=== PATIENT | female | born 1995 | race Caucasian/White ===

== ENCOUNTER → 2025-01-13 | Outpatient (CLI) | payer OTHER, SELFPAY ==
[2025-01-16 19:08] LABS: Chlamydia By Nucleic Acid AMP Negative (Negative); Gonococcus By Nucleic Acid AMP Negative (Negative)
== END | disposition home or self-care (01) ==
LOC: LABSPEC 15:41
PROVIDERS: PCP Family Medicine; Referring Provider Advanced Practice Midwife; Visit Provider Advanced Practice Midwife
DX: Z34.00 Encounter for supervision of normal first pregnancy, unspecified trimester (principal)
CPT/HCPCS: 87086; 87491; 87591

== ENCOUNTER → 2025-02-02 | Outpatient (CLI) | payer OTHER, SELFPAY ==
[2025-02-02 12:18] LABS: Absolute Lymphocyte Count 1.51 X10^3/uL (0.83-4.51); Absolute Neutrophil Count 4.3 X10^3/uL (2.0-7.7); Basophil# 0.02 X10^3/uL; Basophil% 0.3 % (0-1); Eosinophils% 4.6 % (0-5); Hematocrit 35.3 % (37-47); Hemoglobin 12.1 g/dL (12.0-15.0); Lymphocyte # 1.51 X10^3/ul (0.83-4.51); Lymphocyte % 23.1 % (19-41); Mean Corp Hgb Conc 34.3 g/dL (32-36); Mean Corpuscular Hgb 30.3 pg (27.0-32.0); Mean Corpuscular Volume 88.5 fL (81-99); Mean Platelet Vol. 11.1 fl (6.2-12.0); Monocyte% 6.1 % (0-10); NRBC Flagged by Analyzer 0 % (0-5); Neutrophil # 4.28 X10^3/uL (2.7-7.7); Neutrophil % 65.6 % (47-70); Platelet Count 242 K/mm3 (150-450); RBC Distribution Width CV 12.4 % (11.6-14.6); RBC Distribution Width SD 39.9 fl (35.1-43.9); Red Blood Count 3.99 M/mm3 (4.2-5.4); White Blood Count 6.5 K/mm3 (4.4-11.0)
[2025-02-02 13:26] LABS: HIV Nonreactive (Nonreactive); Hepatitis B Surface Antigen Nonreactive (Nonreactive); Hepatitis C Antibody Nonreactive (Nonreactive); Rubella IgG REAC (Nonreactive); Syphilis Antibodies Nonreactive (Nonreactive)
== END | disposition home or self-care (01) ==
LOC: BWCLAB 09:38
PROVIDERS: PCP Family Medicine; Referring Provider Advanced Practice Midwife; Visit Provider Advanced Practice Midwife
DX: Z34.00 Encounter for supervision of normal first pregnancy, unspecified trimester (principal)
CPT/HCPCS: 36415; 85025; 86703; 86762; 86780; 86803; 86850; 86900; 86901; 87340

== ENCOUNTER → 2025-02-17 | Outpatient (CLI) | payer OTHER, SELFPAY | END | disposition home or self-care (01) | LOC: BWCLAB 10:08 | PROVIDERS: PCP Family Medicine; Referring Provider Advanced Practice Midwife; Visit Provider Advanced Practice Midwife | DX: Z34.01 Encounter for supervision of normal first pregnancy, first trimester (principal) | CPT/HCPCS: 36415 ==

== ENCOUNTER → 2025-06-05 | Outpatient (CLI) | payer OTHER, SELFPAY ==
[2025-06-05 17:08] LABS: Hematocrit 34.5 % (37-47); Hemoglobin 11.7 g/dL (12.0-15.0); Immature Granulocytes Count 0.040 X10^3/uL (0.0-0.0); Mean Corp Hgb Conc 33.9 g/dL (32-36); Mean Corpuscular Volume 89.8 fL (81-99); Mean Platelet Vol. 11.3 fl (6.2-12.0); NRBC Flagged by Analyzer 0 % (0-5); Platelet Count 238 K/mm3 (150-450); RBC Distribution Width CV 13.0 % (11.6-14.6); RBC Distribution Width SD 42.2 fl (35.1-43.9); Red Blood Count 3.84 M/mm3 (4.2-5.4); White Blood Count 9.4 K/mm3 (4.4-11.0)
[2025-06-05 18:05] LABS: Glucose Challenge Gest 1H 50g 142 mg/dL (70-140); HIV Nonreactive (Nonreactive); Syphilis Antibodies Nonreactive (Nonreactive)
== END | disposition home or self-care (01) ==
PROVIDERS: PCP Family Medicine; Visit Provider Nurse Practitioner Women's Health
DX: O26.892 Other specified pregnancy related conditions, second trimester (principal); Z67.91 Unspecified blood type, Rh negative; Z3A.00 Weeks of gestation of pregnancy not specified
CPT/HCPCS: 36415; 82950; 85025; 86703; 86780; 86850; 86900; 86901

== ENCOUNTER → 2025-06-15 | Outpatient (CLI) | payer OTHER, SELFPAY ==
--- OUTSIDE RECORDS SUMMARY | 2025-06-15 06:59 | XMS RPT_ITS | CCD ---
Author Organization [facility] Care Team Providers Care Classroom Technology Coach Name Role Phone Laura Nina MD Primary Care Provider LAURA NINA Primary Care Unavailable CAROL SHELBY Attending Unavailable LAURA NINA Primary Care Unavailable Amrit ROTHMAN, Dr. Laura Michel Primary Care Provider Dr. Laura Nina MD Referring Provider Monika Cui CNM Attending Provider Monika Cui CNM Referring Provider Dr. Tanisha Pena MD Attending Provider [phone] JOSE ALBERTO PRADO Attending Unavailable TANISHA PENA Referring UnavailLAURA Mosquera Primary Care Unavailable Dr. Joie Bonner DO Attending Provider Flores REHMAN-Jasmine Renee Attending Provider Dr. Laura Nina MD Primary Care Provider Dr. Laura Nina MD Referring Provider Monika Cui CNM Attending Provider Monika Cui CNM Referring Provider [phone] Monika Cui Attending Unavailable Laura Nina Primary Care Unavailable NinaLaura Referring Unavailable NinaLaura Primary Care Unavailable Tanisha Pena Attending Unavailable Laura Nina Referring Unavailable Laura Nina Primary Care Unavailable Joie Bonner Attending Unavailabl e NinaLaura Referring Unavailable Nina, Laura Marilu Primary Care Unavailable Flores SHERIFF DEPUTYJasmine Attending Unavailable Laura Nina Referring Unavailable NinaLaura Primary Care Unavailable Monika Cui Referring Unavailable Monika Cui Attending Unavailable Care Physician, No Primary Primary Care Unava ilable Flores SHERIFF DEPUTY, Jasmine Attending Unavailable Bath SHERIFF DEPUTY, Jasmine Referring Unavailable Flores SHERIFF DEPUTYJasmine Attending Unavailable Laura Nina Primary Care Unavailable Monika Cui Referring Unavailable Laura Nina Primary Care Unavailable Monika Cui Attending Unavailable Monika Cui Referring Unavailable Laura Nina Primary Care Unavailable Monika Cui Attending Unavailable Laura Nina K Primary Care Unavailable Flores REHMAN, Jasmine Attending Unavailable Laura Nina K Referring Unavailable Monika Cui Attending Unavailable Laura Nina Referring Unavailable NinaLaura K Primary Care Unavailable Allergies Allergy Classification Reported Allergen(s) Allergy Type Date of Onset Reaction(s) Facility Pollen (1 source) Grass pollen Substance Allergy 8 Intolerance [facility] Work Phone: Thiopental (1 source) Thiopental Drug Allergy 3 Other: See Comments [facility] (12 sources) Grass pollen; Translations: [GRASS POLLEN] Drug Intolerance 8 Intolerance [facility] Work Phone: Comment on above: Reaction Itchy eye, sneezing, itchy throat, slight facial swelling (11 sources) Thiopental; Translations: [THIOPENTAL] Drug Allergy 3 Other: See Comments [facility] Comment on above: Reaction Itchy eye, sneezing, itchy throat, slight facial swelling (6 sources) tea tree Allergy to substance 5 Swelling [facility] (1 source) Thiopental Drug Allergy 5 [facility] Repository (1 source) tea tree Drug allergy (disorder) 5 [facility] Repository Medications Current Medications Medication Drug Class(es) Dates Sig (Normalized) Sig (Original) amoxicillin 875 mg / clavulanate 125 mg oral tablet (2 sources) Penicillin-class Antibacterial Start: 05-20-2024 End: 05-30-2024 take 1 tablet by mouth twice daily amoxicillin-clavula sylvia potassium (AUGMENTIN) 875-125 mg per tablet Indications: Dog bite, initial encounter Take 1 tablet by mouth two times a day for 10 days. 20 tablet 0 05/20/2024 05/30/2024 Active Ethinyl Estradiol / norgestimate (6 sources) Progestin, Estrogen Start: 07-18-2022 End: 05-30-2024 take 1 tablet by mouth once daily norgestimate 0.25 mg-ethinyl estradiol 35 mcg (SPRINTEC) 0.25-35 mg-mcg per tablet Indications: Surveillance for control, oral contraceptives Take 1 tablet by mouth once daily. 84 tablet 4 07/18/2022 05/30/2024 Discontinued (Other) Start: 07-18-2022 take 1 tablet by howard th once daily norgestimate 0.25 mg-ethinyl estradiol 35 mcg (SPRINTEC) 0.25-35 mg-mcg per tablet Indications: Surveillance for control, oral contraceptives Take 1 tablet by mouth once daily. 84 tablet 4 07/18/2022 Active Start: 07-09-2021 End: 07-18-2022 take 1 tablet by mouth once daily norgestimate 0.25 mg-ethinyl estradiol 35 mcg (SPRINTEC) 0.25-35 mg-mcg per tablet Indications: Surveillance for control, oral contraceptives Take 1 tablet by mouth once daily. 3 Package 4 07/09/2021 07/18/2022 Discontinued Comment on above: Take 1 tablet by howard th once daily. fluconazole 150 mg oral tablet (4 sources) Azole Antifungal Start: 07-21-20 End: 05-30-20 fluconazole (DIFLUCAN) 150 mg tablet Take 1 tablet today, then a 2nd tablet in 72 hours, and 3rd tablet in another 72 hours. 3 tablet 0 07/21/2022 05/30/2024 Discontinued (Other) Comment on above: Take 1 tablet today, then a 2nd tablet in 72 hours, and 3rd tablet in another 72 hours. fluticasone propionate 0.05 mg/actuat metered dose nasal spray (5 sources) Corticosteroid Start: 04-09-20 take 1 spray(s) nasal route twice daily fluticasone (FLONASE) 50 mcg/actuation nasal spray Use 1 [place] in each nostril two times a day. 0 04/09/2022 Active Comment on above: Use 1 [place] in each nostril twice daily. metroNIDAZOLE 500 mg oral tablet (1 source) Nitroimidazole Antimicrobial Start: 07-21-20 End: 07-28-20 take 1 tablet by mouth twice daily metroNIDAZOLE (FLAGYL) 500 mg tablet Take 1 tablet by mouth twice daily for 7 days. 14 tablet 0 07/21/2022 07/28/2022 Active Comment on above: Take 1 tablet by howard twice daily for 7 days. Multivit 57-Kbpf-Gcmczx 1-Dha (Pnv-Dha) 27 mg iron-1 mg -300 mg capsule (6 sources) Start: 01-03-20 Multivit 69-Oyoa-Jmiuty 1-Dha (Pnv-Dha) 27 mg iron-1 mg -300 mg capsule Active NMA PO January 03, 2025 1:00am Multivitamin capsule (5 sources) take 1 capsule by mouth once daily Multivitamin capsule Take 1 capsule by mouth once daily. 0 Active Comment on above: [facility] Completed/Discontinued Medications Medication Drug Class(es) Dates Sig (Normalized) Sig (Original) cefprozil 500 mg oral tablet (6 sources) Cephalosporin Antibacterial Start: 01-16-2014 End: 01-03-2025 take 1 tablet by mouth every twelve hours Cefprozil 500 MG tablet Discontinued 500 mg PO Q12H January 16, 2014 1:00am January 03, 2025 9:27am Norgestrel-Ethiny l Estradiol 1 EACH tablet (6 sources) Start: 01-16-2014 End: 01-03-2025 Norgestrel-Ethinyl Estradiol 1 EACH tablet Discontinued 1 NMA PO DAILY January 16, 2014 1:00am January 03, 2025 9:26am Problems Active Problems Problem Classification Problem Date Documented Date Episodic/Chronic Cancer of cervix (5 sources) Atypical squamous cells of undetermined significance on cervical Papanicolaou smear; Translations: [Atypical squamous cells of undetermined significance on cytologic smear of cervix (ASC-US)] Onset: 07-31-2022 Episodic Contraceptive and procreative management (1 source) Oral contraception; Translations: [Encounter for surveillance of contraceptive pills] Episodic E Codes: Natural/environment (1 source) Dog bite - wound; Translations: [Bitten by dog, initial encounter] 05-20-2024 Episodic Other complications of (20 sources) RhD negative; Translations: [Other specified related conditions, unspecified trimester] 02-02-2025 Episodic Comment on above: 28 week rhogam 28 week rhogam. Fetu s is RhD negative per NIPT. Fetus is RhD negativ e per NIPT. Other complications of (1 source) Other specified related conditions, second trimester; Translations: [Other specified related conditions, second trimester] Onset: 06-08-2025 Episodic Other female genital disorders (1 source) Vaginal discharge; Translations: [Other specified noninflammatory disorders of vagina] Episodic Other injuries and conditions due to external causes (1 source) Puncture wound - injury; Translations: [Other injury of unspecified body region, initial encounter] 05-20-2024 Episodic Other and delivery including normal (20 sources) Normal ; Translations: [Encounter for supervision of normal first , unspecified trimester] Onset: 02-17-2025 02-02-2025 Episodic Comment on above: PRR, , ALFREDITO , Shar discussed NIPT & Car rier testing -undecided NIPT low risk. Anato my nl. PRR, , ALFREDITO boy, Shar Other screening for suspected conditions (not mental disorders or infectious disease) (3 sources) Patient encounter status; Translations: [Encounter for screening for malignant neoplasm of cervix] Onset: 06-06-2025 Episodic Residual codes; unclassified (1 source) Unspecified blood type, Rh negative; Translations: [Unspecified blood type, Rh negative] Onset: 06-05-2025 Episodic Residual codes; unclassified (1 source) 29 weeks gestation of ; Translations: [29 weeks gestation of ] Onset: 06-05-2025 Episodic Residual codes; unclassified (1 source) 25 weeks gestation of ; Translations: [25 weeks gestation of ] Onset: 05-10-2025 Episodic Past or Other Problems Problem Classification Problem Date Documented Da te Episodic/Chronic Other complications of (1 source) Other specified related conditions, unspecified trimester; Translations: [Other specified related conditions, unspecified trimester] Onset: 02-17-2025 Episodic Residual codes; unclassified (1 source) 13 weeks gestation of ; Translations: [13 weeks gestation of ] Onset: 02-17-2025 Episodic Residual codes; unclassified (1 source) Less than 8 weeks gestation of ; Translations: [Less than 8 weeks gestation of ] Onset: 01-13-2025 Episodic Results Test Name Value Interpretation Reference Range Facility Absolute lymphocyte countOrd ered By: Jasmine Tanner on 06-05-2025 Lymphocytes Auto (Unsp spec) [#/Vol] 1.51 10*3/uL 0.83-4.51 [facility] Absolute neutrophil countOrd ered By: Jasmine Tanner on 06-05-2025 Neutrophils (Bld) [#/Vol] 7.4 10*3/uL 2.0-7.7 [facility] Automated lymphocyte count a s percentage of total leukocytesOrdered By: Jasmine Tanner on 06-05-2025 Lymphocytes/100 WBC Auto (Unsp spec) 16.1 % Low 19-41 [facility] Basophil percentageOrdered B y: Jasmine Tanner on 06-05-2025 Basophils/100 WBC (Bld) 0.4 % 0-1 [facility] CBC W/Diff, Automatedon Absolute Lymph 1.51 X10 3/uL Normal 0.83-4.51 [facility] Comment on above: Performed By: #### L 501.0250, L509.8002, BTS, L100.0100, L3890.6006 ####[facility] [address] [place], [address] Absolute Neut 7.4 X10 3/uL Normal 2.0-7.7 [facility] Comment on above: Performed By: #### L 501.0250, L509.8002, BTS, L100.0100, L3890.6006 ####[facility] [address] [place], [address] Basophils/100 WBC (Bld) 0.4 % Normal 0-1 [facility] Comment on above: Performed By: #### L 501.0250, L509.8002, BTS, L100.0100, L3890.6006 ####[facility] [address] [place], [address] Eosinophils/100 WBC (Bld) 0.3 % Normal 0-5 [facility] Comment on above: Performed By: #### L 501.0250, L509.8002, BTS, L100.0100, L3890.6006 ####[facility] [address] [place], [address] Erythrocyte distribution width (RBC) [Ratio] 13.0 % Normal 11.6-14.6 [facility] Comment on above: Performed By: #### L 501.0250, L509.8002, BTS, L100.0100, L3890.6006 ####[facility] [address] [place], [address] Hematocrit (Bld) [Volume fraction] 34.5 % Low 37-47 [facility] Comment on above: Performed By: #### L 501.0250, L509.8002, BTS, L100.0100, L3890.6006 ####[facility] [address] [place], [address] Hemoglobin (Bld) [Mass/Vol] 11.7 g/dL Low 12.0-15.0 [facility] Comment on above: Performed By: #### L 501.0250, L509.8002, BTS, L100.0100, L3890.6006 ####[facility] [address] [place], [address] IG% 0.400 Normal 0.0-0.9 [facility] Comment on above: Result Comment: IG% - Immature Granulocytes (promyelocytes, myelocytes and metamyelocytes) > 1% indicates that a LEFT SHIFT is Present. Performed By: #### L 501.0250, L509.8002, BTS, L100.0100, L3890.6006 ####[facility] [address] [place], [address] Lymphocytes/100 WBC (Bld) 16.1 % Low 19-41 [facility] Comment on above: Performed By: #### L 501.0250, L509.8002, BTS, L100.0100, L3890.6006 ####[facility] [address] [place], [address] MCH (RBC) [Entitic mass] 30.5 pg Normal 27.0-32.0 [facility] Comment on above: Performed By: #### L 501.0250, L509.8002, BTS, L100.0100, L3890.6006 ####[facility] [address] [place], [address] MCHC (RBC) [Mass/Vol] 33.9 g/dL Normal 32-36 [facility] Comment on above: Performed By: #### L 501.0250, L509.8002, BTS, L100.0100, L3890.6006 ####[facility] [address] [place], [address] MCV (RBC) [Entitic vol] 89.8 fL Normal 81-99 [facility] Comment on above: Performed By: #### L 501.0250, L509.8002, BTS, L100.0100, L3890.6006 ####[facility] [address] [place], [address] Monocytes/100 WBC (Bld) 4.1 % Normal 0-10 [facility] Comment on above: Performed By: #### L 501.0250, L509.8002, BTS, L100.0100, L3890.6006 ####[facility] [address] [place], [address] Neutrophils/100 WBC (Bld) 78.7 % High 47-70 [facility] Comment on above: Performed By: #### L 501.0250, L509.8002, BTS, L100.0100, L3890.6006 ####[facility] [address] [place], [address] Nucleated RBC (Bld) [#/Vol] 0 10*3/uL Normal 0-5 [facility] Comment on above: Performed By: #### L 501.0250, L509.8002, BTS, L100.0100, L3890.6006 ####[facility] [address] [place], [address] Platelet mean volume (Bld) [Entitic vol] 11.3 fL Normal 6.2-12.0 [facility] Comment on above: Performed By: #### L 501.0250, L509.8002, BTS, L100.0100, L3890.6006 ####[facility] [address] [place], [address] Platelets (Bld) [#/Vol] 238 10*3/uL Normal 150-450 [facility] Comment on above: Performed By: #### L 501.0250, L509.8002, BTS, L100.0100, L3890.6006 ####[facility] [address] [place], [address] RBC (Bld) [#/Vol] 3.84 10*6/uL Low 4.2-5.4 [facility] Comment on above: Performed By: #### L 501.0250, L509.8002, BTS, L100.0100, L3890.6006 ####[facility] [address] [place], [address] RDW SD 42.2 fl Normal 35.1-43.9 [facility] Comment on above: Performed By: #### L 501.0250, L509.8002, BTS, L100.0100, L3890.6006 ####[facility] [address] [place], [address] WBC (Bld) [#/Vol] 9.4 10*3/uL Normal 4.4-11.0 [facility] Comment on above: Performed By: #### L 501.0250, L509.8002, BTS, L100.0100, L3890.6006 ####[facility] [address] [place], [place], [id number] Eosinophil percentageOrdered By: Jasmine Tanner on 06-05-2025 Eosinophils/100 WBC (Bld) 0.3 % 0-5 [facility] Erythrocyte distribution wid th ratioOrdered By: Jasmine Tanner on 06-05-2025 Erythrocyte distribution width (RBC) [Ratio] 13.0 % 11.6-14.6 [facility] Erythrocyte distribution wid th standard deviationOrdered By: [facility] on 06-05-2025 Erythrocyte distribution width (RBC) [Ratio] 42.2 fl 35.1-43.9 [facility] Glucose Challenge Gest 1H 50 terell 06-05-2025 GLU GEST 50g 1H 142 mg/dL High 70-140 [facility] Comment on above: Performed By: #### L 501.0250, L509.8002, BTS, L100.0100, L3890.6006 ####[facility] [address] [place], [place], [id number] Glucose measurement at 2 mckenzie rs post-dose gestational glucose tolerance testOrdered By: Jasmine Tanner on 06-05-2025 Glucose [Mass/Vol] 142 mg/dL High 70-140 [facility] HIVon 06-05-2025 HIV Non-Reactive Normal Nonreactive [facility] Comment on above: Result Comment: Non- Reactive Reactive Repeatedly reactive samples must be confirmed according to CDC recommended confirmatory algorithms. The subresults for either HIVAG or AHIV can be used as an aid in the selection of the confirmation algorithm for reactive samples. Send out specimens with Reactive results to [facility] for confirmation. Order the HIV antibody detection and differentiation: lc#[id number] Performed By: #### L 501.0250, L509.8002, BTS, L100.0100, L3890.6006 ####[facility] [address] [place], [place], [id number] Hematocrit Auto (Bld) [Volum e fraction]Ordered By: Jasmine Tanner on 06-05-2025 Hematocrit (Bld) [Volume fraction] 34.5 % Low 37-47 [facility] Hemoglobin measurementOrdere d By: Jasmine Tanner on 06-05-2025 Hemoglobin (Bld) [Mass/Vol] 11.7 g/dL Low 12.0-15.0 [facility] Immature granulocytes/100 WB C Auto (Bld)Ordered By: Jasmine Tanner on 06-05-2025 Immature granulocytes/100 WBC (Bld) 0.400 % 0.0-0.9 [facility] Comment on above: IG% - Immature Granu locytes (promyelocytes, myelocytes and metamyelocytes) > 1% indicates that a LEFT SHIFT is Present. MCV (mean corpuscular volume ) determinationOrdered By: Jasmine Tanner on 06-05-2025 MCV (RBC) [Entitic vol] 89.8 fL 81-99 [facility] Mean corpuscular hemoglobin (MCH) determinationOrdered By: Jasmine Tanner on 06-05-2025 MCH (RBC) [Entitic mass] 30.5 pg 27.0-32.0 [facility] Mean corpuscular hemoglobin concentration (MCHC) determinationOrdered By: Jasmine Tanner on 06-05-2025 MCHC (RBC) [Mass/Vol] 33.9 g/dL 32-36 [facility] Mean platelet volume determi nationOrdered By: Jasmine Tanner on 06-05-2025 Platelet mean volume (Bld) [Entitic vol] 11.3 fL 6.2-12.0 [facility] Monocyte percentageOrdered B y: Jasmine Tanner on 06-05-2025 Monocytes/100 WBC (Bld) 4.1 % 0-10 [facility] Neutrophil percentageOrdered By: Jasmine Tanner on 06-05-2025 Neutrophils/100 WBC (Bld) 78.7 % High 47-70 [facility] No Panel InformationOrdered By: Jasmine Tanner on 06-05-2025 HIV (1&2) Antibody Non-Reactive Nonreactive [facility] Comment on above: Non-ReactiveReactive Repeatedly reactive samples must be confirmed according to CDC recommended confirmatory algorithms. The subresults for either HIVAG or AHIV can be used as an aid in the selection of the confirmation algorithm for reactive samples.Send out specimens with Reactive results to [facility] for confirmation.Order the HIV antibody detection and differentiation: #[id number] Nucleated red blood cell per centageOrdered By: Jasmine Tanner on 06-05-2025 Nucleated RBC/100 WBC (Bld) [Ratio] 0 % 0-5 [facility] Appraisal Coordinator Office Visit Reporton 06-05-2025 Appraisal Coordinator Office Visit Report [facility] [address], [address] [place] [address] OFFICE VISIT Date of Service: 06/05/25 MR#: [id number] Acct: [id number] Name: WENDIE VELEZ Rep #: [id number] : 1995 Provider: FELICE Calero ams Age/Sex: 29/F [place] [facility] [place]: Signed Intake Vital Signs 04/11/25 10:10 05/10/25 11:31 06/05/25 14:21 Height 5 ft 7 in 5 ft 7 in 5 ft 7 in Weight: 202 lb 4 oz BMI 31.6 BP 117/79 Intake Visit Reasons: 28wk ob/glucose Chief Complaint: 28wk OB 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: No Is patient in pain?: No Allergies grass pollen Allergy (Intermediate, Verified 06/05/25 14:21) Swelling tea tree Allergy (Intermediate, Verified 06/05/25 14:21) Swelling thiopental (From thiopental sodium) Adverse Reaction (Severe, Verified 06/05/25 14:21) Other Medications ???Medication ???Instructions ???Recorded ???Confirmed ???Type multivitamin no.47-iron fum 27 cap PO 01/03/25 06/05/25 History mg-folate no.1 1 mg-dha 300 mg capsule (PNV-DHA) Last Menstrual Period: 11/19/24 : No Have you fallen in the past year?: No PFSH PFSH Medical History History of HPV infection Hx of abnormal cervical Pap smear Surgical History History of colposcopy H/O sinus surgery [place] teeth extracted History of tonsillectomy Family History Grandfather Cancer, Onset Age: 85 Maternal- lymphoma Grandmother Alzheimer's dementia, Onset Age: 80 Maternal Grandfather Cancer, Onset Age: 80 Paternal- skin cancer Aunt Diabetes Paternal -Type 1 Breast cancer, Onset Age: 48 Paternal- Triple negative- Not genetic Mother Family history of miscarriage 1 early miscarriage and one @ 16wk- unknown reasons Social History adopted: No household members: spouse housing: house current occupational status: employed 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/hazards: No pets and animals: Yes (Cats outside- Avoiding litterbox) pets and animals: cat(s), dog(s) and horse(s) history of recent travel: Yes ([place] in November) out of state: Yes out of country: No sexually active: Yes Smoking Status: Never smoker alcohol intake: current alcohol intake frequency: holidays/special occasions only details: Not while substance use type: does not use well-balanced diet: daily or most days caffeine: No eating out: 1-3 times/week during the past year weight has: remained stable what type of physical activity do you participate in: other details: Horse back riding 1 hour daily frequency: daily duration: 45-60 minutes/day rajat/worship: Moravian seatbelt use: always do you feel safe at home: Yes additional social history: -[place]- [employer]es by [employer] History 1 Elective abortions Hx Para 0 Spontaneous abortions Hx # Term Pregnancies Ectopic pregnancies Hx # Pregnancies Multiple births # of living children HPI 28wk ob/glucose Details: WENDIE VELEZ is a 29 year old who presents for routine OB visit. OB Visit ALFREDITO Calculator Estimated Delivery Date Method Current WG Current Estimate 08/20/25 Ultrasound #1 29w 1d Other Estimates 08/26/25 LMP (Certain) 28w 2d Expected Delivery Route/Plan Labor Preferences- CB/BF classes: scheduled labor support person: Shar labor intervention preferences: [] pain management options preferred: limited but open to epidural cut cord/dad catch: yes : yes PP control planned: discussed discussed possible routes of delivery and associated risks: [] special requests: [] Specific Issue/Plans Covid status: [] Flu vaccine: [] Tdap vaccine: [] Rhogam: RH neg for mom and baby, NA LARC form signed: yes Problem list reviewed and updated with the most current plan of care details and appropriate orders placed. Relevant counseling for the gestational age provided. Continue routine care and follow up unless otherwise noted in visit notes/problem list details Initial Weight: 192 lb Date -???-???-???-???-?? ?-???-???-???-???-? ??-???-???- EGA Weight BP Urine Prot -???-???-???-???-?? ?-???-???-???-???-? ??-???-???- Glucose FHR FuHt Pres Dilation -???-???-???-???-?? ?-???-???-???-???-? ??-???-???- Effaced St Visit Note 01/13/25 -???-???-???-???-?? ?-???-???-???-???-? ??-???-???- 8w 5d 192 lb 8 oz (+8 oz) 120/77 -???-???-???-???-?? ?-???-???-???-???-? ??-???-???- 171 -???-???-???-???-?? ?-???-???-???-???-? ??-???-???- KW- CRL not cons with dates. ALFREDITO changed. NIPT done KW- CRL not cons with da (more content not included)... Normal [facility] Platelet countOrdered By: Carlos Alberto Tanner on 06-05-2025 Platelets (Bld) [#/Vol] 238 10*3/uL 150-450 [facility] RBC Auto (Bld) [#/Vol]Ordere d By: Jasmine Tanner on 06-05-2025 RBC (Bld) [#/Vol] 3.84 10*6/uL Low 4.2-5.4 [facility] Syphilis Antibodieson 2024 Syphilis Abs Non-Reactive Normal Nonreactive [facility] Comment on above: Performed By: #### L 501.0250, L509.8002, BTS, L100.0100, L3890.6006 ####[facility] [address] [place], [address] Type AND Screenon 06-05-2025 Ab SCREEN GEL Negative Normal [facility] Comment on above: Order Comment: PN Performed By: #### L 501.0250, L509.8002, BTS, L100.0100, L3890.6006 ####[facility] [address] [place], [address] White blood cell (WBC) count Ordered By: Jasmine Tanner on 06-05-2025 WBC (Bld) [#/Vol] 9.4 10*3/uL 4.4-11.0 [facility] - Chemistry and C hemistry - challengeOrdered By: Jasmine Tanner on 05-10-2025 Glucose Ql (U) Negative [facility] Laboratory - UrinalysisOrder ed By: Jasmine Tanner on 05-10-2025 Protein Ql (U) Negative [facility] Appraisal Coordinator Office Visit Reporton 05-10-2025 Appraisal Coordinator Office Visit Report [facility], [address] [place] [address] OFFICE VISIT Date of Service: 05/10/25 MR#: [id number] Acct: [id number] Name: WENDIE VELEZ Rep #: [id number] 2 : 1995 Provider: URSULA carroll Age/Sex: 29/F [place] [facility] [place]: Signed Intake Vital Signs 04/11/25 10:10 06/11/25 11:31 Height 5 ft 7 in 5 ft 7 in Weight: 199 lb 2 oz BMI 31.1 BP 116/68 Intake Visit Reasons: 24 WK OB Chief Complaint: 24 Week OB 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: No Is patient in pain?: No Allergies grass pollen Allergy (Intermediate, Verified 05/10/25 11:32) Swelling tea tree Allergy (Intermediate, Verified 05/10/25 11:32) Swelling thiopental (From thiopental sodium) Adverse Reaction (Severe, Verified 05/10/25 11:32) Other Medications ???Medication ???Instructions ???Recorded ???Confirmed ???Type multivitamin no.47-iron fum 27 cap PO 01/03/25 05/10/25 History mg-folate no.1 1 mg-dha 300 mg capsule (PNV-DHA) Last Menstrual Period: 11/19/24 Zika: Zika virus screening: Negative : Yes PFSH PFSH Medical History History of HPV infection Hx of abnormal cervical Pap smear Surgical History History of colposcopy H/O sinus surgery [place] teeth extracted History of tonsillectomy Family History Grandfather Cancer, Onset Age: 85 Maternal- lymphoma Grandmother Alzheimer's dementia, Onset Age: 80 Maternal Grandfather Cancer, Onset Age: 80 Paternal- skin cancer Aunt Diabetes Paternal -Type 1 Breast cancer, Onset Age: 48 Paternal- Triple negative- Not genetic Mother Family history of miscarriage 1 early miscarriage and one @ 16wk- unknown reasons Social History adopted: No household members: spouse housing: house current occupational status: employed 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/hazards: No pets and animals: Yes (Cats outside- Avoiding litterbox) pets and animals: cat(s), dog(s) and horse(s) history of recent travel: Yes ([place] in November) out of state: Yes out of country: No sexually active: Yes Smoking Status: Never smoker alcohol intake: current alcohol intake frequency: holidays/special occasions only details: Not while substance use type: does not use well-balanced diet: daily or most days caffeine: No eating out: 1-3 times/week during the past year weight has: remained stable what type of physical activity do you participate in: other details: Horse back riding 1 hour daily frequency: daily duration: 45-60 minutes/day rajat/worship: Moravian seatbelt use: always do you feel safe at home: Yes additional social history: -[place] by [employer] History 1 Elective abortions Hx Para 0 Spontaneous abortions Hx # Term Pregnancies Ectopic pregnancies Hx # Pregnancies Multiple births # of living children HPI 24 WK OB Details: WENDIE VELEZ is a 29 year old who presents for routine OB visit. OB Visit ALFREDITO Calculator Estimated Delivery Date Method Current WG Current Estimate 08/20/25 Ultrasound #1 25w 3d Other Estimates 08/26/25 LMP (Certain) 24w 4d Expected Delivery Route/Plan Labor Preferences- CB/BF classes: scheduled labor support person: Shar labor intervention preferences: [] pain management options preferred: limited but open to epidural cut cord/dad catch: yes : yes PP control planned: discussed discussed possible routes of delivery and associated risks: [] special requests: [] Specific Issue/Plans Covid status: [] Flu vaccine: [] Tdap vaccine: [] Rhogam: RH neg for mom and baby, NA LARC form signed: yes Problem list reviewed and updated with the most current plan of care details and appropriate orders placed. Relevant counseling for the gestational age provided. Continue routine care and follow up unless otherwise noted in visit notes/problem list details Initial Weight: 192 lb Date -???-???-???-???-?? ?-???-???-???-???-? ??-???-???- EGA Weight BP Urine Prot -???-???-???-???-?? ?-???-???-???-???-? ??-???-???- Glucose FHR FuHt Pres Dilation -???-???-???-???-?? ?-???-???-???-???-? ??-???-???- Effaced St Visit Note 01/13/25 -???-???-???-???-?? ?-???-???-???-???-? ??-???-???- 8w 5d 192 lb 8 oz (+8 oz) 120/77 -???-???-???-???-?? ?-???-???-???-???-? ??-???-???- 171 -???-???-???-???-?? ?-???-???-???-???-? ??-???-???- KW- CRL not cons with dates. ALFREDITO changed. NIPT done KW- CRL not cons with dates. ALFREDITO c (more content not included)... Normal [facility] Laboratory - Chemistry and C hemistry - challengeOrdered By: Jasmine Tanner on 04-11-2025 Glucose Ql (U) Negative [facility] Laboratory - UrinalysisOrder ed By: Jasmine Tanner on 04-11-2025 Protein Ql (U) Negative [facility] Appraisal Coordinator Office Visit Reporton 04-11-2025 Appraisal Coordinator Office Visit Report [facility] [address], [address] [place] [address] OFFICE VISIT Date of Service: 04/11/25 MR#: [id number] Acct: [id number] Name: WENDIE VELEZ Rep #: [id number] 9 : 1995 Provider: URSULA Mosquera ingyusuf Age/Sex: 29/F [place] [facility] [place]: Signed Intake Vital Signs 02/17/25 09:31 03/16/25 09:45 04/11/25 10:10 Height 5 ft 7 in 5 ft 7 in 5 ft 7 in Weight: 197 lb BMI 30.8 BP 118/78 Intake Visit Reasons: 20wk ob Chief Complaint: 20 Week OB 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: No Is patient in pain?: No Allergies grass pollen Allergy (Intermediate, Verified 04/11/25 10:17) Swelling tea tree Allergy (Intermediate, Verified 04/11/25 10:17) Swelling thiopental (From thiopental sodium) Adverse Reaction (Severe, Verified 04/11/25 10:17) Other Medications ???Medication ???Instructions ???Recorded ???Confirmed ???Type multivitamin no.47-iron fum 27 cap PO 01/03/25 04/11/25 History mg-folate no.1 1 mg-dha 300 mg capsule (PNV-DHA) Last Menstrual Period: 11/19/24 Zika: Zika virus screening: Negative : No PFSH PFSH Medical History History of HPV infection Hx of abnormal cervical Pap smear Surgical History History of colposcopy H/O sinus surgery [place] teeth extracted History of tonsillectomy Family History Grandfather Cancer, Onset Age: 85 Maternal- lymphoma Grandmother Alzheimer's dementia, Onset Age: 80 Maternal Grandfather Cancer, Onset Age: 80 Paternal- skin cancer Aunt Diabetes Paternal -Type 1 Breast cancer, Onset Age: 48 Paternal- Triple negative- Not genetic Mother Family history of miscarriage 1 early miscarriage and one @ 16wk- unknown reasons Social History adopted: No household members: spouse housing: house current occupational status: employed 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/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: No pets and animals: Yes (Cats outside- Avoiding litterbox) pets and animals: cat(s), dog(s) and horse(s) history of recent travel: Yes ([place] in November) out of state: Yes out of country: No sexually active: Yes Smoking Status: Never smoker alcohol intake: current alcohol intake frequency: holidays/special occasions only details: Not while substance use type: does not use well-balanced diet: daily or most days caffeine: No eating out: 1-3 times/week during the past year weight has: remained stable what type of physical activity do you participate in: other details: Horse back riding 1 hour daily frequency: daily duration: 45-60 minutes/day rajat/worship: Moravian seatbelt use: always do you feel safe at home: Yes additional social history: -[place]- [place]es by [employer] History 1 Elective abortions Hx Para 0 Spontaneous abortions Hx # Term Pregnancies Ectopic pregnancies Hx # Pregnancies Multiple births # of living children HPI 20wk ob Details: WENDIE VELEZ is a 29 year old who presents for routine OB visit. OB Visit ALFREDITO Calculator Estimated Delivery Date Method Current WG Current Estimate 08/20/25 Ultrasound #1 21w 2d Other Estimates 08/26/25 LMP (Certain) 20w 3d Expected Delivery Route/Plan Labor Preferences- CB/BF classes: [] labor support person: [] labor intervention preferences: [] pain management options preferred: [] cut cord/dad catch: [] : [] PP control planned: [] discussed possible routes of delivery and associated risks: [] special requests: [] Specific Issue/Plans Covid status: [] Flu vaccine: [] Tdap vaccine: [] Rhogam: [] LARC form signed: [] Problem list reviewed and updated with the most current plan of care details and appropriate orders placed. Relevant counseling for the gestational age provided. Continue routine care and follow up unless otherwise noted in visit notes/problem list details Initial Weight: 192 lb Date -???-???-???-???-?? ?-???-???-???-???-? ??-???-???- EGA Weight BP Urine Prot -???-???-???-???-?? ?-???-???-???-???-? ??-???-???- Glucose FHR FuHt Pres Dilation -???-???-???-???-?? ?-???-???-???-???-? ??-???-???- Effaced St Visit Note 01/13/25 -???-???-???-???-?? ?-???-???-???-???-? ??-???-???- 8w 5d 192 lb 8 oz (+8 oz) 120/77 -???-???-???-???-?? ?-???-???-???-???-? ??-???-???- 171 -???-???-???-???-?? ?-???-???-???-???-? ??-???-???- KW- CRL not cons with dates. ALFREDITO changed. NIPT done KW- CRL not cons with dates. ALFREDITO c hanged. NIPT ordered. 02/17/25 -???-???-???-? (more content not included)... Normal [facility] Appraisal Coordinator Office Visit Reporton 03-16-2025 Appraisal Coordinator Office Visit Report [facility] [address], [address] [place] [address] OFFICE VISIT Date of Service: 03/16/25 MR#: [id number] Acct: [id number] Name: WENDIE VELEZ Rep #: [id number] 3 : 1995 Provider: Dr. Joie Saldaña DO Age/Sex: 29/F [place] [facility] [place] Status: Signed Intake Vital Signs 02/17/25 09:31 03/16/25 09:45 Height 5 ft 7 in 5 ft 7 in Weight: 191 lb 6 oz 195 lb 8 oz BMI 29.9 30.6 BP 109/76 115/71 Intake Visit Reasons: 16wk ob Chief Complaint: 16 Week OB 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: No Is patient in pain?: No Allergies grass pollen Allergy (Intermediate, Verified 03/16/25 09:45) Swelling tea tree Allergy (Intermediate, Verified 03/16/25 09:45) Swelling thiopental (From thiopental sodium) Adverse Reaction (Severe, Verified 03/16/25 09:45) Other Medications ???Medication ???Instructions ???Recorded ???Confirmed ???Type multivitamin no.47-iron fum 27 cap PO 01/03/25 03/16/25 History mg-folate no.1 1 mg-dha 300 mg capsule (PNV-DHA) Last Menstrual Period: 11/19/24 Zika: Zika virus screening: Negative : No PFSH PFSH Medical History History of HPV infection Hx of abnormal cervical Pap smear Surgical History History of colposcopy H/O sinus surgery [place] teeth extracted History of tonsillectomy Family History Grandfather Cancer, Onset Age: 85 Maternal- lymphoma Grandmother Alzheimer's dementia, Onset Age: 80 Maternal Grandfather Cancer, Onset Age: 80 Paternal- skin cancer Aunt Diabetes Paternal -Type 1 Breast cancer, Onset Age: 48 Paternal- Triple negative- Not genetic Mother Family history of miscarriage 1 early miscarriage and one @ 16wk- unknown reasons Social History adopted: No household members: spouse housing: house current occupational status: employed 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/hazards: No pets and animals: Yes (Cats outside- Avoiding litterbox) pets and animals: cat(s), dog(s) and horse(s) history of recent travel: Yes ([place] in November) out of state: Yes out of country: No sexually active: Yes Smoking Status: Never smoker alcohol intake: current alcohol intake frequency: holidays/special occasions only details: Not while substance use type: does not use well-balanced diet: daily or most days caffeine: No eating out: 1-3 times/week during the past year weight has: remained stable what type of physical activity do you participate in: other details: Horse back riding 1 hour daily frequency: daily duration: 45-60 minutes/day rajat/worship: Moravian seatbelt use: always do you feel safe at home: Yes additional social history: -[place]- Goes by [employer] History 1 Elective abortions Hx Para 0 Spontaneous abortions Hx # Term Pregnancies Ectopic pregnancies Hx # Pregnancies Multiple births # of living children HPI 16wk ob Details: WENDIE VELEZ is a 29 year old who presents for routine OB visit. OB Visit ALFREDITO Calculator Estimated Delivery Date Method Current WG Current Estimate 08/20/25 Ultrasound #1 17w 4d Other Estimates 08/26/25 LMP (Certain) 16w 5d Expected Delivery Route/Plan Labor Preferences- CB/BF classes: [] labor support person: [] labor intervention preferences: [] pain management options preferred: [] cut cord/dad catch: [] : [] PP control planned: [] discussed possible routes of delivery and associated risks: [] special requests: [] Specific Issue/Plans Covid status: [] Flu vaccine: [] Tdap vaccine: [] Rhogam: [] LARC form signed: [] Problem list reviewed and updated with the most current plan of care details and appropriate orders placed. Relevant counseling for the gestational age provided. Continue routine care and follow up unless otherwise noted in visit notes/problem list details Initial Weight: 192 lb Date -???-???-???-???-?? ?-???-???-???-???-? ??-???-???- EGA Weight BP Urine Prot -???-???-???-???-?? ?-???-???-???-???-? ??-???-???- Glucose FHR FuHt Pres Dilation -???-???-???-???-?? ?-???-???-???-???-? ??-???-???- Effaced St Visit Note 01/13/25 -???-???-???-???-?? ?-???-???-???-???-? ??-???-???- 8w 5d 192 lb 8 oz (+8 oz) 120/77 -???-???-???-???-?? ?-???-???-???-???-? ??-???-???- 171 -???-???-???-???-?? ?-???-???-???-???-? ??-???-???- KW- CRL not cons with dates. ALFREDITO changed. NIPT done KW- CRL not cons with dates. ALFREDITO c hanged. NIPT ordered. 02/17/25 -?? (more content not included)... Normal [facility] Laboratory - Chemistry and C hemistry - challengeOrdered By: Tanisha Pena on 02-17-2025 Glucose Ql (U) Negative [facility] Laboratory - UrinalysisOrder ed By: Tanisha Pena on 02-17-2025 Protein Ql (U) Negative [facility] Miscellaneous procedureOrder ed By: Monika Cui on 02-17-2025 Miscellaneous Test Comment SEE SCANNED REPORT [facility] NATERAon 02-17-2025 NATURA SEE SCANNED REPORT Normal [facility] Comment on above: Performed By: #### L 900.0098 ####[facility] [address] [place], [address] Appraisal Coordinator Office Visit Reporton 02-17-2025 Appraisal Coordinator Office Visit Report [facility] [address], [address] [place] [address] OFFICE VISIT Date of Service: 02/17/25 MR#: [id number] Acct: [id number] Name: WENIDE VELEZ Rep #: [id number] 2 : 1995 Provider: Dr. Tanisha coyle MD Age/Sex: 29/F [place] [facility] [place]: Signed Intake Vital Signs 12/20/24 16:13 01/13/25 12:59 02/17/25 09:31 Height 5 ft 7 in 5 ft 7 in 5 ft 7 in Weight: 192 lb 8 oz 191 lb 6 oz BMI 30.1 29.9 BP 120/77 109/76 Intake Visit Reasons: 12wk OB 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: No Is patient in pain?: No Feel stressed/tense/nerv ous/anxious/difficu lty sleeping: not at all Allergies grass pollen Allergy (Intermediate, Verified 02/17/25 09:34) Swelling tea tree Allergy (Intermediate, Verified 02/17/25 09:34) Swelling thiopental (From thiopental sodium) Adverse Reaction (Severe, Verified 02/17/25 09:34) Other Medications ???Medication ???Instructions ???Recorded ???Confirmed ???Type multivitamin no.47-iron fum 27 cap PO 01/03/25 02/17/25 History mg-folate no.1 1 mg-dha 300 mg capsule (PNV-DHA) Last Menstrual Period: 11/19/24 Zika: Zika virus screening: Negative : No PFSH PFSH Medical History History of HPV infection Hx of abnormal cervical Pap smear Surgical History History of colposcopy H/O sinus surgery [place] teeth extracted History of tonsillectomy Family History Grandfather Cancer, Onset Age: 85 Maternal- lymphoma Grandmother Alzheimer's dementia, Onset Age: 80 Maternal Grandfather Cancer, Onset Age: 80 Paternal- skin cancer Aunt Diabetes Paternal -Type 1 Breast cancer, Onset Age: 48 Paternal- Triple negative- Not genetic Mother Family history of miscarriage 1 early miscarriage and one @ 16wk- unknown reasons Social History adopted: No household members: spouse housing: house current occupational status: employed 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/hazards: No pets and animals: Yes (Cats outside- Avoiding litterbox) pets and animals: cat(s), dog(s) and horse(s) history of recent travel: Yes ([place] in November) out of state: Yes out of country: No sexually active: Yes Smoking Status: Never smoker alcohol intake: current alcohol intake frequency: holidays/special occasions only details: Not while substance use type: does not use well-balanced diet: daily or most days caffeine: No eating out: 1-3 times/week during the past year weight has: remained stable what type of physical activity do you participate in: other details: Horse back riding 1 hour daily frequency: daily duration: 45-60 minutes/day rajta/worship: Moravian seatbelt use: always do you feel safe at home: Yes additional social history: -[place]- Goes by [employer] History 1 Elective abortions Hx Para 0 Spontaneous abortions Hx # Term Pregnancies Ectopic pregnancies Hx # Pregnancies Multiple births # of living children HPI 12wk OB Details: WENDIE VELEZ is a 29 year old who presents for routine OB visit. OB Visit ALFREDITO Calculator Estimated Delivery Date Method Current WG Current Estimate 08/20/25 Ultrasound #1 13w 5d Other Estimates 08/26/25 LMP (Certain) 12w 6d Expected Delivery Route/Plan Labor Preferences- CB/BF classes: [] labor support person: [] labor intervention preferences: [] pain management options preferred: [] cut cord/dad catch: [] : [] PP control planned: [] discussed possible routes of delivery and associated risks: [] special requests: [] Specific Issue/Plans Covid status: [] Flu vaccine: [] Tdap vaccine: [] Rhogam: [] LARC form signed: [] Problem list reviewed and updated with the most current plan of care details and appropriate orders placed. Relevant counseling for the gestational age provided. Continue routine care and follow up unless otherwise noted in visit notes/problem list details Initial Weight: 192 lb Date -???-???-???-???-?? ?-???-???-???-???-? ??-???-???- EGA Weight BP Urine Prot -???-???-???-???-?? ?-???-???-???-???-? ??-???-???- Glucose FHR FuHt Pres Dilation -???-???-???-???-?? ?-???-???-???-???-? ??-???-???- Effaced St Visit Note 01/13/25 -???-???-???-???-?? ?-???-???-???-???-? ??-???-???- 8w 5d 192 lb 8 oz (+8 oz) 120/77 -???-???-???-???-?? ?-???-???-???-???-? ??-???-???- 171 -???-???-???-???-?? ?-???-???-???-???-? ??-???-???- KW- CRL not cons with dates. ALFREDITO changed. NIPT done KW- CRL not cons with da (more content not included)... Normal [facility] Absolute lymphocyte countOrd ered By: Monika See on 02-02-2025 Lymphocytes Auto (Unsp spec) [#/Vol] 1.51 10*3/uL 0.83-4.51 [facility] Absolute neutrophil countOrd ered By: Monika Cui on 02-02-2025 Neutrophils (Bld) [#/Vol] 4.3 10*3/uL 2.0-7.7 [facility] Automated lymphocyte count a s percentage of total leukocytesOrdered By: Monika Cui on 02-02-2025 Lymphocytes/100 WBC Auto (Unsp spec) 23.1 % 19-41 [facility] Basophil percentageOrdered B y: Monika Cui on 02-02-2025 Basophils/100 WBC (Bld) 0.3 % 0-1 [facility] CBC W/Diff, Automatedon 03-0 Absolute Lymph 1.51 X10 3/uL Normal 0.83-4.51 [facility] Comment on above: Performed By: #### L 509.8002, BTS, L100.0100, L3890.6102, L509.4006, L3890.6301, L3890.6006 #### [facility] [place], [address] Absolute Neut 4.3 X10 3/uL Normal 2.0-7.7 [facility] Comment on above: Performed By: #### L 509.8002, BTS, L100.0100, L3890.6102, L509.4006, L3890.6301, L3890.6006 #### [facility] [address] [place], [address] Basophils/100 WBC (Bld) 0.3 % Normal 0-1 [facility] Comment on above: Performed By: #### L 509.8002, BTS, L100.0100, L3890.6102, L509.4006, L3890.6301, L3890.6006 #### [facility] [address] [place], [address] Eosinophils/100 WBC (Bld) 4.6 % Normal 0-5 [facility] Comment on above: Performed By: #### L 509.8002, BTS, L100.0100, L3890.6102, L509.4006, L3890.6301, L3890.6006 #### [facility] [address] [place], [address] Erythrocyte distribution width (RBC) [Ratio] 12.4 % Normal 11.6-14.6 [facility] Comment on above: Performed By: #### L 509.8002, BTS, L100.0100, L3890.6102, L509.4006, L3890.6301, L3890.6006 #### [facility] [address] [place], [address] Hematocrit (Bld) [Volume fraction] 35.3 % Low 37-47 [facility] Comment on above: Performed By: #### L 509.8002, BTS, L100.0100, L3890.6102, L509.4006, L3890.6301, L3890.6006 #### [facility] [address] [place], [address] Hemoglobin (Bld) [Mass/Vol] 12.1 g/dL Normal 12.0-15.0 [facility] Comment on above: Performed By: #### L 509.8002, BTS, L100.0100, L3890.6102, L509.4006, L3890.6301, L3890.6006 #### [facility] [address] [place], [address] IG% 0.300 Normal 0.0-0.9 [facility] Comment on above: Result Comment: IG% - Immature Granulocytes (promyelocytes, myelocytes and metamyelocytes) > 1% indicates that a LEFT SHIFT is Present. Performed By: #### L 509.8002, BTS, L100.0100, L3890.6102, L509.4006, L3890.6301, L3890.6006 #### [facility] [address] [place], [address] Lymphocytes/100 WBC (Bld) 23.1 % Normal 19-41 [facility] Comment on above: Performed By: #### L 509.8002, BTS, L100.0100, L3890.6102, L509.4006, L3890.6301, L3890.6006 #### [facility] [address] [place], [address] MCH (RBC) [Entitic mass] 30.3 pg Normal 27.0-32.0 [facility] Comment on above: Performed By: #### L 509.8002, BTS, L100.0100, L3890.6102, L509.4006, L3890.6301, L3890.6006 #### [facility] [address] [place], [address] MCHC (RBC) [Mass/Vol] 34.3 g/dL Normal 32-36 [facility] Comment on above: Performed By: #### L 509.8002, BTS, L100.0100, L3890.6102, L509.4006, L3890.6301, L3890.6006 #### [facility] [address] [place], [address] MCV (RBC) [Entitic vol] 88.5 fL Normal 81-99 [facility] Comment on above: Performed By: #### L 509.8002, BTS, L100.0100, L3890.6102, L509.4006, L3890.6301, L3890.6006 #### [facility] [address] [place], [address] Monocytes/100 WBC (Bld) 6.1 % Normal 0-10 [facility] Comment on above: Performed By: #### L 509.8002, BTS, L100.0100, L3890.6102, L509.4006, L3890.6301, L3890.6006 #### [facility] Laboratory [address] [facility] [place], [address] Neutrophils/100 WBC (Bld) 65.6 % Normal 47-70 [facility] Comment on above: Performed By: #### L 509.8002, BTS, L100.0100, L3890.6102, L509.4006, L3890.6301, L3890.6006 #### [facility] Laboratory [address] [place], [address] Nucleated RBC (Bld) [#/Vol] 0 10*3/uL Normal 0-5 [facility] Comment on above: Performed By: #### L 509.8002, BTS, L100.0100, L3890.6102, L509.4006, L3890.6301, L3890.6006 #### [facility] [address] [facility] [place], [address] Platelet mean volume (Bld) [Entitic vol] 11.1 fL Normal 6.2-12.0 [facility] Comment on above: Performed By: #### L 509.8002, BTS, L100.0100, L3890.6102, L509.4006, L3890.6301, L3890.6006 #### [facility] [address] [place], [address] Platelets (Bld) [#/Vol] 242 10*3/uL Normal 150-450 [facility] Comment on above: Performed By: #### L 509.8002, BTS, L100.0100, L3890.6102, L509.4006, L3890.6301, L3890.6006 #### [facility] [address] [place], [address] RBC (Bld) [#/Vol] 3.99 10*6/uL Low 4.2-5.4 [facility] Comment on above: Performed By: #### L 509.8002, BTS, L100.0100, L3890.6102, L509.4006, L3890.6301, L3890.6006 #### [facility] [address] [place], [address] RDW SD 39.9 fl Normal 35.1-43.9 [facility] Comment on above: Performed By: #### L 509.8002, BTS, L100.0100, L3890.6102, L509.4006, L3890.6301, L3890.6006 #### [facility] [address] [place], [address] WBC (Bld) [#/Vol] 6.5 10*3/uL Normal 4.4-11.0 [facility] Comment on above: Performed By: #### L 509.8002, BTS, L100.0100, L3890.6102, L509.4006, L3890.6301, L3890.6006 #### [facility] [address] [place], [address] Eosinophil percentageOrdered By: Monika Cui on 02-02-2025 Eosinophils/100 WBC (Bld) 4.6 % 0-5 [facility] Erythrocyte distribution wid th ratioOrdered By: Monika Cui on 02-02-2025 Erythrocyte distribution width (RBC) [Ratio] 12.4 % 11.6-14.6 [facility] Erythrocyte distribution wid th standard deviationOrdered By: Monika Cui on 02-02-2025 Erythrocyte distribution width (RBC) [Entitic vol] 39.9 fL 35.1-43.9 [facility] Erythrocyte distribution width (RBC) [Ratio] 39.9 fl 35.1-43.9 [facility] HBV surface Ag Ql (S)Ordered By: Monika Cui on 02-02-2025 Hepatitis B Surface Antigen Non-Reactive Nonreactive [facility] Comment on above: Reactive: Presumptiv e evidence of HBV. Repeatedly reactive samples must be confirmed using a neutralization test ([employer]eloWe[employer] HBsAg Confirmatory Test)Non-Reactive: HBsAg not detected; does not exclude the possibility of exposure to HBV Hematocrit Auto (Bld) [Volum e fraction]Ordered By: Monika Cui on 02-02-2025 Hematocrit (Bld) [Volume fraction] 35.3 % Low 37-47 [facility] Hemoglobin measurementOrdere d By: Monika Cui on 02-02-2025 Hemoglobin (Bld) [Mass/Vol] 12.1 g/dL 12.0-15.0 [facility] Hepatitis C antibodyOrdered By: Monika Cui on 02-02-2025 Hepatitis C Antibody Non-Reactive Nonreactive [facility] Comment on above: Reactive: Presumptiv e evidence of antibodies to HCV. Follow CDC recommendations for supplemental testing.Non-Reactive: Antibodies to HCV were not detected; does not exclude the possibility of exposure to HCVReactive Results are presumptive evidence of antibodies to HCV. Follow CDC recommendations for supplemental testing.Order confirmation testing: HCV Quant by PCR testing - HCVPCR #[id number] Non Reactive: < 0.8 Equivocal: >/= 0.8 to < 1.0 Reactive: >/= 1.0The CDC requires that a reactive/equivocal HCV antibody result be sent out for confirmation. HCV Quant by PCR testing. Immature granulocytes/100 WB C Auto (Bld)Ordered By: Monika Cui on 02-02-2025 Immature granulocytes/100 WBC (Bld) 0.300 % 0.0-0.9 [facility] Comment on above: IG% - Immature Granu locytes (promyelocytes, myelocytes and metamyelocytes) > 1% indicates that a LEFT SHIFT is Present. L3890.6006on 02-02-2025 HIV Non-Reactive Normal Nonreactive [facility] Comment on above: Result Comment: Non- Reactive Reactive Repeatedly reactive samples must be confirmed according to CDC recommended confirmatory algorithms. The subresults for either HIVAG or AHIV can be used as an aid in the selection of the confirmation algorithm for reactive samples. Send out specimens with Reactive results to [facility] for confirmation. Order the HIV antibody detection and differentiation: lc#[id number] Performed By: #### L 509.8002, BTS, L100.0100, L3890.6102, L509.4006, L3890.6301, L3890.6006 #### [facility] [address] [place], [place], [id number] L3890.6102on 02-02-2025 HEP B Surf Ag Non-Reactive Normal Nonreactive [facility] Comment on above: Result Comment: Reac tive: Presumptive evidence of HBV. Repeatedly reactive samples must be confirmed using a neutralization test (Ele[employer]ys HBsAg Confirmatory Test) Non-Reactive: HBsAg not detected; does not exclude the possibility of exposure to HBV Performed By: #### L 509.8002, BTS, L100.0100, L3890.6102, L509.4006, L3890.6301, L3890.6006 ####[facility] [address] [facility] [place], [place], [address] L3890.6301on 02-02-2025 Hepatitis C Ab Non-Reactive Normal Nonreactive [facility] Comment on above: Result Comment: Reac tive: Presumptive evidence of antibodies to HCV. Follow CDC recommendations for supplemental testing. Non-Reactive: Antibodies to HCV were not detected; does not exclude the possibility of exposure to HCV Reactive Results are presumptive evidence of antibodies to HCV. Follow CDC recommendations for supplemental testing. Order confirmation testing: HCV Quant by PCR testing - HCVPCR lc#[id number] Non Reactive: < 0.8 Equivocal: >/= 0.8 to < 1.0 Reactive: >/= 1.0 The [facility] requires that a reactive/equivocal HCV antibody result be sent out for confirmation. HCV Quant by PCR testing. Performed By: #### L 509.8002, BTS, L100.0100, L3890.6102, L509.4006, L3890.6301, L3890.6006 ####[facility] [address] [facility] [place], [address] L509.4006on 02-02-2025 Rubella IgG REAC Normal Nonreactive [facility] Comment on above: Result Comment: Anti body Result: Interpretation Non-Reactive: Non-Immune Reactive: Immune The following results were obtained with the Elecsys Rubella IgG assay. Results from assays of other manufacturers cannot be used interchangeably. Performed By: #### L 509.8002, BTS, L100.0100, L3890.6102, L509.4006, L3890.6301, L3890.6006 #### [facility] [address] [place], [address] L509.8002on 02-02-2025 Syphilis Abs Non-Reactive Normal Nonreactive [facility] Comment on above: Performed By: #### L 509.8002, BTS, L100.0100, L3890.6102, L509.4006, L3890.6301, L3890.6006 #### [facility] [address] [place], [address] Laboratory - Microbiology an d Antimicrobial susceptibilityOrdered By: Monika Cui on 02-02-2025 HBV surface Ag Ql (S) Non-Reactive Nonreactive [facility] Comment on above: Reactive: Presumptiv e evidence of HBV. Repeatedly reactive samples must be confirmed using a neutralization test (Elecsys HBsAg Confirmatory Test)Non-Reactive: HBsAg not detected; does not exclude the possibility of exposure to HBV Lymphocytes Auto (Unsp spec) [#/Vol]Ordered By: Monika Cui on 02-02-2025 Lymphocytes (Bld) [#/Vol] 1.51 10*3/uL 0.83-4.5 1 [facility] Lymphocytes/100 WBC Auto (Un sp spec)Ordered By: Monika Cui on 02-02-2025 Lymphocytes/100 WBC (Bld) 23.1 % 19-41 [facility] MCV (mean corpuscular volume ) determinationOrdered By: Monika Cui on 02-02-2025 MCV (RBC) [Entitic vol] 88.5 fL 81-99 [facility] Mean corpuscular hemoglobin (MCH) determinationOrdered By: Monika Cui on 02-02-2025 MCH (RBC) [Entitic mass] 30.3 pg 27.0-32.0 [facility] Mean corpuscular hemoglobin concentration (MCHC) determinationOrdered By: Monika Cui on 02-02-2025 MCHC (RBC) [Mass/Vol] 34.3 g/dL 32-36 [facility] Mean platelet volume determi nationOrdered By: Monika Cui on 02-02-2025 Platelet mean volume (Bld) [Entitic vol] 11.1 fL 6.2-12.0 [facility] Monocyte percentageOrdered B y: Monika Cui on 02-02-2025 Monocytes/100 WBC (Bld) 6.1 % 0-10 [facility] Neutrophil percentageOrdered By: Monika Cui on 02-02-2025 Neutrophils/100 WBC (Bld) 65.6 % 47-70 [facility] No Panel InformationOrdered By: Monika Cui on 02-02-2025 HIV (1&2) Antibody Non-Reactive Nonreactive [facility] Comment on above: Non-ReactiveReactive Repeatedly reactive samples must be confirmed according to CDC recommended confirmatory algorithms. The subresults for either HIVAG or AHIV can be used as an aid in the selection of the confirmation algorithm for reactive samples.Send out specimens with Reactive results to [facility] for confirmation.Order the HIV antibody detection and differentiation: #[id number] Nucleated red blood cell per centageOrdered By: Monika Cui on 02-02-2025 Nucleated RBC/100 WBC (Bld) [Ratio] 0 % 0-5 [facility] Platelet countOrdered By: Panchito Cui on 02-02-2025 Platelets (Bld) [#/Vol] 242 10*3/uL 150-450 [facility] RBC Auto (Bld) [#/Vol]Ordere d By: Monika Cui on 02-02-2025 RBC (Bld) [#/Vol] 3.99 10*6/uL Low 4.2-5.4 [facility] Rubella immune status determ ination by IgG antibody assayOrdered By: Monika Cui on 02-02-2025 Rubella IgG Antibody REAC Nonreactive [facility] Comment on above: Antibody Result: Int erpretationNon-Reactive: Non-ImmuneReactive: ImmuneThe following results were obtained with the Elecsys Rubella IgG assay. Results from assays of other manufacturers cannot be used interchangeably. T. pallidum abOrdered By: Panchito Cui on 02-02-2025 Syphilis Total Antibody Non-Reactive Nonreactiv e [facility] Type AND Screenon 02-02-2025 Ab SCREEN GEL Negative Normal [facility] Comment on above: Order Comment: PN Performed By: #### L 509.8002, BTS, L100.0100, L3890.6102, L509.4006, L3890.6301, L3890.6006 #### [facility] Laboratory [address] [place], [place], [address] White blood cell (WBC) count Ordered By: Monika Cui on 02-02-2025 WBC (Bld) [#/Vol] 6.5 10*3/uL 4.4-11.0 [facility] Chlamydia/GC ZORAIDA aptimaon CHLAMY,NUC ACID Negative Normal Negative [facility] Comment on above: Performed By: #### M 100.2200, L7000.1800 #### [facility] [address] [place], [place], [address] GC BY NUC ACID Negative Normal Negative [facility] Comment on above: Result Comment: Perf ormed at: =G - [facility] [address] [id number] [employer]: Gissel Hardin MD, Phone: [phone] Performed By: #### M 100.2200, L7000.1800 #### [facility] [address] [place], [place], [address] Urine Cultureon 01-14-2025 URC Culture exhibits no growth. Normal [facility] Comment on above: Performed By: #### M 100.2200, L7000.1800 #### [facility] [address] [place], [place], [address] C. trachomatis rRNA ZORAIDA+prob e Ql (Unsp spec)Ordered By: Monika Cui on 01-13-2025 Chlamydia DNA (ZORAIDA) Negative Negative [facility] Chlamydia trachomatis rRNA d etection by probe and target amplification methodOrdered By: Monika Cui on 01-13-2025 C. trachomatis rRNA ZORAIDA+probe Ql (Unsp spec) Negative Negative [facility] Neisseria gonorrhoeae nuclei c acid detection by amplified probe techniqueOrdered By: Monika Cui on 01-13-2025 N. gonorrhoeae DNA ZORAIDA+probe Ql (Unsp spec) Negative Negative [facility] Comment on above: Performed at: [address] [id number] Director: Gissel Hardin MD, Phone: [phone] Appraisal Coordinator Office Visit Reporton 01-13-2025 Appraisal Coordinator Office Visit Report [facility] [address], [address] [place] [address] OFFICE VISIT Date of Service: 01/13/25 MR#: [id number] Acct: [id number] Name: WENDIE VELEZ Rep #: [id number] : 1995 Provider: FELICE Calero [facility] Age/Sex: 29/F [place] [facility] [place] Status: Signed Intake Vital Signs 01/16/14 08:29 12/20/24 16:13 01/13/25 12:59 Height 5 ft 7 in 5 ft 7 in 5 ft 7 in Weight: 192 lb 8 oz BMI 30.1 BP 120/77 Intake Visit Reasons: NOB LMP 11/19 Chief Complaint: New OB Is patient in pain?: No Allergies grass pollen Allergy (Intermediate, Verified 01/13/25 13:03) Swelling tea tree Allergy (Intermediate, Verified 01/13/25 13:03) Swelling thiopental (From thiopental sodium) Adverse Reaction (Severe, Verified 01/13/25 13:03) Other Medications ???Medication ???Instructions ???Recorded ???Confirmed ???Type multivitamin no.47-iron fum 27 cap PO 01/03/25 01/13/25 History mg-folate no.1 1 mg-dha 300 mg capsule (PNV-DHA) Last Menstrual Period: 11/19/24 : Yes PFSH PFSH Medical History History of HPV infection Hx of abnormal cervical Pap smear Surgical History History of colposcopy H/O sinus surgery [place] teeth extracted History of tonsillectomy Family History Grandfather Cancer, Onset Age: 85 Maternal- lymphoma Grandmother Alzheimer's dementia, Onset Age: 80 Maternal Grandfather Cancer, Onset Age: 80 Paternal- skin cancer Aunt Diabetes Paternal -Type 1 Breast cancer, Onset Age: 48 Paternal- Triple negative- Not genetic Mother Family history of miscarriage 1 early miscarriage and one @ 16wk- unknown reasons Social History adopted: No household members: spouse housing: house service: No current occupational status: employed 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/hazards: No pets and animals: Yes (Cats outside- Avoiding litterbox) pets and animals: cat(s), dog(s) and horse(s) history of recent travel: Yes ([place] in November) out of state: Yes out of country: No sexually active: Yes Smoking Status: Never smoker alcohol intake: current alcohol intake frequency: holidays/special occasions only details: Not while substance use type: does not use well-balanced diet: daily or most days caffeine: No eating out: 1-3 times/week during the past year weight has: remained stable what type of physical activity do you participate in: other details: Horse back riding 1 hour daily frequency: daily duration: 45-60 minutes/day rajat/worship: Moravian seatbelt use: always do you feel safe at home: Yes additional social history: -[place]- [employer]es by [employer] History 1 Elective abortions Hx Para 0 Spontaneous abortions Hx # Term Pregnancies Ectopic pregnancies Hx # Pregnancies Multiple births # of living children HPI NOB LMP 11/19 Details: WENDIE VELEZ is a 29 year old who presents for New OB visit. OB Visit ALFREDITO Calculator Estimated Delivery Date Method Current WG Current Estimate 08/20/25 Ultrasound #1 8w 5d Other Estimates 08/26/25 LMP (Certain) 7w 6d Comments: HIV: Urine Culture: Sequential Screen: NIPT Screen: Estimated Due Date: 08/26/25 Expected Delivery Route/Plan Labor Preferences- CB/BF classes: [] labor support person: [] labor intervention preferences: [] pain management options preferred: [] cut cord/dad catch: [] : [] PP control planned: [] discussed possible routes of delivery and associated risks: [] special requests: [] Specific Issue/Plans Covid status: [] Flu vaccine: [] Tdap vaccine: [] Rhogam: [] LARC form signed: [] Problem list reviewed and updated with the most current plan of care details and appropriate orders placed. Relevant counseling for the gestational age provided. Continue routine care and follow up unless otherwise noted in visit notes/problem list details Initial Weight: 192 lb Date -???-???-???-???-?? ?-???-???-???-???-? ??-???-???- EGA Weight BP Urine Prot -???-???-???-???-?? ?-???-???-???-???-? ??-???-???- Glucose FHR FuHt Pres Dilation -???-???-???-???-?? ?-???-???-???-???-? ??-???-???- Effaced St Visit Note 01/13/25 -???-???-???-???-?? ?-???-???-???-???-? ??-???-???- 8w 5d 192 lb 8 oz (+8 oz) 120/77 -???-???-???-???-?? ?-???-???-???-???-? ??-???-???- 171 -???-???-???-???-?? ?-???-???-???-???-? ??-???-???- KW- CRL not cons with dates. ALFREDITO changed. NIPT done KW- CRL not (more content not included)... Normal [facility] Urine cultureOrdered By: Heriberto Cui on 01-13-2025 Bacteria identified Cx Nom (U) Culture exhibits no growth. [facility] CNOVon 05-30-2024 CNOV Office Visit (OBGYWM) ---- WENDIE VELEZ ([id number]) 1995 F Date Time Provider Department 05/30/24 7:30 AM CAROL SHELBY During your visit today, we recorded the following information about you: Weight Height Last Period 79.4 kg 1.683 m 05/17/24 Carol Shelby, SLUDGE FILTRATION ATTENDANT.UNDERGROUND PRODUCTION FOREPERSON 05/30/2024 8:25 AM Signed Wendie is a 28 year old who presents for an annual gynecologic exam without complaints. Menses: cycles every 28-30 days and 5 days of flow. Contraception:none, not preventing but not trying yet HPV vaccine: Yes Last Pap: 06/2022 ASCUS HPV positive [place] 08/13/2022 benign History of abnormal pap: Yes 2017 abnormal -ASC-H, HPV: HRHPV positive Last mammogram: never Sexually active: Yes History of STDS: HPV Time with current partner: 4 year Patient concerns for STD exposure: No. 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 Pap smear (cervix) PAST SURGICAL HISTORY Procedure Laterality Date PAST SURGICAL HISTORY OF 04/11/2016 extraction of wisdom teeth SINUS SURGERY PROC UNLISTED 10/30/2013 TONSILLECTOMY PRIMARY/SECONDARY VAGINOSCOPY 2021 benign FAMILY HISTORY Problem Relation Age of Onset No Known Problems Mother No Known Problems Father No Known Problems Sister No Known Problems Sister No Known Problems Sister No Known Problems Brother Alzheimer's Disease Maternal Grandmother other (Cancer-Leukema) Maternal Grandfather unknown Prostate Cancer Paternal Grandfather other (Cancer-Basal Cell, CVA) Paternal Grandfather skin other (bone cancer) Paternal Grandfather other (Breast Cancer-53 at dx, BRCA negative) Paternal Aunt rediagnosed in 06/2017 Diabetes Paternal Aunt SOCIAL HISTORY Social History Tobacco Use Smoking status: Never Smokeless tobacco: Never Vaping Use Vaping Use: Never used Substance Use Topics Alcohol use: Yes Comment: Rarely Drug use: No REVIEW OF SYSTEMS Abdomen: No abdominal pain, nausea, vomiting, diarrhea, or constipation. No bloating, early satiety, indigestion, or increased flatulence. Bladder: No dysuria, gross hematuria, urinary frequency, urinary urgency, or incontinence. Breast: No breast lumps, nipple d/c, overlying skin changes, redness or skin retraction. Allergies and current medication updated:Yes EXAM: Ht 5' 6.25 (1.68m) Wt 175 lb (79.4kg) LMP 05/17/2024 BMI 28.02 kg/(m2). GENERAL: pleasant, female in no apparent distress HEENT: Normocephalic, atraumatic, mucus membranes moist, and no lesions NECK: Supple, full range of motion, no adenopathy, and thyroid normal DERMATOLOGY: Normal, without lesions, non-icteric, and non-hirsute BREAST: soft, non-tender, symmetric, no dominant mass, normal nipple-areolar complex, no lymphadenopathy, and no nipple discharge CHEST: Normal inspiratory effort ABDOMEN: soft, non-tender, and no masses PELVIC: external genitalia normal, normal Bartholin's glands, urethra, Purdin's glands, no vulvar lesions, no cervical lesions, good vaginal support, physiologic discharge present, normal appearing perineal body and perianal region BIMANUAL: uterus normal size, shape and consistency, no adnexal masses, and non-tender RECTOVAGINAL: deferred. NEURO: alert and oriented x3,exam grossly non-focal EXTREMITIES: normal ASSESSMENT/PLAN: 1) Health maintenance: Pap done with reflex HPV. Nutrition, exercise and routine health maintenance exams reviewed. HPV vaccine: completed series 2) Contraception: none. Preconception: vitamin with folic acid 0.4 - 1 mg daily. Eat a healthy, balanced diet with daily exercise. Avoid pollutants and exposure to chemicals. Period tracker to predict time of ovulation. If you have PCOS, ovulation trackers are not accurate. Sexual intercourse every other day around ovulation but at least once a week. Healthy sperm can live for one week. Avoid water-based lubricants. You can use Pre-Seed, which is not toxic to sperm. 3) STD screening: Declined STD check. 4) Follow up one year or sooner as needed Carol Shelby APRN.Carol Torres APRN.MARS 05/30/2024 8:08 AM Addendum Preconception: vitamin with folic acid 0.4 - 1 mg daily. Eat a healthy, balanced diet with daily exercise. Avoid pollutants and exposure to chemicals. Period tracker to predict time of ovulation. Sexual intercourse every other day a (more content not included)... Normal [facility] PAP TESTon 05-30-2024 ADEQUACY Satisfactory for interpretation. Normal [facility] Comment on above: Order Comment: Speci men Type: FLUID SPECIMEN Ordering Facility: [facility] Address: [address] [place] [address] Performed By: #### L [id number] #### [facility] CLIA [id number] [address] [place] [address] [place] [address] [place] CASE REPORT Normal [facility] Comment on above: Order Comment: Speci men Type: FLUID SPECIMEN Ordering Facility: [facility] Address: [address] [place] [address] Result Comment: Gyne cologic Cytology Report Case: [id number] Authorizing Provider: Carol Shelby APRN.UNDERGROUND PRODUCTION FOREPERSON Collected: 05/30/2024 08:38 AM Ordering Location: OB/Gynecology Received: 05/30/2024 12:16 PM First Screen: Marlene Calderon, CT, ASCP Rescreen: Yessi Vilchis, CT, ASCP Specimen: Pap Test, ThinPrep, Cervix Performed By: #### L [id number] #### [facility] CLIA [id number] [address] [place] [address] [place] CLINICAL HISTORY, CYTOLOGY, MATERNITY FLOOR SUPERVISOR Routine Exam Normal [facility] Comment on above: Order Comment: Speci men Type: FLUID SPECIMEN Ordering Facility: [facility] Address: [address] [place] [address] Result Comment: Prev ious ASCUS Positive HPV Performed By: #### L [id number] #### [facility] CLIA [id number] [address] [place] [address] [place] FINAL PERFORMING LAB Normal [facility] Comment on above: Order Comment: Speci men Type: FLUID SPECIMEN Ordering Facility: [facility] Address: [address] [place] [address] Result Comment: Tech nical component, school custodian screening performed at [facility], [address] [place] [address] CLIA# [id number] Diagnostic interpretation performed at [facility], [address] [place], [place] [id number] CLIA# [id number] Agency Owner: Serge Martins M.D. Performed By: #### L [id number] #### [facility] CLIA [id number] [address] [place] [address] [place] [place] HPV REFLEX HPV if Atypical [facility] Comment on above: Order Comment: Speci men Type: FLUID SPECIMEN Ordering Facility: [facility] Address: [address] [place] [address] Performed By: #### L [id number] #### [facility] CLIA [id number] [address] [place] [address] [place] INTERPRETATION, CYTOLOGY, MATERNITY FLOOR SUPERVISOR [facility] Comment on above: Order Comment: Speci men Type: FLUID SPECIMEN Ordering Facility: [facility] Address: [address] [place] [address] Result Comment: Nega tive for intraepithelial lesion or malignancy. Performed By: #### L [id number] #### [facility] CLIA [id number] [address] [place] [address] [place] LMP 05/17/2024 Normal [facility] Comment on above: Order Comment: Speci men Type: FLUID SPECIMEN Ordering Facility: [facility] Address: [address] [place] [address] Performed By: #### L [id number] #### [facility] CLIA [id number] [address] [place] [address] [place] PAP DISCLAIMER COMMENT The Pap Smear is a screening test for cervical cancer. False negative results occur with all screening tests, emphasizing the need for rescreening at recommended intervals, and clinical correlation. [facility] Comment on above: Order Comment: Speci men Type: FLUID SPECIMEN Ordering Facility: [facility] Address: [address] [place] [address] Performed By: #### L [id number] #### [facility] CLIA [id number] [address] [place] [address] [place] PAP SPEECH LANGUAGE PATHOLOGIST ASSISTANT COMMENT This specimen has been analyzed by the ThinPrep Imaging System, an automated imaging and review system, which assists the laboratory in evaluating cells on ThinPrep Pap tests. Following automated imaging, selected thompson from every slide are reviewed by a school custodian. [facility] Comment on above: Order Comment: Speci men Type: FLUID SPECIMEN Ordering Facility: [facility] Address: [address] [place] [address] Performed By: #### L [id number] #### [facility] CLIA [id number] [address] [place] [address] [id number] OF [facility] CNOVon 05-20-2024 CNOV Office Visit (UCWSTR) ---- WENDIE VELEZ ([id number]) 1995 F Date Time Provider Department 05/20/24 10:00 AM JAMES DILL [facility] During your visit today, we recorded the following information about you: Temperature Pulse Respiration Blood pressure 97.6 degrees 70/minute 21/minute 110/80 Weight 80 kg James Dill APRN.UNDERGROUND PRODUCTION FOREPERSON 05/20/2024 10:49 AM Signed Subjective Patient came in with complaints of dog bite of right hand. Patient says it was her own dog and she was trying to break them up from fighting. Patient has a bite between pinky and ring finger and between the ring finger and middle finger. Patient denies any numbness tingling or loss of pain. Patient says dogs are up-to-date on shots. The history is provided by the patient. No rack carrier was used. Animal Bite Review of Systems Constitutional: Negative. Skin: Negative. Objective Physical Exam Constitutional: Appearance: Normal appearance. Pulmonary: Effort: Pulmonary effort is normal. Musculoskeletal: Hands: Comments: Patient has 2 puncture wounds in the area marked above. The pinky 1 is slightly more deep than the other 1. Patient does not want a suture at this time. Neurological: Mental Status: She is alert. PAST MEDICAL HISTORY Diagnosis Date Abnormal glandular Papanicolaou smear of cervix 06/2017 Abn. Pap smear (cervix) PAST SURGICAL HISTORY Procedure Laterality Date PAST SURGICAL HISTORY OF 04/11/16 extraction of wisdom teeth SINUS SURGERY PROC UNLISTED 10/2013 TONSILLECTOMY PRIMARY/SECONDARY ALLERGIES Sodium Pentothal [Thiopental] and Grass Pollen MEDICATIONS amoxicillin-clavula sylvia potassium (AUGMENTIN) 875-125 mg per tablet Take 1 tablet by mouth two times a day for 10 days. fluconazole (DIFLUCAN) 150 mg tablet Take 1 tablet today, then a 2nd tablet in 72 hours, and 3rd tablet in another 72 hours. (Patient not taking: Reported on 05/20/2024) fluticasone (FLONASE) 50 mcg/actuation nasal spray Use 1 [place] in each nostril twice daily. (Patient not taking: Reported on 05/20/2024) norgestimate 0.25 mg-ethinyl estradiol 35 mcg (SPRINTEC) 0.25-35 mg-mcg per tablet Take 1 tablet by mouth once daily. (Patient not taking: Reported on 05/20/2024) Multivitamin capsule Take 1 capsule by mouth once daily. (Patient not taking: Reported on 05/20/2024) FAMILY HISTORY Problem Relation Age of Onset No Known Problems Mother No Known Problems Father No Known Problems Sister No Known Problems Sister No Known Problems Sister No Known Problems Brother Alzheimer's Disease Maternal Grandmother other (Cancer-Leukema) Maternal Grandfather unknown Prostate Cancer Paternal Grandfather other (Cancer-Basal Cell, CVA) Paternal Grandfather skin other (bone cancer) Paternal Grandfather other (Breast Cancer-53 at dx, BRCA negative) Paternal Aunt rediagnosed in 06/2017 Diabetes Paternal Aunt Social History Tobacco Use Smoking status: Never Smokeless tobacco: Never Vaping Use Vaping Use: Never used Substance Use Topics Alcohol use: Yes Comment: Rarely Drug use: No ASSESSMENT/PLAN: 1. Dog bite, initial encounter - ICD9: 879.8, E906.0, ICD10: W54.0XXA (primary diagnosis) - AMOXICILLIN 875 MG-POTASSIUM CLAVULANATE 125 MG TABLET - TDAP VACCINE, AGE 7+ YR (ADACEL, BOOSTRIX) 2. Puncture wound - ICD9: 879.8, ICD10: T14.8XXA Patient was educated about proper use of medication and supportive therapies. Patient will soak several times a day in warm Epsom salt soaks to keep it from getting infected. Patient was placed on preventative antibiotics for dog bite. Patient was updated with tetanus. Patient was educated about red flag symptoms and will monitor for signs of worsening and follow-up with primary care if anything changes. Patient was okay with this care plan. James Dill APRN.UNDERGROUND PRODUCTION FOREPERSON Allergies As of Date: 05/20/2024 Noted Allergy Reaction SODIUM PENTOTHAL (THIOPENTAL) 01/19/2013 14 - Other: See Comments Comments: seizure GRASS POLLEN 07/22/2018 5 - Intolerance Comments: Sneezing, Eyes itching, ect... Date Reviewed: 05/20/2024 Reviewed by: Sarah Sanchez MA - Fully Assessed Reason for Visit: Animal Bite [16245] Cmt: Dog bite on right hand this morning Primary Visit Diagnosis:Dog bite, initial encounter [W54.0XXA] Other Visit Diagnosis:Puncture wound [T14.8XXA] Order(s):amoxicilli n-clavulanate potassium (AUGMENTIN) 875-125 mg per tabletTake 1 tablet by mouth two times a day for 10 days.Disp: 20 tabletRfl: 0 TDAP VACCINE, AGE 7+ YR (ADACEL, BOOSTRIX) [[id number]] Order #: [id number] Prescriptions as of 05/20/2024 - amoxicillin-clavula sylvia potassium (AUGMENTIN) 875-125 mg per tablet Take 1 tablet by mouth two times a day for 10 days. - fluconazole (DIFLUCAN) 150 mg tablet Take 1 tablet today, then a 2nd tablet in 72 hours, and 3rd tablet in another 72 hours. - fl (more content not included)... [facility] SURGICAL PATHOLOGYon Case Report Surgical Pathology Report Case: [id number] Authorizing Provider: Hannah Benz MD Collected: 08/13/2022 02:25 PM Ordering Location: OB/Gynecology Received: 08/13/2022 04:15 PM Pathologist: Asher Cardenas MD Specimens: A) - CERVIX BIOPSY, 1 o'clock B) - CERVIX BIOPSY, 3 o'clock C) - ENDOCERVIX CURETTINGS, ECC [facility] Clinical History ASCUS; positive high risk HPV [facility] FINAL DIAGNOSIS A. Cervix, 1:00, biopsy: - Benign transformation zone tissue. B. Cervix, 3:00, biopsy: - Benign transformation zone tissue and squamous epithelium. C. Endocervix, curettage: - Benign endocervical tissue. MJM 08/14/2022 [facility] Gross Description A. CERVIX BIOPSY Received in formalin is one segment of santacruz tissue measuring 0.4 x 0.2 x 0.2 cm. Totally submitted in one cassette. B. CERVIX BIOPSY Received in formalin are two segments of santacruz tissue aggregating to 0.5 x 0.2 x 0.2 cm. Totally submitted in one cassette. C. ENDOCERVIX CURETTINGS Received in formalin is a single segment of santacruz tissue measuring 0.1 x <0.1 x <0.1 cm. Totally submitted in one cassette. Gross examination performed at [facility], [address] [place] [address] [facility] 08/13/2022 11:49 PM [facility] Performing Lab Diagnostic interpretation performed at [facility], [address] [place] [address] CLIA# [id number] Agency Owner: Asher Cardenas M.D. [facility] HCG QUAL UR B/Oon 08-13-2022 status Negative neg - pos [facility] Quality Check Yes [facility] Vital Signs Date Time Vital Sign Value Performing Clinician Facility 06-05-2025 14:21-0400 Body height 170.[address] Laura Nina MD Work Phone: [facility] 06-05-2025 14:21-0400 Body mass index (BMI) [Ratio] 31.6 kg/m2 Dr. Laura Nina MD Work Phone: [facility] 06-05-2025 14:21-0400 Body weight 91.[address] Laura Nina MD Work Phone: [facility] 06-05-2025 14:21-0400 Diastolic blood pressure 79 mm[Hg] Dr. Laura Nina MD Work Phone: [facility] 06-05-2025 14:21-0400 Systolic blood pressure 117 mm[Hg] Dr. Laura Nina MD Work Phone: [facility] 05-10-2025 11:31-0400 Body height 170.[address] Laura Nina MD Work Phone: 9(809)653-939228 [place] [address] 05-10-2025 11:31-0400 Body mass index (BMI) [Ratio] 31.1 kg/m2 Dr. Laura Nina MD Work Phone: 1(952)029-961228 [place] [address] 05-10-2025 11:31-0400 Body weight 90.[address] Laura Nina MD Work Phone: 1(315)048-014228 [place] [address] 05-10-2025 11:31-0400 Diastolic blood pressure 68 mm[Hg] Dr. Laura Nina MD Work Phone: 0(389)866-743128 [place] [address] 05-10-2025 11:31-0400 Systolic blood pressure 116 mm[Hg] Dr. Laura Nina MD Work Phone: 6(466)466-877428 [place] [address] 04-11-2025 10:10-0400 Body height 170.[address] Laura Nina MD Work Phone: 5(778)402-244928 [place] [address] 04-11-2025 10:10-0400 Body mass index (BMI) [Ratio] 30.8 kg/m2 Dr. Laura Nina MD Work Phone: 9(329)622-450828 [place] [address] 04-11-2025 10:10-0400 Body weight 89.[address] Laura Nina MD Work Phone: 2(139)920-258328 [place] [address] 04-11-2025 10:10-0400 Diastolic blood pressure 78 mm[Hg] Dr. Laura Nina MD Work Phone: 6(602)822-168828 [place] [address] 04-11-2025 10:10-0400 Systolic blood pressure 118 mm[Hg] Dr. Laura Nina MD Work Phone: 3(548)694-666028 [place] [address] 03-16-2025 09:45-0400 Body mass index (BMI) [Ratio] 30.6 kg/m2 Dr. Laura Nina MD Work Phone: 3(454)678-247528 [place] [address] 03-16-2025 09:45-0400 Body weight 88.[address] Laura Nina MD Work Phone: 6(156)326-065928 [place] [address] 03-16-2025 09:45-0400 Diastolic blood pressure 71 mm[Hg] Dr. Laura Nina MD Work Phone: 9(545)249-828928 [place] [address] 03-16-2025 09:45-0400 Systolic blood pressure 115 mm[Hg] Dr. Laura Nina MD Work Phone: 6(291)644-662728 [place] [address] 02-17-2025 09:31-0400 Body height 170.[address] Laura Nina MD Work Phone: 5(799)762-100228 [place] [address] 02-17-2025 09:31-0400 Body mass index (BMI) [Ratio] 29.9 kg/m2 Dr. Laura Nina MD Work Phone: 3(486)477-761828 [place] [address] 02-17-2025 09:31-0400 Body weight 86.[address] Laura Nina MD Work Phone: 4(622)372-501028 [place] [address] 02-17-2025 09:31-0400 Diastolic blood pressure 76 mm[Hg] Dr. Laura Nina MD Work Phone: 7(551)422-697428 [place] [address] 02-17-2025 09:31-0400 Systolic blood pressure 109 mm[Hg] Dr. Laura Nina MD Work Phone: 3(876)725-781828 [place] [address] 01-13-2025 12:59-0500 Body height 170.[address] Laura Nina MD Work Phone: 4(878)742-176728 [place] [address] 01-13-2025 12:59-0500 Body mass index (BMI) [Ratio] 30.1 kg/m2 Dr. Laura Nina MD Work Phone: 3(740)045-557928 [place] [address] 01-13-2025 12:59-0500 Body weight 87.[address] Laura Nina MD Work Phone: 7(287)374-551628 [place] [address] 01-13-2025 12:59-0500 Diastolic blood pressure 77 mm[Hg] Dr. Laura Nina MD Work Phone: 8(424)868-037728 [place] [address] 01-13-2025 12:59-0500 Systolic blood pressure 120 mm[Hg] Dr. Laura Nina MD Work Phone: 7(876)905-968328 [place] [address] 05-30-2024 07:55-0400 Body height 168.3 cm Carol Shelby APRN.CNP Work Phone: [facility] 05-30-2024 07:55-0400 Body mass index (BMI) [Ratio] 28.03 kg/m2 Carol Shelby APRN.CNP Work Phone: [facility] 05-30-2024 07:55-0400 Body weight 79.38 kg Carol Jansensusannah RAMIREZ.UNDERGROUND PRODUCTION FOREPERSON Work Phone: [facility] 05-20-2024 10:04-0400 Body mass index (BMI) [Ratio] 28.34 kg/m2 James Dill APRN.UNDERGROUND PRODUCTION FOREPERSON Work Phone: [facility] 05-20-2024 10:04-0400 Body temperature 97.59 [degF] James Dill APRN.UNDERGROUND PRODUCTION FOREPERSON Work Phone: [facility] 05-20-2024 10:04-0400 Body weight 80 kg James Dill APRN.UNDERGROUND PRODUCTION FOREPERSON Work Phone: [facility] 05-20-2024 10:04-0400 Diastolic blood pressure 80 mm[Hg] James Dill APRN.UNDERGROUND PRODUCTION FOREPERSON Work Phone: [facility] 05-20-2024 10:04-0400 Heart rate 70 /min James Dill APRN.UNDERGROUND PRODUCTION FOREPERSON Work Phone: [facility] 05-20-2024 10:04-0400 Respiratory rate 21 /min James Dill APRN.UNDERGROUND PRODUCTION FOREPERSON Work Phone: [facility] 05-20-2024 10:04-0400 SaO2% (BldA) [Mass fraction] 99 % James Dill APRN.UNDERGROUND PRODUCTION FOREPERSON Work Phone: [facility] 05-20-2024 10:04-0400 Systolic blood pressure 110 mm[Hg] James Dill APRN.UNDERGROUND PRODUCTION FOREPERSON Work Phone: [facility] 08-13-2022 13:45-0400 Body weight 75.66 kg Hannah Benz MD Work Phone: [facility] 08-13-2022 13:45-0400 Diastolic blood pressure 70 mm[Hg] Hannah Benz MD Work Phone: [facility] 08-13-2022 13:45-0400 Systolic blood pressure 110 mm[Hg] Hannah Benz MD Work Phone: [facility] 07-18-2022 08:00-0400 Body height 168 cm Carol Shelby APRN.UNDERGROUND PRODUCTION FOREPERSON Work Phone: [facility] 07-18-2022 08:00-0400 Body weight 74.84 kg Carol Jansensusannah RAMIREZ.UNDERGROUND PRODUCTION FOREPERSON Work Phone: [facility] 07-18-2022 08:00-0400 Diastolic blood pressure 70 mm[Hg] Carol Shelby SLUDGE FILTRATION ATTENDANT.UNDERGROUND PRODUCTION FOREPERSON Work Phone: [facility] 07-18-2022 08:00-0400 Systolic blood pressure 100 mm[Hg] Carol Shelby APRN.UNDERGROUND PRODUCTION FOREPERSON Work Phone: [facility] Encounters Encounter Date Encounter Type Care Provider Facility Start: 06-15-2025 ambulatory No Primary Car e Physician Facility:[facility] Start: 06-05-2025 End: 06-05-2025 Patient encounter procedure Monika Cui CNM -[facility] Work Phone: Start: 06-05-2025 End: 06-05-[address] Laura Nina MD Work Phone: -[facility] Start: 06-05-2025 End: 06-05-2025 ambulatory Jasmine Tanner SHERIFF DEPUTY Facility:[facility] Start: 05-10-2025 End: 05-10-2025 Patient encounter procedure Jasmine Tanner SHERIFF DEPUTY-C -[facility] Work Phone: Start: 05-10-2025 End: 05-10-[address] Laura Nina MD Work Phone: [facility] Work Phone: Start: 04-11-2025 End: 04-11-2025 Patient encounter procedure Jasmine Tanner SHERIFF DEPUTY-C -[facility] Work Phone: Start: 04-11-2025 End: 04-11-[address] Laura Nina MD Work Phone: [facility] Work Phone: Start: 03-28-2025 End: 03-28-2025 ambulatory JOSE ALBERTO Rachel PRADO [facility] Start: 03-16-2025 End: 03-16-[address] Joie Bonner DO -[facility] Work Phone: Start: 03-16-2025 End: 03-16-2025 ambulatory Laura Nina Facility:[facility] Start: 02-17-2025 End: 02-17-[address] Tanisha Pena MD -[facility] Work Phone: Start: 02-17-2025 End: 02-17-[address] Laura Nnia MD Work Phone: [facility] Work Phone: Start: 02-17-2025 End: 02-17-2025 ambulatory Laura Nina Facility:[facility] Start: 02-02-2025 End: 02-02-[address] Laura Nina MD Work Phone: [facility] Work Phone: Start: 02-02-2025 End: 02-02-2025 Patient encounter procedure Monika Cui CNM -Lab, [facility] Start: 02-02-2025 End: 02-02-2025 ambulatory Monika Cui Facility:[facility] Start: 01-13-2025 End: 01-13-2025 Patient encounter procedure Monika Cui CNM -Laboratory, [facility] Work Phone: Start: 01-13-2025 End: 01-13-2025 ambulatory Monika Cui Facility:[facility] Start: 01-13-2025 End: 01-13-2025 Patient encounter procedure Monika Cui CNM -[facility] Work Phone: Start: 01-13-2025 End: 01-13-2025 ambulatory Monika Cui Facility:[facility] Start: 05-30-2024 End: 05-30-2024 ambulatory LAURA NINA Facility:[facility] Start: 05-30-2024 End: 05-30-2024 Patient encounter procedure Carol Shelby APRN.UNDERGROUND PRODUCTION FOREPERSON Work Phone: OB/Gynecology Comment on above: Encounter for gyneco logical examination (general) (routine) without abnormal findings (Primary Dx); Papanicolaou smear of cervix with atypical squamous cells of undetermined significance (ASC-US); Screening for cervical cancer Start: 05-30-2024 End: 05-30-2024 Patient encounter status Carol Shelby APRN.UNDERGROUND PRODUCTION FOREPERSON Work Phone: [facility] Start: 05-20-2024 End: 05-20-2024 ambulatory LAURA Michel ROSCOE Facility:[facility] Start: 05-20-2024 End: 05-20-2024 Patient encounter procedure James Dill APRN.UNDERGROUND PRODUCTION FOREPERSON Work Phone: [facility] Comment on above: Dog bite, initial en counter (Primary Dx); Puncture wound Start: 08-13-2022 End: 08-13-2022 Patient encounter procedure Hannah Benz MD Work Phone: OB/Gynecology Comment on above: ASCUS with positive high risk HPV cervical (Primary Dx) Start: 07-21-2022 Telephone encounter Roxana rivera APRN.UNDERGROUND PRODUCTION FOREPERSON Work Phone: OB/Gynecology Comment on above: Results Start: 07-18-2022 End: 07-18-2022 Patient encounter procedure Carol Shelby APRN.UNDERGROUND PRODUCTION FOREPERSON Work Phone: OB/Gynecology Comment on above: Encounter for gyneco logical examination with abnormal finding (Primary Dx); Vaginal discharge; Surveillance for control, oral contraceptives; Encounter for Papanicolaou smear for cervical cancer screening Start: 07-18-2022 End: 07-18-2022 Patient encounter status Carol Shelby APRN.UNDERGROUND PRODUCTION FOREPERSON Work Phone: OB/Gynecology Procedures Date Procedure Procedure Detail Performing Clinician Start: 06-05-2025 Serologic test for syphilis Dr. Laura Nina MD Work Phone: Start: 02-17-[address] Laura corona MD Work Phone: Start: 02-02-2025 Hepatitis C antibody measurement Dr. Laura Nina MD Work Phone: Comment on above: Reactive: Presumptiv e evidence of antibodies to HCV. Follow CDC recommendations for supplemental testing.Non-Reactive: Antibodies to HCV were not detected; does not exclude the possibility of exposure to HCVReactive Results are presumptive evidence of antibodies to HCV. Follow CDC recommendations for supplemental testing.Order confirmation testing: HCV Quant by PCR testing - HCVPCR #[id number] Non Reactive: < 0.8 Equivocal: >/= 0.8 to < 1.0 Reactive: >/= 1.0The CDC requires that a reactive/equivocal HCV antibody result be sent out for confirmation. HCV Quant by PCR testing. Start: 02-02-[address] Laura Nina MD Work Phone: Comment on above: Antibody Result: Int erpretationNon-Reactive: Non- ImmuneReactive: ImmuneThe following results were obtained with the [employer] Rubella IgG assay. Results from assays of other manufacturers cannot be used interchangeably. Start: 02-02-2025 Serologic test for syphilis Dr. Laura Nina MD Work Phone: Start: 01-13-[address] Laura Nina MD Work Phone: Start: 08-13-2022 Urine test visual color cmprsn meths Hannah Benz MD Work Phone: Start: 08-13-2022 SURGICAL PATHOLOGY Hannah Benz MD Work Phone: Plan of Treatment Date Care Activity Detail Author Start: 05-20-2034 Urine microalbumin profile DTaP,Tdap,Td Vaccine (8 - Td or Tdap) [facility] Start: 07-18-2025 PAP TESTING PAP TESTING [facility] Start: 06-05-2025 CBC W Auto Different ial panel - Blood [facility] Start: 06-05-2025 Measurement of gluco se 2 hours after glucose challenge for glucose tolerance test [facility] Start: 06-05-2025 Serologic test for syphilis [facility] Start: 06-05-2025 [facility] Start: 05-31-2025 End: 05-31-2025 Patient encounter procedure 05/31/2025 1:00 PM EDT Office Visit OB/Gynecology [address] [place] [address] Carol Shelby, SLUDGE FILTRATION ATTENDANT.UNDERGROUND PRODUCTION FOREPERSON [address] [place] [address] Annual OB/Gynecology Comment on above: Annual Start: 07-31-2024 Influenza vaccination C [facility] Start: 05-30-2024 End: 05-30-2024 Patient encounter procedure 05/30/2024 7:30 AM EDT Office Visit OB/Gynecology [address] [place] [address] Carol Shelby APRN.UNDERGROUND PRODUCTION FOREPERSON [address] [place] [address] Annual Exam / discuss starting to try to conceive OB/Gynecology Comment on above: Annual Exam / discus s starting to try to conceive Start: 11-30-2023 Behavioral Health Screening Behavioral Health Screening [facility] Start: 07-31-2023 Covid-19 Vaccine () Covid-19 Vaccine () [facility] Start: 07-31-2023 Covid-19 Vaccine ( season) Covid-19 Vaccine ( season) [facility] Start: 07-18-2023 Screening for malign ant neoplasm of cervix Cervical Cancer Screening [facility] Start: 08-19-2022 PAP TESTING PAP TESTING [facility] Start: 07-31-2022 Influenza vaccination INFLUENZA (#1) [facility] Start: 09-04-2021 COVID-19 VACCINE (3 - Booster for Moderna series) COVID-19 VACCINE (3 - Booster for Moderna series) [facility] Start: 2014 Urine microalbumin profile DTAP,TDAP,TD (1 - Tdap) [facility] Start: 2013 HEPATITIS C SCREENING HEPATITIS C [facility] Start: 2013 Hepatitis C screening Hepatitis C [facility] Start: 2013 HIV SCREENING HIV SCREENING [facility] Start: 2013 HIV screening HIV Screening [facility] Start: 02-16-2013 HEPATITIS B (2 of 3 - 3-dose series) HEPATITIS B (2 of 3 - 3-dose series) [facility] Start: 2009 PEDS TO ADULT TRANSI TION ANNUAL ASSESSMENT PEDS TO ADULT TRANSITION ANNUAL ASSESSMENT [facility] Start: 2007 Adult depression screening assessment DEPRESSION SCREENING [facility] Start: 2007 PEDS TO ADULT TRANSI TION INITIAL DISCUSSION PEDS TO ADULT TRANSITION INITIAL DISCUSSION [facility] BACTERIAL VAGINOSIS AMPLIFICATION BACTERIAL VAGINOSIS AMPLIFICATION Lab Routine Vaginal discharge 07/18/2022 8:44 AM EDT [facility] Work Phone: GONZALEZ / TRICHOMONA S AMPLIFICATION GONZALEZ / TRICHOMONAS AMPLIFICATION Lab Routine Vaginal discharge 07/18/2022 8:44 AM EDT [facility] Work Phone: CBC W Auto Different ial panel - Blood [facility] COLPOSCOPY COLPOSCOPY Proce dures Routine ASCUS with positive high risk HPV cervical Ordered: 08/13/2022 [facility] Work Phone: Comment on above: Ordered: 08/13/2022 Erythrocyte mean corpuscular volume determination [facility] Hematocrit [Volume Fraction] of Blood [facility] Hemoglobin [Mass/vol ume] in Blood [facility] Leukocytes [#/volume ] in Blood [facility] Mean corpuscular hemoglobin concentration determination [facility] Mean corpuscular hemoglobin determination [facility] Measurement of gluco se 2 hours after glucose challenge for glucose tolerance test [facility] Neutrophil count [facility] Neutrophil percent differential count [facility] PAP FLUID CERVICAL SCREENING PAP FLUID CERVICAL SCREENING Lab Routine Encounter for gynecological examination with abnormal finding Encounter for Papanicolaou smear for cervical cancer screening 07/18/2022 8:44 AM EDT [facility] Work Phone: PAP TEST PAP TEST Lab Rou javy Encounter for gynecological examination (general) (routine) without abnormal findings Screening for cervical cancer Papanicolaou smear of cervix with atypical squamous cells of undetermined significance (ASC-US) 05/30/2024 8:38 AM EDT [facility] Work Phone: Platelets [#/volume] in Blood [facility] Red blood cell count [facility] Red cell distributio n width determination [facility]ologic [facility] for [facility] Immunizations Immunization Date Immunization Notes Care Provider Fa pradeep 05-20-2024 tetanus toxoid, redu yimi diphtheria toxoid, and acellular pertussis vaccine, adsorbed James Dill APRN.UNDERGROUND PRODUCTION FOREPERSON Work Phone: [facility] 01-19-2013 hepatitis B vaccine, unspecified formulation Carol Shelbysusannah RAMIREZ.UNDERGROUND PRODUCTION FOREPERSON Work Phone: [facility] Payers Date Payer Category Payer Unknown [id number] 2024 Self-pay 2021 Unknown LILLIAN BIANCHI PPO [id number] 2021-Present [phone] [facility] [id number] [place] [address] PPO [id number] 2021 Unknown [id number] 2013 Unknown [id number] 1995 Unknown [id number] Unknown [id number] Unknown [id number] Unknown [id number] Unknown [id number] Unknown [id number] Unknown [id number] Unknown [id number] Unknown [id number] Unknown [id number] Unknown [id number] Unknown [id number] Social History Date Type Detail Facility Start: 08-13-2022 End: 01-03-2025 Tobacco smoking status NHIS Never smoked tobacco [facility] Work Phone: Start: 07-18-2022 End: 05-30-2024 Alcohol intake Current drinker of alcohol (finding) [facility] Start: 07-22-2018 History SDOH Alcohol Comment Rarely [facility] Start: 07-05-2020 History SDOH Social Connections Phone 5 [facility] Start: 07-05-2020 History SDOH Social Connections Get Together 2 [facility] Start: 07-05-2020 History SDOH Social Connections Orthodox 3 [facility] Start: 07-05-2020 History SDOH Social Connections Membership 1 [facility] Start: 07-05-2020 History SDOH Social Connections Living 7 [facility] Start: 07-05-2020 History SDOH Physical Activity DPW 6 [facility] Start: 07-05-2020 History SDOH Physical Activity MPS 15 [facility] Start: 07-05-2020 Education 17 [facility] Start: 1995 Sex Assigned At Female [facility] Start: 06-29-2022 End: 07-09-2022 Exposure to SARS-CoV-2 (event) Not sure [facility] Start: 08-13-2022 Tobacco use and exposure Smokeless tobacco non-user [facility] Start: 07-05-2020 End: 05-30-2024 History of Social function [facility] Start: 07-05-2020 End: 05-30-2024 Social connection and isolation panel [facility] Do you belong to any clubs or organizations such as faith groups, unions, fraternal or athletic groups, or school groups? Yes [facility] Are you now , , , , never or living with a partner? Never [facility] How hard is it for y ou to pay for the very basics like food, housing, medical care, and heating Not hard at all [facility] Do you feel stress - tense, restless, nervous, or anxious, or unable to sleep at night because your mind is troubled all the time - these days [OSQ] Only a little [facility] (I/We) worried wheth er (my/our) food would run out before (I/we) got money to buy more. Never true [facility] Start: 07-08-2021 Gender identity Identifies as female gender (finding) [facility] Start: 07-08-2021 Sexual orientation Heterosexual (finding) [facility] Start: 02-15-2025 End: 02-23-2025 Sex Female (finding) [facility] Clinical Notes 07-18-2022 to 06-05-2025 Note Date & Type Note Facility 06-05-2025 Progress note [facility] 06-05-2025 Progress note Note Date/Time June 05, 2025 3:04pm [facility] [address], [address] [place] [address] OFFICE VISIT Date of Service: 06/05/25 MR#: [id number] Acct: [id number] Name: WENDIE VELEZ Rep #: [id number] : 1995 Provider: FELICE Cui Age/Sex: 29/F [place] [facility] [place]: Signed Intake Vital Signs 04/11/25 10:10 05/10/25 11:31 06/05/25 14:21 Height 5 ft 7 in 5 ft 7 in 5 ft 7 in Weight: 202 lb 4 oz BMI 31.6 BP 117/79 Intake Visit Reasons: 28wk ob/glucose Chief Complaint: 28wk OB 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: No Is patient in pain?: No Allergies grass pollen Allergy (Intermediate, Verified 06/05/25 14:21) Swelling tea tree Allergy (Intermediate, Verified 06/05/25 14:21) Swelling thiopental (From thiopental sodium) Adverse Reaction (Severe, Verified 06/05/25 14:21) Other Medications ?Medication ?Instructions ?Recorded ?Confirmed ?Type multivitamin no.47-iron fum 27 cap PO 01/03/25 5 History mg-folate no.1 1 mg-dha 300 mg capsule (PNV-DHA) Last Menstrual Period: 11/19/24 : No Have you fallen in the past year?: No PFSH PFSH Medical History History of HPV infection Hx of abnormal cervical Pap smear Surgical History History of colposcopy H/O sinus surgery [place] teeth extracted History of tonsillectomy Family History Grandfather Cancer, Onset Age: 85 Maternal- lymphoma Grandmother Alzheimer's dementia, Onset Age: 80 Maternal Grandfather Cancer, Onset Age: 80 Paternal- skin cancer Aunt Diabetes Paternal -Type 1 Breast cancer, Onset Age: 48 Paternal- Triple negative- Not genetic Mother Family history of miscarriage 1 early miscarriage and one @ 16wk- unknown reasons Social History adopted: No household members: spouse housing: house current occupational status: employed 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/hazards: No pets and animals: Yes (Cats outside- Avoiding litterbox) pets and animals: cat(s), dog(s) and horse(s) history of recent travel: Yes ([place] in November) out of state: Yes out of country:No sexually active: Yes Smoking Status: Never smoker alcohol intake: current alcohol intake frequency: holidays/special occasions only details: Not while substance use type: does not use well-balanced diet: daily or most days caffeine: No eating out: 1-3 times/week during the past year weight has: remained stable what type of physical activity do you participate in: other details: Horse backriding 1 hour daily frequency: daily duration: 45-60 minutes/day rajat/worship: Moravian seatbelt use: always do you feel safe at home: Yes additional social history: [place]- Goes by [employer] History 1 Elective abortions Hx Para 0 Spontaneous abortions Hx # Term Pregnancies Ectopic pregnancies Hx # Pregnancies Multiple births # of living children HPI 28wk ob/glucose Details: WENDIE VELEZ is a 29 year old who presents for routine OB visit. OB Visit ALFREDITO Calculator Estimated Delivery Date Method Current WG Current Estimate 08/20/25 Ultrasound #1 29w 1d Other Estimates 08/26/25 LMP (Certain) 28w 2d Expected Delivery Route/Plan Labor Preferences- CB/BF classes: scheduled labor support person: Shar labor intervention preferences: [] pain management options preferred: limited but open to epidural cut cord/dad catch: yes : yes PP control planned: discussed discussed possible routes of delivery and associated risks: [] special requests: [] Specific Issue/Plans Covid status: [] Flu vaccine: [] Tdap vaccine: [] Rhogam: RH neg for mom and baby, NA LARC form signed: yes Problem list reviewed and updated with the most current plan of care details and appropriate orders placed. Relevant counseling for the gestational age provided. Continue routine care and follow up unless otherwise noted in visit notes/problem list details Initial Weight: 192 lb Date -?-?-?-?-?-?-?-?-?-?-?-?- EGA Weight BP Urine Prot -?-?-?-?-?-?-?-?-?-?-?-?- Glucose FHR FuHt Pres Dilation -?-?-?-?-?-?-?-?-?-?-?-?- Effaced St Visit Note 01/13/25 -?-?-?-?-?-?-?-?-?-?-?-?- 8w 5d 192 lb 8 oz (+8 oz) 120/77 -?-?-?-?-?-?-?-?-?-?-?-?- 171 -?-?-?-?-?-?-?-?-?-?-?-?- KW- CRL not cons with dates. ALFREDITO changed. NIPT done KW- CRL not cons with dates. ALFREDITO changed. NIPT ordered. 02/17/25 -?-?-?-?-?-?-?-?-?-?-?-?- 13w 5d 191 lb 6 oz (-10 oz) 109/76 Negative -?-?-?-?-?-?-?-?-?-?-?-?- Negative 140 -?-?-?-?-?-?-?-?-?-?-?-?- SM- no vb crampi ng 03/16/25 -?-?-?-?-?-?-?-?-?-?-?-?- 17w 4d 195 lb 8 oz (+3 lb 8 oz) 115/71 -?-?-?-?-?-?-?-?-?-?-?-?- 145 -?-?-?-?-?-?-?-?-?-?-?-?- JV- no lof, vagi nal bleeding, or cramping reported. asking ely for baby's blood type. her is willing to do an RH test at next visit if needed 04/11/25 -?-?--?-?-?-?-?-?-?-?-?-?- 21w 2d 197 lb (+5 lb) 118/78 Negative -?-?-?-?-?-?-?-?-?-?-?-?- Negative 151 -?-?-?-?-?-?-?-?-?-?-?-?- MH-No VB. Stan bess. Denies concerns 05/10/25 -?-?-?-?-?-?-?-?-?-?-?-?- 25w 3d 199 lb 2 oz (+7 lb 2 oz) 116/68 Negative -?-?-?-?-?-?-?-?-?-?-?-?- Negative 141 25 -?-?-?-?-?-?-?-?-?-?-?-?- MH-No VB. Jorge hardy Denies concerns. [facility] 06/05/25 -?-?-?-?-?-?-?-?-?-?-?-?- 29w 1d 202 lb 4 oz (+10 lb 4 oz) 117/79 Negative -?-?-?-?-?-?-?-?-?-?-?-?- Negative 135 28 -?-?-?-?-?-?-?-?-?-?-?-?- KW- no vb/lof/ct [place]. jorge beck. glucose today. tdap today. ACOG First Trimester First Trimester: Desire for , Alcohol, Tobacco Cessation, Illicit/Recreational Drug/Substance Use, Intimate Partner Violence, Barriers to care, Anticipated Course of Care, Use of Any medications, Sexual activity, Exercise, Dental Care, Sauna/Hot tub use, Seat Belt use, Childbirth classes/Hospital facilities, Travel, Indications for Ultrasound and Screening for Aneuploidy; Discussed Unstable Housing, Discussed Communication Barriers, Discussed Environmental/Work Hazards, Discussed Toxoplasmosis Precations and Discussed Second Trimester Second Trimester: Signs and Symptoms of Labor, Selecting a care provider, Reproductive Life Planning & Contreception, Care Planning, Depression/Anxiety and Intimate Partner Violence; Discussed Tobacco Cessation Third Trimester Third Trimester: Pain Management Plans, Labor support person(s), Immediate Larc, Circumcision preference, Signs and Symptoms of Preeclampsia, Infant Feeding No , Education and Family Medical Leave or Disability Forms Results POC Urinalysis 2 Dip (Clinic) Office Urine Glucose Negative Last Edit by Clarissa Crawley on 06/05/25 14:37 Office Urine Protein Negative Last Edit by Clarissa Crawley on 06/05/25 14:37 Coding Level of Care Code OB Routine Diagnoses Rh negative status during in second trimester O26.892; Z67.91 Trimester: second trimester Encounter for supervision of normal first in second trimester Z34.02 Trimester: second trimester 29 weeks gestation of Z3A.29 Weeks of gestation: 29 weeks Assessment and Plan Assessment and Plan (1) Rh negative status during : Status: Acute Qualifiers: Trimester: second trimester Qualified Code(s): O26.892 - Other specified related conditions, second trimester; Z67.91 - Unspecified blood type, Rh negative Comment: Fetus is RhD negative per NIPT. (2) Supervision of normal first : Status: Acute Qualifiers: Trimester: second trimester Qualified Code(s): Z34.02 - Encounter for supervision of normal first , second trimester Comment: PRR, , ALFREDITO 08/20/25 boy, Shar (3) : Status: Acute Qualifiers: Weeks of gestation: 29 weeks Qualified Code(s): Z3A.29 - 29 weeks gestation of Comment: NIPT low risk. Anatomy nl. Orders: Orders POC Urinalysis 2 Dip (Clinic) Today Clinical Quality Measures Falls Risk Screening/Assistive Devices Have you fallen in the past year?: No 06/05/25 1504 <Electronically signed by Monika goldberg CNM> Date _ Monika Cui CNM Cosigner Signature: Date (if applicable) CC: ~ [facility] Work Phone: 1(426) 729-256306-11-2025 Progress [facility] [address], [address] [place] [id number] OFFICE VISIT Date of Service: 05/10/25 MR#: [id number] Acct: [id number] Name: WENDIE VELEZ Rep #: [id number] : 1995 Provider: URSULA Tanner Age/Sex: 29/F [place] [facility] [place] Status: Signed Intake Vital Signs 04/11/25 10:10 05/10/25 11:31 Height 5 ft 7 in 5 ft 7 in Weight: 199 lb 2 oz BMI 31.1 BP 116/68 Intake Visit Reasons: 24 WK OB Chief Complaint: 24 Week OB 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: No Is patient in pain?: No Allergies grass pollen Allergy (Intermediate, Verified 05/10/25 11:32) Swelling tea tree Allergy (Intermediate, Verified 05/10/25 11:32) Swelling thiopental (From thiopental sodium) Adverse Reaction (Severe, Verified 05/10/25 11:32) Other Medications ?Medication ?Instructions ?Recorded ?Confirmed ?Type multivitamin no.47-iron fum 27 cap PO 01/03/25 5 History mg-folate no.1 1 mg-dha 300 mg capsule (PNV-DHA) Last Menstrual Period: 11/19/24 Zika: Zika virus screening: Negative : Yes PFSH PFSH Medical History History of HPV infection Hx of abnormal cervical Pap smear Surgical History History of colposcopy H/O sinus surgery [place] teeth extracted History of tonsillectomy Family History Grandfather Cancer, Onset Age: 85 Maternal- lymphoma Grandmother Alzheimer's dementia, Onset Age: 80 Maternal Grandfather Cancer, Onset Age: 80 Paternal- skin cancer Aunt Diabetes Paternal -Type 1 Breast cancer, Onset Age: 48 Paternal- Triple negative- Not genetic Mother Family history of miscarriage 1 early miscarriage and one @ 16wk- unknown reasons Social History adopted: No household members: spouse housing: house current occupational status: employed 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/hazards: No pets and animals: Yes (Cats outside- Avoiding litterbox) pets and animals: cat(s), dog(s) and horse(s) history of recent travel: Yes ([place] in November) out of state: Yes out of country:No sexually active: Yes Smoking Status: Never smoker alcohol intake: current alcohol intake frequency: holidays/special occasions only details: Not while substance use type: does not use well-balanced diet: daily or most days caffeine: No eating out: 1-3 times/week during the past year weight has: remained stable what type of physical activity do you participate in: other details: Horse backriding 1 hour daily frequency: daily duration: 45-60 minutes/day rajat/worship: Moravian seatbelt use: always do you feel safe at home: Yes additional social history: -[place]- Goes by [employer] History 1 Elective abortions Hx Para 0 Spontaneous abortions Hx # Term Pregnancies Ectopic pregnancies Hx # Pregnancies Multiple births # of living children HPI 24 WK OB Details: WENDIE VELEZ is a 29 year old who presents for routine OB visit. OB Visit ALFREDITO Calculator Estimated Delivery Date Method Current WG Current Estimate 08/20/25 Ultrasound #1 25w 3d Other Estimates 08/26/25 LMP (Certain) 24w 4d Expected Delivery Route/Plan Labor Preferences- CB/BF classes: scheduled labor support person: Shar labor intervention preferences: [] pain management options preferred: limited but open to epidural cut cord/dad catch: yes : yes PP control planned: discussed discussed possible routes of delivery and associated risks: [] special requests: [] Specific Issue/Plans Covid status: [] Flu vaccine: [] Tdap vaccine: [] Rhogam: RH neg for mom and baby, NA LARC form signed: yes Problem list reviewed and updated with the most current plan of care details and appropriate ordersplaced. Relevant counseling for the gestational age provided. Continue routine care and follow up unless otherwise noted in visit notes/problem list details Initial Weight: 192 lb Date -?-?-?-?-?-?-?-?-?-?-?-?- EGA Weight BP Urine Prot -?-?-?-?-?-?-?-?-?-?-?-?- Glucose FHR FuHt Pres Dilation -?-?-?-?-?-?-?-?-?-?-?-?- Effaced St Visit Note 01/13/25 -?-?-?-?-?-?-?-?-?-?-?-?- 8w 5d 192 lb 8 oz (+8 oz) 120/77 -?-?-?-?-?-?-?-?-?-?-?-?- 171 -?-?-?-?-?-?-?-?-?-?-?-?- KW- CRL not cons with dates. ALFREDITO changed. NIPT done KW- CRL not cons with dates. ALFREDITO changed. NIPT ordered. 02/17/25 -?-?-?-?-?-?-?-?-?-?-?-?- 13w 5d 191 lb 6 oz (-10 oz) 109/76 Negative -?-?-?-?-?-?-?-?-?-?-?-?- Negative 140 -?-?-?-?-?-?-?-?-?-?-?-?- SM- no vb crampi ng 03/16/25 -?-?-?-?-?-?-?-?-?-?-?-?- 17w 4d 195 lb 8 oz (+3 lb 8 oz) 115/71 -?-?-?-?-?-?-?-?-?-?-?-?- 145 -?-?-?-?-?-?-?-?-?-?-?-?- JV- no lof, vagi nal bleeding, or cramping reported. asking ely for baby's blood type. her is willing to do an RH test at next visit if needed 04/11/25 -?-?-?-?-?-?-?-?-?-?-?-?- 21w 2d 197 lb (+5 lb) 118/78 Negative -?-?-?-?-?-?-?-?-?-?-?-?- Negative 151 -?-?-?-?-?-?-?-?-?-?-?-?- MH-No VB. Stan bess. Denies concerns 05/10/25 -?-?-?-?-?-?-?-?-?-?-?-?- 25w 3d 199 lb 2 oz (+7 lb 2 oz) 116/68 Negative -?-?-?-?-?-?-?-?-?-?-?-?- Negative 141 25 -?-?-?-?-?-?-?-?-?-?-?-?- MH-No VB. Jorge hardy Denies concerns. Larc ACOG First Trimester First Trimester: Desire for , Alcohol, Tobacco Cessation, Illicit/Recreational Drug/Substance Use, Intimate Partner Violence, Barriers to care, Anticipated Course of Care, Use of Any medications, Sexual activity, Exercise, Dental Care, Sauna/Hot tub use, Seat Belt use, Childbirth c lasses/Hospital facilities, , Travel, Indications for Ultrasound and Screening for Aneuploidy; Discussed Unstable Housing, Discussed Communication Barriers, Discussed Environmental/Work Hazards and Discussed Toxoplasmosis Precations Second Trimester Second Trimester: Signs and Symptoms of Labor, Selecting a care provider, Reproductive Life Planning & Contreception, Care Planning, Depression/Anxiety and Intimate Partner Violence; Discussed Tobacco Cessation Third Trimester Third Trimester: Pain Management Plans, Labor support person(s), Immediate Larc, Circumcision preference Yes Yes, Signs and Symptoms of Preeclampsia, Feeding Yes , [place] Education and Family Medical Leave or Disability Forms ROS Const Reports system reviewed and no additional complaints, except as documented GI Denies abdominal pain, Denies nausea and Denies vomiting Exam Const General: cooperative Nutritional Appearance: well nourished GI Palpation: soft, nontender and other (gravid) Results POC Urinalysis 2 Dip (Clinic) Office Urine Glucose Negative Last Edit by Keri Nina on 05/10/25 11 :34 Office Urine Protein Negative Last Edit by Keri Nina on 05/10/25 11 :34 Coding Level of Care Code OB Routine Diagnoses Encounter for supervision of normal first in second trimester Z34.02 Trimester: second trimester 25 weeks gestation of Z3A.25 Weeks of gestation: 25 weeks Rh negative status during in second trimester O26.892; Z67.91 Trimester: second trimester Assessment and Plan Assessment and Plan (1) Supervision of normal first : Status: Acute Qualifiers: Trimester: second trimester Qualified Code(s): Z34.02 - Encounter for supervision of normal first , second trimester Comment: PRR, , ALFREDITO 08/20/25 boy, Shar (2) : Status: Acute Qualifiers: Weeks of gestation: 25 weeks Qualified Code(s): Z3A.25 - 25 weeks gestation of Comment: NIPT low risk. Anatomy nl. (3) Rh negative status during : Status: Acute Qualifiers: Trimester: second trimester Qualified Code(s): O26.892 - Other specified related conditions, second trimester; Z67. - Unspecified blood type, Rh negative Comment: Fetus is RhD negative per NIPT. Orders: Orders POC Urinalysis 2 Dip (Clinic) Today CBC W/Diff, Automated Today O26.892 - Other specified related conditions, second trimester, Z67.91 - Unspecified blood type, Rh negative Glucose Challenge Gest 1H 50g Today O26.892 - Other specified related conditions, second trimester, Z13.1 - Encounter for screening for diabetes mellitus, Z67. - Unspecified blood type, Rh negative Type & Screen Today O26.892 - Other specified related conditions, second trimester, Z67.91 - Unspecified blood type, Rh negative HIV Today O26.892 - Other specified related conditions, second trimester, Z67. - Unspecified blood type, Rh negative Syphilis Antibodies Today O26.892 - Other specified related conditions, second trimester,Z67.91 - Unspecified blood type, Rh negative Plan problem list reviewed and updated for most current plan of care and appropriate orders placed. Relevant counseling for the gestational age appropriate provided and ACOG education checklist updated. Continue routine care and follow up. 05/10/25 1154 s SHERIFF DEPUTY SHERIFF DEPUTY-C> Date _ Jasmine Bath SHERIFF DEPUTY SHERIFF DEPUTY-C Cosigner Signature: Date (if applicable) CC: ~ [facility]03-21-2025 Evaluation note* Diagnosis Onset Date Resolution Status Admit Date acute February 17 9:17am Rh negative status during acute February 17, 2025 9:17am Supervision of normal first acute February 17, 2025 9:17am acute March 16 9:35am Rh negative status during acute March 16, 2025 9:35am Supervision of normal first acute March 16, 2025 9:35am acute April 11, 2025 10:07am Rh negative status during acute April 11, 2025 1 0:07am Supervision of normal first acute April 11, 2025 1 0:07am acute May 10 11:28am Rh negative status during acute May 10, 2025 11:28am Supervision of normal first acute May 10, 2025 11:28am acute June 05, 2025 2:11pm Rh negative status during acute June 05, 2025 2 :11pm Supervision of normal first acute June 05, 2025 2 :11pm [facility] Work Phone: 1(791) 339-832402-14-2025 Evaluation note* Diagnosis Onset Date Resolution Status Admit Date acute January 13, 2025 12:54pm Supervision of normal first acute January 13, 2 025 12:54pm [facility] Work Phone: 1(959) 891-909402-14-2025 Evaluation note* Diagnosis Onset Date Resolution Status Admit Date acute January 13, 2025 12:54pm Supervision of normal first acute January 13, 025 12:54pm acute February 17 9:17am Rh negative status during acute February 17, 2025 9:17am Supervision of normal first acute February 17, 2025 9:17am [facility] Work Phone: 1(382) 807-128802-14-2025 Evaluation note* Diagnosis Onset Date Resolution Status Admit Date acute January 13, 2025 12:54pm Supervision of normal first acute January 13, 2 025 12:54pm acute February 17 9:17am Rh negative status during acute February 17, 2025 9:17am Supervision of normal first acute February 17, 2025 9:17am acute March 16 9:35am Rh negative status during acute March 16, 2025 9:35am Supervision of normal first acute March 16, 2025 9:35am acute April 11, 2025 10:07am Rh negative status during acute April 11, 2025 1 0:07am Supervision of normal first acute April 11, 2025 1 0:07am [facility] Work Phone: 1(124) 839-730102-14-2025 Evaluation note* Diagnosis Onset Date Resolution Status Admit Date acute January 13, 2025 12:54pm Supervision of normal first acute January 13, 025 12:54pm acute February 17 9:17am Rh negative status during acute February 17, 2025 9:17am Supervision of normal first acute February 17, 2025 9:17am acute March 16 9:35am Rh negative status during acute March 16, 2025 9:35am Supervision of normal first acute March 16, 2025 9:35am acute April 11, 2025 10:07am Rh negative status during acute April 11, 2025 1 0:07am Supervision of normal first acute April 11, 2025 1 0:07am acute May 10 11:28am Rh negative status during acute May 10, 2025 11:28am Supervision of normal first acute May 10, 2025 11:28am [facility] Work Phone: [phone]) 620-823307-01-2024 Instructions* Patient Instructions* Carol Shelby APRN.CNP - 05/30/2024 8:07 AM EDT Preconception: vitamin with folic acid 0.4 - 1 mg daily. Eat a healthy, balanced diet with daily exercise. Avoid pollutants and exposure to chemicals. Period tracker to predict time of ovulation. Sexual intercourse every other day around ovulation but at least once a week. Healthy sperm can live for one week. Avoid water-based lubricants. You can use Pre-Seed, which is not toxic to sperm. [facility]24 NoteHNO ID: [id number] Author: CAROL SHELBY APRN.MARS Service: ? Author Type: Nurse Practitioner Type: Progress Notes Filed: 05/30/2024 08:25 Note Text: Wendie is a 28 year old who presents for an annual gynecologic exam without complaints. Menses: cycles every 28-30 days and 5 days of flow. Contraception:none, not preventing but not trying yet HPV vaccine: Yes Last Pap: 06/2022 ASCUS HPV positive [place] 08/13/2022 benign History of abnormal pap: Yes 2017 abnormal -ASC-H, HPV: HRHPV positive Last mammogram: never Sexually active: Yes History of STDS: HPV Time with current partner: 4 year Patient concerns for STD exposure: No. 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 Pap smear (cervix) PAST SURGICAL HISTORY Procedure Laterality Date PAST SURGICAL HISTORY OF 04/11/2016 extraction of wisdom teeth SINUS SURGERY PROC UNLISTED 10/30/2013 TONSILLECTOMY PRIMARY/SECONDARY VAGINOSCOPY 2021 benign FAMILY HISTORY Problem Relation Age of Onset No Known Problems Mother No Known Problems Father No Known Problems Sister No Known Problems Sister No Known Problems Sister No Known Problems Brother Alzheimer's Disease Maternal Grandmother other (Cancer-Leukema) Maternal Grandfather unknown Prostate Cancer Paternal Grandfather other (Cancer-Basal Cell, CVA) Paternal Grandfather skin other (bone cancer) Paternal Grandfather other (Breast Cancer-53 at dx, BRCA negative) Paternal Aunt rediagnosed in 06/2017 Diabetes Paternal Aunt SOCIAL HISTORY Social History Tobacco Use Smoking status: Never Smokeless tobacco: Never Vaping Use Vaping Use: Never used Substance Use Topics Alcohol use: Yes Comment: Rarely Drug use: No REVIEW OF SYSTEMS Abdomen: No abdominal pain, nausea, vomiting, diarrhea, or constipation. No bloating, early satiety, indigestion, or increased flatulence. Bladder: No dysuria, gross hematuria, urinary frequency, urinary urgency, or incontinence. Breast: No breast lumps, nipple d/c, overlying skin changes, redness or skin retraction. Allergies and current medication updated:Yes EXAM: Ht 5' 6.25 (1.68m) Wt 175 lb (79.4kg) LMP 05/17/2024 BMI 28.02 kg/(m2). GENERAL: pleasant, female in no apparent distress HEENT: Normocephalic, atraumatic, mucus membranes moist, and no lesions NECK: Supple, full range of motion, no adenopathy, and thyroid normal DERMATOLOGY: Normal, without lesions, non-icteric, and non-hirsute BREAST: soft, non-tender, symmetric, no dominant mass, normal nipple-areolar complex, no lymphadenopathy, and no nipple discharge CHEST: Normal inspiratory effort ABDOMEN: soft, non-tender, and no masses PELVIC: external genitalia normal, normal Bartholin's glands, urethra, Purdin's glands, no vulvar lesions, no cervical lesions, good vaginal support, physiologic discharge present, normal appearing perineal body and perianal region BIMANUAL: uterus normal size, shape and consistency, no adnexal masses, and non-tender RECTOVAGINAL: deferred. NEURO: alert and oriented x3,exam grossly non-focal EXTREMITIES: normal ASSESSMENT/PLAN: 1) Health maintenance: Pap done with reflex HPV. Nutrition, exercise and routine health maintenance exams reviewed. HPV vaccine: completed series 2) Contraception: none. Preconception: vitamin with folic acid 0.4 - 1 mg daily. Eat a healthy, balanced diet with daily exercise. Avoid pollutants and exposure to chemicals. Period tracker to predict time of ovulation. If you have PCOS, ovulation trackers are not accurate. Sexual intercourse every other day around ovulation but at least once a week. Healthy sperm can live for one week. Avoid water-based lubricants. You can use Pre-Seed, which is not toxic to sperm. 3) STD screening: Declined STD check. 4) Follow up one year or sooner as needed Carol Shelby APRN.[facility]07-01-2024 History of Present illness Narrative* Carol Shelby APRN.[facility] - 05/30/2024 7:54 AM EDT Wendie is a 28 year old who presents for an annual gynecologic exam without complaints. Menses: cycles every 28-30 days and 5 days of flow. Contraception:none, not preventing but not trying yet HPV vaccine: Yes Last Pap: 06/2022 ASCUS HPV positive [place] 08/13/2022 benign History of abnormal pap: Yes 2016 abnormal -ASC-H, HPV: HRHPV positive Last mammogram: never Sexually active: Yes History of STDS: HPV Time with current partner: 4 year Patient concerns for STD exposure: No. 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 Pap smear (cervix) PAST SURGICAL HISTORY Procedure Laterality Date PAST SURGICAL HISTORY OF 04/11/2016 extraction of wisdom teeth SINUS SURGERY PROC UNLISTED 10/30/2013 TONSILLECTOMY PRIMARY/SECONDARY <AGE 12 VAGINOSCOPY 2021 benign FAMILY HISTORY Problem Relation Age of Onset No Known Problems Mother No Known Problems Father No Known Problems Sister No Known Problems Sister No Known Problems Sister No Known Problems Brother Alzheimer's Disease Maternal Grandmother other (Cancer-Leukema) Maternal Grandfather unknown Prostate Cancer Paternal Grandfather other (Cancer-Basal Cell, CVA) Paternal Grandfather skin other (bone cancer) Paternal Grandfather other (Breast Cancer-53 at dx, BRCA negative) Paternal Aunt rediagnosed in 06/2017 Diabetes Paternal Aunt SOCIAL HISTORY Social History Tobacco Use Smoking status: Never Smokeless tobacco: Never Vaping Use Vaping Use: Never used Substance Use Topics Alcohol use: Yes Comment: Rarely Drug use: No REVIEW OF SYSTEMS Abdomen: No abdominal pain, nausea, vomiting, diarrhea, or constipation. No bloating, early satiety, indigestion, or increased flatulence. Bladder: No dysuria, gross hematuria, urinary frequency, urinary urgency, or incontinence. Breast: No breast lumps, nipple d/c, overlying skin changes, redness or skin retraction. Allergies and current medication updated:Yes EXAM: Ht 5' 6.25 (1.68m) Wt 175 lb (79.4kg) LMP 05/17/2024 BMI 28.02 kg/(m^2). GENERAL: pleasant, female in no apparent distress HEENT: Normocephalic, atraumatic, mucus membranes moist, and no lesions NECK: Supple, full range of motion, no adenopathy, and thyroid normal DERMATOLOGY: Normal, without lesions, non-icteric, and non-hirsute BREAST: soft, non-tender, symmetric, no dominant mass, normal nipple-areolar complex, no lymphadenopathy, and no nipple discharge CHEST: Normal inspiratory effort ABDOMEN: soft, non-tender, and no masses PELVIC: external genitalia normal, normal Bartholin's glands, urethra, Purdin's glands, no vulvar lesions, no cervical lesions, good vaginal support, physiologic discharge present, normal appearing perineal body and perianal region BIMANUAL: uterus normal size, shape and consistency, no adnexal masses, and non-tender RECTOVAGINAL: deferred. NEURO: alert and oriented x3,exam grossly non-focal EXTREMITIES: normal ASSESSMENT/PLAN: 1) Health maintenance: Pap done with reflex HPV. Nutrition, exercise and routine health maintenance exams reviewed. HPV vaccine: completed series 2) Contraception: none. Preconception: vitamin with folic acid 0.4 - 1 mg daily. Eat a healthy, balanced diet with daily exercise. Avoid pollutants and exposure to chemicals. Period tracker to predict time of ovulation. If you have PCOS, ovulation trackers are not accurate. Sexual intercourse every other day around ovulation but at least once a week. Healthy sperm can live for one week. Avoid water-based lubricants. You can use Pre-Seed, which is not toxic to sperm. 3) STD screening: Declined STD check. 4) Follow up one year or sooner as needed Carol Shelby APRN.UNDERGROUND PRODUCTION FOREPERSON documented in this encounterB[facility]06-21-[facility]24 NoteHNO ID: [id number] Author: JAMES DILL APRN.UNDERGROUND PRODUCTION FOREPERSON Service: ? Author Type: Nurse Practitioner Type: Progress Notes Filed: 05/20/2024 10:49 Note Text: Subjective Patient came in with complaints of dog bite of right hand. Patient says it was her own dog and she was trying to break them up from fighting. Patient has a bite between pinky and ring finger and between the ring finger and middle finger. Patient denies any numbness tingling or loss of pain. Patient says dogs are up-to-date on shots. The history is provided by the patient. No rack carrier was used. Animal Bite Review of Systems Constitutional: Negative. Skin: Negative. Objective Physical Exam Constitutional: Appearance: Normal appearance. Pulmonary: Effort: Pulmonary effort is normal. Musculoskeletal: Hands: Comments: Patient has 2 puncture wounds in the area marked above. The pinky 1 is slightly more deep than the other 1. Patient does not want a suture at this time. Neurological: Mental Status: She is alert. PAST MEDICAL HISTORY Diagnosis Date Abnormal glandular Papanicolaou smear of cervix 06/2017 Abn. Pap smear (cervix) PAST SURGICAL HISTORY Procedure Laterality Date PAST SURGICAL HISTORY OF 04/11/16 extraction of wisdom teeth SINUS SURGERY PROC UNLISTED 10/2013 TONSILLECTOMY PRIMARY/SECONDARY ALLERGIES Sodium Pentothal [Thiopental] and Grass Pollen MEDICATIONS amoxicillin-clavulanate potassium (AUGMENTIN) 875-125 mg per tablet Take 1 tablet by mouth two times a day for 10 days. fluconazole (DIFLUCAN) 150 mg tablet Take 1 tablet today, then a 2nd tablet in 72 hours, and 3rd tablet in another 72 hours. (Patient not taking: Reported on 05/20/2024) fluticasone (FLONASE) 50 mcg/actuation nasal spray Use 1 [place] in each nostril twice daily. (Patient not taking: Reported on 05/20/2024) norgestimate 0.25 mg-ethinyl estradiol 35 mcg (SPRINTEC) 0.25-35 mg-mcg per tablet Take 1 tablet by mouth once daily. (Patient not taking: Reported on 05/20/2024) Multivitamin capsule Take 1 capsule by mouth once daily. (Patient not taking: Reported on 05/20/2024) FAMILY HISTORY Problem Relation Age of Onset No Known Problems Mother No Known Problems Father No Known Problems Sister No Known Problems Sister No Known Problems Sister No Known Problems Brother Alzheimer's Disease Maternal Grandmother other (Cancer-Leukema) Maternal Grandfather unknown Prostate Cancer Paternal Grandfather other (Cancer-Basal Cell, CVA) Paternal Grandfather skin other (bone cancer) Paternal Grandfather other (Breast Cancer-53 at dx, BRCA negative) Paternal Aunt rediagnosed in 06/2017 Diabetes Paternal Aunt Social History Tobacco Use Smoking status: Never Smokeless tobacco: Never Vaping Use Vaping Use: Never used Substance Use Topics Alcohol use: Yes Comment: Rarely Drug use: No ASSESSMENT/PLAN: 1. Dog bite, initial encounter - ICD9: 879.8, E906.0, ICD10: W54.0XXA (primary diagnosis) - AMOXICILLIN 875 MG-POTASSIUM CLAVULANATE 125 MG TABLET - TDAP VACCINE, AGE 7+ YR (ADACEL, BOOSTRIX) 2. Puncture wound - ICD9: 879.8, ICD10: T14.8XXA Patient was educated about proper use of medication and supportive therapies. Patient will soak several times a day in warm Epsom salt soaks to keep it from getting infected. Patient was placed on preventative antibiotics for dog bite. Patient was updated with tetanus. Patient was educated about red flag symptoms and will monitor for signs of worsening and follow-up with primary care if anything changes. Patient was okay with this care plan. James Karl, SLUDGE FILTRATION ATTENDANT.[facility]06-21-2024 History of Present illness Narrative* James Dill APRN.[facility] - 05/20/2024 10:08 AM EDT Images from the original note were not included. Subjective Patient came in with complaints of dog bite of right hand. Patient says it was her own dog and she was trying to break them up from fighting. Patient has a bite between pinky and ring finger and between the ring finger and middle finger. Patient denies any numbness tingling or loss of pain. Patientsays dogs are up-to-date on shots. The history is provided by the patient. No rack carrier was used. Animal Bite Review of Systems Constitutional: Negative. Skin: Negative. Objective Physical Exam Constitutional: Appearance: Normal appearance. Pulmonary: Effort: Pulmonary effort is normal. Musculoskeletal: Hands: Comments: Patient has 2 puncture wounds in the area marked above. The pinky 1 is slightly more deepthan the other 1. Patient does not want a suture at this time. Neurological: Mental Status: She is alert. PAST MEDICAL HISTORY Diagnosis Date Abnormal glandular Papanicolaou smear of cervix 06/2017 Abn. Pap smear (cervix) PAST SURGICAL HISTORY Procedure Laterality Date PAST SURGICAL HISTORY OF 04/11/16 extraction of wisdom teeth SINUS SURGERY PROC UNLISTED 10/2013 TONSILLECTOMY PRIMARY/SECONDARY <AGE 12 ALLERGIES Sodium Pentothal [Thiopental] and Grass Pollen MEDICATIONS amoxicillin-clavulanate potassium (AUGMENTIN) 875-125 mg per tablet Take 1 tablet by mouth two times a day for 10 days. fluconazole (DIFLUCAN) 150 mg tablet Take 1 tablet today, then a 2nd tablet in 72 hours, and 3rd tablet in another 72 hours. (Patient not taking: Reported on 05/20/2024) fluticasone (FLONASE) 50 mcg/actuation nasal spray Use 1 [place] in each nostril twice daily. (Patient not taking: Reported on 05/20/2024) norgestimate 0.25 mg-ethinyl estradiol 35 mcg (SPRINTEC) 0.25-35 mg-mcg per tablet Take 1 tablet bymouth once daily. (Patient not taking: Reported on 05/20/2024) Multivitamin capsule Take 1 capsule by mouth once daily. (Patient not taking: Reported on 05/20/2024) FAMILY HISTORY Problem Relation Age of Onset No Known Problems Mother No Known Problems Father No Known Problems Sister No Known Problems Sister No Known Problems Sister No Known Problems Brother Alzheimer's Disease Maternal Grandmother other (Cancer-Leukema) Maternal Grandfather unknown Prostate Cancer Paternal Grandfather other (Cancer-Basal Cell, CVA) Paternal Grandfather skin other (bone cancer) Paternal Grandfather other (Breast Cancer-53 at dx, BRCA negative) Paternal Aunt rediagnosed in 06/2017 Diabetes Paternal Aunt Social History Tobacco Use Smoking status: Never Smokeless tobacco: Never Vaping Use Vaping Use: Never used Substance Use Topics Alcohol use: Yes Comment: Rarely Drug use: No ASSESSMENT/PLAN: 1. Dog bite, initial encounter - ICD9: 879.8, E906.0, ICD10: W54.0XXA (primary diagnosis) - AMOXICILLIN 875 MG-POTASSIUM CLAVULANATE 125 MG TABLET - TDAP VACCINE, AGE 7+ YR (ADACEL, BOOSTRIX) 2. Puncture wound - ICD9: 879.8, ICD10: T14.8XXA Patient was educated about proper use of medication and supportive therapies. Patient will soak several times a day in warm Epsom salt soaks to keep it from getting infected. Patient was placed on preventative antibiotics for dog bite. Patient was updated with tetanus. Patient was educated about red flag symptoms and will monitor for signs of worsening and follow-up with primary care if anything changes. Patient was okay with this care plan. James Dill APRN.MARS documented in this encounterB[facility]09-14-2022 History of Present illness Narrative* Hannah Benz MD - 08/13/2022 1:36 PM EDT Wendie is a 26 year old Female who presents today for a colposcopy. The patient's last pap smear was ASCUS with positive HPV from June 2022. Patient has a history of abnormal pap: Yes. The patient has had prior treatment: none. test: negative UNIVERSAL PROTOCOL / SAFETY CHECKLIST Procedure to be Performed: Colposcopy Sign In: A Moment of CARE was completed. Personnel directly involved with the procedure wore the appropriate PPE (Personal Protective Equipment). Patient/Surrogate Stated/Verified: PATIENT VERIFIED(optional for EMERGENT procedures): Patient name, Date of , Relevant allergies, and The intended procedure Time Out Communication: Intended patient and procedure match the source documents. Consent documented and matches the intended procedure. Sign Out: SIGN OUT (optional for EMERGENT procedures): All specimen containers correctly labeled. All instruments, equipment, possible retained foreign bodies accounted for. Post-procedure follow-up management communicated and Plan of Care Visit completed when applicable. PROCEDURE: EXTERNAL GENITALIA: Normal in appearance without lesions VAGINA: Normal in appearance without lesions CERVIX: Speculum placed in vagina and excellent visualization of cervix achieved. Cervix swabbed x 3 with 3% acetic acid solution. Cervix grossly normal. Squamocolumnar junction visualized. acetowhite changes noted 1 and 3. BIOPSY: Done at 1:00 and 3:00 ECC: done HEMOSTASIS: Obtained with pressure Procedure Summary: Patient tolerated procedure well and colposcopy was adequate. ASSESSMENT: HPV effect PLAN: Specimens labeled and sent to Pathology. Will notify patient of results in 1-2 weeks. Post-procedure instructions reviewed and written material given to the patient. Hannah Benz DO documented in this encounterBelle[facility] Hospital08-22-2022 Miscellaneous Notes* Telephone Encounter - Sarah Duran RN - 07/21/2022 9:44 AM EDT Patient notified. Sarah Duran RN The following approved medication requests have been transmitted electronically. Requested Prescriptions Signed Prescriptions Disp Refills metroNIDAZOLE (FLAGYL) 500 mg tablet 14 tablet 0 Sig: Take 1 tablet by mouth twice daily for 7 days. Authorizing Provider: ROXANA WARD fluconazole (DIFLUCAN) 150 mg tablet 3 tablet 0 Sig: Take 1 tablet today, then a 2nd tablet in 72 hours, and 3rd tablet in another 72 hours. Authorizing Provider: ROXANA WARD Pharmacy Information [place] [address] * Telephone Encounter - Roxana Ward APRN.CNP - 07/21/2022 8:40 AM EDT BV positive. To treat with Flagyl 500mg PO BID for 7 days. 1) No alcohol during treatment and for 24 hours after last dose. 2) No intercourse during treatment. 3) Probiotic by mouth once daily for 30 days or as needed. + Yeast, Diflucan sent. Roxana Ward APRN.CNP documented in this encounterBellevue Hospital08-19-2022 Instructions* Patient Instructions* Carol Shelby APRN.CNP - 07/18/2022 8:20 AM EDT vitamin with 0.4 folic acid - start a couple of months before attempting . Monistat 7 or generic - a applicator full at bedtime every night for 7 nights. Minimizing irritation of the vulva (area around the vagina) Wear white cotton underwear. Avoid synthetic fabrics and tight clothing. Sleep wearing shorts or pajama bottoms without underwear. Shower as soon as possible after exercise. Avoid clothing detergents and soaps with perfumes or dyes. Use warm (not hot) water to wash the vulva and if you use soap use a product designed for sensitive skin (like Dove or Cetaphil). Do not douche or use creams/powders in the vulvar area unless instructed by your physician. If you must douche, use only plain warm water. Make sure the vulva is dry before dressing by patting dry with a towel. Avoid vigorous rubbing withthe towel. You may want to use the blow dryer (on the cool setting only!) on the vulva. The most important way to let your body heal is by avoiding scratching. Many patients find it difficult to avoid scratching at night when they are most aware of the itchiness. You can try taking Benadryl just before bedtime. Some women find it helpful to wear cotton gloves to bed to avoid scratching at night. 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 Bought a house - considering future Menses: cycles every 28 days and 5 days of flow. Contraception: oral contraceptives HPV vaccine: Yes Last Pap: 2018 normal, HPV negative History of abnormal pap: Yes 2016 abnormal -ASC-H, HPV: HRHPV positive Last mammogram: never Sexually active: Yes History of STDS: HPV Time with current partner: 3 year Patient concerns for STD exposure: No. Pain with intercourse: No Postcoital bleeding: No Documentation from previous visit of 07/09/2021was copied and pasted, documentation has been reviewed and edited as necessary for today's visit. OB History T0 L0 SAB0 IAB0 Ectopic0 Multiple0 Live Births0 Learning And Development Intern History LMP: 06/12/2021 (Exact Date), Having periods Age at Menarche: Age at First : Age at Menopause: Learning And Development Intern History Comments: Sexual Activity: Yes; Male Contraception: Condom, Pill PAST MEDICAL HISTORY Diagnosis Date Abnormal glandular Papanicolaou smear of cervix 06/2017 Abn. Pap smear (cervix) PAST SURGICAL HISTORY Procedure Laterality Date PAST SURGICAL HISTORY OF 04/11/16 extraction of wisdom teeth REMOVAL OF TONSILS,<12 Y/O SINUS SURGERY PROC UNLISTED 10/2013 FAMILY HISTORY Problem Relation Age of Onset No Known Problems Mother No Known Problems Father No Known Problems Sister No Known Problems Sister No Known Problems Sister No Known Problems Brother Alzheimer's Disease Maternal Grandmother other (Cancer-Leukema) Maternal Grandfather unknown Prostate Cancer Paternal Grandfather other (Cancer-Basal Cell, CVA) Paternal Grandfather skin other (bone cancer) Paternal Grandfather other (Breast Cancer-53 at dx, BRCA negative) Paternal Aunt rediagnosed in 06/2017 Diabetes Paternal Aunt SOCIAL HISTORY Social History Tobacco Use Smoking status: Never Smokeless tobacco: Never Vaping Use Vaping Use: Never used Substance Use Topics Alcohol use: Yes Comment: Rarely Drug use: No REVIEW OF SYSTEMS Abdomen: No abdominal pain, nausea, vomiting, diarrhea, or constipation. No bloating, early satiety, indigestion, or increased flatulence. Bladder: No dysuria, gross hematuria, urinary frequency, urinary urgency, or incontinence. Breast: No breast lumps, nipple d/c, overlying skin changes, redness or skin retraction. Allergies and current medication updated:Yes EXAM: BP 100/70 Ht 5' 6.142 (1.68m) Wt 165 lb (74.8kg) LMP 07/09/2022 BMI 26.52 kg/(m^2). GENERAL: pleasant, female in no apparent distress HEENT: Normocephalic, atraumatic, mucus membranes moist, and no lesions NECK: Supple, full range of motion, no adenopathy, and thyroid normal DERMATOLOGY: Normal, without lesions, non-icteric, and non-hirsute BREAST: soft, non-tender, symmetric, no dominant mass, normal nipple-areolar complex, no lymphadenopathy, and no nipple discharge CHEST: Normal inspiratory effort ABDOMEN: soft, non-tender, and no masses PELVIC: external genitalia normal, normal Bartholin's glands, urethra, Purdin's glands, no vulvar lesions, no cervical lesions, good vaginal support, normal appearing perineal body and perianal region, abnormal discharge thick white adherent BIMANUAL: uterus normal size, shape and consistency, no adnexal masses, and non-tender RECTOVAGINAL: deferred. NEURO: alert and oriented x3,exam grossly non-focal EXTREMITIES: normal ASSESSMENT/PLAN: 1) Health maintenance: Pap done with reflex HPV. Nutrition, exercise and routine health maintenance exams reviewed. HPV vaccine: completed series 2. Vaginal discharge - ICD9: 623.5, ICD10: N89.8 - suspect yeast - GONZALEZ / TRICHOMONAS AMPLIFICATION - BACTERIAL VAGINOSIS AMPLIFICATION - Monistat 7 or generic - a applicator full at bedtime every night for 7 nights. 3) Contraception: combined hormonal contraceptives. Contraceptive options reviewed and information provided. PNVFA start 2 months prior to stopping OCP. 4) STD screening: Declined STD check. 5) Follow up one year or sooner as needed Carol Shelby APRN.MARS [facility]* Diagnosis Encounter for gynecological examination with abnormal finding- Primary Routine gynecological examination Vaginal discharge Leukorrhea, not specified as infective Surveillance for control, oral contraceptives Surveillance of previously prescribed contraceptive pill Encounter for Papanicolaou smear for cervical cancer screening [facility]* Diagnosis ASCUS with positive high risk HPV cervical- Primary Cervical high risk human papillomavirus (HPV) DNA test positive [facility] Dog bite, initial encounter- Primary Puncture wound Open wound(s) (multiple) of unspecified site(s), without mention of complication [facility] Diagnosis Encounter for gynecological examination (general) (routine) without abnormal findings- Primary Papanicolaou smear of cervix with atypical squamous cells of undetermined significance (ASC-US) Screening for cervical cancer Screening for malignant neoplasm of the cervix documented in this encounter [facility] Author Jasmine Tanner [facility] Note Date/Time May 10, 2025 11:5 4am [facility] [address], [address] [place] [address] OFFICE VISIT Date of Service: 05/10/25 MR#: [id number] Acct: [id number] Name: WENDIE VELEZ Rep #: [id number] : 1995 Provider: URSULA Tanner Age/Sex: 29/F [place] [facility] [place]: Signed Intake Vital Signs 04/11/25 10:10 05/10/25 11:31 Height 5 ft 7 in 5 ft 7 in Weight: 199 lb 2 oz BMI 31.1 BP 116/68 Intake Visit Reasons: 24 WK OB Chief Complaint: 24 Week OB 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: No Is patient in pain?: No Allergies grass pollen Allergy (Intermediate, Verified 05/10/25 11:32) Swelling tea tree Allergy (Intermediate, Verified 05/10/25 11:32) Swelling thiopental (From thiopental sodium) Adverse Reaction (Severe, Verified 05/10/25 11:32) Other Medications ?Medication ?Instructions ?Recorded ?Confirmed ?Type multivitamin no.47-iron fum 27 cap PO 01/03/25 5 History mg-folate no.1 1 mg-dha 300 mg capsule (PNV-DHA) Last Menstrual Period: 11/19/24 Zika: Zika virus screening: Negative : Yes PFSH PFSH Medical History History of HPV infection Hx of abnormal cervical Pap smear Surgical History History of colposcopy H/O sinus surgery [place] teeth extracted History of tonsillectomy Family History Grandfather Cancer, Onset Age: 85 Maternal- lymphoma Grandmother Alzheimer's dementia, Onset Age: 80 Maternal Grandfather Cancer, Onset Age: 80 Paternal- skin cancer Aunt Diabetes Paternal -Type 1 Breast cancer, Onset Age: 48 Paternal- Triple negative- Not genetic Mother Family history of miscarriage 1 early miscarriage and one @ 16wk- unknown reasons Social History adopted: No household members: spouse housing: house current occupational status: employed 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/hazards: No pets and animals: Yes (Cats outside- Avoiding litterbox) pets and animals: cat(s), dog(s) and horse(s) history of recent travel: Yes ([place] in November) out of state: Yes out of country:No sexually active: Yes Smoking Status: Never smoker alcohol intake: current alcohol intake frequency: holidays/special occasions only details: Not while substance use type: does not use well-balanced diet: daily or most days caffeine: No eating out: 1-3 times/week during the past year weight has: remained stable what type of physical activity do you participate in: other details: Horse backriding 1 hour daily frequency: daily duration: 45-60 minutes/day rajat/worship: Moravian seatbelt use: always do you feel safe at home: Yes additional social history: -[place]- Goes by [employer] sloan History 1 Elective abortions Hx Para 0 Spontaneous abortions Hx # Term Pregnancies Ectopic pregnancies Hx # Pregnancies Multiple births # of living children HPI 24 WK OB Details: WENDIE VELEZ is a 29 year old who presents for routine OB visit. OB Visit ALFREDITO Calculator Estimated Delivery Date Method Current WG Current Estimate 08/20/25 Ultrasound #1 25w 3d Other Estimates 08/26/25 LMP (Certain) 24w 4d Expected Delivery Route/Plan Labor Preferences- CB/BF classes: scheduled labor support person: Shar labor intervention preferences: [] pain management options preferred: limited but open to epidural cut cord/dad catch: yes : yes PP control planned: discussed discussed possible routes of delivery and associated risks: [] special requests: [] Specific Issue/Plans Covid status: [] Flu vaccine: [] Tdap vaccine: [] Rhogam: RH neg for mom and baby, NA LARC form signed: yes Problem list reviewed and updated with the most current plan of care details and appropriate orders placed. Relevant counseling for the gestational age provided. Continue routine care and follow up unless otherwise noted in visit notes/problem list details Initial Weight: 192 lb Date -?-?-?-?-?-?-?-?-?-?-?-?- EGA Weight BP Urine Prot -?-?-?-?-?-?-?-?-?-?-?-?- Glucose FHR FuHt Pres Dilation -?-?-?-?-?-?-?-?-?-?-?-?- Effaced St Visit Note 01/13/25 -?-?-?-?-?-?-?-?-?-?-?-?- 8w 5d 192 lb 8 oz (+8 oz) 120/77 -?-?-?-?-?-?-?-?-?-?-?-?- 171 -?-?-?-?-?-?-?-?-?-?-?-?- KW- CRL not cons with dates. ALFREDITO changed. NIPT done KW- CRL not cons with dates. ALFREDITO changed. NIPT ordered. 02/17/25 -?-?-?-?-?-?-?-?-?-?-?-?- 13w 5d 191 lb 6 oz (-10 oz) 109/76 Negative -?-?-?-?-?-?-?-?-?-?-?-?- Negative 140 -?-?-?-?-?-?-?-?-?-?-?-?- SM- no vb crampi ng 03/16/25 -?-?-?-?-?-?-?-?-?-?-?-?- 17w 4d 195 lb 8 oz (+3 lb 8 oz) 115/71 -?-?-?-?-?-?-?-?-?-?-?-?- 145 -?-?-?-?-?-?-?-?-?-?-?-?- JV- no lof, vagi nal bleeding, or cramping reported. asking ely for baby's blood type. her is willing to do an RH test at next visit if needed 04/11/25 -?-?-?-?-?-?-?-?-?-?-?-?- 21w 2d 197 lb (+5 lb) 118/78 Negative -?-?-?-?-?-?-?-?-?-?-?-?- Negative 151 -?-?-?-?-?-?-?-?-?-?-?-?- MH-No VB. Stan bess. Denies concerns 05/10/25 -?-?-?-?-?-?-?-?-?-?-?-?- 25w 3d 199 lb 2 oz (+7 lb 2 oz) 116/68 Negative -?-?-?-?-?-?-?-?-?-?-?-?- Negative 141 25 -?-?-?-?-?-?-?-?-?-?-?-?- MH-No VB. Jorge hardy Denies concerns. Lar ACOG First Trimester First Trimester: Desire for , Alcohol, Tobacco Cessation, Illicit/Recreational Drug/Substance Use, Intimate Partner Violence, Barriers to care, Anticipated Course of Care, Use of Any medications, Sexual activity, Exercise, Dental Care, Sauna/Hot tub use, Seat Belt use, Childbirth classes/Hospital facilities, , Travel, Indications for Ultrasound and Screening for Aneuploidy; Discussed Unstable Housing, Discussed Communication Barriers, Discussed Environmental/Work Hazards and Discussed Toxoplasmosis Precations Second Trimester Second Trimester: Signs and Symptoms of Labor, Selecting a care provider, Reproductive Life Planning & Contreception, Care Planning, Depression/Anxiety and Intimate Partner Violence; Discussed Tobacco Cessation Third Trimester Third Trimester: Pain Management Plans, Labor support person(s), Immediate Larc, Circumcision preference Yes Yes, Signs and Symptoms of Preeclampsia, Feeding Yes , Education and Family Medical Leave or Disability Forms ROS Const Reports system reviewed and no additional complaints, except as documented GI Denies abdominal pain, Denies nausea and Denies vomiting Exam Const General: cooperative Nutritional Appearance: well nourished GI Palpation: soft, nontender and other (gravid) Results POC Urinalysis 2 Dip (Clinic) Office Urine Glucose Negative Last Edit by Keri Nina on 05/10/25 11 :34 Office Urine Protein Negative Last Edit by Keri Nina on 05/10/25 11 :34 Coding Level of Care Code OB Routine Diagnoses Encounter for supervision of normal first in second trimester Z34.02 Trimester: second trimester 25 weeks gestation of Z3A.25 Weeks of gestation: 25 weeks Rh negative status during in second trimester O26.892; Z67. Trimester: second trimester Assessment and Plan Assessment and Plan (1) Supervision of normal first : Status: Acute Qualifiers: Trimester: second trimester Qualified Code(s): Z34.02 - Encounter for supervision of normal first , second trimester Comment: PRR, , ALFREDITO 08/20/25 boy, Shar (2) : Status: Acute Qualifiers: Weeks of gestation: 25 weeks Qualified Code(s): Z3A.25 - 25 weeks gestation of Comment: NIPT low risk. Anatomy nl. (3) Rh negative status during : Status: Acute Qualifiers: Trimester: second trimester Qualified Code(s): O26.892 - Other specified related conditions, second trimester; Z. - Unspecified blood type, Rh negative Comment: Fetus is RhD negative per NIPT. Orders: Orders POC Urinalysis 2 Dip (Clinic) Today CBC W/Diff, Automated Today O26.892 - Other specified related conditions, second trimester, Z67.91 - Unspecified blood type, Rh negative Glucose Challenge Gest 1H 50g Today O26.892 - Other specified related conditions, second trimester, Z13.1 - Encounter for screening for diabetes mellitus, Z - Unspecified blood type, Rh negative Type & Screen Today O26.892 - Other specified related conditions, second trimester, Z67.91 - Unspecified blood type, Rh negative HIV Today O26.892 - Other specified related conditions, second trimester, Z67.91 - Unspecified blood type, Rh negative Syphilis Antibodies Today O26.892 - Other specified related conditions, second trimester, Z67.91 - Unspecified blood type, Rh negative Plan problem list reviewed and updated for most current plan of care and appropriate orders placed. Relevant counseling for the gestational age appropriate provided and ACOG education checklist updated. Continue routine care and follow up. 05/10/25 1154 <Electronically signed by Jasmine goldberg NP SHERIFF DEPUTY-C> Date _ Jasmine Tanner NP SHERIFF DEPUTY-C Cosigner Signature: Date (if applicable) CC: ~ [place] [facility] Work Phone: Reason for referral (narrative)* Outpatient Procedure (Routine) - Pending Review Specialty Diagnoses / Procedures Referred By Castro ramirez Referred To Contact [facility] Diagnoses ASCUS with positive high risk HPV cervical Procedures COLPOSCOPY COLPOSCOPY CERVIX BX CERVIX & ENDOCRV CURRETAGE Hannah Benz MD [address] [place] [address] [facility] [address] [place] [address] Referral ID Status Reason Start Date Expiration Date Visits Requested Visits Authorized [id number] Pending Review Auto-Generat ed Referral 08/13/2022 08/13/2023 1 1 [facility]ative[facility]No reason for referral information availableWTuscarawas Hospital Work Phone: Summary Purpose Family History No Family History Records Found Relationship Condition Age at Onset Recorded Date/T kandi grandfather Malignant neoplasm 85 grandmother Alzheimer's dementia 80 grandfather Malignant neoplasm 80 aunt Diabetes mellitus Unknown Malignant neoplasm of breast 48 mother Family history of miscarriage Unknown Advance Directives No Advanced Directives Records Found Advance Directive Response Recorded Date/ Time Advance Directives No December 20, 2024 5:13pm Chief Complaint and Reason for Visit Chief Complaint Admit Date NOB LMP 11/19January 13, 2025 12:54pm Reason for Visit Admit Date January 13, 2025 12:54pm Supervision of normal first [facility] 2024 12:54pm Chief Complaint Admit Date NOB LMP 11/19January 13, 2025 12:54pm 12wk OB February 17, 2025 9:1 7am Reason for Visit Admit Date January 13, 2025 12:54pm Supervision of normal first Fe [facility] 2024 12:54pm February 17, 2025 9:1 7am Rh negative status during [facility] 2024 9:17am Supervision of normal first [facility] 2024 9:17am Chief Complaint Admit Date NOB LMP 11/19January 13, 2025 12:54pm 12wk OB February 17, 2025 9:1 7am 16wk ob March 16, 2025 9:3 5am 20wk ob April 11, 2025 10:07 am Reason for Visit Admit Date January 13, 2025 12:54pm Supervision of normal first Fe [facility] 2024 12:54pm February 17, 2025 9:1 7am Rh negative status during [facility] 2024 9:17am Supervision of normal first [facility] 2024 9:17am March 16, 2025 9:3 5am Rh negative status during [facility] 2024 9:35am Supervision of normal first Ap ril 2024 9:35am April 11, 2025 10:07 am Rh negative status during April 11, 2025 10:07am Supervision of normal first Ma y 2024 10:07am Chief Complaint Admit Date NOB LMP 11/19January 13, 2025 12:54pm 12wk OB February 17, 2025 9:1 7am 16wk ob March 16, 2025 9:3 5am 20wk ob April 11, 2025 10:07 am 24 WK OB May 10, 2025 11:2 8am Reason for Visit Admit Date January 13, 2025 12:54pm Supervision of normal first Fe jose 2024 12:54pm February 17, 2025 9:1 7am Rh negative status during [place] 2024 9:17am Supervision of normal first [facility] 2024 9:17am March 16, 2025 9:3 5am Rh negative status during [facility] 2024 9:35am Supervision of normal first Ap ril 2024 9:35am April 11, 2025 10:07 am Rh negative status during April 11, 2025 10:07am Supervision of normal first Ma y 2024 10:07am May 10, 2025 11:2 8am Rh negative status during May 10, 2025 11:28am Supervision of normal first Ju ne 2024 11:28am Chief Complaint Admit Date 12wk OB February 17, 2025 9:1 7am 16wk ob March 16, 2025 9:3 5am 20wk ob April 11, 2025 10:07 am 24 WK OB May 10, 2025 11:2 8am 28wk ob/glucose June 05, 2025 2:11p m Reason for Visit Admit Date February 17, 2025 9:1 7am Rh negative status during [place] 2024 9:17am Supervision of normal first [facility] 2024 9:17am March 16, 2025 9:3 5am Rh negative status during [facility] 2024 9:35am Supervision of normal first Ap ril 2024 9:35am April 11, 2025 10:07 am Rh negative status during April 11, 2025 10:07am Supervision of normal first Ma y 2024 10:07am May 10, 2025 11:2 8am Rh negative status during May 10, 2025 11:28am Supervision of normal first Ju ne 2024 11:28am June 05, 2025 2:11p m Rh negative status during June 05, 2025 2:11pm Supervision of normal first Ju 2024 2:11pm Additional Source Comments Source Comments (unrecognize d section and content) In the event this informatio n is protected by the Federal Confidentiality of Alcohol and Drug Abuse Patient Records regulations: The Federal rules restrict any use of the information to criminally investigate or prosecute any alcohol or drug abuse patient.[facility] the event this information is protected by the Federal Confidentiality of Alcohol and Drug Abuse Patient Records regulations: The Federal rules restrict any use of the information to criminally investigate or prosecute any alcohol or drug abuse patient.[facility] HospitalIn the event this information is protected by the Federal Confidentiality of Alcohol and Drug Abuse Patient Records regulations: The Federal rules restrict any use of the information to criminally investigate or prosecute any alcohol or drug abuse patient.[facility] HospitalIn the event this information is protected by the Federal Confidentiality of Alcohol and Drug Abuse Patient Records regulations: The Federal rules restrict any use of the information to criminally investigate or prosecute any alcohol or drug abuse patient.[facility] HospitalIn the event this information is protected by the Federal Confidentiality of Alcohol and Drug Abuse Patient Records regulations: The Federal rules restrict any use of the information to criminally investigate or prosecute any alcohol or drug abuse patient.[facility] Care Teams (unrecognized sec tion and content) Classroom Technology Coach Relationship Specialty Start Date End Date Laura Nina MD PCP - General Family Practice 12/28/12 Classroom Technology Coach Relationship Specialty Start Date End Date Laura Nina MD PCP - General Family Practice 12/28/12 Classroom Technology Coach Relationship Specialty Start Date End Date Laura Nina MD PCP - General Family Practice 12/28/12 Classroom Technology Coach Relationship Specialty Start Date End Date Laura Nina MD PCP - General Family Medicine 12/28/12 Classroom Technology Coach Relationship Specialty Start Date End Date Laura Nina MD PCP - General Family Medicine 12/28/12 Team Status: Active Member Role Status Dates Dr. Laura Nina MD Family Provider Active Dr. Laura Nina MD Primary Care Provider Active Team Status: Inactive Member Role Status Dates Dr. Laura Nina MD Primary Care Provider Active Start: January 13, 2025 End: January 13, 2025 Dr. Laura Nina MD Referring Provider Active Start: January 13, 2025 End: January 13, 2025 Monika Cui CNM Attending Provider Active S tart: January 13, 2025 End: January 13, 2025 Team Status: Inactive Member Role Status Dates Dr. Laura Nina MD Primary Care Provider Active Start: January 13, 2025 End: January 13, 2025 Monika Cui CNM Attending Provider Active S tart: January 13, 2025 End: January 13, 2025 Monika Cui CNM Referring Provider Active S tart: January 13, 2025 End: January 13, 2025 Team Status: Inactive Member Role Status Dates Dr. Laura Nina MD Primary Care Provider Active Start: February 02, 2025 End: February 02, 2025 Monika Cui CNM Attending Provider Active S tart: February 02, 2025 End: February 02, 2025 Monika Cui CNM Referring Provider Active S tart: February 02, 2025 End: February 02, 2025 Team Status: Inactive Member Role Status Dates Dr. Laura Nina MD Primary Care Provider Active Start: February 17, 2025 End: February 17, 2025 Dr. Laura Nina MD Referring Provider Active Start: February 17, 2025 End: February 17, 2025 Dr. Tanisha Pena MD Attending Provider Active Start: February 17, 2025 End: February 17, 2025 Team Status: Inactive Member Role Status Dates Dr. Laura Nina MD Primary Care Provider Active Start: February 17, 2025 End: February 17, 2025 Monika Cui CNM Attending Provider Active S tart: February 17, 2025 End: February 17, 2025 Monika Cui CNM Referring Provider Active S tart: February 17, 2025 End: February 17, 2025 Team Status: Inactive Member Role Status Dates Dr. Laura Nina MD Primary Care Provider Active Start: March 16, 2025 End: March 16, 2025 Dr. Laura Nina MD Referring Provider Active Start: March 16, 2025 End: March 16, 2025 Dr. Joie Bonner DO Attending Provider Activ e Start: March 16, 2025 End: March 16, 2025 Team Status: Inactive Member Role Status Dates Dr. Laura Nina MD Primary Care Provider Active Start: April 11, 2025 End: April 11, 2025 Dr. Laura Nina MD Referring Provider Active Start: April 11, 2025 End: April 11, 2025 Jasmine Tanner SHERIFF DEPUTY, SHERIFF DEPUTY-C Attending Provider Active Start: April 11, 2025 End: April 11, 2025 Team Status: Inactive Member Role Status Dates Dr. Laura Nina MD Primary Care Provider Active Start: May 10, 2025 End: May 10, 2025 Dr. Laura Nina MD Referring Provider Active Start: May 10, 2025 End: May 10, 2025 Jasmine Tanner SHERIFF DEPUTY, SHERIFF DEPUTY-C Attending Provider Active Start: May 10, 2025 End: May 10, 2025 Team Status: Active Member Role/Relationship Status Dates Dr. Laura Nina MD Family Provider Active Dr. Laura Nina MD Primary Care Provider Active Team Status: Inactive Member Role/Relationship Status Dates Dr. Laura Nina MD Primary Care Provider Active Start: February 17, 2025 End: February 17, 2025 Dr. Laura Nina MD Referring Provider Active Start: February 17, 2025 End: February 17, 2025 Dr. Tanisha Pena MD Attending Provider Active Start: February 17, 2025 End: February 17, 2025 Team Status: Inactive Member Role/Relationship Status Dates Dr. Laura Nina MD Primary Care Provider Active Start: February 17, 2025 End: February 17, 2025 Monika Cui CNM Attending Provider Active S tart: February 17, 2025 End: February 17, 2025 Monika Cui CNM Referring Provider Active S tart: February 17, 2025 End: February 17, 2025 Team Status: Inactive Member Role/Relationship Status Dates Dr. Laura Nina MD Primary Care Provider Active Start: March 16, 2025 End: March 16, 2025 Dr. Laura Nina MD Referring Provider Active Start: March 16, 2025 End: March 16, 2025 Dr. Joie Bonner DO Attending Provider Activ e Start: March 16, 2025 End: March 16, 2025 Team Status: Inactive Member Role/Relationship Status Dates Dr. Laura Nina MD Primary Care Provider Active Start: April 11, 2025 End: April 11, 2025 Dr. Laura Nina MD Referring Provider Active Start: April 11, 2025 End: April 11, 2025 Jasmine Tanner SHERIFF DEPUTY, SHERIFF DEPUTY-C Attending Provider Active Start: April 11, 2025 End: April 11, 2025 Team Status: Inactive Member Role/Relationship Status Dates Dr. Laura Nina MD Primary Care Provider Active Start: May 10, 2025 End: May 10, 2025 Dr. Laura Nina MD Referring Provider Active Start: May 10, 2025 End: May 10, 2025 Jasmine Tanner NP, SHERIFF DEPUTY-C Attending Provider Active Start: May 10, 2025 End: May 10, 2025 Team Status: Inactive Member Role/Relationship Status Dates Dr. Laura Nina MD Primary Care Provider Active Start: June 05, 2025 End: June 05, 2025 Dr. Laura Nina MD Referring Provider Active Start: June 05, 2025 End: June 05, 2025 Monika Cui CNM Attending Provider Active S tart: June 05, 2025 End: June 05, 2025 Team Status: Active Member Role/Relationship Status Dates Dr. Laura Nina MD Primary Care Provider Active Start: June 05, 2025 Jasmine Tanner NP, SHERIFF DEPUTY-C Attending Provider Active Start: June 05, 2025 Team Status: Active Member Role/Relationship Status Dates No Primary Care Physician Primary Care Provider Active Team Status: Inactive Member Role/Relationship Status Dates Dr. Laura Nina MD Primary Care Provider Active Start: June 05, 2025 End: June 05, 2025 Jasmine Tanner SHERIFF DEPUTY, SHERIFF DEPUTY-C Attending Provider Active Start: June 05, 2025 End: June 05, 2025 Reason for Visit (unrecogniz ed section and content) Reason Comments Results Reason Comments Colposcopy Specialty Diagnoses / Procedures Referred By Contmarianela t Referred To Contact [facility] Diagnoses ASCUS with positive high risk HPV cervical Procedures COLPOSCOPY COLPOSCOPY CERVIX BX CERVIX & ENDOCRV CURRETAGE Carol Shelby, SLUDGE FILTRATION ATTENDANT.UNDERGROUND PRODUCTION FOREPERSON [address] [place] [address] [facility] [address] [place] [id number] Referral ID Status Reason Start Date Expiration Date V isits Requested Visits Authorized [id number] Closed Auto-Generate d Referral 07/31/2022 07/31/2023 1 1 Reason Comments Animal Bite Dog bite on right che nd this morning Reason Comments Yearly Exam INFORMATION SOURCE (unrecogn ized section and content) DATE CREATED AUTHOR 06/17/2024 [facility] DATE CREATED AUTHOR AUTHOR'S ORGANIZ ATION 03/29/2025 [facility] DATE CREATED AUTHOR AUTHOR'S ORGANIZ ATION 06/09/2025 [facility] Goals (unrecognized section and content) Goals may be documented in a n alternate sectionGoals may be documented in an alternate sectionGoals may be documented in an alternate sectionGoals may be documented in an alternate sectionGoals may be documented in an alternate sectionGoals may be documented in an alternate section FOR RECORDS PERTAINING TO PATIENTS WHO ARE OR HAVE BEEN ENROLLED IN A CHEMICAL DEPENDENCY/SUBSTANCEABUSE PROGRAM, SOME INFORMATION MAY BE OMITTED. This clinical summary was aggregated from multiple sources. Caution should be exercised in using it in the provision of clinical care. This summary normalizes information from multiple sources, and as a consequence, information in this document may materially change the coding, format and clinical context of patient data. In addition, data may be omitted in some cases. CLINICAL DECISIONS SHOULD BE BASED ON THE PRIMARY CLINICAL RECORDS. [employer] provides no warranty or guarantee of the accuracy or completeness of information in this document.
[2025-06-15 07:13] LABS: Glucose GTT-Gestation. Fasting 90 mg/dL (<105)
[2025-06-15 09:46] LABS: Glucose GTT-Gestational 1 Hr 111 mg/dL (<190)
[2025-06-15 10:11] LABS: Glucose GTT-Gestational 2 Hr 107 mg/dL (<165)
[2025-06-15 11:49] LABS: Glucose GTT-Gestational 3 Hr 100 L (<145)
== END | disposition home or self-care (01) ==
LOC: LAB 06:38
PROVIDERS: Referring Provider Nurse Practitioner Women's Health; Visit Provider Nurse Practitioner Women's Health
DX: Z13.1 Encounter for screening for diabetes mellitus (principal)
CPT/HCPCS: 36415; 82951; 82952

== ENCOUNTER → 2025-07-25 | Outpatient (CLI) | payer OTHER, SELFPAY | END | disposition home or self-care (01) | LOC: LABSPEC 16:35 | PROVIDERS: Visit Provider Nurse Practitioner Women's Health | DX: Z34.02 Encounter for supervision of normal first pregnancy, second trimester (principal) | CPT/HCPCS: 87081 ==

== ENCOUNTER 2025-08-24 19:19 | Inpatient (IN) | payer OTHER, SELFPAY ==
[2025-08-24 19:18] VITALS: BMI 33.3
--- OUTSIDE RECORDS SUMMARY | 2025-08-24 19:21 | XMS RPT_ITS | CCD ---
Author Organization [facility] Care Team Providers Care Guide Alpine Name Role Phone Laura Marcus MD Primary Care Provider LAURA MARCUS Primary Care Unavailable CAROL SHELBY Attending Unavailable LAURA MARCUS Primary Care Unavailable Dr. Laura Marcus MD Primary Care Provider Dr. Laura Marcus MD Referring Provider Monika Cui CNM Attending Provider Monika Cui CNM Referring Provider Dr. Tanisha Pena MD Attending Provider JOSE ALBERTO PRADO Attending Unavailable TANISHA PENA Referring Unavailabl e LAURA MARCUS Primary Care Unavailable Dr. Joie Bonner DO Attending Provider Jasmine Garcia Attending Provider Dr. Laura Marcus MD Primary Care Provider Dr. Laura Marcus MD Referring Provider Monika Cui CNM Attending Provider Monika Cui CNM Referring Provider Dr. Laura Marcus MD Primary Care Provider Dr. Laura Marcus MD Referring Provider Monika Cui CNM Attending Provider Jasmine Garcia Referring Provider Care Physician, No Primary Primary Care Provider Unavailable Dr. Laura Marcus MD Primary Care Provider Dr. Laura Marcus MD Referring Provider Dr. Joie Bonner DO Attending Provider Dr. Tanisha Pena MD Attending Provider 1( [phone] Care Physician, No Primary Referring Provider Un available Amrit ROTHMAN, Dr. Laura Michel Primary Care Provider Dr. Laura Marcus MD Referring Provider Flores DATA CONVERSION DEVELOPER-CJasmine Attending Provider Flores DATA CONVERSION DEVELOPER, Jasmine Attending Unavailable Care Physician, No Primary Primary Care Unava ilable Care Physician, No Primary Referring Unava ilable Care Physician, No Primary Primary Care Unava ilable Marcus, Laura K Referring Unavailable Monika Cui Attending Unavailable Marcus, Laura K Primary Care Unavailable Monika Cui Attending Unavailable Marcus, Laura K Referring Unavailable Marcus, Laura K Primary Care Unavailable Flores DATA CONVERSION DEVELOPER, Jasmine Attending Unavailable Marcus, Laura K Referring Unavailable Care Physician, No Primary Primary Care Unava ilable Marcus, Laura K Referring Unavailable Tanisha Pena Attending Unavailable Marcus, Laura K Primary Care Unavailable Tanisha Pena Attending Unavailable Marcus, Laura K Referring Unavailable VandJoie Perez Attending Unavailabl e Marcus, Laura K Primary Care Unavailable Marcus, Laura K Referring Unavailable Care Physician, No Primary Referring Unava ilable Care Physician, No Primary Primary Care Unava ilable Monika Cui Attending Unavailable Flores DATA CONVERSION DEVELOPER, Jasmine Attending Unavailable Care Physician, No Primary Primary Care Unava ilable Marcus, Laura K Referring Unavailable Marcus, Laura K Primary Care Unavailable Flores DATA CONVERSION DEVELOPERJasmine Attending Unavailable Joie Bonner Attending Unavailabl e Care Physician, No Primary Referring Unava ilable Care Physician, No Primary Primary Care Unava ilable Marcus, Laura K Referring Unavailable Marcus, Laura K Primary Care Unavailable Monika Cui Attending Unavailable Marcus, Laura K Primary Care Unavailable Monika Cui Referring Unavailable Monika Cui Attending Unavailable Marcus, Laura K Primary Care Unavailable Monika Cui Attending Unavailable See Monika Referring Unavailable Marcus, Laura K Primary Care Unavailable [place] DATA CONVERSION DEVELOPER, Jasmine Attending Unavailable Flores DATA CONVERSION DEVELOPER, Jasmine Attending Unavailable Care Physician, No Primary Primary Care Unava ilable Flores DATA CONVERSION DEVELOPERJasmine Referring Unavailable Marcus, Laura K Primary Care Unavailable Monika Cui Referring Unavailable Monika Cui Attending Unavailable Marcus, Laura K Referring Unavailable Care Physician, No Primary Primary Care Unava ilable Monika Cui Attending Unavailable Joie Bonner Attending Unavailabl e Care Physician, No Primary Primary Care Laura Lyons Referring Unavailable Care Physician, No Primary Primary Care Laura Lyons Referring Unavailable Tanisha Pena Attending Unavailable Allergies Allergy Classification Reported Allergen(s) Allergy Type Date of Onset Reaction(s) Facility Pollen (1 source) Grass pollen Substance Allergy 8 Intolerance [facility] Work Phone: Thiopental (1 source) Thiopental Drug Allergy 3 Other: See Comments [facility] (20 sources) Grass pollen; Translations: [GRASS POLLEN] Drug Intolerance 8 Intolerance [facility] Work Phone: Comment on above: Reaction Itchy eye, sneezing, itchy throat, slight facial swelling (19 sources) Thiopental; Translations: [THIOPENTAL] Drug Allergy 3 Other: See Comments [facility] Comment on above: Reaction Itchy eye, sneezing, itchy throat, slight facial swelling (14 sources) tea tree Allergy to substance 5 Swelling [facility] (1 source) Thiopental Drug Allergy 5 [facility] (1 source) tea tree Drug allergy (disorder) 5 [facility] Medications Current Medications Medication Drug Class(es) [...] (FLONASE) 50 mcg/actuation nasal spray Use 1 Recluse in each nostril two times a day. 0 04/09/2022 Active Comment on above: Use 1 Recluse in each nostril twice daily. metroNIDAZOLE 500 mg oral tablet (1 source) Nitroimidazole Antimicrobial Start: 07-21-20 End: 07-28-20 take 1 tablet by mouth twice daily metroNIDAZOLE (FLAGYL) 500 mg tablet Take 1 tablet by mouth twice daily for 7 days. 14 tablet 0 07/21/2022 07/28/2022 Active Comment on above: Take 1 tablet by howard th twice daily for 7 days. Multivit 22-Kdzs-Snajiq 1-Dha (Pnv-Dha) 27 mg iron-1 mg -300 mg capsule (14 sources) Start: 02-04-20 25 Multivit 19-Lvre-Djrkfc 1-Dha (Pnv-Dha) 27 mg iron-1 mg -300 mg capsule Active NMA PO January 03, 2025 1:00am Multivitamin capsule (5 sources) take 1 capsule by mouth once daily Multivitamin capsule Take 1 capsule by mouth once daily. 0 Active Comment on above: Take 1 capsule by mo uth once daily. Completed/Discontinued Medications Medication Drug Class(es) Dates Sig (Normalized) Sig (Original) cefprozil 500 mg oral tablet (14 sources) Cephalosporin Antibacterial Start: 01-16-2014 End: 01-03-2025 take 1 tablet by mouth every twelve hours Cefprozil 500 MG tablet Discontinued 500 mg PO Q12H January 16, 2014 1:00am January 03, 2025 9:27am Norgestrel-Ethiny l Estradiol 1 EACH tablet (14 sources) Start: 01-16-2014 End: 01-03-2025 Norgestrel-Ethinyl Estradiol [...] [Bitten by dog, initial encounter] 05-20-2024 Episodic Immunizations and screening for infectious disease (1 source) Encounter for immunization; Translations: [Encounter for immunization] Onset: 06-19-2025 Episodic Other complications of (20 sources) RhD negative; Translations: [Other specified related conditions, unspecified trimester] 02-02-2025 Episodic Comment on above: 28 week rhogam 28 week rhogam. Fetu s is RhD negative per NIPT. Fetus is RhD negativ e per NIPT. Other complications of (1 source) Other specified related conditions, second trimester; Translations: [Other specified related conditions, second trimester] Onset: 08-18-2025 Episodic Other female genital disorders (1 source) [...] my nl. PRR, , ALFREDITO boy, Shar Neg GBS. NIPT low ri sk. Anatomy nl. Other screening for suspected conditions (not mental disorders or infectious disease) (3 sources) Patient encounter status; Translations: [Encounter for screening for malignant neoplasm of cervix] Onset: 06-21-2025 Episodic Residual codes; unclassified (1 source) Unspecified blood type, Rh negative; Translations: [Unspecified blood type, Rh negative] Onset: 08-18-2025 Episodic Residual codes; unclassified (1 source) 39 weeks gestation of ; Translations: [39 weeks gestation of ] Onset: 08-18-2025 Episodic Residual codes; unclassified (1 source) 38 weeks gestation of ; Translations: [38 weeks gestation of ] Onset: 08-11-2025 Episodic Residual codes; unclassified (1 source) 37 weeks gestation of ; Translations: [37 weeks gestation of ] Onset: 08-03-2025 Episodic Residual codes; unclassified (1 source) 35 weeks gestation of ; Translations: [35 weeks gestation of ] Onset: 07-20-2025 Episodic Residual codes; unclassified (1 source) 31 weeks gestation of ; Translations: [31 weeks gestation of ] Onset: 06-19-2025 Episodic Residual codes; unclassified (1 source) 29 weeks gestation of ; Translations: [29 weeks gestation of ] Onset: 06-05-2025 Episodic Past or Other Problems Problem Classification Problem Date Documented Da te Episodic/Chronic Other complications of (1 source) Other specified related conditions, unspecified trimester; Translations: [Other specified related conditions, unspecified trimester] Onset: 02-17-2025 Episodic Residual codes; unclassified (1 source) 25 weeks gestation of ; Translations: [25 weeks gestation of ] Onset: 05-10-2025 Episodic Residual codes; unclassified (1 source) 13 weeks gestation of ; Translations: [13 weeks gestation of ] Onset: 02-17-2025 Episodic Residual codes; unclassified (1 source) Less than 8 weeks gestation of ; Translations: [Less than 8 weeks gestation of ] Onset: 01-13-2025 Episodic Results Test Name Value Interpretation Reference Range Facility Cremator Office Visit Reporton 08-18-2025 Cremator Office Visit Report [facility]'s [address], [address] [place] [address] OFFICE VISIT Date of Service: 08/18/25 MR#: [id number] Acct: [id number] Name: WENDIE VELEZ Rep #: [id number] 9 : 1995 Provider: FELICE Calero ams Age/Sex: 29/F Location: [facility] Status: Signed Intake Vital Signs 07/20/25 14:04 08/11/25 11:01 08/18/25 13:35 08/18/25 13:35 Height 5 ft 7 in 5 ft 7 in 5 ft 7 in 5 ft 7 in Weight: 209 lb 9 oz BMI 32.8 BP 127/86 H Intake Visit Reasons: 39wk5d ob Wind Up Operator Required: No Is patient in pain?: No Allergies grass pollen Allergy (Intermediate, Verified 08/18/25 13:34) Swelling tea tree Allergy (Intermediate, Verified 08/18/25 13:34) Swelling thiopental (From thiopental sodium) Adverse Reaction (Severe, Verified 08/18/25 13:34) Other Medications ???Medication ???Instructions ???Recorded ???Confirmed ???Type multivitamin no.47-iron fum 27 cap PO 01/03/25 08/18/25 History mg-folate no.1 1 mg-dha 300 mg capsule (PNV-DHA) Last Menstrual Period: 11/19/24 Zika: Zika virus screening: Negative : No Have you fallen in the past year?: No PFSH PFSH Medical History History of HPV infection Hx of abnormal cervical Pap smear Surgical History History of colposcopy H/O sinus surgery Bennett teeth extracted History of tonsillectomy Family History [...] current occupational status: employed 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 OB Visit ALFREDITO Calculator Estimated Delivery Date Method Current WG Current Estimate 08/20/25 Ultrasound #1 39w 5d Other Estimates 08/26/25 LMP (Certain) 38w 6d Expected Delivery Route/Plan Labor Preferences- CB/BF classes: scheduled labor support person: Shar labor intervention preferences: [] pain management options preferred: limited but open to epidural cut cord/dad catch: yes : yes PP control planned: discussed discussed possible routes of delivery and associated risks: [] special requests: [] Specific Issue/Plans Covid status: [] Flu vaccine: [] Tdap vaccine: given Rhogam: RH neg for mom and baby, NA LARC form signed: yes movement and labor precautions reviewed. Problem list reviewed and updated with the [...] 120/77 -???-???-???-???-?? ?-???-???-???-???-? ??-???-???- 171 -???-???-???-???-?? ?-???-???-???-???-? ??- (more content not included)... [facility] Cremator Office Visit Reporton 08-11-2025 Cremator Office Visit Report [facility]'s [address], [address] [place] [address] OFFICE VISIT Date of Service: 08/11/25 MR#: [id number] Acct: [id number] Name: WENDIE VELEZ Rep #: [id number] 8 : 1995 Provider: Dr. Tanisha coyle MD Age/Sex: 29/F Location: [facility] Status: Signed Intake Vital Signs 06/05/25 14:21 08/03/25 15:03 08/11/25 10:59 08/11/25 11:01 Height 5 ft 7 in 5 ft 7 in 5 ft 7 in 5 ft 7 in Weight: 207 lb BMI 32.4 BP 127/83 H Intake Visit Reasons: 38wk5d ob Wind Up Operator Required: No Is patient in pain?: No Allergies grass pollen Allergy (Intermediate, Verified 08/11/25 10:59) Swelling tea tree Allergy (Intermediate, Verified 08/11/25 10:59) Swelling thiopental (From thiopental sodium) Adverse Reaction (Severe, Verified 08/11/25 10:59) Other Medications ???Medication ???Instructions ???Recorded ???Confirmed ???Type multivitamin no.47-iron fum 27 cap PO 01/03/25 08/11/25 History mg-folate no.1 1 mg-dha 300 mg capsule (PNV-DHA) Last Menstrual Period: 11/19/24 Zika: Zika virus screening: Negative : No PFSH PFSH Medical History History of HPV infection Hx of abnormal cervical Pap smear Surgical History History of colposcopy H/O sinus surgery Bennett teeth extracted History of tonsillectomy Family History [...] current occupational status: employed 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 OB Visit ALFREDITO Calculator Estimated Delivery Date Method Current WG Current Estimate 08/20/25 Ultrasound #1 38w 5d Other Estimates 08/26/25 LMP (Certain) 37w 6d Expected Delivery Route/Plan Labor Preferences- CB/BF classes: scheduled labor support person: Shar labor intervention preferences: [] pain management options preferred: limited but open to epidural cut cord/dad catch: yes : yes PP control planned: discussed discussed possible routes of delivery and associated risks: [] special requests: [] Specific Issue/Plans Covid status: [] Flu vaccine: [] Tdap vaccine: given Rhogam: RH neg for mom and baby, NA LARC form signed: yes movement and labor precautions reviewed. Problem list reviewed and updated with the [...] ??-???-???- 171 -???-???-???-???-?? ?-???-???-???-???-? ??-???-???- KW- CRL no (more content not included)... Normal [facility] - Chemistry and C hemistry - challengeOrdered By: Monika Cui on 08-03-2025 Glucose Ql (U) Negative [facility] - UrinalysisOrder ed By: Monika Cui on 08-03-2025 Protein Ql (U) Negative [facility] Cremator Office Visit Reporton 08-03-2025 Cremator Office Visit Report [facility]'s [address], [address] [place] [address] OFFICE VISIT Date of Service: 08/03/25 MR#: [id number] Acct: [id number] Name: WENDIE VELEZ Rep #: [id number] 3 : 1995 Provider: FELICE Calero ams Age/Sex: 29/F Location: [facility] Status: Signed Intake Vital Signs 06/05/25 14:21 07/25/25 13:35 08/03/25 15:03 Height 5 ft 7 in 5 ft 7 in 5 ft 7 in Weight: 206 lb 9 oz BMI 32.3 BP 137/84 H Intake Visit Reasons: 37wk4d ob Chief Complaint: 37wk OB Wind Up Operator Required: No Is patient in pain?: No Allergies grass pollen Allergy (Intermediate, Verified 08/03/25 15:02) Swelling tea tree Allergy (Intermediate, Verified 08/03/25 15:02) Swelling thiopental (From thiopental sodium) Adverse Reaction (Severe, Verified 08/03/25 15:02) Other Medications ???Medication ???Instructions ???Recorded ???Confirmed ???Type multivitamin no.47-iron fum 27 cap PO 01/03/25 08/03/25 History mg-folate no.1 1 mg-dha 300 mg capsule (PNV-DHA) Last Menstrual Period: 11/19/24 : No PFSH PFSH Medical History History of HPV infection Hx of abnormal cervical Pap smear Surgical History History of colposcopy H/O sinus surgery Bennett teeth extracted History of tonsillectomy Family History [...] current occupational status: employed 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 OB Visit ALFREDITO Calculator Estimated Delivery Date Method Current WG Current Estimate 08/20/25 Ultrasound #1 37w 4d Other Estimates 08/26/25 LMP (Certain) 36w 5d Expected Delivery Route/Plan Labor Preferences- CB/BF [...] and baby, NA LARC form signed: yes movement and labor precautions reviewed. Problem list reviewed and updated with the [...] NIPT done KW- CRL not cons with juan ramon (more content not included)... Normal [facility] Rule out Beta Strep (Grp. B) on 07-27-2025 ANGIE Group B Beta Streptococcus is not isolated. Normal [facility] Comment on above: Performed By: #### M [id number] ####[facility] [id number] [place], [address] Laboratory - Chemistry and C hemistry - challengeOrdered By: Jasmine Tanner on 07-25-2025 Glucose Ql (U) Negative [facility] - UrinalysisOrder ed By: Jasmine Tanner on 07-25-2025 Protein Ql (U) Negative [facility] Cremator Office Visit Reporton 07-25-2025 Cremator Office Visit Report [facility], [address] [place] [address] OFFICE VISIT Date of Service: 07/25/25 MR#: [id number] Acct: [id number] Name: WENDIE VELEZ Rep #: [id number] 0 : 1995 Provider: URSULA carroll Age/Sex: 29/F Location: [facility] Status: Signed Intake Vital Signs 07/20/25 14:04 07/25/25 13:35 Height 5 ft 7 in 5 ft 7 in Weight: 206 lb 2 oz BMI 32.3 BP 120/82 H Intake Visit Reasons: 36wk2d ob Chief Complaint: 36 Week OB Wind Up Operator Required: No Is patient in pain?: No Allergies grass pollen Allergy (Intermediate, Verified 07/25/25 13:37) Swelling tea tree Allergy (Intermediate, Verified 07/25/25 13:37) Swelling thiopental (From thiopental sodium) Adverse Reaction (Severe, Verified 07/25/25 13:37) Other Medications ???Medication ???Instructions ???Recorded ???Confirmed ???Type multivitamin no.47-iron fum 27 cap PO 01/03/25 07/25/25 History mg-folate no.1 1 mg-dha 300 mg capsule (PNV-DHA) Last Menstrual Period: 11/19/24 Zika: Zika virus screening: Negative : No PFSH PFSH Medical History History of HPV infection Hx of abnormal cervical Pap smear Surgical History History of colposcopy H/O sinus surgery Bennett teeth extracted History of tonsillectomy Family History [...] current occupational status: employed 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 OB Visit ALFREDITO Calculator Estimated Delivery Date Method Current WG Current Estimate 08/20/25 Ultrasound #1 36w 2d Other Estimates 08/26/25 LMP (Certain) 35w 3d Expected Delivery Route/Plan Labor Preferences- CB/BF [...] and baby, NA LARC form signed: yes movement and labor precautions reviewed. Problem list reviewed and updated with the [...] KW- CRL not cons with dates. ALFREDITO change (more content not included)... Normal [facility] Screening beta-hemolytic Str eptococcus cultureOrdered By: Jasmine Tanner on 07-25-2025 Beta-hemolytic Streptococcus culture Group B Beta Streptococcus is not isolated. [facility] Cremator Office Visit Reporton 07-20-2025 Cremator Office Visit Report [facility][1]'s [address], [address] [place] [address] OFFICE VISIT Date of Service: 07/20/25 MR#: [id number] Acct: [id number] Name: WENDIE VELEZ Rep #: [id number] 5 : 1995 Provider: Dr. Tanisha coyle MD Age/Sex: 29/F Location: [facility] Status: Signed Intake Vital Signs 06/05/25 14:21 07/04/25 14:51 07/20/25 14:04 Height 5 ft 7 in 5 ft 7 in 5 ft 7 in Weight: 208 lb 4 oz BMI 32.5 BP 126/80 H Intake Visit Reasons: 34wk ob Wind Up Operator Required: No Is patient in pain?: No Allergies grass pollen Allergy (Intermediate, Verified 07/20/25 14:05) Swelling tea tree Allergy (Intermediate, Verified 07/20/25 14:05) Swelling thiopental (From thiopental sodium) Adverse Reaction (Severe, Verified 07/20/25 14:05) Other Medications ???Medication ???Instructions ???Recorded ???Confirmed ???Type multivitamin no.47-iron fum 27 cap PO 01/03/25 07/20/25 History mg-folate no.1 1 mg-dha 300 mg capsule (PNV-DHA) Last Menstrual Period: 11/19/24 Zika: Zika virus screening: Negative : No PFSH PFSH Medical History History of HPV infection Hx of abnormal cervical Pap smear Surgical History History of colposcopy H/O sinus surgery Bennett teeth extracted History of tonsillectomy Family History [...] current occupational status: employed 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 OB Visit ALFREDITO Calculator Estimated Delivery Date Method Current WG Current Estimate 08/20/25 Ultrasound #1 35w 4d Other Estimates 08/26/25 LMP (Certain) 34w 5d Expected Delivery Route/Plan Labor Preferences- CB/BF [...] and baby, NA LARC form signed: yes movement and labor precautions reviewed. Problem list reviewed and updated with the [...] cons with dates. ALFREDITO changed. NIPT done (more content not included)... Normal [facility] - Chemistry and C hemistry - challengeOrdered By: Joie Crawford on 07-04-2025 Glucose Ql (U) Negative [facility] - UrinalysisOrder ed By: Joie Crawford on 07-04-2025 Protein Ql (U) Negative [facility] Cremator Office Visit Reporton 07-04-2025 Cremator Office Visit Report [facility]'s [address], [address] [place] [address] OFFICE VISIT Date of Service: 07/04/25 MR#: [id number] Acct: [id number] Name: WENDIE VELEZ Rep #: [id number] 6 : 1995 Provider: Dr. Joie Saldaña, Age/Sex: 29/F Location: [facility] Status: Signed Intake Vital Signs 06/05/25 14:21 06/19/25 08:49 07/04/25 14:51 Height 5 ft 7 in 5 ft 7 in 5 ft 7 in Weight: 205 lb 4 oz BMI 32.1 BP 121/76 H Intake Visit Reasons: 32wk ob Wind Up Operator Required: No Is patient in pain?: No Allergies grass pollen Allergy (Intermediate, Verified 07/04/25 14:52) Swelling tea tree Allergy (Intermediate, Verified 07/04/25 14:52) Swelling thiopental (From thiopental sodium) Adverse Reaction (Severe, Verified 07/04/25 14:52) Other Medications ???Medication ???Instructions ???Recorded ???Confirmed ???Type multivitamin no.47-iron fum 27 cap PO 01/03/25 07/04/25 History mg-folate no.1 1 mg-dha 300 mg capsule (PNV-DHA) Last Menstrual Period: 11/19/24 Zika: Zika virus screening: Negative : No PFSH PFSH Medical History History of HPV infection Hx of abnormal cervical Pap smear Surgical History History of colposcopy H/O sinus surgery Bennett teeth extracted History of tonsillectomy Family History [...] 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 OB Visit ALFREDITO Calculator Estimated Delivery Date Method Current WG Current Estimate 08/20/25 Ultrasound #1 33w 2d Other Estimates 08/26/25 LMP (Certain) 32w 3d Expected Delivery Route/Plan Labor Preferences- CB/BF [...] not cons with dates. ALFREDITO c hanged. (more content not included)... Normal [facility] - Chemistry and C hemistry - challengeOrdered By: Monika Cui on 06-19-2025 Glucose Ql (U) Negative [facility] - UrinalysisOrder ed By: Monika Cui on 06-19-2025 Protein Ql (U) Negative [facility] Cremator Office Visit Reporton 06-19-2025 Cremator Office Visit Report [facility] [address], [address] [place] [address] OFFICE VISIT Date of Service: 06/19/25 MR#: [id number] Acct: [id number] Name: WENDIE VELEZ Rep #: [id number] : 1995 Provider: FELICE Calero ams Age/Sex: 29/F Location: [facility] Status: Signed Intake Vital Signs 04/11/25 10:10 06/05/25 14:21 06/19/25 08:49 Height 5 ft 7 in 5 ft 7 in 5 ft 7 in Weight: 202 lb 6 oz BMI 31.6 BP 117/76 Intake Visit Reasons: 30 WK OB Chief Complaint: 30wk OB Wind Up Operator Required: No Is patient in pain?: No Allergies grass pollen Allergy (Intermediate, Verified 06/19/25 08:50) Swelling tea tree Allergy (Intermediate, Verified 06/19/25 08:50) Swelling thiopental (From thiopental sodium) Adverse Reaction (Severe, Verified 06/19/25 08:50) Other Medications ???Medication ???Instructions ???Recorded ???Confirmed ???Type multivitamin no.47-iron fum 27 cap PO 01/03/25 06/19/25 History mg-folate no.1 1 mg-dha 300 mg capsule (PNV-DHA) Last Menstrual Period: 11/19/24 : No PFSH PFSH Medical History History of HPV infection Hx of abnormal cervical Pap smear Surgical History History of colposcopy H/O sinus surgery Bennett teeth extracted History of tonsillectomy Family History [...] current occupational status: employed 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 OB Visit ALFREDITO Calculator Estimated Delivery Date Method Current WG Current Estimate 08/20/25 Ultrasound #1 31w 1d Other Estimates 08/26/25 LMP (Certain) 30w 2d Expected Delivery Route/Plan Labor Preferences- CB/BF [...] dates. ALFREDITO c hanged. NIPT ordered. 02/17/25 -??? (more content not included)... Normal [facility] Gestational GTT 3HR 100gon 0 06-15-2025 GEST GTT 100gm Normal [facility] Comment on above: Order Comment: Y Result Comment: FAST ING 90 Col: 06/15/25 0642 GLUCOSE TOLERANCE TEST FOR Reference Interval GESTATIONAL DIABETES Fasting <105 mg/dL 1 hour <190 mg/dl 2 hour <165 mg/dl 3 hour <145 mg/dl 1 HR GLU 111 Col: 06/15/25 0820 2 HR GLU 107 Col: 06/15/25 0923 3 HR GLU 100 Col: 06/15/25 1020 Performed By: #### L 500.4710 ####[facility] [address] [place], [address] Quantitative serum or plasma 3 hour gestational glucose tolerance panelOrdered By: Jasmine Tanner on 06-15-2025 Glucose tolerance 3 hours gestational panel See comment [facility] Comment on above: FASTING 90 Col: 05/30 06/23 0642GLUCOSE TOLERANCE TEST FOR Reference Interval GESTATIONAL DIABETES Fasting <105 mg/dL 1 hour <190 mg/dl 2 hour <165 mg/dl 3 hour <145 mg/dl 1 HR GLU 111 Col: 06/15/25 0820 2 HR GLU 107 Col: 06/15/25 0923 3 HR GLU 100 Col: 06/15/25 1020 Absolute lymphocyte countOrd ered By: Jasmine Tanner on 06-05-2025 Lymphocytes Auto (Unsp spec) [#/Vol] 1.51 10*3/uL 0.83-4.51 [facility] Absolute neutrophil countOrd ered By: Jasmine Tanner on 06-05-2025 Neutrophils (Bld) [#/Vol] 7.4 10*3/uL 2.0-7.7 [facility] Automated lymphocyte count a s percentage of total leukocytesOrdered By: Jasmine Tanner on 06-05-2025 Lymphocytes/100 WBC Auto (Unsp spec) 16.1 % Low 19-41 [facility] Basophil percentageOrdered B y: Jasmine Tanner on 06-05-2025 Basophils/100 WBC (Bld) 0.4 % 0-1 [facility] CBC W/Diff, Automatedon Absolute Lymph 1.51 X10 3/uL Normal 0.83-4.51 [facility] Comment on above: Performed By: #### L 501.0250, L509.8002, BTS, L100.0100, L3890.6006 ####[facility] [address] [place], [address] Absolute Neut 7.4 X10 3/uL Normal 2.0-7.7 [facility] Comment on above: Performed By: #### L 501.0250, L509.8002, BTS, L100.0100, L3890.6006 ####[facility] [address] [place], [address] Basophils/100 WBC (Bld) 0.4 % Normal 0-1 [facility] Comment on above: Performed By: #### L 501.0250, L509.8002, BTS, L100.0100, L3890.6006 ####[facility] [address] [place], [address] Eosinophils/100 WBC (Bld) 0.3 % Normal 0-5 [facility] Comment on above: Performed By: #### L 501.0250, L509.8002, BTS, L100.0100, L3890.6006 ####[facility] [address] [place], [address] Erythrocyte distribution width (RBC) [Ratio] 13.0 % Normal 11.6-14.6 [facility] Comment on above: Performed By: #### L 501.0250, L509.8002, BTS, L100.0100, L3890.6006 ####[facility] [address] [place], [address] Hematocrit (Bld) [Volume fraction] 34.5 % Low 37-47 [facility] Comment on above: Performed By: #### L 501.0250, L509.8002, BTS, L100.0100, L3890.6006 ####[facility] [address] [place], [address] Hemoglobin (Bld) [Mass/Vol] 11.7 g/dL Low 12.0-15.0 [facility] Comment on above: Performed By: #### L 501.0250, L509.8002, BTS, L100.0100, L3890.6006 ####[facility] [address] [place], [address] IG% 0.400 Normal 0.0-0.9 [facility] Comment on above: Result Comment: IG% - Immature Granulocytes (promyelocytes, myelocytes and metamyelocytes) > 1% indicates that a LEFT SHIFT is Present. Performed By: #### L 501.0250, L509.8002, BTS, L100.0100, L3890.6006 ####[facility] [address] [place], [address] Lymphocytes/100 WBC (Bld) 16.1 % Low 19-41 [facility] Comment on above: Performed By: #### L 501.0250, L509.8002, BTS, L100.0100, L3890.6006 ####[facility] [address] [place], [address] MCH (RBC) [Entitic mass] 30.5 pg Normal 27.0-32.0 [facility] Comment on above: Performed By: #### L 501.0250, L509.8002, BTS, L100.0100, L3890.6006 ####[facility] [address] [place], [address] MCHC (RBC) [Mass/Vol] 33.9 g/dL Normal 32-36 [facility] Comment on above: Performed By: #### L 501.0250, L509.8002, BTS, L100.0100, L3890.6006 ####[facility] [address] [place], [address] MCV (RBC) [Entitic vol] 89.8 fL Normal 81-99 [facility] Comment on above: Performed By: #### L 501.0250, L509.8002, BTS, L100.0100, L3890.6006 ####[facility] [address] [place], [address] Monocytes/100 WBC (Bld) 4.1 % Normal 0-10 [facility] Comment on above: Performed By: #### L 501.0250, L509.8002, BTS, L100.0100, L3890.6006 ####[facility] [address] [place], [address] Neutrophils/100 WBC (Bld) 78.7 % High 47-70 [facility] Comment on above: Performed By: #### L 501.0250, L509.8002, BTS, L100.0100, L3890.6006 ####[facility] [address] [place], [address] Nucleated RBC (Bld) [#/Vol] 0 10*3/uL Normal 0-5 [facility] Comment on above: Performed By: #### L 501.0250, L509.8002, BTS, L100.0100, L3890.6006 ####[facility] [address] [place], [address] Platelet mean volume (Bld) [Entitic vol] 11.3 fL Normal 6.2-12.0 [facility] Comment on above: Performed By: #### L 501.0250, L509.8002, BTS, L100.0100, L3890.6006 ####[facility] [address] [place], [address] Platelets (Bld) [#/Vol] 238 10*3/uL Normal 150-450 [facility] Comment on above: Performed By: #### L 501.0250, L509.8002, BTS, L100.0100, L3890.6006 ####[facility] [address] [place], [address] RBC (Bld) [#/Vol] 3.84 10*6/uL Low 4.2-5.4 [facility] Comment on above: Performed By: #### L 501.0250, L509.8002, BTS, L100.0100, L3890.6006 ####[facility] [address] [place], [address] RDW SD 42.2 fl Normal 35.1-43.9 [facility] Comment on above: Performed By: #### L 501.0250, L509.8002, BTS, L100.0100, L3890.6006 ####[facility] [address] [place], [address] WBC (Bld) [#/Vol] 9.4 10*3/uL Normal 4.4-11.0 [facility] Comment on above: Performed By: #### L 501.0250, L509.8002, BTS, L100.0100, L3890.6006 ####[facility] [address] [place], [address] Eosinophil percentageOrdered By: Jasmine Tanner on 06-05-2025 Eosinophils/100 WBC (Bld) 0.3 % 0-5 [facility] Erythrocyte distribution wid th ratioOrdered By: Jasmine Tanner on 06-05-2025 Erythrocyte distribution width (RBC) [Ratio] 13.0 % 11.6-14.6 [facility] Erythrocyte distribution wid th standard deviationOrdered By: Jasmine [place] on 06-05-2025 Erythrocyte distribution width (RBC) [Ratio] 42.2 fl 35.1-43.9 [facility] Glucose Challenge Gest 1H 50 terell 06-05-2025 GLU GEST 50g 1H 142 mg/dL High 70-140 [facility] Comment on above: Performed By: #### L 501.0250, L509.8002, BTS, L100.0100, L3890.6006 ####[facility] [address] [place], [place], [id number] Glucose measurement at 2 mckenzie rs post-dose gestational glucose tolerance testOrdered By: Jasmine Tanner on 06-05-2025 Glucose [Mass/Vol] 142 mg/dL High 70-140 [facility] HIVon 06-05-2025 HIV Non-Reactive Normal Nonreactive [facility] Comment on above: Result Comment: Non- Reactive Reactive Repeatedly reactive samples must be confirmed according to CDC recommended confirmatory algorithms. The subresults for either HIVAG or AHIV can be used as an aid in the selection of the confirmation algorithm for reactive samples. Send out specimens with Reactive results to [facility] for confirmation. Order the HIV antibody detection and differentiation: #[id number] Performed By: #### L 501.0250, L509.8002, BTS, L100.0100, L3890.6006 ####[facility] [address] [place], [place], [id number] Hematocrit Auto (Bld) [Volum e fraction]Ordered By: Jasmine Tanner on 06-05-2025 Hematocrit (Bld) [Volume fraction] 34.5 % Low 37-47 [facility] Hemoglobin measurementOrdere d By: Jasmine Tanner on 06-05-2025 Hemoglobin (Bld) [Mass/Vol] 11.7 g/dL Low 12.0-15.0 [facility] Immature granulocytes/100 WB C Auto (Bld)Ordered By: Jasmine Tanner on 06-05-2025 Immature granulocytes/100 WBC (Bld) 0.400 % 0.0-0.9 [facility] Comment on above: IG% - Immature Granu locytes (promyelocytes, myelocytes and metamyelocytes) > 1% indicates that a LEFT SHIFT is Present. Laboratory - Chemistry and C hemistry - challengeOrdered By: Monika Cui on 06-05-2025 Glucose Ql (U) Negative [facility] - UrinalysisOrder ed By: Monika Cui on 06-05-2025 Protein Ql (U) Negative [facility] MCV (mean corpuscular volume ) determinationOrdered By: Jasmine Tanner on 06-05-2025 MCV (RBC) [Entitic vol] 89.8 fL 81-99 [facility] Mean corpuscular hemoglobin (MCH) determinationOrdered By: Jasmine Tanner on 06-05-2025 MCH (RBC) [Entitic mass] 30.5 pg 27.0-32.0 [facility] Mean corpuscular hemoglobin concentration (MCHC) determinationOrdered By: Jasmine Tanner on 06-05-2025 MCHC (RBC) [Mass/Vol] 33.9 g/dL 32-36 [facility] Mean platelet volume determi nationOrdered By: Jasmine Tanner on 06-05-2025 Platelet mean volume (Bld) [Entitic vol] 11.3 fL 6.2-12.0 [facility] Monocyte percentageOrdered B y: Jasmine Tanner on 06-05-2025 Monocytes/100 WBC (Bld) 4.1 % 0-10 [facility] Neutrophil percentageOrdered By: Jasmine Tanner on 06-05-2025 Neutrophils/100 WBC (Bld) 78.7 % High 47-70 [facility] No Panel InformationOrdered By: Jasmine Tanner on 06-05-2025 HIV (1&2) Antibody Non-Reactive Nonreactive [facility] Comment on above: Non-ReactiveReactive Repeatedly reactive samples must be confirmed according to CDC recommended confirmatory algorithms. The subresults for either HIVAG or AHIV can be used as an aid in the selection of the confirmation algorithm for reactive samples.Send out specimens with Reactive results to [facility] for confirmation.Order the HIV antibody detection and differentiation: #[id number] Nucleated red blood cell per centageOrdered By: Jasmine Tanner on 06-05-2025 Nucleated RBC/100 WBC (Bld) [Ratio] 0 % 0-5 [facility] Cremator Office Visit Reporton 06-05-2025 Cremator Office Visit Report [facility]'s [address], [address] [place] [address] OFFICE VISIT Date of Service: 06/05/25 MR#: [id number] Acct: [id number] Name: WENDIE VELEZ Rep #: [id number] : 1995 Provider: FELICE Calero ams Age/Sex: 29/F Location: [facility] Status: Signed Intake Vital Signs 04/11/25 10:10 05/10/25 11:31 06/05/25 14:21 Height 5 ft 7 in 5 ft 7 in 5 ft 7 in Weight: 202 lb 4 oz BMI 31.6 BP 117/79 Intake Visit Reasons: 28wk ob/glucose Chief Complaint: 28wk OB Wind Up Operator Required: No Is patient in pain?: No [...] History History of colposcopy H/O sinus surgery Bennett teeth extracted History of tonsillectomy Family History [...] current occupational status: employed 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 Normal [facility] Platelet countOrdered By: Carlos Alberto Tanner on 06-05-2025 Platelets (Bld) [#/Vol] 238 10*3/uL 150-450 [facility] RBC Auto (Bld) [#/Vol]Ordere d By: Jasmine Tanner on 06-05-2025 RBC (Bld) [#/Vol] 3.84 10*6/uL Low 4.2-5.4 [facility] Syphilis Antibodieson 2024 Syphilis Abs Non-Reactive Normal Nonreactive [facility] Comment on above: Performed By: #### L 501.0250, L509.8002, BTS, L100.0100, L3890.6006 ####[facility] [address] [place], [address] Type AND Screenon 06-05-2025 Ab SCREEN GEL Negative Normal [facility] Comment on above: Order Comment: PN Performed By: #### L 501.0250, L509.8002, BTS, L100.0100, L3890.6006 ####[facility] [address] [place], [address] White blood cell (WBC) count Ordered By: Jasmine Tanner on 06-05-2025 WBC (Bld) [#/Vol] 9.4 10*3/uL 4.4-11.0 [facility] - Chemistry and C hemistry - challengeOrdered By: Jasmine Tanner on 05-10-2025 Glucose Ql (U) Negative [facility] - UrinalysisOrder ed By: Jasmine Tanner on 05-10-2025 Protein Ql (U) Negative [facility] Cremator Office Visit Reporton 05-10-2025 Cremator Office Visit Report [facility][1[facility]s [address], [address] [place] [address] OFFICE VISIT Date of Service: 05/10/25 MR#: [id number] Acct: [id number] Name: WENDIE VELEZ Rep #: [id number] : 1995 Provider: URSULA carroll Age/Sex: 29/F Location[facility] Status: Signed Intake Vital Signs 04/11/25 10:10 05/10/25 11:31 Height 5 ft 7 in 5 ft 7 in Weight: 199 lb 2 oz BMI 31.1 BP 116/68 Intake Visit Reasons: 24 WK OB Chief Complaint: 24 Week OB Wind Up Operator Required: No Is patient in pain?: No [...] History History of colposcopy H/O sinus surgery Bennett teeth extracted History of tonsillectomy Family History [...] current occupational status: employed 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 Normal [facility] - Chemistry and C hemistry - challengeOrdered By: Jasmine Tanner on 04-11-2025 Glucose Ql (U) Negative [facility] - UrinalysisOrder ed By: Jasmine Tanner on 04-11-2025 Protein Ql (U) Negative [facility] Cremator Office Visit Reporton 04-11-2025 Cremator Office Visit Report [facility]'s [address], [address] [place] [address] OFFICE VISIT Date of Service: 04/11/25 MR#: [id number] Acct: [id number] Name: WENDIE VELEZ Rep #: [id number] : 1995 Provider: URSULA carroll Age/Sex: 29/F Location: [facility] Status: Signed Intake Vital Signs 02/17/25 09:31 03/16/25 09:45 04/11/25 10:10 Height 5 ft 7 in 5 ft 7 in 5 ft 7 in Weight: 197 lb BMI 30.8 BP 118/78 Intake Visit Reasons: 20wk ob Chief Complaint: 20 Week OB Wind Up Operator Required: No Is patient in pain?: No [...] History History of colposcopy H/O sinus surgery Bennett teeth extracted History of tonsillectomy Family History [...] current occupational status: employed 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 (more content not included)... Normal [facility] Cremator Office Visit Reporton 03-16-2025 Cremator Office Visit Report [facility]'s [address], [address] [place] [address] OFFICE VISIT Date of Service: 03/16/25 MR#: [id number] Acct: [id number] Name: WENDIE VELEZ Rep #: [id number] : 1995 Provider: Dr. 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 (more content not included)... Normal [facility] - Chemistry and C hemistry - challengeOrdered By: Tanisha Pena on 02-17-2025 Glucose Ql (U) Negative [facility] - UrinalysisOrder ed By: Tanisha Pena on 02-17-2025 Protein Ql (U) Negative [facility] Miscellaneous procedureOrder ed By: Monika Cui on 02-17-2025 Miscellaneous Test Comment SEE SCANNED REPORT [facility] NATERAon 02-17-2025 NATURA SEE SCANNED REPORT Normal [facility] Comment on above: Performed By: #### L 900.0098 ####[facility] [address] [place], [address] Cremator Office Visit Reporton 02-17-2025 Cremator Office Visit Report [facility] [address], [address] [place] [address] OFFICE VISIT Date of Service: 02/17/25 MR#: [id number] Acct: [id number] Name: WENDIE VELEZ Rep #: [id number] : 1995 Provider: Dr. 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 Normal [facility] Absolute lymphocyte countOrd ered By: Monika Cui on 02-02-2025 Lymphocytes Auto (Unsp spec) [#/Vol] 1.51 10*3/uL 0.83-4.51 [facility] Absolute neutrophil countOrd ered By: Monika Cui on 02-02-2025 Neutrophils (Bld) [#/Vol] 4.3 10*3/uL 2.0-7.7 [facility] Automated lymphocyte count a s percentage of total leukocytesOrdered By: Monika Cui on 02-02-2025 Lymphocytes/100 WBC Auto (Unsp spec) 23.1 % 19-41 [facility] Basophil percentageOrdered B y: Monika Cui on 02-02-2025 Basophils/100 WBC (Bld) 0.3 % 0-1 [facility] CBC W/Diff, Automatedon 03-0 Absolute Lymph 1.51 X10 3/uL Normal 0.83-4.51 [facility] Comment on above: Performed By: #### L 509.8002, BTS, L100.0100, L3890.6102, L509.4006, L3890.6301, L3890.6006 #### [facility] [address] [place], [place], [id number] Absolute Neut 4.3 X10 3/uL Normal 2.0-7.7 [facility] Comment on above: Performed By: #### L 509.8002, BTS, L100.0100, L3890.6102, L509.4006, L3890.6301, L3890.6006 #### [facility] [address] [place], [address] Basophils/100 WBC (Bld) 0.3 % Normal 0-1 [facility] Comment on above: Performed By: #### L 509.8002, BTS, L100.0100, L3890.6102, L509.4006, L3890.6301, L3890.6006 #### [facility] [address] [place], [address] Eosinophils/100 WBC (Bld) 4.6 % Normal 0-5 [facility] Comment on above: Performed By: #### L 509.8002, BTS, L100.0100, L3890.6102, L509.4006, L3890.6301, L3890.6006 #### [facility] [address] [place], [address] Erythrocyte distribution width (RBC) [Ratio] 12.4 % Normal 11.6-14.6 [facility] Comment on above: Performed By: #### L 509.8002, BTS, L100.0100, L3890.6102, L509.4006, L3890.6301, L3890.6006 #### [facility] [address] [place], [address] Hematocrit (Bld) [Volume fraction] 35.3 % Low 37-47 [facility] Comment on above: Performed By: #### L 509.8002, BTS, L100.0100, L3890.6102, L509.4006, L3890.6301, L3890.6006 #### [facility] [address] [place], [address] Hemoglobin (Bld) [Mass/Vol] 12.1 g/dL Normal 12.0-15.0 [facility] Comment on above: Performed By: #### L 509.8002, BTS, L100.0100, L3890.6102, L509.4006, L3890.6301, L3890.6006 #### [facility] [address] [place], [address] IG% 0.300 Normal 0.0-0.9 [facility] Comment on above: Result Comment: IG% - Immature Granulocytes (promyelocytes, myelocytes and metamyelocytes) > 1% indicates that a LEFT SHIFT is Present. Performed By: #### L 509.8002, BTS, L100.0100, L3890.6102, L509.4006, L3890.6301, L3890.6006 #### [facility] [address] [place], [address] Lymphocytes/100 WBC (Bld) 23.1 % Normal 19-41 [facility] Comment on above: Performed By: #### L 509.8002, BTS, L100.0100, L3890.6102, L509.4006, L3890.6301, L3890.6006 #### [facility] [address] [place], [place], [address] MCH (RBC) [Entitic mass] 30.3 pg Normal 27.0-32.0 [facility] Comment on above: Performed By: #### L 509.8002, BTS, L100.0100, L3890.6102, L509.4006, L3890.6301, L3890.6006 #### [facility] [address] [place], [address] MCHC (RBC) [Mass/Vol] 34.3 g/dL Normal 32-36 [facility] Comment on above: Performed By: #### L 509.8002, BTS, L100.0100, L3890.6102, L509.4006, L3890.6301, L3890.6006 #### [facility] [address] [place], [address] MCV (RBC) [Entitic vol] 88.5 fL Normal 81-99 [facility] Comment on above: Performed By: #### L 509.8002, BTS, L100.0100, L3890.6102, L509.4006, L3890.6301, L3890.6006 #### [facility] [address] [place], [address] Monocytes/100 WBC (Bld) 6.1 % Normal 0-10 [facility] Comment on above: Performed By: #### L 509.8002, BTS, L100.0100, L3890.6102, L509.4006, L3890.6301, L3890.6006 #### [facility] [address] [place], [address] Neutrophils/100 WBC (Bld) 65.6 % Normal 47-70 [facility] Comment on above: Performed By: #### L 509.8002, BTS, L100.0100, L3890.6102, L509.4006, L3890.6301, L3890.6006 #### [facility] [address] [place], [address] Nucleated RBC (Bld) [#/Vol] 0 10*3/uL Normal 0-5 [facility] Comment on above: Performed By: #### L 509.8002, BTS, L100.0100, L3890.6102, L509.4006, L3890.6301, L3890.6006 #### [facility] [address] [place], [address] Platelet mean volume (Bld) [Entitic vol] 11.1 fL Normal 6.2-12.0 [facility] Comment on above: Performed By: #### L 509.8002, BTS, L100.0100, L3890.6102, L509.4006, L3890.6301, L3890.6006 #### [facility] [address] [place], [address] Platelets (Bld) [#/Vol] 242 10*3/uL Normal 150-450 [facility] Comment on above: Performed By: #### L 509.8002, BTS, L100.0100, L3890.6102, L509.4006, L3890.6301, L3890.6006 #### [facility] [address] [place], [address] RBC (Bld) [#/Vol] 3.99 10*6/uL Low 4.2-5.4 [facility] Comment on above: Performed By: #### L 509.8002, BTS, L100.0100, L3890.6102, L509.4006, L3890.6301, L3890.6006 #### [facility] [address] [place], [address] RDW SD 39.9 fl Normal 35.1-43.9 [facility] Comment on above: Performed By: #### L 509.8002, BTS, L100.0100, L3890.6102, L509.4006, L3890.6301, L3890.6006 #### [facility] [address] [place], [address] WBC (Bld) [#/Vol] 6.5 10*3/uL Normal 4.4-11.0 [facility] Comment on above: Performed By: #### L 509.8002, BTS, L100.0100, L3890.6102, L509.4006, L3890.6301, L3890.6006 #### [facility] [address] [place], [address] Eosinophil percentageOrdered By: Monika Cui on 02-02-2025 Eosinophils/100 WBC (Bld) 4.6 % 0-5 [facility] Erythrocyte distribution wid th ratioOrdered By: Monika Cui on 02-02-2025 Erythrocyte distribution width (RBC) [Ratio] 12.4 % 11.6-14.6 [facility] Erythrocyte distribution wid th standard deviationOrdered By: Monika Cui on 02-02-2025 Erythrocyte distribution width (RBC) [Entitic vol] 39.9 fL 35.1-43.9 [facility] Erythrocyte distribution width (RBC) [Ratio] 39.9 fl 35.1-43.9 [facility] HBV surface Ag Ql (S)Ordered By: Monika Cui on 02-02-2025 Hepatitis B Surface Antigen Non-Reactive Nonreactive [facility] Comment on above: Reactive: Presumptiv e evidence of HBV. Repeatedly reactive samples must be confirmed using a neutralization test ([employer] HBsAg Confirmatory Test)Non-Reactive: HBsAg not detected; does not exclude the possibility of exposure to HBV Hematocrit Auto (Bld) [Volum e fraction]Ordered By: Monika Cui on 02-02-2025 Hematocrit (Bld) [Volume fraction] 35.3 % Low 37-47 [facility] Hemoglobin measurementOrdere d By: Monika Cui on 02-02-2025 Hemoglobin (Bld) [Mass/Vol] 12.1 g/dL 12.0-15.0 [facility] Hepatitis C antibodyOrdered By: Monika Cui on 02-02-2025 Hepatitis C Antibody Non-Reactive Nonreactive [facility] Comment on above: Reactive: Presumptiv e evidence of antibodies to HCV. Follow CDC recommendations for supplemental testing.Non-Reactive: Antibodies to HCV were not detected; does not exclude the possibility of exposure to HCVReactive Results are presumptive evidence of antibodies to HCV. Follow CDC recommendations for supplemental testing.Order confirmation testing: HCV Quant by PCR testing - HCVPCR #[id number] Non Reactive: < 0.8 Equivocal: >/= 0.8 to < 1.0 Reactive: >/= 1.0The CDC requires that a reactive/equivocal HCV antibody result be sent out for confirmation. HCV Quant by PCR testing. Immature granulocytes/100 WB C Auto (Bld)Ordered By: Monika Cui on 02-02-2025 Immature granulocytes/100 WBC (Bld) 0.300 % 0.0-0.9 [facility] Comment on above: IG% - Immature Granu locytes (promyelocytes, myelocytes and metamyelocytes) > 1% indicates that a LEFT SHIFT is Present. L3890.6006on 02-02-2025 HIV Non-Reactive Normal Nonreactive [facility] Comment on above: Result Comment: Non- Reactive Reactive Repeatedly reactive samples must be confirmed according to CDC recommended confirmatory algorithms. The subresults for either HIVAG or AHIV can be used as an aid in the selection of the confirmation algorithm for reactive samples. Send out specimens with Reactive results to [facility] for confirmation. Order the HIV antibody detection and differentiation: lc#[id number] Performed By: #### L 509.8002, BTS, L100.0100, L3890.6102, L509.4006, L3890.6301, L3890.6006 ####[facility] [address] [facility] [address] [place], [place], [id number] L3890.6102on 02-02-2025 HEP B Surf Ag Non-Reactive Normal Nonreactive [facility] Comment on above: Result Comment: Reac tive: Presumptive evidence of HBV. Repeatedly reactive samples must be confirmed using a neutralization test ([employer] HBsAg Confirmatory Test) Non-Reactive: HBsAg not detected; does not exclude the possibility of exposure to HBV Performed By: #### L 509.8002, BTS, L100.0100, L3890.6102, L509.4006, L3890.6301, L3890.6006 ####[facility] [address] [facility] [address] [place], [place], [id number] L3890.6301on 02-02-2025 Hepatitis C Ab Non-Reactive Normal Nonreactive [facility] Comment on above: Result Comment: Reac tive: Presumptive evidence of antibodies to HCV. Follow CDC recommendations for supplemental testing. Non-Reactive: Antibodies to HCV were not detected; does not exclude the possibility of exposure to HCV Reactive Results are presumptive evidence of antibodies to HCV. Follow CDC recommendations for supplemental testing. Order confirmation testing: HCV Quant by PCR testing - HCVPCR #[id number] Non Reactive: < 0.8 Equivocal: >/= 0.8 to < 1.0 Reactive: >/= 1.0 The CDC requires that a reactive/equivocal HCV antibody result be sent out for confirmation. HCV Quant by PCR testing. Performed By: #### L 509.8002, BTS, L100.0100, L3890.6102, L509.4006, L3890.6301, L3890.6006 ####[facility] [address] [place], [address] L509.4006on 02-02-2025 Rubella IgG REAC Normal Nonreactive [facility] Comment on above: Result Comment: Anti body Result: Interpretation Non-Reactive: Non-Immune Reactive: Immune The following results were obtained with the [employer]ys Rubella IgG assay. Results from assays of other manufacturers cannot be used interchangeably. Performed By: #### L 509.8002, BTS, L100.0100, L3890.6102, L509.4006, L3890.6301, L3890.6006 ####[facility] [address] [place], [place], [id number] L509.8002on 02-02-2025 Syphilis Abs Non-Reactive Normal Nonreactive [facility] Comment on above: Performed By: #### L 509.8002, BTS, L100.0100, L3890.6102, L509.4006, L3890.6301, L3890.6006 ####[facility] [address] [facility] [address] [place], [place], [id number] Laboratory - Microbiology an d Antimicrobial susceptibilityOrdered By: Monika Cui on 02-02-2025 HBV surface Ag Ql (S) Non-Reactive Nonreactive [facility] Comment on above: Reactive: Presumptiv e evidence of HBV. Repeatedly reactive samples must be confirmed using a neutralization test ([employer] HBsAg Confirmatory Test)Non-Reactive: HBsAg not detected; does not exclude the possibility of exposure to HBV Lymphocytes Auto (Unsp spec) [#/Vol]Ordered By: Monika Cui on 02-02-2025 Lymphocytes (Bld) [#/Vol] 1.51 10*3/uL 0.83-4.5 1 [facility] Lymphocytes/100 WBC Auto (Un sp spec)Ordered By: Monika Cui on 02-02-2025 Lymphocytes/100 WBC (Bld) 23.1 % 19-41 [facility] MCV (mean corpuscular volume ) determinationOrdered By: Monika Cui on 02-02-2025 MCV (RBC) [Entitic vol] 88.5 fL 81-99 [facility] Mean corpuscular hemoglobin (MCH) determinationOrdered By: Monika Cui on 02-02-2025 MCH (RBC) [Entitic mass] 30.3 pg 27.0-32.0 [facility] Mean corpuscular hemoglobin concentration (MCHC) determinationOrdered By: Monika Cui on 02-02-2025 MCHC (RBC) [Mass/Vol] 34.3 g/dL 32-36 [facility] Mean platelet volume determi nationOrdered By: Monika Cui on 02-02-2025 Platelet mean volume (Bld) [Entitic vol] 11.1 fL 6.2-12.0 [facility] Monocyte percentageOrdered B y: Monika Cui on 02-02-2025 Monocytes/100 WBC (Bld) 6.1 % 0-10 [facility] Neutrophil percentageOrdered By: Monika Cui on 02-02-2025 Neutrophils/100 WBC (Bld) 65.6 % 47-70 [facility] No Panel InformationOrdered By: Monika Cui on 02-02-2025 HIV (1&2) Antibody Non-Reactive Nonreactive [facility] Comment on above: Non-ReactiveReactive Repeatedly reactive samples must be confirmed according to CDC recommended confirmatory algorithms. The subresults for either HIVAG or AHIV can be used as an aid in the selection of the confirmation algorithm for reactive samples.Send out specimens with Reactive results to [facility] for confirmation.Order the HIV antibody detection and differentiation: #[id number] Nucleated red blood cell per centageOrdered By: Monika Cui on 02-02-2025 Nucleated RBC/100 WBC (Bld) [Ratio] 0 % 0-5 [facility] Platelet countOrdered By: Panchito Cui on 02-02-2025 Platelets (Bld) [#/Vol] 242 10*3/uL 150-450 [facility] RBC Auto (Bld) [#/Vol]Ordere d By: Monika Cui on 02-02-2025 RBC (Bld) [#/Vol] 3.99 10*6/uL Low 4.2-5.4 [facility] Rubella immune status determ ination by IgG antibody assayOrdered By: Monika Cui on 02-02-2025 Rubella IgG Antibody REAC Nonreactive [facility] Comment on above: Antibody Result: Int erpretationNon-Reactive: Non-ImmuneReactive: ImmuneThe following results were obtained with the [employer]ys Rubella IgG assay. Results from assays of other manufacturers cannot be used interchangeably. T. pallidum abOrdered By: Panchito Cui on 02-02-2025 Syphilis Total Antibody Non-Reactive Nonreactiv e [facility] Type AND Screenon 02-02-2025 Ab SCREEN GEL Negative Normal [facility] Comment on above: Order Comment: PN Performed By: #### L 509.8002, BTS, L100.0100, L3890.6102, L509.4006, L3890.6301, L3890.6006 ####[facility] [address] [place], [address] White blood cell (WBC) count Ordered By: Monika Cui on 02-02-2025 WBC (Bld) [#/Vol] 6.5 10*3/uL 4.4-11.0 [facility] Chlamydia/GC ZORAIDA aptimaon CHLAMY,NUC ACID Negative Normal Negative [facility] Comment on above: Performed By: #### M 100.2200, L7000.1800 #### [facility] [address] [place] [place], [address] GC BY NUC ACID Negative Normal Negative [facility] Comment on above: Result Comment: Perf ormed at: =G - [facility] [address] [place] [id number] Speech Therapist Early Intervention: Gissel Hardin MD, Phone: [phone] Performed By: #### M 100.2200, L7000.1800 #### [facility] [address] [place], [address] Urine Cultureon 01-14-2025 URC Culture exhibits no growth. Normal [facility] Comment on above: Performed By: #### M 100.2200, L7000.1800 #### [facility] [address] [place], [address] C. trachomatis rRNA ZORAIDA+prob e Ql (Unsp spec)Ordered By: Monika Cui on 01-13-2025 Chlamydia DNA (ZORAIDA) Negative Negative [facility] Chlamydia trachomatis rRNA d etection by probe and target amplification methodOrdered By: Monika Cui on 01-13-2025 C. trachomatis rRNA ZORAIDA+probe Ql (Unsp spec) Negative Negative [facility] Neisseria gonorrhoeae nuclei c acid detection by amplified probe techniqueOrdered By: Monika Cui on 01-13-2025 N. gonorrhoeae DNA ZORAIDA+probe Ql (Unsp spec) Negative Negative [facility] Comment on above: Performed at: =[address] [id number] Director: Gissel Hardin MD, Phone: [phone] Cremator Office Visit Reporton 01-13-2025 Cremator Office Visit Report [facility] [address], [address] [place] [address] OFFICE VISIT Date of Service: 01/13/25 MR#: [id number] Acct: [id number] Name: WENDIE VELEZ Rep #: [id number] 5 : 1995 Provider: FELICE Calero ams Age/Sex: 29/F Location: [facility] Status: Signed Intake Vital Signs 01/16/14 08:29 [...] History History of colposcopy H/O sinus surgery Bennett teeth extracted History of tonsillectomy Family History [...] current occupational status: employed 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 Normal [facility] Urine cultureOrdered By: Heriberto Cui on 01-13-2025 Bacteria identified Cx Nom (U) Culture exhibits no growth. [facility] CNOVon 05-30-2024 CNOV Office Visit (OBGYWM) ---- JOSEWENDIE Corcoran ([id number]) 1995 F Date Time Provider Department 05/30/24 7:30 AM CAROL SHELBY During your visit today, we recorded the following information about you: Weight Height Last Period 79.4 kg 1.683 m 05/17/24 Carol Shelby APRN.HEEL TRIMMER 05/30/2024 8:25 AM Signed Wendie is a 28 year old who presents for an annual gynecologic exam without complaints. Menses: cycles every 28-30 days and 5 days of flow. Contraception:none, not preventing but not trying yet HPV vaccine: Yes Last Pap: 06/2022 ASCUS HPV positive [place] 08/13/2022 benign History of abnormal pap: Yes [...] L0 SAB0 IAB0 Ectopic0 Multiple0 Live Births0 Body Joiner History LMP: 05/17/2024, Having periods Age at Menarche: Age at First : Age at Menopause: Body Joiner History Comments: Sexual Activity: Yes; Male Contraception: [...] and current medication updated:Yes EXAM: Ht 5' 6.25" (1.68m) Wt 175 lb (79.4kg) LMP 05/17/2024 [...] external genitalia normal, normal Bartholin's glands, urethra, [place] Pena's glands, no vulvar lesions, no cervical lesions, [...] day a (more content not included)... Normal [facility] PAP TESTon 05-30-2024 ADEQUACY Satisfactory for interpretation. Normal [facility] Comment on above: Order Comment: Speci men Type: FLUID SPECIMEN Ordering Facility: [facility] Address: [address] [place] [address] Performed By: #### L [id number] #### [facility] CLIA [id number] [address] [place] [address] [place] [address] [place] CASE REPORT Normal [facility] Comment on above: Order Comment: Speci men Type: FLUID SPECIMEN Ordering Facility: [facility] Address: [address] [place] [address] Result Comment: Gyne cologic Cytology Report Case: [id number] Authorizing Provider: Carol Shelby APRN.HEEL TRIMMER Collected: 05/30/2024 08:38 AM Ordering Location: OB/Gynecology Received: 05/30/2024 12:16 PM First Screen: Marlene Calderon, CT, ASCP Rescreen: Yessi Vilchis, CT, ASCP Specimen: Pap Test, ThinPrep, Cervix Performed By: #### L [id number] #### [facility] CLIA [id number] [address] [place] [address] [place] CLINICAL HISTORY, CYTOLOGY, MOLD REPAIRER Routine Exam Normal [facility] Comment on above: Order Comment: Speci men Type: FLUID SPECIMEN Ordering Facility: [facility] Address: [address] [place] [address] Result Comment: Prev ious ASCUS Positive HPV Performed By: #### L [id number] #### [facility] CLIA [id number] [address] [place] [address] [place] FINAL PERFORMING LAB Normal [facility] Comment on above: Order Comment: Speci men Type: FLUID SPECIMEN Ordering Facility: [facility] Address: [address] [place] [address] Result Comment: Tech nical component, pro shop attendant screening performed at [facility], [address] [place] [address] CLIA# [id number] Diagnostic interpretation performed at [facility], [address] [place] [address] CLIA# [id number] Tail Dogger: Serge Martins M.D. Performed By: #### L [id number] #### [facility] CLIA [id number] [address] [place] [address] [place] HPV REFLEX HPV if Atypical Normal [facility] Comment on above: Order Comment: Speci men Type: FLUID SPECIMEN Ordering Facility: [facility] Address: [address] [place] [address] Performed By: #### L [id number] #### [facility] CLIA [id number] [address] [place] [address] [place] INTERPRETATION, CYTOLOGY, MOLD REPAIRER Normal [facility] Comment on above: Order Comment: Speci men Type: FLUID SPECIMEN Ordering Facility: [facility] Address: [address] [place] [address] Result Comment: Nega tive for intraepithelial lesion or malignancy. Performed By: #### L [id number] #### [facility] CLIA [id number] [address] [place] [address] [place] LMP 05/17/2024 Normal [facility] Comment on above: Order Comment: Speci men Type: FLUID SPECIMEN Ordering Facility: [facility] Address: [address] [place] [address] Performed By: #### L [id number] #### [facility] CLIA [id number] [address] [place] [address] [place] PAP DISCLAIMER COMMENT The Pap Smear is a screening test for cervical cancer. False negative results occur with all screening tests, emphasizing the need for rescreening at recommended intervals, and clinical correlation. Normal [facility] Comment on above: Order Comment: Speci men Type: FLUID SPECIMEN Ordering Facility: [facility] Address: [address] [place] [address] Performed By: #### L [id number] #### [facility] CLIA [id number] [address] [place] [address] [place] PAP CT SCAN TECHNICIAN COMMENT This specimen has been analyzed by the ThinPrep Imaging System, an automated imaging and review system, which assists the laboratory in evaluating cells on ThinPrep Pap tests. Following automated imaging, selected thompson from every slide are reviewed by a pro shop attendant. Normal [facility] Comment on above: Order Comment: Speci men Type: FLUID SPECIMEN Ordering Facility: [facility] Address: [address] [place] [address] Performed By: #### L [id number] #### [facility] ALBERTO [id number] [address] [place] [address] [place] CNOVon 05-20-2024 CNOV Office Visit (UCWSTR) ---- WENDIE VELEZ ([id number]) 1995 F Date Time Provider Department 05/20/24 10:00 AM JAMES DILL [facility] During your visit today, we recorded the following information about you: Temperature Pulse Respiration Blood pressure 97.6 degrees 70/minute 21/minute 110/80 Weight 80 kg James Dill APRN.HEEL TRIMMER 05/20/2024 10:49 AM Signed Subjective Patient came [...] history is provided by the patient. No english as a second language instructor was used. Animal Bite Review of Systems [...] (FLONASE) 50 mcg/actuation nasal spray Use 1 Recluse in each nostril twice daily. (Patient not [...] okay with this care plan. James Dill APRN.HEEL TRIMMER Allergies As of Date: 05/20/2024 Noted Allergy Reaction SODIUM PENTOTHAL (THIOPENTAL) 01/19/2013 14 - Other: See Comments Comments: seizure GRASS POLLEN 07/22/2018 5 - Intolerance Comments: Sneezing, Eyes itching, ect... Date Reviewed: 05/20/2024 Reviewed by: Sarah Sanchez MA - Fully Assessed Reason for Visit: Animal Bite [56059] Cmt: Dog bite on right hand this morning Primary Visit Diagnosis:Dog bite, initial encounter [W54.0XXA] Other Visit Diagnosis:Puncture wound [T14.8XXA] Order(s):amoxicilli n-clavulanate potassium (AUGMENTIN) 875-125 mg per tabletTake 1 tablet by mouth two times a day for 10 days.Disp: 20 tabletRfl: 0 TDAP VACCINE, AGE 7+ YR (ADACEL, BOOSTRIX) [[id number]] Order #: [id number] Prescriptions as of 05/20/2024 - amoxicillin-clavula sylvia potassium (AUGMENTIN) 875-125 mg per tablet Take 1 tablet by mouth two times a day for 10 days. - fluconazole (DIFLUCAN) 150 mg tablet Take 1 tablet today, then a 2nd tablet in 72 hours, and 3rd tablet in another 72 hours. - fl (more content not included)... Normal [facility] SURGICAL PATHOLOGYon Case Report Surgical Pathology Report Case: [id number] Authorizing Provider: Hannah Benz MD Collected: 08/13/2022 02:25 PM Ordering Location: OB/Gynecology Received: 08/13/2022 04:15 PM Pathologist: Asher Cardenas MD Specimens: A) - CERVIX BIOPSY, 1 o'clock B) - CERVIX BIOPSY, 3 o'clock C) - ENDOCERVIX CURETTINGS, ECC [facility] Clinical History ASCUS; positive high risk HPV [facility] FINAL DIAGNOSIS A. Cervix, 1:00, biopsy: - Benign transformation zone tissue. B. Cervix, 3:00, biopsy: - Benign transformation zone tissue and squamous epithelium. C. Endocervix, curettage: - Benign endocervical tissue. MJM 08/14/2022 [facility] Gross Description A. CERVIX BIOPSY Received in [...] in one cassette. Gross examination performed at [facility], [address] [place] [address] [facility] 08/13/2022 11:49 PM [facility] Performing Lab Diagnostic interpretation performed at [facility], [address] [id number] CLIA# [id number] Tail Dogger: Asher Cardenas M.D. [facility] HCG QUAL UR B/Oon 08-13-2022 status Negative neg - [facility] Quality Check Yes [facility] Vital Signs Date Time Vital Sign Value Performing Clinician Facility 08-11-2025 11:01-0400 Body height 170.[address] Laura Marcus MD Work Phone: [facility] 08-11-2025 10:59-0400 Body mass index (BMI) [Ratio] 32.4 kg/m2 Dr. Laura Marcus MD Work Phone: [facility] 08-11-2025 10:59-0400 Body weight 93.[address] Laura Marcus MD Work Phone: [facility] 08-11-2025 10:59-0400 Diastolic blood pressure 83 mm[Hg] Dr. Laura Marcus MD Work Phone: [facility] 08-11-2025 10:59-0400 Systolic blood pressure 127 mm[Hg] Dr. Laura Marcus MD Work Phone: [facility] 08-03-2025 15:03-0400 Body height 170.[address] Laura Marcus MD Work Phone: [facility] 08-03-2025 15:03-0400 Body mass index (BMI) [Ratio] 32.3 kg/m2 Dr. Laura Marcus MD Work Phone: [phone] [place] [address] 08-03-2025 15:03-0400 Body weight 93.[address] Laura Marcus MD Work Phone: [phone] [place] [address] 08-03-2025 15:03-0400 Diastolic blood pressure 84 mm[Hg] Dr. Laura Marcus MD Work Phone: [phone] [place] [address] 08-03-2025 15:03-0400 Systolic blood pressure 137 mm[Hg] Dr. Laura Marcus MD Work Phone: [phone] [place] [address] 07-25-2025 13:35-0400 Body height 170.[address] Laura Marcus MD Work Phone: 1(922)298-321164 [place] [address] 07-25-2025 13:35-0400 Body mass index (BMI) [Ratio] 32.3 kg/m2 Dr. Laura Marcus MD Work Phone: 6(924)578-804164 [place] [address] 07-25-2025 13:35-0400 Body weight 93.[address] Laura Marcus MD Work Phone: 9(164)333-052964 [place] [address] 07-25-2025 13:35-0400 Diastolic blood pressure 82 mm[Hg] Dr. Laura Marcus MD Work Phone: 1(168)651-125564 [place] [address] 07-25-2025 13:35-0400 Systolic blood pressure 120 mm[Hg] Dr. Laura Marcus MD Work Phone: 8(802)516-778064 [place] [address] 07-20-2025 14:04-0400 Body height 170.[address] Laura Marcus MD Work Phone: 8(993)768-419164 [place] [address] 07-20-2025 14:04-0400 Body mass index (BMI) [Ratio] 32.5 kg/m2 Dr. Laura Marcus MD Work Phone: 4(666)297-617064 [place] [address] 07-20-2025 14:04-0400 Body weight 94.[address] Laura Marcus MD Work Phone: 4(311)504-410464 [place] [address] 07-20-2025 14:04-0400 Diastolic blood pressure 80 mm[Hg] Dr. Laura Marcus MD Work Phone: 8(042)601-617364 [place] [address] 07-20-2025 14:04-0400 Systolic blood pressure 126 mm[Hg] Dr. Laura Marcus MD Work Phone: 3(342)854-030464 [place] [address] 07-04-2025 14:51-0400 Body height 170.[address] Laura Marcus MD Work Phone: 5(075)226-437164 [place] [address] 07-04-2025 14:51-0400 Body mass index (BMI) [Ratio] 32.1 kg/m2 Dr. Laura Marcus MD Work Phone: 8(990)894-145364 [place] [address] 07-04-2025 14:51-0400 Body weight 93.[address] Laura Marcus MD Work Phone: 0(597)600-004864 [place] [address] 07-04-2025 14:51-0400 Diastolic blood pressure 76 mm[Hg] Dr. Laura Marcus MD Work Phone: 2(223)581-550264 [place] [address] 07-04-2025 14:51-0400 Systolic blood pressure 121 mm[Hg] Dr. Laura Marcus MD Work Phone: 8(496)938-144064 [place] [address] 06-19-2025 08:49-0400 Body height 170.[address] Laura Marcus MD Work Phone: 3(436)222-659264 [place] [address] 06-19-2025 08:49-0400 Body mass index (BMI) [Ratio] 31.6 kg/m2 Dr. Laura Marcus MD Work Phone: 0(448)330-475164 [place] [address] 06-19-2025 08:49-0400 Body weight 91.[address] Laura Marcus MD Work Phone: 6(999)558-629664 [place] [address] 06-19-2025 08:49-0400 Diastolic blood pressure 76 mm[Hg] Dr. Laura Marcus MD Work Phone: 3(296)886-257764 [place] [address] 06-19-2025 08:49-0400 Systolic blood pressure 117 mm[Hg] Dr. Laura Marcus MD Work Phone: 6(457)171-859064 [place] [address] 06-05-2025 14:21-0400 Body height 170.[address] Laura Marcus MD Work Phone: 1(917)072-042564 [place] [address] 06-05-2025 14:21-0400 Body mass index (BMI) [Ratio] 31.6 kg/m2 Dr. Laura Marcus MD Work Phone: 8(267)164-341564 [place] [address] 06-05-2025 14:21-0400 Body weight 91.[address] Laura Marcus MD Work Phone: 9(055)799-779364 [place] [address] 06-05-2025 14:21-0400 Diastolic blood pressure 79 mm[Hg] Dr. Laura Marcus MD Work Phone: 0(384)846-258664 [place] [address] 06-05-2025 14:21-0400 Systolic blood pressure 117 mm[Hg] Dr. Laura Marcus MD Work Phone: 3(596)391-238064 [place] [address] 05-10-2025 11:31-0400 Body height 170.[address] Laura Marcus MD Work Phone: 4(054)403-106164 [place] [address] 05-10-2025 11:31-0400 Body mass index (BMI) [Ratio] 31.1 kg/m2 Dr. Laura Marcus MD Work Phone: 0(062)215-500264 [place] [address] 05-10-2025 11:31-0400 Body weight 90.[address] Laura Marcus MD Work Phone: 4(229)872-596564 [place] [address] 05-10-2025 11:31-0400 Diastolic blood pressure 68 mm[Hg] Dr. Laura Marcus MD Work Phone: 5(648)645-923064 [place] [address] 05-10-2025 11:31-0400 Systolic blood pressure 116 mm[Hg] Dr. Laura Marcus MD Work Phone: 6(005)181-466864 [place] [address] 04-11-2025 10:10-0400 Body height 170.[address] Laura Marcus MD Work Phone: 1(493)300-847264 [place] [address] 04-11-2025 10:10-0400 Body mass index (BMI) [Ratio] 30.8 kg/m2 Dr. Laura Marcus MD Work Phone: 9(863)723-868164 [place] [address] 04-11-2025 10:10-0400 Body weight 89.[address] Laura Marcus MD Work Phone: 4(680)359-616964 [place] [address] 04-11-2025 10:10-0400 Diastolic blood pressure 78 mm[Hg] Dr. Laura Marcus MD Work Phone: 5(858)610-616464 [place] [address] 04-11-2025 10:10-0400 Systolic blood pressure 118 mm[Hg] Dr. Laura Marcus MD Work Phone: 0(169)504-149864 [place] [address] 03-16-2025 09:45-0400 Body mass index (BMI) [Ratio] 30.6 kg/m2 Dr. Laura Marcus MD Work Phone: 8(151)544-336064 [place] [address] 03-16-2025 09:45-0400 Body weight 88.[address] Laura Marcus MD Work Phone: 0(986)293-261064 [place] [address] 03-16-2025 09:45-0400 Diastolic blood pressure 71 mm[Hg] Dr. Laura Marcus MD Work Phone: 7(577)486-447264 [place] [address] 03-16-2025 09:45-0400 Systolic blood pressure 115 mm[Hg] Dr. Laura Marcus MD Work Phone: 2(417)602-215664 [place] [address] 02-17-2025 09:31-0400 Body height 170.[address] Laura Marcus MD Work Phone: 6(573)747-243164 [place] [address] 02-17-2025 09:31-0400 Body mass index (BMI) [Ratio] 29.9 kg/m2 Dr. Laura Marcus MD Work Phone: 4(030)470-595264 [place] [address] 02-17-2025 09:31-0400 Body weight 86.[address] Laura Marcus MD Work Phone: 2(587)029-448664 [place] [address] 02-17-2025 09:31-0400 Diastolic blood pressure 76 mm[Hg] Dr. Laura Marcus MD Work Phone: 4(661)193-459264 [place] [address] 02-17-2025 09:31-0400 Systolic blood pressure 109 mm[Hg] Dr. Laura Marcus MD Work Phone: 8(375)875-666364 [place] [address] 01-13-2025 12:59-0500 Body height 170.[address] Laura Marcus MD Work Phone: 2(223)848-500764 [place] [address] 01-13-2025 12:59-0500 Body mass index (BMI) [Ratio] 30.1 kg/m2 Dr. Laura Marcus MD Work Phone: 9(485)834-979064 [place] [address] 01-13-2025 12:59-0500 Body weight 87.[address] Laura Marcus MD Work Phone: [facility] 01-13-2025 12:59-0500 Diastolic blood pressure 77 mm[Hg] Dr. Laura Marcus MD Work Phone: [facility] 01-13-2025 12:59-0500 Systolic blood pressure 120 mm[Hg] Dr. Laura Marcus MD Work Phone: [facility] 05-30-2024 07:55-0400 Body height 168.3 cm Carol Shelby APRN.HEEL TRIMMER Work Phone: [facility] 05-30-2024 07:55-0400 Body mass index (BMI) [Ratio] 28.03 kg/m2 Carol Shelby APRN.HEEL TRIMMER Work Phone: [facility] 05-30-2024 07:55-0400 Body weight 79.38 kg Carol Shelby APRN.HEEL TRIMMER Work Phone: [facility] 05-20-2024 10:04-0400 Body mass index (BMI) [Ratio] 28.34 kg/m2 James Dill APRN.HEEL TRIMMER Work Phone: [facility] 05-20-2024 10:04-0400 Body temperature 97.59 [degF] James Dill APRN.HEEL TRIMMER Work Phone: [facility] 05-20-2024 10:04-0400 Body weight 80 kg James Dill APRN.HEEL TRIMMER Work Phone: [facility] 05-20-2024 10:04-0400 Diastolic blood pressure 80 mm[Hg] James Dill APRN.HEEL TRIMMER Work Phone: [facility] 05-20-2024 10:04-0400 Heart rate 70 /min James Dill APRN.HEEL TRIMMER Work Phone: [facility] 05-20-2024 10:04-0400 Respiratory rate 21 /min James Dill APRN.HEEL TRIMMER Work Phone: [facility] 05-20-2024 10:04-0400 SaO2% (BldA) [Mass fraction] 99 % James Dill APRN.HEEL TRIMMER Work Phone: [facility] 05-20-2024 10:04-0400 Systolic blood pressure 110 mm[Hg] James Dill APRN.HEEL TRIMMER Work Phone: [facility] 08-13-2022 13:45-0400 Body weight 75.66 kg Hannah Benz MD Work Phone: [facility] 08-13-2022 13:45-0400 Diastolic blood pressure 70 mm[Hg] Hannah Benz MD Work Phone: [facility] 08-13-2022 13:45-0400 Systolic blood pressure 110 mm[Hg] Hannah Benz MD Work Phone: [facility] 07-18-2022 08:00-0400 Body height 168 cm Carol Shelby APRN.HEEL TRIMMER Work Phone: [facility] 07-18-2022 08:00-0400 Body weight 74.84 kg Carol Shelby APRN.HEEL TRIMMER Work Phone: [facility] 07-18-2022 08:00-0400 Diastolic blood pressure 70 mm[Hg] Carol Shelby APRN.HEEL TRIMMER Work Phone: [facility] 07-18-2022 08:00-0400 Systolic blood pressure 100 mm[Hg] Carol Shelby APRN.HEEL TRIMMER Work Phone: [facility] Encounters Encounter Date Encounter Type Care Provider Facility Start: 08-24-2025 ambulatory Joie Walkerty:[facility] Start: 08-18-2025 End: 08-18-2025 ambulatory No Primary Care Physician Facility:[facility] Start: 08-11-2025 End: 08-11-[address] Tanisha Pena MD -[facility] Work Phone: Start: 08-11-2025 End: 08-11-[address] Laura Marcus MD Work Phone: -[facility] Start: 08-03-2025 End: 08-03-2025 Patient encounter procedure Monika Cui CNM -[facility] Work Phone: Start: 08-03-2025 End: 08-03-[address] Laura Marcus MD Work Phone: -[facility] Start: 07-25-2025 End: 07-25-[address] Laura Marcus MD Work Phone: -Laboratory Specimen Start: 07-25-2025 End: 07-25-2025 Patient encounter procedure Jasmine Tanner DATA CONVERSION DEVELOPER-C -Laboratory Specimen Work Phone: Start: 07-25-2025 End: 07-25-2025 Patient encounter procedure Jasmine Tanner DATA CONVERSION DEVELOPER-C -[facility] Work Phone: Start: 07-25-2025 End: 07-25-[address] Laura Marcus MD Work Phone: [facility] Start: 07-25-2025 End: 07-25-2025 ambulatory Jasmine Tanner DATA CONVERSION DEVELOPER Facility:[facility] Start: 07-20-2025 End: 07-20-[address] Tanisha Pena MD -[facility] Work Phone: Start: 07-20-2025 End: 07-20-[address] Laura Marcus MD Work Phone: [facility] Start: 07-04-2025 End: 07-04-[address] Joie Bonner DO -[facility] Work Phone: Start: 07-04-2025 End: 07-04-[address] Laura Marcus MD Work Phone: -[facility] Start: 06-19-2025 End: 06-19-2025 Patient encounter procedure Monika Cui CNM -[facility] Work Phone: Start: 06-19-2025 End: 06-19-[address] Laura Marcus MD Work Phone: [facility] Start: 06-15-2025 End: 06-15-[address] Laura Marcus MD Work Phone: -Laboratory Start: 06-15-2025 End: 06-15-2025 Patient encounter procedure Jasmine Tanner DATA CONVERSION DEVELOPER-C -Laboratory Work Phone: Start: 06-15-2025 End: 06-15-2025 ambulatory Jasmine Flores DATA CONVERSION DEVELOPER Facility:[facility] Start: 06-05-2025 End: 06-05-2025 Patient encounter procedure Monika Cui CNM -[facility] Work Phone: Start: 06-05-2025 End: 06-05-[address] Laura Marcus MD Work Phone: -[facility] Start: 06-05-2025 End: 06-05-2025 ambulatory Laura Marcus Facility:[facility] Start: 05-10-2025 End: 05-10-2025 Patient encounter procedure Jasmine Ortegas DATA CONVERSION DEVELOPER-C -[facility] Work Phone: Start: 05-10-2025 End: 05-10-[address] Laura Marcus MD Work Phone: [facility] Work Phone: Start: 04-11-2025 End: 04-11-2025 Patient encounter procedure Jasmine [place] DATA CONVERSION DEVELOPER-C -[facility] Work Phone: Start: 04-11-2025 End: 04-11-[address] Laura Marcus MD Work Phone: [facility] Work Phone: Start: 03-28-2025 End: 03-28-2025 ambulatory JOSE ALBERTO Ramos [facility] Start: 03-16-2025 End: 03-16-[address] Joie Bonner DO -[facility] Work Phone: Start: 03-16-2025 End: 03-16-2025 ambulatory Joie Bonner Facility[facility] Start: 02-17-2025 End: 02-17-[address] Tanisha Pena MD -[facility] Work Phone: Start: 02-17-2025 End: 02-17-[address] Laura Marcus MD Work Phone: [facility] Work Phone: Start: 02-17-2025 End: 02-17-2025 ambulatory Laura Michel Marcus Facility:[facility] Start: 02-02-2025 End: 02-02-[address] Laura Marcus MD Work Phone: [facility] Work Phone: Start: 02-02-2025 End: 02-02-2025 Patient encounter procedure Monika Cui CNM -Lab, [facility] Start: 02-02-2025 End: 02-02-2025 ambulatory Laura Marcus Facility:[facility] Start: 01-13-2025 End: 01-13-2025 Patient encounter procedure Monika Cui CNM -Laboratory, Specimen Work Phone: Start: 01-13-2025 End: 01-13-2025 ambulatory Laura Michel [place] Facility[place] Start: 01-13-2025 End: 01-13-2025 Patient encounter procedure Monika Cui CNM -[facility] Work Phone: Start: 01-13-2025 End: 01-13-2025 ambulatory Laura Marcus Facility:[facility] Start: 05-30-2024 End: 05-30-2024 ambulatory LAURA MARCUS Facility:[facility] Start: 05-30-2024 End: 05-30-2024 Patient encounter procedure Carol Shelby APRN.HEEL TRIMMER Work Phone: OB/Gynecology Comment on above: Encounter for gyneco logical examination (general) (routine) without abnormal findings (Primary Dx); Papanicolaou smear of cervix with atypical squamous cells of undetermined significance (ASC-US); Screening for cervical cancer Start: 05-30-2024 End: 05-30-2024 Patient encounter status Carol Shelby APRN.HEEL TRIMMER Work Phone: [facility] Start: 05-20-2024 End: 05-20-2024 ambulatory LAURA Michel [place] Facility:[facility] Start: 05-20-2024 End: 05-20-2024 Patient encounter procedure James Dill APRN.HEEL TRIMMER Work Phone: [facility] Comment on above: Dog bite, initial en counter (Primary Dx); Puncture wound Start: 08-13-2022 End: 08-13-2022 Patient encounter procedure Hannah Benz MD Work Phone: OB/Gynecology Comment on above: ASCUS with positive high risk HPV cervical (Primary Dx) Start: 07-21-2022 Telephone encounter Roxana rivera APRN.HEEL TRIMMER Work Phone: OB/Gynecology Comment on above: Results Start: 07-18-2022 End: 07-18-2022 Patient encounter procedure Carol Shelby APRN.HEEL TRIMMER Work Phone: OB/Gynecology Comment on above: Encounter for gyneco logical examination with abnormal finding (Primary Dx); Vaginal discharge; Surveillance for control, oral contraceptives; Encounter for Papanicolaou smear for cervical cancer screening Start: 07-18-2022 End: 07-18-2022 Patient encounter status Carol Shelby APRN.HEEL TRIMMER Work Phone: OB/Gynecology Procedures Date Procedure Procedure Detail Performing Clinician Start: 07-25-2025 Beta-hemolytic Strep tococcus culture Dr. Laura Marcus MD Work Phone: Start: 06-05-2025 Serologic test for syphilis Dr. Laura Marcus MD Work Phone: Start: 02-17-[address] Laura corona MD Work Phone: Start: 02-02-2025 Hepatitis C antibody measurement Dr. Laura Marcus MD Work Phone: Comment on above: Reactive: Presumptiv e evidence of antibodies to HCV. Follow CDC recommendations for supplemental testing.Non-Reactive: Antibodies to HCV were not detected; does not exclude the possibility of exposure to HCVReactive Results are presumptive evidence of antibodies to HCV. Follow CDC recommendations for supplemental testing.Order confirmation testing: HCV Quant by PCR testing - HCVPCR #[id number] Non Reactive: < 0.8 Equivocal: >/= 0.8 to < 1.0 Reactive: >/= 1.0The CDC requires that a reactive/equivocal HCV antibody result be sent out for confirmation. HCV Quant by PCR testing. Start: 02-02-[address] Laura Marcus MD Work Phone: Comment on above: Antibody Result: Int erpretationNon-Reactive: Non- ImmuneReactive: ImmuneThe following results were obtained with the [employer] Rubella IgG assay. Results from assays of other manufacturers cannot be used interchangeably. Start: 02-02-2025 Serologic test for syphilis Dr. Laura Marcus MD Work Phone: Start: 01-13-[address] Laura Marcus MD Work Phone: Start: 08-13-2022 Urine test visual color cmprsn meths Hannah Benz MD Work Phone: Start: 08-13-2022 SURGICAL PATHOLOGY Hannah Benz MD Work Phone: Plan of Treatment Date Care Activity Detail Author Start: 05-20-2034 Urine microalbumin profile DTaP,Tdap,Td Vaccine (8 - Td or Tdap) [facility] Start: 07-18-2025 PAP TESTING PAP TESTING [facility] Start: 06-05-2025 CBC W Auto Different ial panel - Blood [facility] Start: 06-05-2025 Measurement of gluco se 2 hours after glucose challenge for glucose tolerance test [facility] Start: 06-05-2025 Serologic test for syphilis [facility] Start: 06-05-2025 [facility] Start: 05-31-2025 End: 05-31-2025 Patient encounter procedure 05/31/2025 1:00 PM EDT Office Visit OB/Gynecology [address] [place], [place] [address] Carol Shelby APRN.HEEL TRIMMER [address] [place] [address] Annual OB/Gynecology Comment on above: Annual Start: 07-31-2024 Influenza vaccination [facility] Start: 05-30-2024 End: 05-30-2024 Patient encounter procedure 05/30/2024 7:30 AM EDT Office Visit OB/Gynecology [address] [place] [address] Carol Shelby APRN.HEEL TRIMMER [address] [place] [address] Annual Exam / discuss starting to try to conceive OB/Gynecology Comment on above: Annual Exam / discus s starting to try to conceive Start: 11-30-2023 Behavioral Health Screening Behavioral Health Screening [facility] Start: 07-31-2023 Covid-19 Vaccine () Covid-19 Vaccine () [facility] Start: 07-31-2023 Covid-19 Vaccine () Covid-19 Vaccine () [facility] Start: 07-18-2023 Screening for malign ant neoplasm of cervix Cervical Cancer Screening [facility] Start: 08-19-2022 PAP TESTING PAP TESTING [facility] Start: 07-31-2022 Influenza vaccination INFLUENZA (#1) [facility] Start: 09-04-2021 COVID-19 VACCINE (3 - Booster for Moderna series) COVID-19 VACCINE (3 - Booster for Moderna series) [facility] Start: 2014 Urine microalbumin profile DTAP,TDAP,TD (1 - Tdap) [facility] Start: 2013 HEPATITIS C SCREENING HEPATITIS C [facility] Start: 2013 Hepatitis C screening Hepatitis C [facility] Start: 2013 HIV SCREENING HIV SCREENING [facility] Start: 2013 HIV screening HIV Screening [facility] Start: 02-16-2013 HEPATITIS B (2 of 3 - 3-dose series) HEPATITIS B (2 of 3 - 3-dose series) [facility] Start: 2009 PEDS TO ADULT TRANSI TION ANNUAL ASSESSMENT PEDS TO ADULT TRANSITION ANNUAL ASSESSMENT [facility] Start: 2007 Adult depression screening assessment DEPRESSION SCREENING [facility] Start: 2007 PEDS TO ADULT TRANSI TION INITIAL DISCUSSION PEDS TO ADULT TRANSITION INITIAL DISCUSSION [facility] BACTERIAL VAGINOSIS AMPLIFICATION BACTERIAL VAGINOSIS AMPLIFICATION Lab Routine Vaginal discharge 07/18/2022 8:44 AM EDT [facility] Work Phone: GONZALEZ / TRICHOMONA S AMPLIFICATION GONZALEZ / TRICHOMONAS AMPLIFICATION Lab Routine Vaginal discharge 07/18/2022 8:44 AM EDT [facility] Work Phone: CBC W Auto Different ial panel - Blood [facility] COLPOSCOPY COLPOSCOPY Proce dures Routine ASCUS with positive high risk HPV cervical Ordered: 08/13/2022 [facility] Work Phone: Comment on above: Ordered: 08/13/2022 Erythrocyte mean corpuscular volume determination [facility] Hematocrit [Volume Fraction] of Blood [facility] Hemoglobin [Mass/vol ume] in Blood [facility] Leukocytes [#/volume ] in Blood [facility] Mean corpuscular hemoglobin concentration determination [facility] Mean corpuscular hemoglobin determination [facility] Measurement of gluco se 2 hours after glucose challenge for glucose tolerance test [facility] Neutrophil count [facility] Neutrophil percent differential count [facility] PAP FLUID CERVICAL SCREENING PAP FLUID CERVICAL SCREENING Lab Routine Encounter for gynecological examination with abnormal finding Encounter for Papanicolaou smear for cervical cancer screening 07/18/2022 8:44 AM EDT [facility] Work Phone: PAP TEST [facility] Encounter for gynecological examination (general) (routine) without abnormal findings Screening for cervical cancer Papanicolaou smear of cervix with atypical squamous cells of undetermined significance (ASC-US) 05/30/2024 8:38 AM EDT [facility] Work Phone: Platelets [#/volume] in Blood [facility] Red blood cell count [facility] Red cell distributio n width determination [facility] Serologic test for syphilis [facility] Streptococcus agalac tiae [Presence] in Unspecified specimen by Organism specific culture [facility] Immunizations Immunization Date Immunization Notes Care Provider Alberta fernández 06-19-2025 tetanus toxoid, redu yimi diphtheria toxoid, and acellular pertussis vaccine, adsorbed Dr. Laura Marcus MD Work Phone: [facility] 05-20-2024 tetanus toxoid, redu yimi diphtheria toxoid, and acellular pertussis vaccine, adsorbed James Dill APRN.HEEL TRIMMER Work Phone: [facility] 01-19-2013 hepatitis B vaccine, unspecified formulation Carol Shelby APRN.HEEL TRIMMER Work Phone: [facility] Payers Date Payer Category Payer Unknown [id number] 2024 Self-pay 2021 Unknown [employer] P[employer] [id number] 2021-Present [phone] [address] [place] [address] PPO [id number] 2021 Unknown [id number] 2013 Unknown [id number] 1995 Unknown [id number] Unknown [id number] Unknown [id number] Unknown [id number] Unknown [id number] Unknown [id number] Unknown [id number] .[id number] Unknown [id number] Unknown [id number] 2.16.840.1.640466.3.579.2.462 Unknown [id number] 2.16.840.1.718040.3.579.2.462 Unknown [id number] 2.16.840.1.489597.3.579.2.462 Unknown [id number] 2.16.840.1.766193.3.579.2.462 Unknown [id number] 2.16.840.1.869312.3.579.2.462 Unknown [id number] 2.16.840.1.149590.3.579.2.462 Unknown [id number] 2.16.840.1.799660.3.579.2.462 Unknown [id number] 2.16.840.1.597712.3.579.2.462 Unknown [id number] 2.16.840.1.067166.3.579.2.462 Unknown [id number] 2.16.840.1.633961.3.579.2.462 Unknown [id number] 2.16.840.1.927861.3.579.2.462 Unknown [id number] 2.16.840.1.766175.3.579.2.462 Unknown [id number] Social History Date Type Detail Facility Start: 08-13-2022 End: 01-03-2025 Tobacco smoking status PRIS Never smoked tobacco [facility] Work Phone: Start: 07-18-2022 End: 05-30-2024 Alcohol intake [facility] [facility] Start: 07-22-2018 History SDOH Alcohol Comment Rarely [facility] Start: 07-05-2020 History SDOH Social Connections Phone 5 [facility] Start: 07-05-2020 History SDOH Social Connections Get Together 2 [facility] Start: 07-05-2020 History SDOH Social Connections Religion 3 [facility] Start: 07-05-2020 History SDOH Social Connections Membership 1 [facility] Start: 07-05-2020 History SDOH Social Connections Living 7 [facility] Start: 07-05-2020 History SDOH Physical Activity DPW 6 [facility] Start: 07-05-2020 History SDOH Physical Activity MPS 15 [facility] Start: 07-05-2020 Education 17 [facility] Start: 1995 Sex Assigned At Female [facility] Start: 06-29-2022 End: 07-09-2022 Exposure to SARS-CoV-2 (event) Not sure [facility] Start: 08-13-2022 Tobacco use and exposure Smokeless tobacco non-user [facility] Start: 07-05-2020 End: 05-30-2024 History of Social function [facility] Start: 07-05-2020 End: 05-30-2024 Social connection and isolation panel [facility] Do you belong to any clubs or organizations such as voodoo groups, unions, fraternal or athletic groups, or school groups? Yes [facility] Are you now , , , , never or living with a partner? Never [facility] How hard is it for y ou to pay for the very basics like food, housing, medical care, and heating Not hard at all [facility] Do you feel stress - tense, restless, nervous, or anxious, or unable to sleep at night because your mind is troubled all the time - these days [OSQ] Only a little [facility] (I/We) worried wheth er (my/our) food would run out before (I/we) got money to buy more. Never true [facility] Start: 07-08-2021 Gender identity Identifies as female gender (finding) [facility] Start: 07-08-2021 Sexual orientation Heterosexual (finding) [facility] Start: 02-15-2025 End: 02-23-2025 Sex Female (finding) [facility] Clinical Notes 07-18-2022 to 08-11-2025 Note Date & Type Note Facility 08-11-2025 Progress note [facility] 08-03-2025 Progress note [facility] 08-03-2025 Progress note Note Date/Time August 03, 2025 3:36pm [facility]'s [address], [address] [place] [address] OFFICE VISIT Date of Service: 08/03/25 MR#: [id number] Acct: [id number] Name: WENDIE VELEZ Rep #: [id number] : 1995 Provider: FELICE Cui Age/Sex: 29/F Location: [facility] Status: Signed Intake Vital Signs 06/05/25 14:21 07/25/25 13:35 08/03/25 15:03 Height 5 ft 7 in 5 ft 7 in 5 ft 7 in Weight: 206 lb 9 oz BMI 32.3 BP 137/84 H Intake Visit Reasons: 37wk4d ob Chief Complaint: 37wk OB Wind Up Operator Required: No Is patient in pain?: No Allergies grass pollen Allergy (Intermediate, Verified 08/03/25 15:02) Swelling tea tree Allergy (Intermediate, Verified 08/03/25 15:02) Swelling thiopental (From thiopental sodium) Adverse Reaction (Severe, Verified 08/03/25 15:02) Other Medications ?Medication ?Instructions ?Recorded ?Confirmed ?Type multivitamin no.47-iron fum 27 cap PO 01/03/25 5 History mg-folate no.1 1 mg-dha 300 mg capsule (PNV-DHA) Last Menstrual Period: 11/19/24 : No PFSH PFSH Medical History History of HPV infection Hx of abnormal cervical Pap smear Surgical History History of colposcopy H/O sinus surgery Bennett teeth extracted History of tonsillectomy Family History [...] current occupational status: employed 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 OB Visit ALFREDITO Calculator Estimated Delivery Date Method Current WG Current Estimate 08/20/25 Ultrasound #1 37w 4d Other Estimates 08/26/25 LMP (Certain) 36w 5d Expected Delivery Route/Plan Labor Preferences- CB/BF [...] and baby, NA LARC form signed: yes movement and labor precautions reviewed. Problem list reviewed and updated with the most current plan of care details and appropriate orders placed. Relevant counseling for the gestational age provided. Continue routine care and follow up unless otherwise noted in visit notes/problem list details Initial Weight: 192 lb Date -?-?-?-?-?-?-?-?-?-?-?-?- EGA Weight BP Urine Prot -?-?-?-?-?-?-?-?-?-?-?-?- Glucose FHR FuHt Pres Dilation -?-?-?-?-?-?-?-?-?-?-?-?- Effaced St Visit Note 01/13/25 -?-?-?-?-?-?-?-?-?-?--?-?- 8w 5d 192 lb 8 oz (+8 oz) 120/77 -?-?-?-?-?-?-?-?-?-?-?-?- 171 -?-?-?-?-?-?-?-?-?-?-?-?- KW- CRL not cons with dates. ALFREDITO changed. NIPT done KW- CRL not cons with dates. ALFREDITO changed. NIPT ordered. 02/17/25 -?-?-?-?-?-?-?-?-?-?-?-?- 13w 5d 191 lb 6 oz (-10 oz) 109/76 Negative -?-?-?-?-?-?-?-?-?-?-?-?- Negative 140 -?-?-?-?-?-?-?-?-?-?-?-?- SM- no vb crampi ng 03/16/25 -?-?-?-?-?-?-?-?-?-?-?--?- 17w 4d 195 lb 8 oz (+3 lb 8 oz) 115/71 -?-?-?-?-?-?-?-?-?-?-?-?- 145 -?-?-?-?-?-?-?-?-?-?-?-?- JV- no lof, vagi nal bleeding, or cramping reported. asking eyl for baby's blood type. her is willing to do an RH test at next visit if needed 04/11/25 -?-?-?-?-?-?-?-?-?-?-?-?- 21w 2d 197 lb (+5 lb) 118/78 Negative -?-?-?-?-?-?-?-?-?-?-?-?- Negative 151 -?-?-?-?-?-?-?-?-?-?-?-?- MH-No VB. Stan bess. Denies concerns 05/10/25 -?-?-?-?-?-?-?-?-?-?-?-?- 25w 3d 199 lb 2 oz (+7 lb 2 oz) 116/68 Negative -?-?-?-?-?-?-?-?-?-?-?-?- Negative 141 25 -?-?-?-?-?-?-?-?-?-?-?-?- MH-No VB. Good Patricia segura. Denies concerns. Larc 06/05/25 -?-?-?-?-?-?-?-?-?-?-?-?- 29w 1d 202 lb 4 oz (+10 lb 4 oz) 117/79 Negative -?-?-?-?-?-?-?-?-?-?-?-?- Negative 135 28 -?-?-?-?-?-?-?-?-?-?-?-?- KW- no vb/lof/ct x. good fm. glucose today. tdap today. 06/19/25 -?-?-?-?-?-?-?-?-?-?-?-?- 31w 1d 202 lb 6 oz (+10 lb 6 oz) 117/76 Negative -?-?-?-?-?-?-?-?-?-?-?-?- Negative 135 31 -?-?-?-?-?-?-?-?-?-?-?-?- KW- no vb/lof/ct x. good fm. no concerns. 07/04/25 -?-?-?-?-?-?-?-?-?-?-?-?- 33w 2d 205 lb 4 oz (+13 lb 4 oz) 121/76 Negative -?-?-?-?-?-?-?-?-?-?-?-?- Negative 166 33 -?-?-?-?-?-?-?-?-?-?-?-?- JV- no lof, vagi nal bleeding, or dec fm. no complaints today. 07/20/25 -?-?-?-?-?-?-?-?-?-?-?-?- 35w 4d 208 lb 4 oz (+16 lb 4 oz) 126/80 -?-?-?-?-?-?-?-?-?-?-?-?- 150 35 Cephalic -?-?-?-?-?-?-?-?-?-?-?-?- Sm- no vb lof go od fm n oreuglar ctx 07/25/25 -?-?-?-?-?-?-?-?-?-?-?-?- 36w 2d 206 lb 2 oz (+14 lb 2 oz) 120/82 Negative -?-?-?-?-?-?-?-?-?-?-?-?- Negative 136 36 Cephalic 0 -?-?-?-?-?-?-?-?-?-?-?-?- 50 -2 MH-No vB, LOF or reg CTX. Good Fm. GBS 08/03/25 -?-?-?-?-?-?-?-?-?-?-?-?- 37w 4d 206 lb 9 oz (+14 lb 9 oz) 137/84 Negative -?-?-?-?-?-?-?-?-?-?-?-?- Negative 135 37 Cephalic -?-?-?-?-?-?-?-?-?-?-?-?- KW- no vb/lof/ct x. good fm. no concerns. no che/dizziness/BV ACOG First Trimester First Trimester: Desire for [...] and no additional complaints, except as documented Eyes Reports system reviewed and no additional complaints, except as documented ENT Reports system reviewed and no additional complaints, except as documented Card Reports system reviewed and no additional complaints, except as documented Resp Reports system reviewed and no additional complaints, except as documented GI Reports system reviewed and no additional complaints, except as documented, Denies nausea and Denies vomiting Reports system reviewed and no additional complaints, except as documented Musc Reports system reviewed and no additional complaints, except as documented Skin/Breast Reports system reviewed and no additional complaints, except as documented Neuro Yes system reviewed and no additional complaints, except as documented Psych Reports system reviewed and no additional complaints, except as documented Endo Reports system reviewed and no additional complaints, except as documented Oscar/Lymph Reports system reviewed and no additional complaints, except as documented Aller/Immun Reports system reviewed and no additional complaints, except as documented Exam Const General: cooperative, healthy appearing and no acute distress Orientation: alert, awake and oriented x3 Neck Neck: normal visual inspection and full ROM Resp Effort & Inspection: normal respiratory effort, able to speak in complete sentences and symmetric chest movement GI Inspection: normal to inspection Palpation: soft and other Other: gravid Skin General: no rashes or lesions noted Neuro General: patient alert, patient awake and patient oriented x3 Cognition: normal cognition Speech: speech normal Gait: normal gait Motor: muscle tone normal throughout Extrem General: normal to inspection and full ROM Psych Appearance: grossly normal Mental Status: mental status grossly normal Mood: congruent mood Affect: normal affect Speech and Movement: speech and movement normal Attitude: cooperative Thought Process: normal Thought Content: normal Judgment: judgment good Results POC Urinalysis 2 Dip (Clinic) Office Urine Glucose Negative Last Edit by Clarissa Crawley on 08/03/25 15:08 Office Urine Protein Negative Last Edit by Clarissa Crawley on 08/03/25 15:08 Coding Level of Care Code OB Routine Diagnoses Rh negative status during in second trimester O26.892; Z67.91 Trimester: second trimester Encounter for supervision of normal first in third trimester Z34.03 Trimester: third trimester 37 weeks gestation of Z3A.37 Weeks of gestation: 37 weeks Assessment and Plan Assessment and Plan (1) Rh negative status during : Status: Acute Qualifiers: Trimester: second trimester Qualified Code(s): O26.892 - Other specified related conditions, second trimester; Z67.91 - Unspecified blood type, Rh negative Comment: Fetus is RhD negative per NIPT. (2) Supervision of normal first : Status: Acute Qualifiers: Trimester: third trimester Qualified Code(s): Z34.03 - Encounter for supervision of normal first , third trimester Comment: PRR, , ALFREDITO 08/20/25 boy, Shar (3) : Status: Acute Qualifiers: Weeks of gestation: 37 weeks Qualified Code(s): Z3A.37 - 37 weeks gestation of Comment: Neg GBS. NIPT low risk. Anatomy nl. Orders: Orders POC Urinalysis 2 Dip (Clinic) Today Plan Details Additional Comments: ACOG trimester education reviewed and updated. see problem list details for updated plan management information and see below for orders placed at this visit. GA appropriate handout given. 08/03/25 1532 <Electronically signed by Monika goldberg CNM> Date _ Monika Cui CNM Cosignyolande Signature: Date (if applicable) CC: ~ [facility] Work Phone: 1(404) 325-414508-26-2025 Progress [facility] [address] [place] [address], [address] [place] [id number] OFFICE VISIT Date of Service: 07/25/25 MR#: [id number] Acct: [id number] Name: WENDIE VELEZ Rep #: [id number] : 1995 Provider: URSULA Tanner Age/Sex: 29/F Location: [facility] Status: Signed Intake Vital Signs 07/20/25 14:04 07/25/25 13:35 Height 5 ft 7 in 5 ft 7 in Weight: 206 lb 2 oz BMI 32.3 BP 120/82 H Intake Visit Reasons: 36wk2d ob Chief Complaint: 36 Week OB Wind Up Operator Required: No Is patient in pain?: No Allergies grass pollen Allergy (Intermediate, Verified 07/25/25 13:37) Swelling tea tree Allergy (Intermediate, Verified 07/25/25 13:37) Swelling thiopental (From thiopental sodium) Adverse Reaction (Severe, Verified 07/25/25 13:37) Other Medications ?Medication ?Instructions ?Recorded ?Confirmed ?Type multivitamin no.47-iron fum 27 cap PO 01/03/25 5 History mg-folate no.1 1 mg-dha 300 mg capsule (PNV-DHA) Last Menstrual Period: 11/19/24 Zika: Zika virus screening: Negative : No PFSH PFSH Medical History History of HPV infection Hx of abnormal cervical Pap smear Surgical History History of colposcopy H/O sinus surgery Bennett teeth extracted History of tonsillectomy Family History [...] current occupational status: employed 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 OB Visit ALFREDITO Calculator Estimated Delivery Date Method Current WG Current Estimate 08/20/25 Ultrasound #1 36w 2d Other Estimates 08/26/25 LMP (Certain) 35w 3d Expected Delivery Route/Plan Labor Preferences- CB/BF [...] and baby, NA LARC form signed: yes movement and labor precautions reviewed. Problem list reviewed and updated with the [...] 8 oz (+8 oz) 120/77 -?-?-?-?-?-?-?-?-?-?-?-?- 171 -?-?--?-?-?-?-?-?-?-?-?-?- KW- CRL not cons with dates. ALFREDITO [...] at next visit if needed 04/11/25 -?-?-?-?-?-?-?-?-?-?-?-?- w 2d 197 lb (+5 lb) 118/78 Negative -?-?-?-?-?-?-?-?-?-?-?-?- Negative 151 -?-?-?-?-?--?-?-?-?-?-?-?- MH-No VB. Stan bess. Denies concerns 05/10/25 -?-?-?-?-?-?-?-?-?-?-?-?- 25w 3d 199 lb 2 oz (+7 lb 2 oz) 116/68 Negative -?-?-?-?-?-?-?-?-?-?-?-?- Negative 141 25 -?-?-?-?-?-?-?-?-?-?-?-?- MH-No VB. Jorge hardy Denies concerns. [facility] 06/05/25 -?-?-?-?-?-?-?-?--?-?-?-?- 29w 1d 202 lb 4 oz (+10 lb 4 oz) 117/79 Negative -?-?-?-?-?-?-?-?-?-?-?-?- Negative 135 28 -?-?-?-?-?-?-?-?-?-?-?-?- KW- no vb/lof/ct x. good fm. glucose today. tdap today. 06/19/25 -?-?-?-?-?-?-?-?-?-?-?-?- 31w 1d 202 lb 6 oz (+10 lb 6 oz) 117/76 Negative -?-?-?-?-?-?-?-?-?-?-?-?- Negative 135 31 -?-?-?-?-?-?-?-?-?-?-?-?- KW- no vb/lof/ct x. good fm. no concerns. 07/04/25 -?-?-?-?-?-?--?-?-?-?-?-?- 33w 2d 205 lb 4 oz (+13 lb 4 oz) 121/76 Negative -?-?-?-?-?-?-?-?-?-?-?-?- Negative 166 33 -?-?-?-?-?-?-?-?-?-?-?-?- JV- no lof, vagi nal bleeding, or dec fm. no complaints today. 07/20/25 -?-?-?-?-?-?-?-?-?-?-?-?- 35w 4d 208 lb 4 oz (+16 lb 4 oz) 126/80 -?-?-?-?-?-?-?-?-?-?-?-?- 150 35 Cephalic -?-?-?-?-?-?-?-?-?-?-?-?- Sm- no vb lof go od fm n oreuglar ctx 07/25/25 -?-?-?-?-?-?-?-?-?-?--?-?- 36w 2d 206 lb 2 oz (+14 lb 2 oz) 120/82 Negative -?-?-?-?-?-?-?-?-?-?-?-?- Negative 136 36 Cephalic 0 -?-?-?-?-?-?-?-?--?-?-?-?- 50 -2 MH-No vB, LOF or reg CTX. Good Fm. GBS ACOG First Trimester First Trimester: Desire for , Alcohol, Tobacco Cessation, Illicit/Recreational Drug/Substance Use, Intimate Partner Violence, Barriers to care, Anticipated Course of Care, Use of Any medications, Sexual activity, Exercise, Dental Care, Sauna/Hot tub use, Seat Belt use, Childbirth c [facility]/Hospital facilities, Travel, Indications for Ultrasound and Screening [...] Urine Glucose Negative Last Edit by Keri Marcus on 07/25/25 13 :43 Office Urine Protein Negative Last Edit by Keri Marcus on 07/25/25 13 :43 Coding Level of Care Code OB Routine Diagnoses Encounter for supervision of normal first in third trimester Z34.03 Trimester: third trimester 36 weeks gestation of Z3A.36 Weeks of gestation: 36 weeks Rh negative status during in second trimester O26.892; Z67.91 Trimester: second trimester Assessment and Plan Assessment and Plan (1) Supervision of normal first : Status: Acute Qualifiers: Trimester: third trimester Qualified Code(s): Z34.03 - Encounter for supervision of normal first , third trimester Comment: PRR, , ALFREDITO 08/20/25 boy, Shar (2) : Status: Acute Qualifiers: Weeks of gestation: 36 weeks Qualified Code(s): Z3A.36 - 36 weeks gestation of Comment: NIPT low risk. Anatomy nl. (3) Rh negative status during : Status: Acute Qualifiers: Trimester: second trimester Qualified Code(s): O26.892 - Other specified related conditions, second trimester; Z67.91 - Unspecified blood type, Rh negative Comment: Fetus is RhD negative per NIPT. Orders: Orders POC Urinalysis 2 Dip (Clinic) Today Culture, Group B Streptococcus Today Z34.02 - Encounter for supervision of normal first , second trimester Plan problem list reviewed and updated for most current plan of care and appropriate orders placed. Relevant counseling for the gestational age appropriate provided and ACOG education checklist updated. Continue routine care and follow up. 07/25/25 1352 s DATA CONVERSION DEVELOPER DATA CONVERSION DEVELOPER-C> Date _ Jasmine Tanner DATA CONVERSION DEVELOPER DATA CONVERSION DEVELOPER-C Cosigner Signature: Date (if applicable) CC: ~ [facility]08-21-2025 Progress [facility] [address] [place] [address], [address] [place] [address] OFFICE VISIT Date of Service: 07/20/25 MR#: [id number] Acct: [id number] Name: WENDIE VELEZ Rep #: [id number] : 1995 Provider: Dr. Trey Pena MD Age/Sex: 29/F Location: [facility] Status: Signed Intake Vital Signs 06/05/25 14:21 07/04/25 14:51 07/20/25 14:04 Height 5 ft 7 in 5 ft 7 in 5 ft 7 in Weight: 208 lb 4 oz BMI 32.5 BP 126/80 H Intake Visit Reasons: 34wk ob Wind Up Operator Required: No Is patient in pain?: No Allergies grass pollen Allergy (Intermediate, Verified 07/20/25 14:05) Swelling tea tree Allergy (Intermediate, Verified 07/20/25 14:05) Swelling thiopental (From thiopental sodium) Adverse Reaction (Severe, Verified 07/20/25 14:05) Other Medications ?Medication ?Instructions ?Recorded ?Confirmed ?Type multivitamin no.47-iron fum 27 cap PO 01/03/25 5 History mg-folate no.1 1 mg-dha 300 mg capsule (PNV-DHA) Last Menstrual Period: 11/19/24 Zika: Zika virus screening: Negative : No PFSH PFSH Medical History History of HPV infection Hx of abnormal cervical Pap smear Surgical History History of colposcopy H/O sinus surgery Bennett teeth extracted History of tonsillectomy Family History [...] current occupational status: employed 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 OB Visit ALFREDITO Calculator Estimated Delivery Date Method Current WG Current Estimate 08/20/25 Ultrasound #1 35w 4d Other Estimates 08/26/25 LMP (Certain) 34w 5d Expected Delivery Route/Plan Labor Preferences- CB/BF [...] and baby, NA LARC form signed: yes movement and labor precautions reviewed. Problem list reviewed and updated with the [...] at next visit if needed 04/11/25 -?-?-?-?-?-?-?-?-?-?-?-?- w 2d 197 lb (+5 lb) 118/78 Negative -?-?-?-?-?-?-?-?-?-?-?-?- Negative 151 -?-?-?-?-?-?-?-?-?-?-?-?- MH-No VB. Stan bess. Denies concerns 05/10/25 -?-?-?-?-?-?-?-?-?-?-?-?- 25w 3d 199 lb 2 oz (+7 lb 2 oz) 116/68 Negative -?-?-?-?-?-?-?-?-?-?-?-?- Negative 141 25 -?-?-?-?-?-?-?-?-?-?-?-?- MH-No VB. Good Patricia segura. Denies concerns. Lar 06/05/25 -?-?-?-?-?-?-?-?-?-?-?-?- 29w 1d 202 lb 4 oz (+10 lb 4 oz) 117/79 Negative -?-?-?-?-?-?-?-?-?-?-?-?- Negative 135 28 -?-?-?-?-?-?-?-?-?-?-?-?- KW- no vb/lof/ct x. good fm. glucose today. tdap today. 06/19/25 -?-?-?-?-?-?-?-?-?-?-?-?- 31w 1d 202 lb 6 oz (+10 lb 6 oz) 117/76 Negative -?-?-?-?-?-?-?-?-?-?-?-?- Negative 135 31 -?-?-?-?-?-?-?-?-?-?-?-?- KW- no vb/lof/ct x. good fm. no concerns. 07/04/25 -?-?-?-?-?-?-?-?-?-?-?-?- 33w 2d 205 lb 4 oz (+13 lb 4 oz) 121/76 Negative -?-?-?-?-?-?-?-?-?-?-?-?- Negative 166 33 -?-?-?-?-?-?-?-?-?-?-?-?- JV- no lof, vagi nal bleeding, or dec fm. no complaints today. 07/20/25 -?-?-?-?-?-?-?-?-?-?-?-?- 35w 4d 208 lb 4 oz (+16 lb 4 oz) 126/80 -?-?-?-?-?-?-?-?-?-?-?-?- 150 35 Cephalic -?-?-?-?-?-?-?-?-?-?-?-?- Sm- no vb lof go od fm n oreuglar ctx ACOG First Trimester First Trimester: Desire for , Alcohol, Tobacco Cessation, Illicit/Recreational Drug/Substance Use, Intimate Partner Violence, Barriers to care, Anticipated Course of Care, Use of Any medications, Sexual activity, Exercise, Dental Care, Sauna/Hot tub use, Seat Belt use, Childbirth c lasses/Hospital facilities, Travel, Indications for Ultrasound and Screening [...] Circumcision preference, Signs and Symptoms of Preeclampsia, Feeding No , Education and Family Medical Leave or Disability Forms Coding Level of Care Code OB Routine Diagnoses Rh negative status during in second trimester O26.892; Z67.91 Trimester: second trimester Encounter for supervision of normal first in second trimester Z34.02 Trimester: second trimester 35 weeks gestation of Z3A.35 Weeks of gestation: 35 weeks Assessment and Plan Assessment and Plan [...] : Status: Acute Qualifiers: Weeks of gestation: 35 weeks Qualified Code(s): Z3A.35 - 35 weeks gestation of Comment: NIPT low risk. Anatomy nl. Orders: Orders POC Urinalysis 2 Dip (Clinic) Today 07/20/25 Jonny tobias MD> Date _ Tanisha Pena MD Cosign Signature: Date (if applicable) CC: ~ [facility]08-21-2025 Progress note Author Tanisha Pena [facility] Note Date/Time July 20, 2025 2: 28pm [facility] [address], [address] [place] [address] OFFICE VISIT Date of Service: 07/20/25 MR#: [id number] Acct: [id number] Name: WENDIE VELEZ Rep #: [id number] : 1995 Provider: Dr. Trey Pena MD Age/Sex: 29/F Location: [facility] Status: Signed Intake Vital Signs 06/05/25 14:21 07/04/25 14:51 07/20/25 14:04 Height 5 ft 7 in 5 ft 7 in 5 ft 7 in Weight: 208 lb 4 oz BMI 32.5 BP 126/80 H Intake Visit Reasons: 34wk ob Wind Up Operator Required: No Is patient in pain?: No Allergies grass pollen Allergy (Intermediate, Verified 07/20/25 14:05) Swelling tea tree Allergy (Intermediate, Verified 07/20/25 14:05) Swelling thiopental (From thiopental sodium) Adverse Reaction (Severe, Verified 07/20/25 14:05) Other Medications ?Medication ?Instructions ?Recorded ?Confirmed ?Type multivitamin no.47-iron fum 27 cap PO 01/03/25 5 History mg-folate no.1 1 mg-dha 300 mg capsule (PNV-DHA) Last Menstrual Period: 11/19/24 Zika: Zika virus screening: Negative : No PFSH PFSH Medical History History of HPV infection Hx of abnormal cervical Pap smear Surgical History History of colposcopy H/O sinus surgery Bennett teeth extracted History of tonsillectomy Family History [...] current occupational status: employed 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 OB Visit ALFREDITO Calculator Estimated Delivery Date Method Current WG Current Estimate 08/20/25 Ultrasound #1 35w 4d Other Estimates 08/26/25 LMP (Certain) 34w 5d Expected Delivery Route/Plan Labor Preferences- CB/BF [...] and baby, NA LARC form signed: yes movement and labor precautions reviewed. Problem list reviewed and updated with the [...] -?-?-?-?-?-?-?-?-?-?-?-?- MH-No VB. Jorge hardy Denies concerns. [facility] 06/05/25 -?-?-?-?-?-?-?-?-?-?-?-?- 29w 1d 202 lb 4 oz (+10 lb 4 oz) 117/79 Negative -?-?-?-?-?-?-?-?-?-?-?-?- Negative 135 28 -?-?-?-?-?-?-?-?-?-?-?-?- KW- no vb/lof/ct xAsif beck. glucose today. tdap today. 06/19/25 -?-?-?-?-?-?-?-?-?-?-?-?- 31w 1d 202 lb 6 oz (+10 lb 6 oz) 117/76 Negative -?-?-?-?-?-?-?-?-?-?-?-?- Negative 135 31 -?-?-?-?-?-?-?-?-?-?-?-?- KW- no vb/lof/ct x. good fm. no concerns. 07/04/25 -?-?-?-?-?-?-?-?-?-?-?-?- 33w 2d 205 lb 4 oz (+13 lb 4 oz) 121/76 Negative -?-?-?-?-?-?-?-?-?-?-?-?- Negative 166 33 -?-?-?-?-?-?-?-?-?-?-?-?- JV- no lof, vagi nal bleeding, or dec fm. no complaints today. 07/20/25 -?-?-?-?-?-?-?-?-?-?-?-?- 35w 4d 208 lb 4 oz (+16 lb 4 oz) 126/80 -?-?-?-?-?-?-?-?-?-?-?-?- 150 35 Cephalic -?-?-?-?-?-?-?-?-?-?-?-?- Sm- no vb lof go od fm n oreuglar ctx ACOG First Trimester First Trimester: Desire for [...] Circumcision preference, Signs and Symptoms of Preeclampsia, Feeding No , [place] Education and Family Medical Leave or Disability Forms Coding Level of Care Code OB Routine Diagnoses Rh negative status during in second trimester O26.892; Z67.91 Trimester: second trimester Encounter for supervision of normal first in second trimester Z34.02 Trimester: second trimester 35 weeks gestation of Z3A.35 Weeks of gestation: 35 weeks Assessment and Plan Assessment and Plan [...] : Status: Acute Qualifiers: Weeks of gestation: 35 weeks Qualified Code(s): Z3A.35 - 35 weeks gestation of Comment: NIPT low risk. Anatomy nl. Orders: Orders POC Urinalysis 2 Dip (Clinic) Today 07/20/25 4201 <Electronically signed by Tanisha tobias MD> Date _ Tanisha Pena MD [facility] Signature: Date (if applicable) CC: ~ [facility] Work Phone: 1(997) 779-573908-05-2025 Progress [facility] [address] [place] [address], [address] [place] [id number] OFFICE VISIT Date of Service: 07/04/25 MR#: [id number] Acct: [id number] Name: WENDIE VELEZ Rep #: [id number] : 1995 Provider: Dr. Hilary Bonner DO Age/Sex: 29/F Location: [facility] Status: Signed Intake Vital Signs 06/05/25 14:21 06/19/25 08:49 07/04/25 14:51 Height 5 ft 7 in 5 ft 7 in 5 ft 7 in Weight: 205 lb 4 oz BMI 32.1 BP 121/76 H Intake Visit Reasons: 32wk ob Wind Up Operator Required: No Is patient in pain?: No Allergies grass pollen Allergy (Intermediate, Verified 07/04/25 14:52) Swelling tea tree Allergy (Intermediate, Verified 07/04/25 14:52) Swelling thiopental (From thiopental sodium) Adverse Reaction (Severe, Verified 07/04/25 14:52) Other Medications ?Medication ?Instructions ?Recorded ?Confirmed ?Type multivitamin no.47-iron fum 27 cap PO 01/03/25 5 History mg-folate no.1 1 mg-dha 300 mg capsule (PNV-DHA) Last Menstrual Period: 11/19/24 Zika: Zika virus screening: Negative : No PFSH PFSH Medical History History of HPV infection Hx of abnormal cervical Pap smear Surgical History History of colposcopy H/O sinus surgery Bennett teeth extracted History of tonsillectomy Family History [...] current occupational status: employed 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 OB Visit ALFREDITO Calculator Estimated Delivery Date Method Current WG Current Estimate 08/20/25 Ultrasound #1 33w 2d Other Estimates 08/26/25 LMP (Certain) 32w 3d Expected Delivery Route/Plan Labor Preferences- CB/BF classes: scheduled labor support person: Sahr labor intervention preferences: [] pain management options [...] at next visit if needed 04/11/25 -?-?-?-?-?-?-?-?-?-?-?-?- w 2d 197 lb (+5 lb) 118/78 Negative -?-?-?-?-?-?-?-?-?-?-?-?- Negative 151 -?-?-?-?-?-?-?-?-?-?-?-?- MH-No VB. Stan bess. Denies concerns 05/10/25 -?-?-?-?-?-?-?-?-?-?-?-?- 25w 3d 199 lb 2 oz (+7 lb 2 oz) 116/68 Negative -?-?-?-?-?-?-?-?-?-?-?-?- Negative 141 25 -?-?-?-?-?-?-?-?-?-?-?-?- MH-No VB. Jorge Patricia segura. Denies concerns. [facility] 06/05/25 -?-?-?-?-?-?-?-?-?-?-?-?- 29w 1d 202 lb 4 oz (+10 lb 4 oz) 117/79 Negative -?-?-?-?-?-?-?-?-?-?-?-?- Negative 135 28 -?-?-?-?-?-?-?-?-?-?-?-?- KW- no vb/lof/ct x. good fm. glucose today. tdap today. 06/19/25 -?-?-?-?-?-?-?-?-?-?-?-?- 31w 1d 202 lb 6 oz (+10 lb 6 oz) 117/76 Negative -?-?-?-?-?-?-?-?-?-?-?-?- Negative 135 31 -?-?-?-?-?-?-?-?-?-?-?-?- KW- no vb/lof/ct x. good fm. no concerns. 07/04/25 -?-?-?-?-?-?-?-?-?-?-?-?- 33w 2d 205 lb 4 oz (+13 lb 4 oz) 121/76 Negative -?-?-?-?-?-?-?-?-?-?-?-?- Negative 166 33 -?-?-?-?-?-?-?-?-?-?-?-?- JV- no lof, vagi nal bleeding, or dec fm. no complaints today. ACOG First Trimester First Trimester: Desire for , Alcohol, Tobacco Cessation, Illicit/Recreational Drug/Substance Use, Intimate Partner Violence, Barriers to care, Anticipated Course of Care, Use of Any medications, Sexual activity, Exercise, Dental Care, Sauna/Hot tub use, Seat Belt use, Childbirth c lasses/Hospital facilities, Travel, Indications for Ultrasound and Screening [...] Symptoms of Preeclampsia, Infant Feeding No , [place] Education and Family Medical Leave or Disability Forms Results POC Urinalysis 2 Dip (Clinic) Office Urine Glucose Negative Last Edit by Jasmine Vásquez on 07/04/25 14:56 Office Urine Protein Negative Last Edit by Jasmine Vásquez on 07/04/25 14:56 Coding Level of Care Code OB Routine Diagnoses Rh negative status during in second trimester O26.892; Z67.91 Trimester: second trimester Encounter for supervision of normal first in second trimester Z34.02 Trimester: second trimester 33 weeks gestation of Z3A.33 Weeks of gestation: 33 weeks Assessment and Plan Assessment and Plan [...] : Status: Acute Qualifiers: Weeks of gestation: 33 weeks Qualified Code(s): Z3A.33 - 33 weeks gestation of Comment: NIPT low risk. Anatomy nl. Orders: Orders POC Urinalysis 2 Dip (Clinic) Today 07/04/25 1516 e Yvette DO> Date _ Joie Velascoignyolande Signature: Date (if applicable) CC: ~ [facility]08-05-2025 Progress note Author Joie Crawford [facility] Note Date/Time July 04, 2025 3:1 6pm [facility] [address] [place] [address], [address] [place] [address] OFFICE VISIT Date of Service: 07/04/25 MR#: [id number] Acct: [id number] Name: WENDIE VELEZ Rep #: [id number] : 1995 Provider: Dr. Hilary Bonner DO Age/Sex: 29/F Location: [facility] Status: Signed Intake Vital Signs 06/05/25 14:21 06/19/25 08:49 07/04/25 14:51 Height 5 ft 7 in 5 ft 7 in 5 ft 7 in Weight: 205 lb 4 oz BMI 32.1 BP 121/76 H Intake Visit Reasons: 32wk ob Wind Up Operator Required: No Is patient in pain?: No Allergies grass pollen Allergy (Intermediate, Verified 07/04/25 14:52) Swelling tea tree Allergy (Intermediate, Verified 07/04/25 14:52) Swelling thiopental (From thiopental sodium) Adverse Reaction (Severe, Verified 07/04/25 14:52) Other Medications ?Medication ?Instructions ?Recorded ?Confirmed ?Type multivitamin no.47-iron fum 27 cap PO 01/03/25 5 History mg-folate no.1 1 mg-dha 300 mg capsule (PNV-DHA) Last Menstrual Period: 11/19/24 Zika: Zika virus screening: Negative : No PFSH PFSH Medical History History of HPV infection Hx of abnormal cervical Pap smear Surgical History History of colposcopy H/O sinus surgery Bennett teeth extracted History of tonsillectomy Family History [...] current occupational status: employed 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 OB Visit ALFREDITO Calculator Estimated Delivery Date Method Current WG Current Estimate 08/20/25 Ultrasound #1 33w 2d Other Estimates 08/26/25 LMP (Certain) 32w 3d Expected Delivery Route/Plan Labor Preferences- CB/BF [...] MH-No VB. Jorge hardy Denies concerns. [facility] 06/05/25 -?-?-?-?-?-?-?-?-?-?-?-?- 29w 1d 202 lb 4 oz (+10 lb 4 oz) 117/79 Negative -?-?-?-?-?-?-?-?-?-?-?-?- Negative 135 28 -?-?-?-?-?-?-?-?-?-?-?-?- KW- no vb/lof/ct x. good fm. glucose today. tdap today. 06/19/25 -?-?-?-?-?-?-?-?-?-?-?-?- 31w 1d 202 lb 6 oz (+10 lb 6 oz) 117/76 Negative -?-?-?-?-?-?-?-?-?-?-?-?- Negative 135 31 -?-?-?-?-?-?-?-?-?-?-?-?- KW- no vb/lof/ct x. good fm. no concerns. 07/04/25 -?-?-?-?-?-?-?-?-?-?-?-?- 33w 2d 205 lb 4 oz (+13 lb 4 oz) 121/76 Negative -?-?-?-?-?-?-?-?-?-?-?-?- Negative 166 33 -?-?-?-?-?-?-?-?-?-?-?-?- JV- no lof, vagi nal bleeding, or dec fm. no complaints today. ACOG First Trimester First Trimester: Desire [...] Circumcision preference, Signs and Symptoms of Preeclampsia, Feeding No , Education and Family Medical Leave or Disability Forms Results POC Urinalysis 2 Dip (Clinic) Office Urine Glucose Negative Last Edit by Jasmine Vásquez on 07/04/25 14:56 Office Urine Protein Negative Last Edit by Jasmine Vásquez on 07/04/25 14:56 Coding Level of Care Code OB Routine Diagnoses Rh negative status during in second trimester O26.892; Z67.91 Trimester: second trimester Encounter for supervision of normal first in second trimester Z34.02 Trimester: second trimester 33 weeks gestation of Z3A.33 Weeks of gestation: 33 weeks Assessment and Plan Assessment and Plan [...] : Status: Acute Qualifiers: Weeks of gestation: 33 weeks Qualified Code(s): Z3A.33 - 33 weeks gestation of Comment: NIPT low risk. Anatomy nl. Orders: Orders POC Urinalysis 2 Dip (Clinic) Today 07/04/25 1516 <Electronically signed by Joie Price DO> Date _ [facility] Signature: Date (if applicable) CC: ~ [facility] Work Phone: 1(369) 448-230207-21-2025 Progress [facility] [address] [place] [address], [address] [place] [address] OFFICE VISIT Date of Service: 06/19/25 MR#: [id number] Acct: [id number] Name: WENDIE VELEZ Rep #: [id number] : 1995 Provider: FELICE Cui Age/Sex: 29/F Location: [facility] Status: Signed Intake Vital Signs 04/11/25 10:10 06/05/25 14:21 06/19/25 08:49 Height 5 ft 7 in 5 ft 7 in 5 ft 7 in Weight: 202 lb 6 oz BMI 31.6 BP 117/76 Intake Visit Reasons: 30 WK OB Chief Complaint: 30wk OB Wind Up Operator Required: No Is patient in pain?: No Allergies grass pollen Allergy (Intermediate, Verified 06/19/25 08:50) Swelling tea tree Allergy (Intermediate, Verified 06/19/25 08:50) Swelling thiopental (From thiopental sodium) Adverse Reaction (Severe, Verified 06/19/25 08:50) Other Medications ?Medication ?Instructions ?Recorded ?Confirmed ?Type multivitamin no.47-iron fum 27 cap PO 01/03/25 5 History mg-folate no.1 1 mg-dha 300 mg capsule (PNV-DHA) Last Menstrual Period: 11/19/24 : No PFSH PFSH Medical History History of HPV infection Hx of abnormal cervical Pap smear Surgical History History of colposcopy H/O sinus surgery Bennett teeth extracted History of tonsillectomy Family History [...] current occupational status: employed 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 OB Visit ALFREDITO Calculator Estimated Delivery Date Method Current WG Current Estimate 08/20/25 Ultrasound #1 31w 1d Other Estimates 08/26/25 LMP (Certain) 30w 2d Expected Delivery Route/Plan Labor Preferences- CB/BF [...] Date -?-?-?-?-?-?-?-?-?-?-?-?- EGA Weight BP Urine Prot -?-?-?-?-?-?-?-?-?--?-?-?- Glucose FHR FuHt Pres Dilation -?-?-?-?-?-?-?-?-?-?-?-?- Effaced St Visit Note 01/13/25 -?-?-?-?-?-?-?-?-?-?-?-?- 8w 5d 192 lb 8 oz (+8 oz) 120/77 -?-?-?-?-?-?-?-?-?-?-?-?- 171 -?-?-?-?-?-?-?-?-?-?-?-?- KW- CRL not cons with dates. ALFREDITO changed. NIPT done KW- CRL not cons with dates. ALFREDITO changed. NIPT ordered. 02/17/25 -?-?-?-?-?-?-?-?-?-?-?-?- 13w 5d 191 lb 6 oz (-10 oz) 109/76 Negative -?-?-?-?-?-?-?-?--?-?-?-?- Negative 140 -?-?-?-?-?-?-?-?-?-?-?-?- SM- no vb crampi [...] oz) 116/68 Negative -?-?-?-?-?-?-?-?-?-?-?-?- Negative 141 25 -?-?-?-?-?-?--?-?-?-?-?-?- MH-No VB. Jorge hardy Denies concerns. [facility] 06/05/25 -?-?-?-?-?-?-?-?-?-?-?-?- 29w 1d 202 lb 4 oz (+10 lb 4 oz) 117/79 Negative -?-?-?-?-?-?-?-?-?-?-?-?- Negative 135 28 -?-?-?-?-?-?-?-?-?-?-?-?- KW- no vb/lof/ct x. good fm. glucose today. tdap today. 06/19/25 -?-?-?-?-?-?-?-?-?-?-?-?- 31w 1d 202 lb 6 oz (+10 lb 6 oz) 117/76 -?-?-?-?-?-?-?-?-?-?-?-?- 135 31 -?-?-?-?-?-?-?-?-?-?-?-?- KW- no vb/lof/ct x. good fm. no concerns. ACOG First Trimester First Trimester: Desire for , Alcohol, Tobacco Cessation, Illicit/Recreational Drug/Substance Use, Intimate Partner Violence, Barriers to care, Anticipated Course of Care, Use of Any medications, Sexual activity, Exercise, Dental Care, Sauna/Hot tub use, Seat Belt use, Childbirth c lasses/Hospital facilities, Travel, Indications for Ultrasound and Screening [...] and no additional complaints, except as documented Eyes Reports system reviewed and no additional complaints, except as documented ENT Reports system reviewed and no additional complaints, except as documented Card Reports system reviewed and no additional complaints, except as documented Resp Reports system reviewed and no additional complaints, except as documented GI Reports system reviewed and no additional complaints, except as documented, Denies nausea and Denies vomiting Reports system reviewed and no additional complaints, except as documented Musc Reports system reviewed and no additional complaints, except as documented Skin/Breast Reports system reviewed and no additional complaints, except as documented Neuro Yes system reviewed and no additional complaints, except as documented Psych Reports system reviewed and no additional complaints, except as documented Endo Reports system reviewed and no additional complaints, except as documented Oscar/Lymph Reports system reviewed and no additional complaints, except as documented Aller/Immun Reports system reviewed and no additional complaints, except as documented Exam Const General: cooperative, healthy appearing and no acute distress Orientation: alert, awake and oriented x3 Neck Neck: normal visual inspection and full ROM Resp Effort & Inspection: normal respiratory effort, able to speak in complete sentences and symmetric chest movement GI Inspection: normal to inspection Palpation: soft and other Other: gravid Skin General: no rashes or lesions noted Neuro General: patient alert, patient awake and patient oriented x3 Cognition: normal cognition Speech: speech normal Gait: normal gait Motor: muscle tone normal throughout Extrem General: normal to inspection and full ROM Psych Appearance: grossly normal Mental Status: mental status grossly normal Mood: congruent mood Affect: normal affect Speech and Movement: speech and movement normal Attitude: cooperative Thought Process: normal Thought Content: normal Judgment: judgment good Immunizations Adacel(Tdap Adolesn/Adult)(PF) 2 Lf-(2.5-5-3-5)-5 Lf/0.5 mL IM syringe Performing Provider: Monika Cui CNM Performing Location: [facility] Administered by: Clarissa Crawley on 06/19/25 09:03 Dose Route Admin Location Dispensed Lot Number Expiration Date NDC Clerical Administrator 0.5 mL IM Left Deltoid 0.5 mL [id number] 05/29/27 13008-791-88 [employer] VIS Given Date VIS Provided VIS Publication Date 06/19/25 Single Vaccine 24 Eligibility Eligibility Date Funding Source Not Applicable Coding Level of Care Code OB Routine Diagnoses Rh negative status during in second trimester O26.892; Z67.91 Trimester: second trimester Encounter for supervision of normal first in second trimester Z34.02 Trimester: second trimester 31 weeks gestation of Z3A.31 Weeks of gestation: 31 weeks Assessment and Plan Assessment and Plan [...] : Status: Acute Qualifiers: Weeks of gestation: 31 weeks Qualified Code(s): Z3A.31 - 31 weeks gestation of Comment: NIPT low risk. Anatomy nl. Orders: Orders POC Urinalysis 2 Dip (Clinic) Today Tdap Immunization Today Z23 - Encounter for immunization Plan Details Additional Comments: ACOG trimester education reviewed and updated. see problem list details for updated plan management information and see below for orders placed atthis visit. GA appropriate handout given. 06/19/25 0919 s FELICE> Date _ Monika Barrera Signature: Date (if applicable) CC: ~ [facility]07-07-2025 Progress [facility] [address] [place] [address], [address] [place] [address] OFFICE VISIT Date of Service: 06/05/25 MR#: [id number] Acct: [id number] Name: WENDIE VELEZ Rep #: [id number] : 1995 Provider: FELICE Cui Age/Sex: 29/F Location: [facility] Status: Signed Intake Vital Signs 04/11/25 10:10 05/10/25 11:31 06/05/25 14:21 Height 5 ft 7 in 5 ft 7 in 5 ft 7 in Weight: 202 lb 4 oz BMI 31.6 BP 117/79 Intake Visit Reasons: 28wk ob/glucose Chief Complaint: 28wk OB Wind Up Operator Required: No Is patient in pain?: No [...] History History of colposcopy H/O sinus surgery Bennett teeth extracted History of tonsillectomy Family History [...] current occupational status: employed 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 Jorge hardy Denies concerns. [facility] 06/05/25 -?-?-?-?-?-?-?-?-?-?-?-?- 29w 1d 202 lb 4 oz (+10 lb 4 oz) 117/79 Negative -?-?-?-?-?-?-?-?-?-?-?-?- Negative 135 28 -?-?-?-?-?-?-?-?-?-?-?-?- KW- no vb/lof/ct x. good fm. glucose today. tdap today. ACOG First Trimester First Trimester: Desire for , Alcohol, Tobacco Cessation, Illicit/Recreational Drug/Substance Use, Intimate Partner Violence, Barriers to care, Anticipated Course of Care, Use of Any medications, Sexual activity, Exercise, Dental Care, Sauna/Hot tub use, Seat Belt use, Childbirth c lasses/Hospital facilities, Travel, Indications for Ultrasound and Screening [...] Symptoms of Preeclampsia, Infant Feeding No , [place] Education and Family Medical Leave or Disability [...] supervision of normal first in second trimester Z34. Trimester: second trimester 29 weeks gestation of [...] in the past year?: No 06/05/25 1504 s CNM> Date _ Monika See FELICE Cosigner Signature: Date (if applicable) CC: ~ [facility]07-07-2025 Progress note Author Monika Cui [facility] Note Date/Time June 05, 2025 3:04p [facility] [address], [address] [place] [address] OFFICE VISIT Date of Service: 06/05/25 MR#: [id number] Acct: [id number] Name: WENDIE VELEZ Rep #: [id number] : 1995 Provider: FELICE Cui Age/Sex: 29/F Location: [facility] Status: Signed Intake Vital Signs 04/11/25 10:10 05/10/25 11:31 06/05/25 14:21 Height 5 ft 7 in 5 ft 7 in 5 ft 7 in Weight: 202 lb 4 oz BMI 31.6 BP 117/79 Intake Visit Reasons: 28wk ob/glucose Chief Complaint: 28wk OB Wind Up Operator Required: No Is patient in pain?: No [...] History History of colposcopy H/O sinus surgery Bennett teeth extracted History of tonsillectomy Family History [...] current occupational status: employed 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 Jorge hardy Denies concerns. Larc 06/05/25 -?-?-?-?-?-?-?-?-?-?-?-?- 29w 1d 202 lb 4 [...] Circumcision preference, Signs and Symptoms of Preeclampsia, Feeding No , Education and Family Medical [...] fallen in the past year?: No 06/05/25 9227 <Electronically signed by Monika goldberg CNM> Date _ Monika Cui CNM Cosigner Signature: Date (if applicable) CC: ~ [facility] Work Phone: 1(427) 422-303106-11-2025 Evaluation note* Diagnosis Onset Date Resolution Status Admit Date acute May 10 11:28am Rh negative status during acute May 10, 2025 11:28am Supervision of normal first acute May 10, 2025 11:28am acute June 05, 2025 2:11pm Rh negative status during acute June 05, 2025 2 :11pm Supervision of normal first acute June 05, 2025 2 :11pm acute June 19 8:46am Rh negative status during acute June 19, 2025 8:46am Supervision of normal first acute June 19, 2025 8:46am acute July 04 2:42pm Rh negative status during acute July 04, 2025 2:42pm Supervision of normal first acute July 04, 2025 2:42pm acute July 20, 2 025 1:56pm Rh negative status during acute July 20 1:56pm Supervision of normal first acute July 20 1:56pm acute July 25, 2 025 1:34pm Rh negative status during acute July 25 1:34pm Supervision of normal first acute July 25 1:34pm acute August 03, 2025 3:00pm Rh negative status during acute August 03, 2 025 3:00pm Supervision of normal first acute August 03, 2 025 3:00pm acute July 10:56am Rh negative status during acute August 11, 2025 10:56am Supervision of normal first acute August 11, 2025 10:56am [facility] Work Phone: 1(182) 628-948306-11-2025 Progress [facility] [address] [place] [address], [address] [place] [address] OFFICE VISIT Date of Service: 05/10/25 MR#: [id number] Acct: [id number] Name: WENDIE VELEZ Rep #: [id number] : 1995 Provider: URSULA Tanner Age/Sex: 29/F Location: [facility] Status: Signed Intake Vital Signs 04/11/25 10:10 05/10/25 11:31 Height 5 ft 7 in 5 ft 7 in Weight: 199 lb 2 oz BMI 31.1 BP 116/68 Intake Visit Reasons: 24 WK OB Chief Complaint: 24 Week OB Wind Up Operator Required: No Is patient in pain?: No [...] History History of colposcopy H/O sinus surgery Bennett teeth extracted History of tonsillectomy Family History [...] current occupational status: employed 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 Jorge segura. Denies concerns. Larc ACOG First Trimester First Trimester: Desire for , Alcohol, Tobacco Cessation, Illicit/Recreational Drug/Substance Use, Intimate Partner Violence, Barriers to care, Anticipated Course of Care, Use of Any medications, Sexual activity, Exercise, Dental Care, Sauna/Hot tub use, Seat Belt use, Childbirth c [facility]/Hospital facilities, , Travel, Indications for Ultrasound and [...] Yes Yes, Signs and Symptoms of Preeclampsia, Infant Feeding Yes , [place] Education and Family Medical Leave or Disability Forms ROS Const Reports system reviewed and no additional complaints, except as documented GI Denies abdominal pain, Denies nausea and Denies vomiting Exam Const General: cooperative Nutritional Appearance: well nourished GI Palpation: soft, nontender and other (gravid) Results POC Urinalysis 2 Dip (Clinic) Office Urine Glucose Negative Last Edit by Keri Marcus on 05/10/25 11 :34 Office Urine Protein Negative Last Edit by Keri Marcus on 05/10/25 11 :34 Coding Level of [...] - Encounter for screening for diabetes mellitus, Z67.91 - Unspecified blood type, Rh negative Type [...] care and follow up. 05/10/25 1154 s DATA CONVERSION DEVELOPER DATA CONVERSION DEVELOPER-C> Date _ Jasmine Tanner DATA CONVERSION DEVELOPER DATA CONVERSION DEVELOPER-C Cosigner Signature: Date (if applicable) CC: ~ [facility]05-13-2025 Evaluation note* Diagnosis Onset Date Resolution Status Admit Date acute April 11, 2025 10:07am Rh negative [...] first acute June 05, 2025 2 :11pm acute June 19 8:46am Rh negative status during acute June 19, 2025 8:46am Supervision of normal first acute June 19, 2025 8:46am acute July 04 2:42pm Rh negative status during acute July 04, 2025 2:42pm Supervision of normal first acute July 04, 2025 2:42pm acute July 20, 025 1:56pm Rh negative status during acute July 20 1:56pm Supervision of normal first acute July 20 1:56pm [facility] Work Phone: [phone]) [phone] Evaluation note* Diagnosis Onset Date Resolution Status Admit Date acute April 11, 2025 10:07am Rh negative [...] first acute June 05, 2025 2 :11pm acute June 19 8:46am Rh negative status during acute June 19, 2025 8:46am Supervision of normal first acute June 19, 2025 8:46am acute July 04 2:42pm Rh negative status during acute July 04, 2025 2:42pm Supervision of normal first acute July 04, 2025 2:42pm acute July 20, 2 025 1:56pm Rh negative status during July 20 1:56pm Supervision of normal first acute July 20 1:56pm acute July 25, 2 025 1:34pm Rh negative status during acute July 25 1:34pm Supervision of normal first acute July 25 1:34pm [facility] Work Phone: 1(131) 768-361505-13-2025 Evaluation note* Diagnosis Onset Date Resolution Status Admit Date acute April 11, 2025 10:07am Rh negative [...] first acute June 05, 2025 2 :11pm acute June 19 8:46am Rh negative status during acute June 19, 2025 8:46am Supervision of normal first acute June 19, 2025 8:46am acute July 04 2:42pm Rh negative status during acute July 04, 2025 2:42pm Supervision of normal first acute July 04, 2025 2:42pm acute July 20, 2 025 1:56pm Rh negative status during acute July 20 1:56pm Supervision of normal first acute July 20 1:56pm acute July 25, 2 025 1:34pm Rh negative status during acute July 25 1:34pm Supervision of normal first acute July 25 1:34pm acute August 03, 2025 3:00pm Rh negative status during acute August 03, 2 025 3:00pm Supervision of normal first acute August 03, 2 025 3:00pm [place] [facility] Work Phone: 1([phone]) 968-743304-17-2025 Evaluation note* Diagnosis Onset Date Resolution Status Admit Date acute March 16 9:35am Rh negative status [...] first acute June 05, 2025 2 :11pm acute June 19 8:46am Rh negative status during acute June 19, 2025 8:46am Supervision of normal first acute June 19, 2025 8:46am [place] [facility] Work Phone: 1(991) 548-580804-17-2025 Evaluation note* Diagnosis Onset Date Resolution Status Admit Date acute March 16 9:35am Rh negative status [...] first acute June 05, 2025 2 :11pm acute June 19 8:46am Rh negative status during acute June 19, 2025 8:46am Supervision of normal first acute June 19, 2025 8:46am acute July 04 2:42pm Rh negative status during acute July 04, 2025 2:42pm Supervision of normal first acute July 04, 2025 2:42pm [facility] Work Phone: [phone] Evaluation note* Diagnosis Onset Date Resolution Status [...] first acute June 05, 2025 2 :11pm [facility] Work Phone: [phone] Evaluation note* Diagnosis Onset Date Resolution Status Admit Date acute January 13, 2025 12:54pm Supervision of normal first acute January 13, 2 025 12:54pm [facility] Work Phone: 1(461) 965-465502-14-2025 Evaluation note* Diagnosis Onset Date Resolution Status Admit Date acute January 13, 2025 12:54pm Supervision of normal first acute January 13, 2 025 12:54pm acute February 17 9:17am Rh negative status during acute February 17, 2025 9:17am Supervision of normal first acute February 17, 2025 9:17am [facility] Work Phone: 1(191) 352-967702-14-2025 Evaluation note* Diagnosis Onset Date Resolution Status [...] first acute April 11, 2025 1 0:07am [facility] Work Phone: 1(961) 255-884402-14-2025 Evaluation note* Diagnosis Onset Date Resolution Status Admit Date acute January 13, 2025 12:54pm Supervision of normal first acute January 13 025 12:54pm acute February 17 9:17am Rh [...] normal first acute May 10, 2025 11:28am [facility] Work Phone: 1(857) 987-629407-01-2024 Instructions* Patient Instructions* Carol Shelby APRN.HEEL TRIMMER - 05/30/2024 8:07 AM EDT Preconception: vitamin [...] not toxic to sperm. documented in this encounterUniversity Hospitals [facility]07-01-2024 NoteHNO ID: [id number] Author: CAROL SHELBY APRN.CNP Service: ? Author Type: Nurse Practitioner Type: Progress Notes Filed: 05/30/2024 08:25 Note Text: Wendie is a 28 year old who presents for an annual gynecologic exam without complaints. Menses: cycles every 28-30 days and 5 days of flow. Contraception:none, not preventing but not trying yet HPV vaccine: Yes Last Pap: 06/2022 ASCUS HPV positive [place] 08/13/2022 benign History of abnormal pap: Yes [...] L0 SAB0 IAB0 Ectopic0 Multiple0 Live Births0 Body Joiner History LMP: 05/17/2024, Having periods Age at Menarche: Age at First : Age at Menopause: Body Joiner History Comments: Sexual Activity: Yes; Male Contraception: [...] and current medication updated:Yes EXAM: Ht 5' 6.25" (1.68m) Wt 175 lb (79.4kg) LMP 05/17/2024 [...] external genitalia normal, normal Bartholin's glands, urethra, Cano Martin Pena's glands, no vulvar lesions, no cervical lesions, [...] year or sooner as needed Carol Shelby APRN.[facility]07-01-2024 History of Present illness Narrative* Carol Shelby APRN.HEEL TRIMMER - 05/30/2024 7:54 AM EDT Wendie is a 28 year old who presents for an annual gynecologic exam without complaints. Menses: cycles every 28-30 days and 5 days of flow. Contraception:none, not preventing but not trying yet HPV vaccine: Yes Last Pap: 06/2022 ASCUS HPV positive [place] 08/13/2022 benign History of abnormal pap: Yes [...] L0 SAB0 IAB0 Ectopic0 Multiple0 Live Births0 Body Joiner History LMP: 05/17/2024, Having periods Age at Menarche: Age at First : Age at Menopause: Body Joiner History Comments: Sexual Activity: Yes; Male Contraception: [...] and current medication updated:Yes EXAM: Ht 5' 6.25" (1.68m) Wt 175 lb (79.4kg) LMP 05/17/2024 [...] external genitalia normal, normal Bartholin's glands, urethra, Cano Martin Pena's glands, no vulvar lesions, no cervical lesions, [...] needed Carol Shelby APRN.MARS documented in this encounterUniversity Hospitals Cleveland [facility] Center06-21-2024 NoteHNO ID: [id number] Author: JAMES DILL APRN.MARS Service: ? Author Type: Nurse Practitioner [...] history is provided by the patient. No english as a second language instructor was used. Animal Bite Review of Systems [...] (FLONASE) 50 mcg/actuation nasal spray Use 1 Recluse in each nostril twice daily. (Patient not [...] okay with this care plan. James Dill APRN.[facility]06-21-[facility] History of Present illness Narrative* James Dill APRN.HEEL TRIMMER - 05/20/2024 10:08 AM EDT Images from [...] history is provided by the patient. No english as a second language instructor was used. Animal Bite Review of Systems [...] (FLONASE) 50 mcg/actuation nasal spray Use 1 Recluse in each nostril twice daily. (Patient not [...] plan. James Dill APRN.MARS documented in this encounterUniversity Hospitals [facility] Center09-14-2022 History of Present illness Narrative* Hannah Benz [...] patient. Hannah Benz DO documented in this encounterUniversity Hospitals Cleveland Medical Center08-22-2022 Miscellaneous Notes* Telephone Encounter - Sarah Duran [...] ROXANA WARD Pharmacy Information Pharmacy Address Telephone [place] [phone] * Telephone Encounter - Roxana Ward APRN.CNP - 07/21/2022 8:40 AM EDT BV positive. To treat with Flagyl 500mg PO BID for 7 days. 1) No alcohol during treatment and for 24 hours after last dose. 2) No intercourse during treatment. 3) Probiotic by mouth once daily for 30 days or as needed. + Yeast, Diflucan sent. Roxana Ward APRN.CNP documented in this encounterUniversity Hospitals Cleveland Medical Center08-19-2022 Instructions* Patient Instructions* Carol Shelby APRN.CNP - [...] avoid scratching at night. 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 Bought a house - considering future Menses: cycles every 28 days and 5 days of flow. Contraception: oral contraceptives HPV vaccine: Yes Last Pap: 2018 normal, HPV negative History of abnormal pap: Yes 2017 abnormal [...] L0 SAB0 IAB0 Ectopic0 Multiple0 Live Births0 Body Joiner History LMP: 06/12/2021 (Exact Date), Having periods Age at Menarche: Age at First : Age at Menopause: Body Joiner History Comments: Sexual Activity: Yes; Male Contraception: [...] medication updated:Yes EXAM: BP 100/70 Ht 5' 6.142" (1.68m) Wt 165 lb (74.8kg) LMP 07/09/2022 [...] external genitalia normal, normal Bartholin's glands, urethra, Cano Martin Pena's glands, no vulvar lesions, no cervical lesions, [...] needed Carol Shelby APRN.MARS documented [facility]* Diagnosis Encounter for gynecological examination with abnormal finding- Primary Routine gynecological examination Vaginal discharge Leukorrhea, not specified as infective Surveillance for control, oral contraceptives Surveillance of previously prescribed contraceptive pill Encounter for Papanicolaou smear for cervical cancer screening documented in this encounter [facility]* Diagnosis ASCUS with positive high risk HPV cervical- Primary Cervical high risk human papillomavirus (HPV) DNA test positive documented in this encounter [facility]* Diagnosis Dog bite, initial encounter- Primary Puncture wound Open wound(s) (multiple) of unspecified site(s), without mention of complication documented in this encounter [facility]* Diagnosis Encounter for gynecological examination (general) (routine) without abnormal findings- Primary Papanicolaou smear of cervix with atypical squamous cells of undetermined significance (ASC-US) Screening for cervical cancer Screening for malignant neoplasm of the cervix documented in this encounter [facility] CenterProgress note Author Jasmine Tanner [facility] Note Date/Time May 10, 2025 11:5 4am [facility]'s [address], [address] [place] [address] OFFICE VISIT Date of Service: 05/10/25 MR#: [id number] Acct: [id number] Name: WENDIE VELEZ Rep #: [id number] : 1995 Provider: URSULA Tanner Age/Sex: 29/F Location: [facility] Status: Signed Intake Vital Signs 04/11/25 10:10 05/10/25 11:31 Height 5 ft 7 in 5 ft 7 in Weight: 199 lb 2 oz BMI 31.1 BP 116/68 Intake Visit Reasons: 24 WK OB Chief Complaint: 24 Week OB Wind Up Operator Required: No Is patient in pain?: No [...] History History of colposcopy H/O sinus surgery Bennett teeth extracted History of tonsillectomy Family History [...] current occupational status: employed 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 Stan bhanu shahriar. Denies concerns 05/10/25 -?-?-?-?-?-?-?-?-?-?-?-?- 25w 3d 199 [...] Yes Yes, Signs and Symptoms of Preeclampsia, Infant Feeding Yes , [place] Education and Family Medical Leave or Disability Forms ROS Const Reports system reviewed and no additional complaints, except as documented GI Denies abdominal pain, Denies nausea and Denies vomiting Exam Const General: cooperative Nutritional Appearance: well nourished GI Palpation: soft, nontender and other (gravid) Results POC Urinalysis 2 Dip (Clinic) Office Urine Glucose Negative Last Edit by Keri Marcus on 05/10/25 11 :34 Office Urine Protein Negative Last Edit by Keri Marcus on 05/10/25 11 :34 Coding Level of [...] - Encounter for screening for diabetes mellitus, Z67.91 - Unspecified blood type, Rh negative Type [...] 05/10/25 1154 <Electronically signed by Jasmine goldberg DATA CONVERSION DEVELOPER DATA CONVERSION DEVELOPER-C> Date _ Jasmine Tanner DATA CONVERSION DEVELOPER DATA CONVERSION DEVELOPER-C Cosigner Signature: Date (if applicable) CC: ~ [facility] Work Phone: Progress note Author Monika Cui [facility] Note Date/Time June 19, 2025 9:19 am [facility] [address] [place] [address], [address] [place] [address] OFFICE VISIT Date of Service: 06/19/25 MR#: [id number] Acct: [id number] Name: WENDIE VELEZ Rep #: [id number] : 1995 Provider: FELICE Cui Age/Sex: 29/F Location: [facility] Status: Signed Intake Vital Signs 04/11/25 10:10 06/05/25 14:21 06/19/25 08:49 Height 5 ft 7 in 5 ft 7 in 5 ft 7 in Weight: 202 lb 6 oz BMI 31.6 BP 117/76 Intake Visit Reasons: 30 WK OB Chief Complaint: 30wk OB Wind Up Operator Required: No Is patient in pain?: No Allergies grass pollen Allergy (Intermediate, Verified 06/19/25 08:50) Swelling tea tree Allergy (Intermediate, Verified 06/19/25 08:50) Swelling thiopental (From thiopental sodium) Adverse Reaction (Severe, Verified 06/19/25 08:50) Other Medications ?Medication ?Instructions ?Recorded ?Confirmed ?Type multivitamin no.47-iron fum 27 cap PO 01/03/25 5 History mg-folate no.1 1 mg-dha 300 mg capsule (PNV-DHA) Last Menstrual Period: 11/19/24 : No PFSH PFSH Medical History History of HPV infection Hx of abnormal cervical Pap smear Surgical History History of colposcopy H/O sinus surgery Bennett teeth extracted History of tonsillectomy Family History [...] current occupational status: employed 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 OB Visit ALFREDITO Calculator Estimated Delivery Date Method Current WG Current Estimate 08/20/25 Ultrasound #1 31w 1d Other Estimates 08/26/25 LMP (Certain) 30w 2d Expected Delivery Route/Plan Labor Preferences- CB/BF [...] Date -?-?-?-?-?-?-?-?-?-?-?-?- EGA Weight BP Urine Prot -?-?-?-?-?-?-?-?-?--?-?-?- Glucose FHR FuHt Pres Dilation -?-?-?-?-?-?-?-?-?-?-?-?- Effaced St Visit Note 01/13/25 -?-?-?-?-?-?-?-?-?-?-?-?- 8w 5d 192 lb 8 oz (+8 oz) 120/77 -?-?-?-?-?-?-?-?-?-?-?-?- 171 -?-?-?-?-?-?-?-?-?-?-?-?- KW- CRL not cons with dates. ALFREDITO changed. NIPT done KW- CRL not cons with dates. ALFREDITO changed. NIPT ordered. 02/17/25 -?-?-?-?-?-?-?-?-?-?-?-?- 13w 5d 191 lb 6 oz (-10 oz) 109/76 Negative -?-?-?-?-?-?-?-?--?-?-?-?- Negative 140 -?-?-?-?-?-?-?-?-?-?-?-?- SM- no vb crampi [...] oz) 116/68 Negative -?-?-?-?-?-?-?-?-?-?-?-?- Negative 141 25 -?-?-?-?-?-?--?-?-?-?-?-?- MH-No VB. Jorge hardy Denies concerns. [facility] 06/05/25 -?-?-?-?-?-?-?-?-?-?-?-?- 29w 1d 202 lb 4 oz (+10 lb 4 oz) 117/79 Negative -?-?-?-?-?-?-?-?-?-?-?-?- Negative 135 28 -?-?-?-?-?-?-?-?-?-?-?-?- KW- no vb/lof/ct x. jorge fm. glucose today. tdap today. 06/19/25 -?-?-?-?-?-?-?-?-?-?-?-?- 31w 1d 202 lb 6 oz (+10 lb 6 oz) 117/76 -?-?-?-?-?-?-?-?-?-?-?-?- 135 31 -?-?-?-?-?-?-?-?-?-?-?-?- KW- no vb/lof/ct x. good fm. no concerns. ACOG First Trimester First Trimester: Desire for [...] Symptoms of Preeclampsia, Infant Feeding No , [place] Education and Family Medical Leave or Disability Forms ROS Const Reports system reviewed and no additional complaints, except as documented Eyes Reports system reviewed and no additional complaints, except as documented ENT Reports system reviewed and no additional complaints, except as documented Card Reports system reviewed and no additional complaints, except as documented Resp Reports system reviewed and no additional complaints, except as documented GI Reports system reviewed and no additional complaints, except as documented, Denies nausea and Denies vomiting Reports system reviewed and no additional complaints, except as documented Musc Reports system reviewed and no additional complaints, except as documented Skin/Breast Reports system reviewed and no additional complaints, except as documented Neuro Yes system reviewed and no additional complaints, except as documented Psych Reports system reviewed and no additional complaints, except as documented Endo Reports system reviewed and no additional complaints, except as documented Oscar/Lymph Reports system reviewed and no additional complaints, except as documented Aller/Immun Reports system reviewed and no additional complaints, except as documented Exam Const General: cooperative, healthy appearing and no acute distress Orientation: alert, awake and oriented x3 Neck Neck: normal visual inspection and full ROM Resp Effort & Inspection: normal respiratory effort, able to speak in complete sentences and symmetric chest movement GI Inspection: normal to inspection Palpation: soft and other Other: gravid Skin General: no rashes or lesions noted Neuro General: patient alert, patient awake and patient oriented x3 Cognition: normal cognition Speech: speech normal Gait: normal gait Motor: muscle tone normal throughout Extrem General: normal to inspection and full ROM Psych Appearance: grossly normal Mental Status: mental status grossly normal Mood: congruent mood Affect: normal affect Speech and Movement: speech and movement normal Attitude: cooperative Thought Process: normal Thought Content: normal Judgment: judgment good Immunizations Adacel(Tdap Adolesn/Adult)(PF) 2 Lf-(2.5-5-3-5)-5 Lf/0.5 mL IM syringe Performing Provider: Monika Cui CNM Performing Location: [facility] Administered by: Clarissa Crawley on 06/19/25 09:03 Dose Route Admin Location Dispensed Lot Number Expiration Date NDC Clerical Administrator 0.5 mL IM Left Deltoid 0.5 mL [id number] 05/29/27 28333-838-43 SANOF [employer]-PASTEUR VIS Given Date VIS Provided VIS Publication Date 06/19/25 Single Vaccine 24 Eligibility Eligibility Date Funding Source Not Applicable Coding Level of Care Code OB Routine Diagnoses Rh negative status during in second trimester O26.892; Z67.91 Trimester: second trimester Encounter for supervision of normal first in second trimester Z34.02 Trimester: second trimester 31 weeks gestation of Z3A.31 Weeks of gestation: 31 weeks Assessment and Plan Assessment and Plan [...] : Status: Acute Qualifiers: Weeks of gestation: 31 weeks Qualified Code(s): Z3A.31 - 31 weeks gestation of Comment: NIPT low risk. Anatomy nl. Orders: Orders POC Urinalysis 2 Dip (Clinic) Today Tdap Immunization Today Z23 - Encounter for immunization Plan Details Additional Comments: ACOG trimester education reviewed and updated. see problem list details for updated plan management information and see below for orders placed at this visit. GA appropriate handout given. 06/19/25918 <Electronically signed by Monika goldberg CNM> Date _ Monika Cui CNM Cosigner Signature: Date (if applicable) CC: ~ [place] [facility] Work Phone: Progress note Author Jasmine Kwoktings [facility] Note Date/Time July 25, 2025 1: 52pm [facility] [address], [address] [place] [address] OFFICE VISIT Date of Service: 07/25/25 MR#: [id number] Acct: [id number] Name: WENDIE VELEZ Rep #: [id number] : 1995 Provider: URSULA Tanner Age/Sex: 29/F Location: [facility] Status: Signed Intake Vital Signs 07/20/25 14:04 07/25/25 13:35 Height 5 ft 7 in 5 ft 7 in Weight: 206 lb 2 oz BMI 32.3 BP 120/82 H Intake Visit Reasons: 36wk2d ob Chief Complaint: 36 Week OB Wind Up Operator Required: No Is patient in pain?: No Allergies grass pollen Allergy (Intermediate, Verified 07/25/25 13:37) Swelling tea tree Allergy (Intermediate, Verified 07/25/25 13:37) Swelling thiopental (From thiopental sodium) Adverse Reaction (Severe, Verified 07/25/25 13:37) Other Medications ?Medication ?Instructions ?Recorded ?Confirmed ?Type multivitamin no.47-iron fum 27 cap PO 01/03/25 5 History mg-folate no.1 1 mg-dha 300 mg capsule (PNV-DHA) Last Menstrual Period: 11/19/24 Zika: Zika virus screening: Negative : No PFSH PFSH Medical History History of HPV infection Hx of abnormal cervical Pap smear Surgical History History of colposcopy H/O sinus surgery Bennett teeth extracted History of tonsillectomy Family History [...] current occupational status: employed 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 OB Visit ALFREDITO Calculator Estimated Delivery Date Method Current WG Current Estimate 08/20/25 Ultrasound #1 36w 2d Other Estimates 08/26/25 LMP (Certain) 35w 3d Expected Delivery Route/Plan Labor Preferences- CB/BF [...] and baby, NA LARC form signed: yes movement and labor precautions reviewed. Problem list reviewed and updated with the [...] 8 oz (+8 oz) 120/77 -?-?-?-?-?-?-?-?-?-?-?-?- 171 -?-?--?-?-?-?-?-?-?-?-?-?- KW- CRL not cons with dates. ALFREDITO [...] (+5 lb) 118/78 Negative -?-?-?-?-?-?-?-?-?-?-?-?- Negative 151 -?-?-?-?-?--?-?-?-?-?-?-?- MH-No VB. Stan bess. Denies concerns 05/10/25 -?-?-?-?-?-?-?-?-?-?-?-?- 25w 3d 199 lb 2 oz (+7 lb 2 oz) 116/68 Negative -?-?-?-?-?-?-?-?-?-?-?-?- Negative 141 25 -?-?-?-?-?-?-?-?-?-?-?-?- MH-No VB. Jorge hardy Denies concerns. [facility] 06/05/25 -?-?-?-?-?-?-?-?--?-?-?-?- 29w 1d 202 lb 4 oz (+10 lb 4 oz) 117/79 Negative -?-?-?-?-?-?-?-?-?-?-?-?- Negative 135 28 -?-?-?-?-?-?-?-?-?-?-?-?- KW- no vb/lof/ct jose a beck. glucose today. tdap today. 06/19/25 -?-?-?-?-?-?-?-?-?-?-?-?- 31w 1d 202 lb 6 oz (+10 lb 6 oz) 117/76 Negative -?-?-?-?-?-?-?-?-?-?-?-?- Negative 135 31 -?-?-?-?-?-?-?-?-?-?-?-?- KW- no vb/lof/ct x. good fm. no concerns. 07/04/25 -?-?-?-?-?-?--?-?-?-?-?-?- 33w 2d 205 lb 4 oz (+13 lb 4 oz) 121/76 Negative -?-?-?-?-?-?-?-?-?-?-?-?- Negative 166 33 -?-?-?-?-?-?-?-?-?-?-?-?- JV- no lof, vagi nal bleeding, or dec fm. no complaints today. 07/20/25 -?-?-?-?-?-?-?-?-?-?-?-?- 35w 4d 208 lb 4 oz (+16 lb 4 oz) 126/80 -?-?-?-?-?-?-?-?-?-?-?-?- 150 35 Cephalic -?-?-?-?-?-?-?-?-?-?-?-?- Sm- no vb lof go od fm n oreuglar ctx 07/25/25 -?-?-?-?-?-?-?-?-?-?--?-?- 36w 2d 206 lb 2 oz (+14 lb 2 oz) 120/82 Negative -?-?-?-?-?-?-?-?-?-?-?-?- Negative 136 36 Cephalic 0 -?-?-?-?-?-?-?-?--?-?-?-?- 50 -2 MH-No vB, LOF or reg CTX. Good Fm. GBS ACOG First Trimester First Trimester: Desire for [...] Urine Glucose Negative Last Edit by Keri Marcus on 07/25/25 13 :43 Office Urine Protein Negative Last Edit by Keri Marcus on 07/25/25 13 :43 Coding Level of Care Code OB Routine Diagnoses Encounter for supervision of normal first in third trimester Z34.03 Trimester: third trimester 36 weeks gestation of Z3A.36 Weeks of gestation: 36 weeks Rh negative status during in second trimester O26.892; Z67. Trimester: second trimester Assessment and Plan Assessment and Plan (1) Supervision of normal first : Status: Acute Qualifiers: Trimester: third trimester Qualified Code(s): Z34.03 - Encounter for supervision of normal first , third trimester Comment: PRR, , ALFREDITO 08/20/25 boy, Shar (2) : Status: Acute Qualifiers: Weeks of gestation: 36 weeks Qualified Code(s): Z3A.36 - 36 weeks gestation of Comment: NIPT low risk. Anatomy nl. (3) Rh negative status during : Status: Acute Qualifiers: Trimester: second trimester Qualified Code(s): O26.892 - Other specified related conditions, second trimester; Z - Unspecified blood type, Rh negative Comment: Fetus is RhD negative per NIPT. Orders: Orders POC Urinalysis 2 Dip (Clinic) Today Culture, Group B Streptococcus Today Z34.02 - Encounter for supervision of normal first , second trimester Plan problem list reviewed and updated for most current plan of care and appropriate orders placed. Relevant counseling for the gestational age appropriate provided and ACOG education checklist updated. Continue routine care and follow up. 07/25/25 [id number] <Electronically signed by Jasmine goldberg DATA CONVERSION DEVELOPER DATA CONVERSION DEVELOPER-C> Date _ Jasmine Tanner DATA CONVERSION DEVELOPER DATA CONVERSION DEVELOPER-C Cosigner Signature: Date (if applicable) CC: ~ [facility] Work Phone: Progress note Author Tanisha Pena [facility] Note Date/Time August 11, 2025 11:34am [facility] [address] [place] [address], [address] [place] [address] OFFICE VISIT Date of Service: 08/11/25 MR#: [id number] Acct: [id number] Name: WENDIE VELEZ Rep #: [id number] : 1995 Provider: Dr. Trey Pena MD Age/Sex: 29/F Location: [facility] Status: Signed Intake Vital Signs 06/05/25 14:21 08/03/25 15:03 08/11/25 10:59 08/11/25 11:01 Height 5 ft 7 in 5 ft 7 in 5 ft 7 in 5 ft 7 in Weight: 207 lb BMI 32.4 BP 127/83 H Intake Visit Reasons: 38wk5d ob Wind Up Operator Required: No Is patient in pain?: No Allergies grass pollen Allergy (Intermediate, Verified 08/11/25 10:59) Swelling tea tree Allergy (Intermediate, Verified 08/11/25 10:59) Swelling thiopental (From thiopental sodium) Adverse Reaction (Severe, Verified 08/11/25 10:59) Other Medications ?Medication ?Instructions ?Recorded ?Confirmed ?Type multivitamin no.47-iron fum 27 cap PO 01/03/25 5 History mg-folate no.1 1 mg-dha 300 mg capsule (PNV-DHA) Last Menstrual Period: 11/19/24 Zika: Zika virus screening: Negative : No PFSH PFSH Medical History History of HPV infection Hx of abnormal cervical Pap smear Surgical History History of colposcopy H/O sinus surgery [place] teeth extracted History of tonsillectomy Family History [...] current occupational status: employed 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 OB Visit ALFREDITO Calculator Estimated Delivery Date Method Current WG Current Estimate 08/20/25 Ultrasound #1 38w 5d Other Estimates 08/26/25 LMP (Certain) 37w 6d Expected Delivery Route/Plan Labor Preferences- CB/BF classes: scheduled labor support person: Shar labor intervention preferences: [] pain management options preferred: limited but open to epidural cut cord/dad catch: yes : yes PP control planned: discussed discussed possible routes of delivery and associated risks: [] special requests: [] Specific Issue/Plans Covid status: [] Flu vaccine: [] Tdap vaccine: given Rhogam: RH neg for mom and baby, NA LARC form signed: yes movement and labor precautions reviewed. Problem list reviewed and updated with the [...] (-10 oz) 109/76 Negative -?-?-?-?-?-?-?-?-?-?-?-?- Negative 140 -?-?-?-?-?-?--?-?-?-?-?-?- SM- no vb crampi ng 03/16/25 -?-?-?-?-?-?-?-?-?-?-?-?- [...] -?-?-?-?-?-?-?-?-?-?-?-?- MH-No VB. Jorge hardy Denies concerns. [facility] 06/05/25 -?-?-?-?-?-?-?-?-?-?-?-?- 29w 1d 202 lb 4 oz (+10 lb 4 oz) 117/79 Negative -?-?-?-?-?-?-?-?-?-?-?-?- Negative 135 28 -?-?-?-?-?-?-?-?-?-?-?-?- KW- no vb/lof/ct x. good fm. glucose today. tdap today. 06/19/25 -?-?-?-?-?-?-?-?-?-?-?-?- 31w 1d 202 lb 6 oz (+10 lb 6 oz) 117/76 Negative -?-?-?-?-?-?-?-?-?-?-?-?- Negative 135 31 -?-?-?-?-?-?-?-?-?-?-?-?- KW- no vb/lof/ct x. good fm. no concerns. 07/04/25 -?-?-?-?-?-?-?-?-?-?-?-?- 33w 2d 205 lb 4 oz (+13 lb 4 oz) 121/76 Negative -?-?-?-?-?-?-?-?-?-?-?-?- Negative 166 33 -?-?-?-?-?-?-?-?-?-?-?-?- JV- no lof, vagi nal bleeding, or dec fm. no complaints today. 07/20/25 -?-?-?-?-?-?-?-?-?-?-?-?- 35w 4d 208 lb 4 oz (+16 lb 4 oz) 126/80 -?-?-?-?-?-?-?-?-?-?-?-?- 150 35 Cephalic -?-?-?-?-?-?-?-?-?-?-?-?- Sm- no vb lof go od fm n oreuglar ctx 07/25/25 -?-?-?-?-?-?-?-?-?-?-?-?- 36w 2d 206 lb 2 oz (+14 lb 2 oz) 120/82 Negative -?-?-?-?-?-?-?-?-?-?-?-?- Negative 136 36 Cephalic 0 -?-?-?-?-?-?-?-?-?-?-?-?- 50 -2 MH-No vB, LOF or reg CTX. Good Fm. GBS 08/03/25 -?-?-?-?-?-?-?-?-?-?-?-?- 37w 4d 206 lb 9 oz (+14 lb 9 oz) 137/84 Negative -?-?-?-?-?-?-?-?-?-?-?-?- Negative 135 37 Cephalic -?-?-?-?-?-?-?-?-?-?-?-?- KW- no vb/lof/ct x. good fm. no concerns. no che/dizziness/BV 08/11/25 -?-?-?-?-?-?-?-?-?-?-?-?- 38w 5d 207 lb (+15 lb) 127/83 Trace -?-?-?-?-?-?-?-?-?-?-?-?- Negative 130 37 Cephalic 0 -?-?-?-?-?-?-?-?-?-?-?-?- SM- no vb lof go od fm n regular ctx ACOG First Trimester First Trimester: Desire for [...] Symptoms of Preeclampsia, Infant Feeding No , [place] Education and Family Medical Leave or Disability Forms Results POC Urinalysis 2 Dip (Clinic) Office Urine Glucose Negative Last Edit by Renetta Gamboa on 08/11/25 11: 05 Office Urine Protein Trace Last Edit by Renetta Gamboa on 08/11/25 11:05 Coding Level of Care Code OB Routine Diagnoses Rh negative status during in second trimester O26.892; Z67.91 Trimester: second trimester Encounter for supervision of normal first in third trimester Z34.03 Trimester: third trimester 38 weeks gestation of Z3A.38 Weeks of gestation: 38 weeks Assessment and Plan Assessment and Plan (1) Rh negative status during : Status: Acute Qualifiers: Trimester: second trimester Qualified Code(s): O26.892 - Other specified related conditions, second trimester; Z67.91 - Unspecified blood type, Rh negative Comment: Fetus is RhD negative per NIPT. (2) Supervision of normal first : Status: Acute Qualifiers: Trimester: third trimester Qualified Code(s): Z34.03 - Encounter for supervision of normal first , third trimester Comment: PRR, , ALFREDITO 08/20/25 boy, Shar (3) : Status: Acute Qualifiers: Weeks of gestation: 38 weeks Qualified Code(s): Z3A.38 - 38 weeks gestation of Comment: Neg GBS. NIPT low risk. Anatomy nl. Orders: Orders POC Urinalysis 2 Dip (Clinic) Today 08/11/25 1134 <Electronically signed by Tanisha tobias MD> Date _ Tanisha Pena MD Cosigner Signature: Date (if applicable) CC: ~ [facility] Work Phone: Reason for referral (narrative)* Outpatient Procedure (Routine) - Pending Review Specialty Diagnoses / Procedures Referred By Castro ramirez [facility] Diagnoses ASCUS with positive high risk HPV cervical Procedures COLPOSCOPY COLPOSCOPY CERVIX BX CERVIX & ENDOCRV CURRHannah Qureshi MD [address] [place] [address] [facility] [address] [place] [address] Referral ID Status Reason Start Date Expiration Date Visits Requested Visits Authorized [id number] Pending Review Auto-Generat ed Referral 08/13/2022 08/13/2023 1 1 [facility] for referral (narrative)No reason for referral information availableW[facility] Work Phone: Summary Purpose Family History No [...] 2025 12:54pm Supervision of normal first [facility] 2024 12:54pm Chief Complaint Admit Date NOB LMP 11/19January 13, 2025 12:54pm 12wk OB February 17, 2025 9:1 7am Reason for Visit Admit Date January 13, 2025 12:54pm Supervision of normal first Fe [facility] 2024 12:54pm February 17, 2025 9:1 7am Rh negative status during [facility] 2024 9:17am Supervision of normal first [facility] 2024 9:17am Chief Complaint Admit Date NOB LMP 11/19January 13, 2025 12:54pm 12wk OB February 17, 2025 9:1 7am 16wk ob March 16, 2025 9:3 5am 20wk ob April 11, 2025 10:07 am Reason for Visit Admit Date January 13, 2025 12:54pm Supervision of normal first Fe [facility] 2024 12:54pm February 17, 2025 9:1 7am Rh negative status during [place] 2024 9:17am Supervision of normal first [facility] 2024 9:17am March 16, 2025 9:3 5am [...] 2025 12:54pm Supervision of normal first Fe bruary 2024 12:54pm February 17, 2025 9:1 7am Rh negative status during [place] 2024 9:17am Supervision of normal first [facility] 2024 9:17am March 16, 2025 9:3 5am [...] 9:1 7am Rh negative status during [facility] 2024 9:17am Supervision of normal first Ma [facility] 2024 9:17am March 16, 2025 9:3 5am [...] 2025 2:11pm Supervision of normal first Ju ly 2024 2:11pm Chief Complaint Admit Date 16wk ob March 16, 2025 9:3 5am 20wk ob April 11, 2025 10:07 am 24 WK OB May 10, 2025 11:2 8am 28wk ob/glucose June 05, 2025 2:11p m SCREEN FOR GESTATIONAL DM June 15 6:38am 30 WK OB June 19, 2025 8:46 am Reason for Visit Admit Date March 16, 2025 9:3 5am Rh negative [...] 2025 2:11pm Supervision of normal first Ju ly 2024 2:11pm June 19, 2025 8:46 am Rh negative status during June 19, 2025 8:46am Supervision of normal first Ju ly 2024 8:46am Chief Complaint Admit Date 16wk ob March 16, 2025 9:3 5am 20wk ob April 11, 2025 10:07 am 24 WK OB May 10, 2025 11:2 8am 28wk ob/glucose June 05, 2025 2:11p m SCREEN FOR GESTATIONAL DM June 15 6:38am 30 WK OB June 19, 2025 8:46 am 32wk ob July 04, 2025 2:4 2pm Reason for Visit Admit Date March 16, 2025 9:3 5am Rh negative [...] 2025 2:11pm Supervision of normal first Ju ly 2024 2:11pm June 19, 2025 8:46 am Rh negative status during June 19, 2025 8:46am Supervision of normal first Ju ly 2024 8:46am July 04, 2025 2:4 2pm Rh negative status during Augu st 2024 2:42pm Supervision of normal first Au kayla 2024 2:42pm Chief Complaint Admit Date 20wk ob April 11, 2025 10:07 am 24 WK OB May 10, 2025 11:2 8am 28wk ob/glucose June 05, 2025 2:11p m SCREEN FOR GESTATIONAL DM June 15 6:38am 30 WK OB June 19, 2025 8:46 am 32wk ob July 04, 2025 2:4 2pm 34wk ob July 20, 2025 1: 56pm Reason for Visit Admit Date April 11, 2025 10:07 am Rh negative status during April 11, 2025 10:07am Supervision of normal first Ma y 2024 10:07am May 10, 2025 11:2 8am Rh negative status during May 10, 2025 11:28am Supervision of normal first Ju ne 2024 11:28am June 05, 2025 2:11p m Rh negative status during June 05, 2025 2:11pm Supervision of normal first Ju ly 2024 2:11pm June 19, 2025 8:46 am Rh negative status during June 19, 2025 8:46am Supervision of normal first Ju ly 2024 8:46am July 04, 2025 2:4 2pm Rh negative status during Junu [facility] 2024 2:42pm Supervision of normal first Tracey garza 2024 2:42pm July 20, 2025 1: 56pm Rh negative status during Junu [facility] 2024 1:56pm Supervision of normal first Au kayla 2024 1:56pm Chief Complaint Admit Date 20wk ob April 11, 2025 10:07 am 24 WK OB May 10, 2025 11:2 8am 28wk ob/glucose June 05, 2025 2:11p m SCREEN FOR GESTATIONAL DM June 15 6:38am 30 WK OB June 19, 2025 8:46 am 32wk ob July 04, 2025 2:4 2pm 35wk4d ob July 20, 2025 1: 56pm 36wk2d ob July 25, 2025 1: 34pm Reason for Visit Admit Date April 11, 2025 10:07 am Rh negative status during April 11, 2025 10:07am Supervision of normal first Ma y 2024 10:07am May 10, 2025 11:2 8am Rh negative status during May 10, 2025 11:28am Supervision of normal first Ju ne 2024 11:28am June 05, 2025 2:11p m Rh negative status during June 05, 2025 2:11pm Supervision of normal first Ju ly 2024 2:11pm June 19, 2025 8:46 am Rh negative status during June 19, 2025 8:46am Supervision of normal first Ju ly 2024 8:46am July 04, 2025 2:4 2pm Rh negative status during Junu [facility] 2024 2:42pm Supervision of normal first Au kayla 2024 2:42pm July 20, 2025 1: 56pm Rh negative status during Junu [facility] 2024 1:56pm Supervision of normal first Au kayla 2024 1:56pm July 25, 2025 1: 34pm Rh negative status during Augu [facility] 2024 1:34pm Supervision of normal first Au kayla 2024 1:34pm Chief Complaint Admit Date 20wk ob April 11, 2025 10:07 am 24 WK OB May 10, 2025 11:2 8am 28wk ob/glucose June 05, 2025 2:11p m SCREEN FOR GESTATIONAL DM June 15 6:38am 30 WK OB June 19, 2025 8:46 am 32wk ob July 04, 2025 2:4 2pm 35wk4d ob July 20, 2025 1: 56pm 36wk2d ob July 25, 2025 1: 34pm 37wk4d ob August 03, 2025 3:00pm Reason for Visit Admit Date April 11, 2025 10:07 am Rh negative status during April 11, 2025 10:07am Supervision of normal first Ma y 2024 10:07am May 10, 2025 11:2 8am Rh negative status during May 10, 2025 11:28am Supervision of normal first Ju ne 2024 11:28am June 05, 2025 2:11p m Rh negative status during June 05, 2025 2:11pm Supervision of normal first Ju ly 2024 2:11pm June 19, 2025 8:46 am Rh negative status during June 19, 2025 8:46am Supervision of normal first Ju ly 2024 8:46am July 04, 2025 2:4 2pm Rh negative status during Junu st 2024 2:42pm Supervision of normal first Au kayla 2024 2:42pm July 20, 2025 1: 56pm Rh negative status during Augu st 21st, 2025 1:56pm Supervision of normal first Au kayla 2024 1:56pm July 25, 2025 1: 34pm Rh negative status during Augu st 2024 1:34pm Supervision of normal first Au kayla 2024 1:34pm August 03, 2025 3:00pm Rh negative status during Sept ember 2024 3:00pm Supervision of normal first Se ptember 2024 3:00pm Chief Complaint Admit Date 24 WK OB May 10, 2025 11:2 8am 28wk ob/glucose June 05, 2025 2:11p m SCREEN FOR GESTATIONAL DM June 15 6:38am 30 WK OB June 19, 2025 8:46 am 32wk ob July 04, 2025 2:4 2pm 35wk4d ob July 20, 2025 1: 56pm 36wk2d ob July 25, 2025 1: 34pm 37wk4d ob August 03, 2025 3:00pm 38wk5d ob August 11, 2025 10:56am Reason for Visit Admit Date May 10, 2025 11:2 8am Rh negative status during May 10, 2025 11:28am Supervision of normal first Ju [place] 2024 11:28am June 05, 2025 2:11p m Rh negative status during June 05, 2025 2:11pm Supervision of normal first Ju 2024 2:11pm June 19, 2025 8:46 am Rh negative status during June 19, 2025 8:46am Supervision of normal first Ju ly 2024 8:46am July 04, 2025 2:4 2pm Rh negative status during 2024 2:42pm Supervision of normal first Au kayla 2024 2:42pm July 20, 2025 1: 56pm Rh negative status during Junu 2024 1:56pm Supervision of normal first Au kayla 2024 1:56pm July 25, 2025 1: 34pm Rh negative status during Junu st 2024 1:34pm Supervision of normal first Au kayla 2024 1:34pm August 03, 2025 3:00pm Rh negative status during Jul 3:00pm Supervision of normal first Se pt2024 3:00pm August 11, 2025 10:56am Rh negative status during Jul 10:56am Supervision of normal first Se pt2024 10:56am Additional Source Comments Source Comments (unrecognize d section and content) In the event this informatio n is protected by the Federal Confidentiality of Alcohol and Drug Abuse Patient Records regulations: The Federal rules restrict any use of the information to criminally investigate or prosecute any alcohol or drug abuse patient.[facility] Center[facility] the event this information is protected by the Federal Confidentiality of Alcohol and Drug Abuse Patient Records regulations: The Federal rules restrict any use of the information to criminally investigate or prosecute any alcohol or drug abuse patient.[facility] Center[facility] the event this information is protected by the Federal Confidentiality of Alcohol and Drug Abuse Patient Records regulations: The Federal rules restrict any use of the information to criminally investigate or prosecute any alcohol or drug abuse patient.[facility] Center[facility] the event this information is protected by the Federal Confidentiality of Alcohol and Drug Abuse Patient Records regulations: The Federal rules restrict any use of the information to criminally investigate or prosecute any alcohol or drug abuse patient.[facility] CenterIn the event this information is protected by the Federal Confidentiality of Alcohol and Drug Abuse Patient Records regulations: The Federal rules restrict any use of the information to criminally investigate or prosecute any alcohol or drug abuse patient.[facility] Care Teams (unrecognized sec tion and content) Guide [place]pine Relationship Specialty Start Date End Date Laura Marcus MD PCP - General Family Practice 12/28/12 Guide Alpine Relationship Specialty Start Date End Date Laura Marcus MD PCP - General Family Practice 12/28/12 Guide Alpine Relationship Specialty Start Date End Date Laura Marcus MD PCP - General Family Practice 12/28/12 Guide Alpine Relationship Specialty Start Date End Date Laura Marcus MD PCP - General Family Medicine 12/28/12 Guide Alpine Relationship Specialty Start Date End Date Laura Marcus MD PCP - General Family Medicine 12/28/12 Team Status: Active Member Role Status Dates Dr. Laura Marcus MD Family Provider Active Dr. Laura Marcus MD Primary Care Provider Active Team Status: Inactive Member Role Status Dates Dr. Laura Marcus MD Primary Care Provider Active Start: January 13, 2025 End: January 13, 2025 Dr. Laura Marcus MD Referring Provider Active Start: January 13, 2025 End: January 13, 2025 Monika Cui CNM Attending Provider Active S tart: January 13, 2025 End: January 13, 2025 Team Status: Inactive Member Role Status Dates Dr. Laura Marcus MD Primary Care Provider Active Start: January 13, 2025 End: January 13, 2025 Monika Cui CNM Attending Provider Active S tart: January 13, 2025 End: January 13, 2025 Monika Cui CNM Referring Provider Active S tart: January 13, 2025 End: January 13, 2025 Team Status: Inactive Member Role Status Dates Dr. Laura Marcus MD Primary Care Provider Active Start: February 02, 2025 End: February 02, 2025 Monika Cui CNM Attending Provider Active S tart: February 02, 2025 End: February 02, 2025 Monika Cui CNM Referring Provider Active S tart: February 02, 2025 End: February 02, 2025 Team Status: Inactive Member Role Status Dates Dr. Laura Marcus MD Primary Care Provider Active Start: February 17, 2025 End: February 17, 2025 Dr. Laura Marcus MD Referring Provider Active Start: February 17, 2025 End: February 17, 2025 Dr. Tanisha Pena MD Attending Provider Active Start: February 17, 2025 End: February 17, 2025 Team Status: Inactive Member Role Status Dates Dr. Laura Marcus MD Primary Care Provider Active Start: February 17, 2025 End: February 17, 2025 Monika Cui CNM Attending Provider Active S tart: February 17, 2025 End: February 17, 2025 Monika Cui CNM Referring Provider Active S tart: February 17, 2025 End: February 17, 2025 Team Status: Inactive Member Role Status Dates Dr. Laura Marcus MD Primary Care Provider Active Start: March 16, 2025 End: March 16, 2025 Dr. Laura Marcus MD Referring Provider Active Start: March 16, 2025 End: March 16, 2025 Dr. Joie Bonner DO Attending Provider Activ e Start: March 16, 2025 End: March 16, 2025 Team Status: Inactive Member Role Status Dates Dr. Laura Marcus MD Primary Care Provider Active Start: April 11, 2025 End: April 11, 2025 Dr. Laura Marcus MD Referring Provider Active Start: April 11, 2025 End: April 11, 2025 Jasmine Tanner DATA CONVERSION DEVELOPER, DATA CONVERSION DEVELOPER-C Attending Provider Active Start: April 11, 2025 End: April 11, 2025 Team Status: Inactive Member Role Status Dates Dr. Laura Marcus MD Primary Care Provider Active Start: May 10, 2025 End: May 10, 2025 Dr. Laura Marcus MD Referring Provider Active Start: May 10, 2025 End: May 10, 2025 Jasmine Tanner DATA CONVERSION DEVELOPER, DATA CONVERSION DEVELOPER-C Attending Provider Active Start: May 10, 2025 End: May 10, 2025 Team Status: Active Member Role/Relationship Status Dates Dr. Laura Marcus MD Family Provider Active Dr. Laura Marcus MD Primary Care Provider Active Team Status: Inactive Member Role/Relationship Status Dates Dr. Laura Marcus MD Primary Care Provider Active Start: February 17, 2025 End: February 17, 2025 Dr. Laura Marcus MD Referring Provider Active Start: February 17, 2025 End: February 17, 2025 Dr. Tanisha Pena MD Attending Provider Active Start: February 17, 2025 End: February 17, 2025 Team Status: Inactive Member Role/Relationship Status Dates Dr. Laura Marcus MD Primary Care Provider Active Start: February 17, 2025 End: February 17, 2025 Monika Cui CNM Attending Provider Active S tart: February 17, 2025 End: February 17, 2025 Monika Cui CNM Referring Provider Active S tart: February 17, 2025 End: February 17, 2025 Team Status: Inactive Member Role/Relationship Status Dates Dr. Laura Marcus MD Primary Care Provider Active Start: March 16, 2025 End: March 16, 2025 Dr. Laura Marcus MD Referring Provider Active Start: March 16, 2025 End: March 16, 2025 Dr. Joie Bonner DO Attending Provider Activ e Start: March 16, 2025 End: March 16, 2025 Team Status: Inactive Member Role/Relationship Status Dates Dr. Laura Marcus MD Primary Care Provider Active Start: April 11, 2025 End: April 11, 2025 Dr. Laura Marcus MD Referring Provider Active Start: April 11, 2025 End: April 11, 2025 Jasmine Tanner DATA CONVERSION DEVELOPER, DATA CONVERSION DEVELOPER-C Attending Provider Active Start: April 11, 2025 End: April 11, 2025 Team Status: Inactive Member Role/Relationship Status Dates Dr. Laura Marcus MD Primary Care Provider Active Start: May 10, 2025 End: May 10, 2025 Dr. Laura Marcus MD Referring Provider Active Start: May 10, 2025 End: May 10, 2025 Jasmine Tanner DATA CONVERSION DEVELOPER, DATA CONVERSION DEVELOPER-C Attending Provider Active Start: May 10, 2025 End: May 10, 2025 Team Status: Inactive Member Role/Relationship Status Dates Dr. Laura Marcus MD Primary Care Provider Active Start: June 05, 2025 End: June 05, 2025 Dr. Laura Marcus MD Referring Provider Active Start: June 05, 2025 End: June 05, 2025 Monika Cui CNM Attending Provider Active S tart: June 05, 2025 End: June 05, 2025 Team Status: Active Member Role/Relationship Status Dates Dr. Laura Marcus MD Primary Care Provider Active Start: June 05, 2025 Jasmine Tanner DATA CONVERSION DEVELOPER, DATA CONVERSION DEVELOPER-C Attending Provider Active Start: June 05, 2025 Team Status: Active Member Role/Relationship Status Dates No Primary Care Physician Primary Care Provider Active Team Status: Inactive Member Role/Relationship Status Dates Dr. Laura Marcus MD Primary Care Provider Active Start: June 05, 2025 End: June 05, 2025 Jasmine Tanner DATA CONVERSION DEVELOPER, DATA CONVERSION DEVELOPER-C Attending Provider Active Start: June 05, 2025 End: June 05, 2025 Team Status: Inactive Member Role/Relationship Status Dates Dr. Laura Marcus MD Primary Care Provider Active Start: March 16, 2025 End: March 16, 2025 Dr. Laura Marcus MD Referring Provider Active Start: March 16, 2025 End: March 16, 2025 Dr. Joie Bonner DO Attending Provider Activ e Start: March 16, 2025 End: March 16, 2025 Team Status: Inactive Member Role/Relationship Status Dates Dr. Laura Marcus MD Primary Care Provider Active Start: April 11, 2025 End: April 11, 2025 Dr. Laura Marcus MD Referring Provider Active Start: April 11, 2025 End: April 11, 2025 Jasmine Tanner DATA CONVERSION DEVELOPER, DATA CONVERSION DEVELOPER-C Attending Provider Active Start: April 11, 2025 End: April 11, 2025 Team Status: Inactive Member Role/Relationship Status Dates Dr. Laura Marcus MD Primary Care Provider Active Start: May 10, 2025 End: May 10, 2025 Dr. Laura Marcus MD Referring Provider Active Start: May 10, 2025 End: May 10, 2025 Jasmine Tanner DATA CONVERSION DEVELOPER, DATA CONVERSION DEVELOPER-C Attending Provider Active Start: May 10, 2025 End: May 10, 2025 Team Status: Inactive Member Role/Relationship Status Dates Dr. Laura Marcus MD Primary Care Provider Active Start: June 05, 2025 End: June 05, 2025 Dr. Laura Marcus MD Referring Provider Active Start: June 05, 2025 End: June 05, 2025 Monika Cui CNM Attending Provider Active S tart: June 05, 2025 End: June 05, 2025 Team Status: Inactive Member Role/Relationship Status Dates Dr. Laura Marcus MD Primary Care Provider Active Start: June 05, 2025 End: June 05, 2025 Jasmine Tanner DATA CONVERSION DEVELOPER, DATA CONVERSION DEVELOPER-C Attending Provider Active Start: June 05, 2025 End: June 05, 2025 Team Status: Active Member Role/Relationship Status Dates Jasmine Tanner DATA CONVERSION DEVELOPER, DATA CONVERSION DEVELOPER-C Attending Provider Active Start: June 15, 2025 Jasmine Tanner DATA CONVERSION DEVELOPER, DATA CONVERSION DEVELOPER-C Referring Provider Active Start: June 15, 2025 No Primary Care Physician Primary Care Provider Active Start: June 15, 2025 Team Status: Inactive Member Role/Relationship Status Dates Dr. Laura Marcus MD Referring Provider Active Start: June 19, 2025 End: June 19, 2025 Monika Cui CNM Attending Provider Active S tart: June 19, 2025 End: June 19, 2025 No Primary Care Physician Primary Care Provider Active Start: June 19, 2025 End: June 19, 2025 Team Status: Inactive Member Role/Relationship Status Dates Jasmine Tanner DATA CONVERSION DEVELOPER, DATA CONVERSION DEVELOPER-C Attending Provider Active Start: June 15, 2025 End: June 15, 2025 Jasmine Tanner DATA CONVERSION DEVELOPER, DATA CONVERSION DEVELOPER-C Referring Provider Active Start: June 15, 2025 End: June 15, 2025 No Primary Care Physician Primary Care Provider Active Start: June 15, 2025 End: June 15, 2025 Team Status: Inactive Member Role/Relationship Status Dates Dr. Laura Marcus MD Referring Provider Active Start: July 04, 2025 End: July 04, 2025 Dr. Joie Bonner DO Attending Provider Activ e Start: July 04, 2025 End: July 04, 2025 No Primary Care Physician Primary Care Provider Active Start: July 04, 2025 End: July 04, 2025 Team Status: Inactive Member Role/Relationship Status Dates Dr. Laura Marcus MD Primary Care Provider Active Start: April 11, 2025 End: April 11, 2025 Dr. Laura Marcus MD Referring Provider Active Start: April 11, 2025 End: April 11, 2025 Jasmine Tanner DATA CONVERSION DEVELOPER, DATA CONVERSION DEVELOPER-C Attending Provider Active Start: April 11, 2025 End: April 11, 2025 Team Status: Inactive Member Role/Relationship Status Dates Dr. Laura Marcus MD Primary Care Provider Active Start: May 10, 2025 End: May 10, 2025 Dr. Laura Marcus MD Referring Provider Active Start: May 10, 2025 End: May 10, 2025 Jasmine Tanner DATA CONVERSION DEVELOPER, DATA CONVERSION DEVELOPER-C Attending Provider Active Start: May 10, 2025 End: May 10, 2025 Team Status: Inactive Member Role/Relationship Status Dates Dr. Laura Marcus MD Primary Care Provider Active Start: June 05, 2025 End: June 05, 2025 Dr. Laura Marcus MD Referring Provider Active Start: June 05, 2025 End: June 05, 2025 Monika Cui CNM Attending Provider Active S tart: June 05, 2025 End: June 05, 2025 Team Status: Inactive Member Role/Relationship Status Dates Dr. Laura Marcus MD Primary Care Provider Active Start: June 05, 2025 End: June 05, 2025 Jasmine Tanner DATA CONVERSION DEVELOPER, DATA CONVERSION DEVELOPER-C Attending Provider Active Start: June 05, 2025 End: June 05, 2025 Team Status: Inactive Member Role/Relationship Status Dates Jasmine Tanenr DATA CONVERSION DEVELOPER, DATA CONVERSION DEVELOPER-C Attending Provider Active Start: June 15, 2025 End: June 15, 2025 Jasmine Tanner DATA CONVERSION DEVELOPER, DATA CONVERSION DEVELOPER-C Referring Provider Active Start: June 15, 2025 End: June 15, 2025 No Primary Care Physician Primary Care Provider Active Start: June 15, 2025 End: June 15, 2025 Team Status: Inactive Member Role/Relationship Status Dates Dr. Laura Marcus MD Referring Provider Active Start: June 19, 2025 End: June 19, 2025 Monika Cui CNM Attending Provider Active S tart: June 19, 2025 End: June 19, 2025 No Primary Care Physician Primary Care Provider Active Start: June 19, 2025 End: June 19, 2025 Team Status: Inactive Member Role/Relationship Status Dates Dr. Laura Marcus MD Referring Provider Active Start: July 04, 2025 End: July 04, 2025 Dr. Joie Bonner DO Attending Provider Activ e Start: July 04, 2025 End: July 04, 2025 No Primary Care Physician Primary Care Provider Active Start: July 04, 2025 End: July 04, 2025 Team Status: Inactive Member Role/Relationship Status Dates Dr. Laura Marcus MD Referring Provider Active Start: July 20, 2025 End: July 20, 2025 Dr. Tanisha Pena MD Attending Provider Active Start: July 20, 2025 End: July 20, 2025 No Primary Care Physician Primary Care Provider Active Start: July 20, 2025 End: July 20, 2025 Team Status: Inactive Member Role/Relationship Status Dates No Primary Care Physician Primary Care Provider Active Start: July 25, 2025 End: July 25, 2025 No Primary Care Physician Referring Provider Active Start: July 25, 2025 End: July 25, 2025 Jasmine Tanner DATA CONVERSION DEVELOPER, DATA CONVERSION DEVELOPER-C Attending Provider Active Start: July 25, 2025 End: July 25, 2025 Team Status: Active Member Role/Relationship Status Dates No Primary Care Physician Primary Care Provider Active Start: July 25, 2025 Jasmine Tanner DATA CONVERSION DEVELOPER, DATA CONVERSION DEVELOPER-C Attending Provider Active Start: July 25, 2025 Team Status: Inactive Member Role/Relationship Status Dates Dr. Laura Marcus MD Referring Provider Active Start: August 03, 2025 End: August 03, 2025 Monika Cui CNM Attending Provider Active S tart: August 03, 2025 End: August 03, 2025 No Primary Care Physician Primary Care Provider Active Start: August 03, 2025 End: August 03, 2025 Team Status: Inactive Member Role/Relationship Status Dates No Primary Care Physician Primary Care Provider Active Start: July 25, 2025 End: July 25, 2025 Jasmine Tanner DATA CONVERSION DEVELOPER, DATA CONVERSION DEVELOPER-C Attending Provider Active Start: July 25, 2025 End: July 25, 2025 Team Status: Inactive Member Role/Relationship Status Dates Dr. Laura Marcus MD Primary Care Provider Active Start: May 10, 2025 End: May 10, 2025 Dr. Laura Marcus MD Referring Provider Active Start: May 10, 2025 End: May 10, 2025 Jasmine Tanner DATA CONVERSION DEVELOPER, DATA CONVERSION DEVELOPER-C Attending Provider Active Start: May 10, 2025 End: May 10, 2025 Team Status: Inactive Member Role/Relationship Status Dates Dr. Laura Marcus MD Primary Care Provider Active Start: June 05, 2025 End: June 05, 2025 Dr. Laura Marcus MD Referring Provider Active Start: June 05, 2025 End: June 05, 2025 Monika Cui CNM Attending Provider Active S tart: June 05, 2025 End: June 05, 2025 Team Status: Inactive Member Role/Relationship Status Dates Dr. Laura Marcus MD Primary Care Provider Active Start: June 05, 2025 End: June 05, 2025 Jasmine Tanner DATA CONVERSION DEVELOPER, DATA CONVERSION DEVELOPER-C Attending Provider Active Start: June 05, 2025 End: June 05, 2025 Team Status: Inactive Member Role/Relationship Status Dates Jasmine Tanner DATA CONVERSION DEVELOPER, DATA CONVERSION DEVELOPER-C Attending Provider Active Start: June 15, 2025 End: June 15, 2025 Jasmine Tanner DATA CONVERSION DEVELOPER, DATA CONVERSION DEVELOPER-C Referring Provider Active Start: June 15, 2025 End: June 15, 2025 No Primary Care Physician Primary Care Provider Active Start: June 15, 2025 End: June 15, 2025 Team Status: Inactive Member Role/Relationship Status Dates Dr. Laura Marcus MD Referring Provider Active Start: June 19, 2025 End: June 19, 2025 Monika Cui CNM Attending Provider Active S tart: June 19, 2025 End: June 19, 2025 No Primary Care Physician Primary Care Provider Active Start: June 19, 2025 End: June 19, 2025 Team Status: Inactive Member Role/Relationship Status Dates Dr. Laura Marcus MD Referring Provider Active Start: July 04, 2025 End: July 04, 2025 Dr. Joie Bonner DO Attending Provider Activ e Start: July 04, 2025 End: July 04, 2025 No Primary Care Physician Primary Care Provider Active Start: July 04, 2025 End: July 04, 2025 Team Status: Inactive Member Role/Relationship Status Dates Dr. Laura Marcus MD Referring Provider Active Start: July 20, 2025 End: July 20, 2025 Dr. Tanisha Pena MD Attending Provider Active Start: July 20, 2025 End: July 20, 2025 No Primary Care Physician Primary Care Provider Active Start: July 20, 2025 End: July 20, 2025 Team Status: Inactive Member Role/Relationship Status Dates No Primary Care Physician Primary Care Provider Active Start: July 25, 2025 End: July 25, 2025 No Primary Care Physician Referring Provider Active Start: July 25, 2025 End: July 25, 2025 Jasmine Tanner NP, DATA CONVERSION DEVELOPER-C Attending Provider Active Start: July 25, 2025 End: July 25, 2025 Team Status: Inactive Member Role/Relationship Status Dates No Primary Care Physician Primary Care Provider Active Start: July 25, 2025 End: July 25, 2025 Jasmine Tanner NP DATA CONVERSION DEVELOPER-C Attending Provider Active Start: July 25, 2025 End: July 25, 2025 Team Status: Inactive Member Role/Relationship Status Dates Dr. Laura Marcus MD Referring Provider Active Start: August 03, 2025 End: August 03, 2025 Monika Cui CNM Attending Provider Active S tart: August 03, 2025 End: August 03, 2025 No Primary Care Physician Primary Care Provider Active Start: August 03, 2025 End: August 03, 2025 Team Status: Inactive Member Role/Relationship Status Dates Dr. Laura Marcus MD Referring Provider Active Start: August 11, 2025 End: August 11, 2025 Dr. Tanisha Pena MD Attending Provider Active Start: August 11, 2025 End: August 11, 2025 No Primary Care Physician Primary Care Provider Active Start: August 11, 2025 End: August 11, 2025 Reason for Visit (unrecogniz ed section and content) Reason Comments Results Reason Comments Colposcopy Specialty Diagnoses / Procedures Referred By Castro ramirez Referred To Contact [facility] Diagnoses ASCUS with positive high risk HPV cervical Procedures COLPOSCOPY COLPOSCOPY CERVIX BX CERVIX & ENDOCRV Carol Ling, BUDGET CONTROLLER.HEEL TRIMMER [address] [place] [address] [facility] [address] [place] [address] Referral ID Status Reason Start Date Expiration Date V isits Requested Visits Authorized [id number] Closed Auto-Generate d Referral 07/31/2022 07/31/2023 1 1 Reason Comments Animal Bite Dog bite on right che nd this morning Reason Comments Yearly Exam INFORMATION SOURCE (unrecogn ized section and content) DATE CREATED AUTHOR 06/17/2024 [facility] DATE CREATED AUTHOR AUTHOR'S ORGANIZ ATION 03/29/2025 [facility] DATE CREATED AUTHOR AUTHOR'S ORGANIZ ATION 08/20/2025 [facility] Goals (unrecognized section and content) Goals [...] BE BASED ON THE PRIMARY CLINICAL RECORDS. [employer] [facility]. provides no warranty or guarantee of the accuracy or completeness of information in this document.
[2025-08-24 20:07] LABS: Hematocrit 32.3 % (37-47); Hemoglobin 11.7 g/dL (12.0-15.0); Immature Granulocytes Count 0.020 X10^3/uL (0.0-0.0); Mean Corp Hgb Conc 36.2 g/dL (32-36); Mean Corpuscular Volume 86.6 fL (81-99); Mean Platelet Vol. 12.4 fl (6.2-12.0); NRBC Flagged by Analyzer 0 % (0-5); Platelet Count 184 K/mm3 (150-450); RBC Distribution Width CV 12.4 % (11.6-14.6); RBC Distribution Width SD 39.1 fl (35.1-43.9); Red Blood Count 3.73 M/mm3 (4.2-5.4); White Blood Count 9.0 K/mm3 (4.4-11.0)
--- OUTSIDE RECORDS SUMMARY | 2025-08-24 20:11 | XMS RPT_ITS | CCD ---
Author Organization [facility] Care Team Providers Care Program Checker Name Role Phone Laura Marcus MD Primary [...] Provider Dr. Tanisha Pena MD Attending Provider Care Physician, No Primary Referring Provider Un available Amrit ROTHMAN, Dr. Laura Michel Primary Care Provider Dr. Laura Marcus MD Referring Provider Flores TEXTILE KNITTER-CJasmine Attending Provider Flores TEXTILE KNITTER, Jasmine Attending Unavailable Care Physician, No Primary Primary Care Unava ilable Care Physician, No Primary Referring Unava ilable Care Physician, No Primary Primary Care Unava ilable Marcus, Laura K Referring Unavailable Monika Cui Attending Unavailable Marcus, Laura K Primary Care Unavailable Monika Cui Attending Unavailable Marcus, Laura K Referring Unavailable Marcus, Laura K Primary Care Unavailable Flores TEXTILE KNITTER, Jasmine Attending Unavailable Marcus, Laura K Referring [...] Unava ilable Monika Cui Attending Unavailable Flores TEXTILE KNITTER, Jasmine Attending Unavailable Care Physician, No Primary Primary Care Unava ilable Marcus, Laura K Referring Unavailable Marcus, Laura K Primary Care Unavailable Flores TEXTILE KNITTERJasmine Attending Unavailable Joie Bonner Attending Unavailabl e [...] Unavailable Marcus, Laura K Primary Care Unavailable Mitchells TEXTILE KNITTER, Jasmine Attending Unavailable Flores TEXTILE KNITTER, Jasmine Attending Unavailable Care Physician, No Primary Primary Care Unava ilable Flores TEXTILE KNITTERJasmine Referring Unavailable Marcus, Laura K Primary Care [...] source) Grass pollen Substance Allergy 8 Intolerance [facility] Work Phone: Thiopental (1 source) Thiopental Drug Allergy 3 Other: See Comments [facility] (20 sources) Grass pollen; Translations: [GRASS POLLEN] Drug Intolerance 8 Intolerance [facility] Work Phone: Comment on above: Reaction Itchy eye, sneezing, itchy throat, slight facial swelling (19 sources) Thiopental; Translations: [THIOPENTAL] Drug Allergy 3 Other: See Comments [facility] Comment on above: Reaction Itchy eye, sneezing, itchy throat, slight facial swelling (14 sources) tea tree Allergy to substance 5 Swelling [facility] (1 source) Thiopental Drug Allergy 5 [facility] Repository (1 source) tea tree Drug allergy (disorder) 5 [facility] Repository Medications Current Medications Medication Drug Class(es) [...] (FLONASE) 50 mcg/actuation nasal spray Use 1 Leigh in each nostril two times a day. 0 04/09/2022 Active Comment on above: Use 1 Leigh in each nostril twice daily. metroNIDAZOLE 500 mg oral tablet (1 source) Nitroimidazole Antimicrobial Start: 07-21-20 End: 07-28-20 take 1 tablet by mouth twice daily metroNIDAZOLE (FLAGYL) 500 mg tablet Take 1 tablet by mouth twice daily for 7 days. 14 tablet 0 07/21/2022 07/28/2022 Active Comment on above: Take 1 tablet by howard th twice daily for 7 days. Multivit 08-Ibyc-Lajrst 1-Dha (Pnv-Dha) 27 mg iron-1 mg -300 mg capsule (14 sources) Start: 02-04-20 25 Multivit 63-Jwbo-Zrbqyi 1-Dha (Pnv-Dha) 27 mg iron-1 mg -300 [...] Comment on above: PRR, , ALFREDITO , Sahr discussed NIPT & Car rier testing -undecided [...] Test Name Value Interpretation Reference Range Facility [facility] Office Visit Reporton 08-18-2025 [facility] Office Visit Report [facility]'s [address], [address] [place] [address] OFFICE VISIT Date of Service: 08/18/25 MR#: [id number] Acct: [id number] Name: WENDIE VELEZ Rep #: [id number] 9 : 1995 Provider: FELICE Calero ams Age/Sex: 29/F [place] [facility] [place]: Signed Intake Vital Signs 07/20/25 14:04 08/11/25 11:01 08/18/25 13:35 08/18/25 13:35 Height 5 ft 7 in 5 ft 7 in 5 ft 7 in 5 ft 7 in Weight: 209 lb 9 oz BMI 32.8 BP 127/86 H Intake Visit Reasons: 39wk5d ob Medical Planner Required: No Is patient in pain?: No [...] History History of colposcopy H/O sinus surgery [place] teeth extracted History of tonsillectomy Family History [...] house 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 ?-???-???-???-???-? ??- (more content not included)... [facility] Office Visit Reporton 08-11-2025 [facility] Office Visit Report [facility]'s [address], [address] [place] [address] OFFICE VISIT Date of Service: 08/11/25 MR#: [id number] Acct: [id number] Name: WENDIE VELEZ Rep #: [id number] : 1995 Provider: Dr. 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 Normal [facility] Laboratory - Chemistry and C hemistry - challengeOrdered By: Monika Cui on 08-03-2025 Glucose Ql (U) Negative [facility] Laboratory - UrinalysisOrder ed By: Monika Cui on 08-03-2025 Protein Ql (U) Negative [facility] Celery Stripper Office Visit Reporton 08-03-2025 Celery Stripper Office Visit Report [facility]'s [address], [address] [place] [address] OFFICE VISIT Date of Service: 08/03/25 MR#: [id number] Acct: [id number] Name: WENDIE VELEZ Rep #: [id number] 3 : 1995 Provider: FELICE Calero ams Age/Sex: 29/F [place] [facility] [place]: Signed Intake Vital Signs 06/05/25 14:21 07/25/25 13:35 08/03/25 15:03 Height 5 ft 7 in 5 ft 7 in 5 ft 7 in Weight: 206 lb 9 oz BMI 32.3 BP 137/84 H Intake Visit Reasons: 37wk4d ob Chief Complaint: 37wk OB Medical Planner Required: No Is patient in pain?: No [...] History History of colposcopy H/O sinus surgery [place] teeth extracted History of tonsillectomy Family History [...] house 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 Normal [facility] Rule out Beta Strep (Grp. B) on 07-27-2025 ANGIE Group B Beta Streptococcus is not isolated. Normal [facility] Comment on above: Performed By: #### M 955.8123 ####[facility] [address] [place], [address] Laboratory - Chemistry and C hemistry - challengeOrdered By: Jasmine Tanner on 07-25-2025 Glucose Ql (U) Negative [facility] Laboratory - UrinalysisOrder ed By: Jasmine Tanner on 07-25-2025 Protein Ql (U) Negative [facility] Celery Stripper Office Visit Reporton 07-25-2025 Celery Stripper Office Visit Report [facility], [address] [place] [address] OFFICE VISIT Date of Service: 07/25/25 MR#: [id number] Acct: [id number] Name: WENDIE VELEZ Rep #: [id number] : 1995 Provider: URSULA carroll Age/Sex: 29/F [place] [facility] [place]: Signed Intake Vital Signs 07/20/25 14:04 07/25/25 13:35 Height 5 ft 7 in 5 ft 7 in Weight: 206 lb 2 oz BMI 32.3 BP 120/82 H Intake Visit Reasons: 36wk2d ob Chief Complaint: 36 Week OB Medical Planner Required: No Is patient in pain?: No [...] History History of colposcopy H/O sinus surgery [place] teeth extracted History of tonsillectomy Family History [...] house 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 Normal [facility] Screening beta-hemolytic Str eptococcus cultureOrdered By: Jasmine Tanner on 07-25-2025 Beta-hemolytic Streptococcus culture Group B Beta Streptococcus is not isolated. [facility] Celery Stripper Office Visit Reporton 07-20-2025 Celery Stripper Office Visit Report [facility]'s [address], [address] [place] [address] OFFICE VISIT Date of Service: 07/20/25 MR#: [id number] Acct: [id number] Name: WENDIE VELEZ Rep #: [id number] 5 : 1995 Provider: Dr. 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 Normal [facility] Laboratory - Chemistry and C hemistry - challengeOrdered By: Joie Crawford on 07-04-2025 Glucose Ql (U) Negative [facility] Laboratory - UrinalysisOrder ed By: Joie Crawford on 07-04-2025 Protein Ql (U) Negative [facility] Celery Stripper Office Visit Reporton 07-04-2025 Celery Stripper Office Visit Report [facility]'s [address], [address] [place] [address] OFFICE VISIT Date of Service: 07/04/25 MR#: [id number] Acct: [id number] Name: WENDIE VELEZ Rep #: [id number] : 1995 Provider: Dr. 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 (more content not included)... Normal [facility] Laboratory - Chemistry and C hemistry - challengeOrdered By: Monika Cui on 06-19-2025 Glucose Ql (U) Negative [facility] Laboratory - UrinalysisOrder ed By: Monika Cui on 06-19-2025 Protein Ql (U) Negative [facility] Celery Stripper Office Visit Reporton 06-19-2025 Celery Stripper Office Visit Report [facility] [address], [address] [place] [address] OFFICE VISIT Date of Service: 06/19/25 MR#: [id number] Acct: [id number] Name: WENDIE VELEZ Rep #: [id number] : 1995 Provider: FELICE Calero ams Age/Sex: 29/F [place] [facility] [place]: Signed Intake Vital Signs 04/11/25 10:10 06/05/25 14:21 06/19/25 08:49 Height 5 ft 7 in 5 ft 7 in 5 ft 7 in Weight: 202 lb 6 oz BMI 31.6 BP 117/76 Intake Visit Reasons: 30 WK OB Chief Complaint: 30wk OB Medical Planner Required: No Is patient in pain?: No [...] History History of colposcopy H/O sinus surgery [place] teeth extracted History of tonsillectomy Family History [...] house 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 (more content not included)... Normal [facility] Gestational GTT 3HR 100gon 0 06-15-2025 GEST GTT 100gm Normal [facility] Comment on above: Order Comment: Y Result Comment: FAST ING 90 Col: 06/15/25 0642 GLUCOSE TOLERANCE TEST FOR Reference Interval GESTATIONAL DIABETES Fasting <105 mg/dL 1 hour <190 mg/dl 2 hour <165 mg/dl 3 hour <145 mg/dl 1 HR GLU 111 Col: 06/15/25 0820 2 HR GLU 107 Col: 06/15/25 0923 3 HR GLU 100 Col: 06/15/25 1020 Performed By: #### L 500.4710 ####[facility] [address] [place], [address] Quantitative serum or plasma 3 hour gestational glucose tolerance panelOrdered By: Jasmine Tanner on 06-15-2025 Glucose tolerance 3 hours gestational panel See comment [facility] Comment on above: FASTING 90 Col: 05/30 [...] Auto (Unsp spec) [#/Vol] 1.51 10*3/uL 0.83-4.51 [facility] Absolute neutrophil countOrd ered By: Jasmine Tanner on 06-05-2025 Neutrophils (Bld) [#/Vol] 7.4 10*3/uL 2.0-7.7 [facility] Automated lymphocyte count a s percentage of total leukocytesOrdered By: Jasmine Tanner on 06-05-2025 Lymphocytes/100 WBC Auto (Unsp spec) 16.1 % Low 19-41 [facility] Basophil percentageOrdered B y: Jasmine Tanner on 06-05-2025 Basophils/100 WBC (Bld) 0.4 % 0-1 [facility] CBC W/Diff, Automatedon Absolute Lymph 1.51 X10 3/uL Normal 0.83-4.51 [facility] Comment on above: Performed By: #### L 501.0250, L509.8002, BTS, L100.0100, L3890.6006 ####[facility] [address] [place], [address] Absolute Neut 7.4 X10 3/uL Normal 2.0-7.7 [facility] Comment on above: Performed By: #### L 501.0250, L509.8002, BTS, L100.0100, L3890.6006 ####[facility] [address] [place], [address] Basophils/100 WBC (Bld) 0.4 % Normal 0-1 [facility] Comment on above: Performed By: #### L 501.0250, L509.8002, BTS, L100.0100, L3890.6006 ####[facility] [address] [place], [address] Eosinophils/100 WBC (Bld) 0.3 % Normal 0-5 [facility] Comment on above: Performed By: #### L 501.0250, L509.8002, BTS, L100.0100, L3890.6006 ####[facility] [address] [place], [address] Erythrocyte distribution width (RBC) [Ratio] 13.0 % Normal 11.6-14.6 [facility] Comment on above: Performed By: #### L 501.0250, L509.8002, BTS, L100.0100, L3890.6006 ####[facility] [address] [place], [address] Hematocrit (Bld) [Volume fraction] 34.5 % Low 37-47 [facility] Comment on above: Performed By: #### L 501.0250, L509.8002, BTS, L100.0100, L3890.6006 ####[facility] [address] [place], [address] Hemoglobin (Bld) [Mass/Vol] 11.7 g/dL Low 12.0-15.0 [facility] Comment on above: Performed By: #### L 501.0250, L509.8002, BTS, L100.0100, L3890.6006 ####[facility] [address] [place], [address] IG% 0.400 Normal 0.0-0.9 [facility] Comment on above: Result Comment: IG% - Immature Granulocytes (promyelocytes, myelocytes and metamyelocytes) > 1% indicates that a LEFT SHIFT is Present. Performed By: #### L 501.0250, L509.8002, BTS, L100.0100, L3890.6006 ####[facility] [address] [place], [address] Lymphocytes/100 WBC (Bld) 16.1 % Low 19-41 [facility] Comment on above: Performed By: #### L 501.0250, L509.8002, BTS, L100.0100, L3890.6006 ####[facility] [address] [place], [address] MCH (RBC) [Entitic mass] 30.5 pg Normal 27.0-32.0 [facility] Comment on above: Performed By: #### L 501.0250, L509.8002, BTS, L100.0100, L3890.6006 ####[facility] [address] [place], [address] MCHC (RBC) [Mass/Vol] 33.9 g/dL Normal 32-36 [facility] Comment on above: Performed By: #### L 501.0250, L509.8002, BTS, L100.0100, L3890.6006 ####[facility] [address] [place], [address] MCV (RBC) [Entitic vol] 89.8 fL Normal 81-99 [facility] Comment on above: Performed By: #### L 501.0250, L509.8002, BTS, L100.0100, L3890.6006 ####[facility] [address] [place], [address] Monocytes/100 WBC (Bld) 4.1 % Normal 0-10 [facility] Comment on above: Performed By: #### L 501.0250, L509.8002, BTS, L100.0100, L3890.6006 ####[facility] [address] [place], [address] Neutrophils/100 WBC (Bld) 78.7 % High 47-70 [facility] Comment on above: Performed By: #### L 501.0250, L509.8002, BTS, L100.0100, L3890.6006 ####[facility] [address] [place], [address] Nucleated RBC (Bld) [#/Vol] 0 10*3/uL Normal 0-5 [facility] Comment on above: Performed By: #### L 501.0250, L509.8002, BTS, L100.0100, L3890.6006 ####[facility] [address] [place], [address] Platelet mean volume (Bld) [Entitic vol] 11.3 fL Normal 6.2-12.0 [facility] Comment on above: Performed By: #### L 501.0250, L509.8002, BTS, L100.0100, L3890.6006 ####[facility] [address] [place], [address] Platelets (Bld) [#/Vol] 238 10*3/uL Normal 150-450 [facility] Comment on above: Performed By: #### L 501.0250, L509.8002, BTS, L100.0100, L3890.6006 ####[facility] [address] [place], [address] RBC (Bld) [#/Vol] 3.84 10*6/uL Low 4.2-5.4 [facility] Comment on above: Performed By: #### L 501.0250, L509.8002, BTS, L100.0100, L3890.6006 ####[facility] [address] [place], [address] RDW SD 42.2 fl Normal 35.1-43.9 [facility] Comment on above: Performed By: #### L 501.0250, L509.8002, BTS, L100.0100, L3890.6006 ####[facility] [address] [place], [address] WBC (Bld) [#/Vol] 9.4 10*3/uL Normal 4.4-11.0 [facility] Comment on above: Performed By: #### L 501.0250, L509.8002, BTS, L100.0100, L3890.6006 ####[facility] [address] [place], [address] Eosinophil percentageOrdered By: Jasmine Tanner on 06-05-2025 Eosinophils/100 WBC (Bld) 0.3 % 0-5 [facility] Erythrocyte distribution wid th ratioOrdered By: Jasmine Tanner on 06-05-2025 Erythrocyte distribution width (RBC) [Ratio] 13.0 % 11.6-14.6 [facility] Erythrocyte distribution wid th standard deviationOrdered By: Jasmine Mitchells on 06-05-2025 Erythrocyte distribution width (RBC) [Ratio] 42.2 fl 35.1-43.9 [facility] Glucose Challenge Gest 1H 50 terell 06-05-2025 GLU GEST 50g 1H 142 mg/dL High 70-140 [facility] Comment on above: Performed By: #### L 501.0250, L509.8002, BTS, L100.0100, L3890.6006 ####[facility] [address] [place], [place], [address] Glucose measurement at 2 mckenzie rs post-dose gestational glucose tolerance testOrdered By: Jasmine Tanner on 06-05-2025 Glucose [Mass/Vol] 142 mg/dL High 70-140 [facility] HIVon 06-05-2025 HIV Non-Reactive Normal Nonreactive [facility] Comment on above: Result Comment: Non- Reactive Reactive Repeatedly reactive samples must be confirmed according to CDC recommended confirmatory algorithms. The subresults for either HIVAG or AHIV can be used as an aid in the selection of the confirmation algorithm for reactive samples. Send out specimens with Reactive results to [facility] for confirmation. Order the HIV antibody detection and differentiation: #[id number] Performed By: #### L 501.0250, L509.8002, BTS, L100.0100, L3890.6006 ####[facility] [address] [place], [place], [id number] Hematocrit Auto (Bld) [Volum e fraction]Ordered By: Jasmine Tanner on 06-05-2025 Hematocrit (Bld) [Volume fraction] 34.5 % Low 37-47 [facility] Hemoglobin measurementOrdere d By: Jasmine Tanner on 06-05-2025 Hemoglobin (Bld) [Mass/Vol] 11.7 g/dL Low 12.0-15.0 [facility] Immature granulocytes/100 WB C Auto (Bld)Ordered By: Jasmine Tanner on 06-05-2025 Immature granulocytes/100 WBC (Bld) 0.400 % 0.0-0.9 [facility] Comment on above: IG% - Immature Granu locytes (promyelocytes, myelocytes and metamyelocytes) > 1% indicates that a LEFT SHIFT is Present. Laboratory - Chemistry and C hemistry - challengeOrdered By: Monika Cui on 06-05-2025 Glucose Ql (U) Negative [facility] Laboratory - UrinalysisOrder ed By: Monika Cui on 06-05-2025 Protein Ql (U) Negative [facility] MCV (mean corpuscular volume ) determinationOrdered By: Jasmine Tanner on 06-05-2025 MCV (RBC) [Entitic vol] 89.8 fL 81-99 [facility] Mean corpuscular hemoglobin (MCH) determinationOrdered By: Jasmine Tanner on 06-05-2025 MCH (RBC) [Entitic mass] 30.5 pg 27.0-32.0 [facility] Mean corpuscular hemoglobin concentration (MCHC) determinationOrdered By: Jasmine Tanner on 06-05-2025 MCHC (RBC) [Mass/Vol] 33.9 g/dL 32-36 [facility] Mean platelet volume determi nationOrdered By: Jasmine Tanner on 06-05-2025 Platelet mean volume (Bld) [Entitic vol] 11.3 fL 6.2-12.0 [facility] Monocyte percentageOrdered B y: Jasmine Tanner on 06-05-2025 Monocytes/100 WBC (Bld) 4.1 % 0-10 [facility] Neutrophil percentageOrdered By: Jasmine Tanner on 06-05-2025 Neutrophils/100 WBC (Bld) 78.7 % High 47-70 [facility] No Panel InformationOrdered By: Jasmine Tanner on 06-05-2025 HIV (1&2) Antibody Non-Reactive Nonreactive [facility] Comment on above: Non-ReactiveReactive Repeatedly reactive samples must be confirmed according to CDC recommended confirmatory algorithms. The subresults for either HIVAG or AHIV can be used as an aid in the selection of the confirmation algorithm for reactive samples.Send out specimens with Reactive results to [facility] for confirmation.Order the HIV antibody detection and differentiation: #[id number] Nucleated red blood cell per centageOrdered By: Jasmine Tanner on 06-05-2025 Nucleated RBC/100 WBC (Bld) [Ratio] 0 % 0-5 [facility] Celery Stripper Office Visit Reporton 06-05-2025 Celery Stripper Office Visit Report [facility]'s [address], [address] [place] [address] OFFICE VISIT Date of Service: 06/05/25 MR#: [id number] Acct: [id number] Name: WENDIE VELEZ Rep #: [id number] 7 : 1995 Provider: FELICE Calero ams Age/Sex: 29/F [place] [facility] [place]: Signed Intake Vital Signs 04/11/25 10:10 05/10/25 11:31 06/05/25 14:21 Height 5 ft 7 in 5 ft 7 in 5 ft 7 in Weight: 202 lb 4 oz BMI 31.6 BP 117/79 Intake Visit Reasons: 28wk ob/glucose Chief Complaint: 28wk OB Medical Planner Required: No Is patient in pain?: No [...] History History of colposcopy H/O sinus surgery [place] teeth extracted History of tonsillectomy Family History [...] house 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 Normal [facility] Platelet countOrdered By: Carlos Alberto Tanner on 06-05-2025 Platelets (Bld) [#/Vol] 238 10*3/uL 150-450 [facility] RBC Auto (Bld) [#/Vol]Ordere d By: Jasmine Tanner on 06-05-2025 RBC (Bld) [#/Vol] 3.84 10*6/uL Low 4.2-5.4 [facility] Syphilis Antibodieson 2024 Syphilis Abs Non-Reactive Normal Nonreactive [facility] Comment on above: Performed By: #### L 501.0250, L509.8002, BTS, L100.0100, L3890.6006 ####[facility] [address] [place], [address] Type AND Screenon 06-05-2025 Ab SCREEN GEL Negative Normal [facility] Comment on above: Order Comment: PN Performed By: #### L 501.0250, L509.8002, BTS, L100.0100, L3890.6006 ####[facility] [address] [place], [address] White blood cell (WBC) count Ordered By: Jasmine Tanner on 06-05-2025 WBC (Bld) [#/Vol] 9.4 10*3/uL 4.4-11.0 [facility] Laboratory - Chemistry and C hemistry - challengeOrdered By: Jasmine Tanner on 05-10-2025 Glucose Ql (U) Negative [facility] Laboratory - UrinalysisOrder ed By: Jasmine Tanner on 05-10-2025 Protein Ql (U) Negative [facility] Celery Stripper Office Visit Reporton 05-10-2025 Celery Stripper Office Visit Report [facility]'s [address], [address] [place] [address] OFFICE VISIT Date of Service: 05/10/25 MR#: [id number] Acct: [id number] Name: WENDIE VELEZ Rep #: [id number] 2 : 1995 Provider: URSULA carroll Age/Sex: 29/F Location[place] [facility] [place] Status: Signed Intake Vital Signs 04/11/25 10:10 05/10/25 11:31 Height 5 ft 7 in 5 ft 7 in Weight: 199 lb 2 oz BMI 31.1 BP 116/68 Intake Visit Reasons: 24 WK OB Chief Complaint: 24 Week OB Medical Planner Required: No Is patient in pain?: No [...] History History of colposcopy H/O sinus surgery [place] teeth extracted History of tonsillectomy Family History [...] house 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 Normal [facility] Laboratory - Chemistry and C hemistry - challengeOrdered By: Jasmine Tanner on 04-11-2025 Glucose Ql (U) Negative [facility] Laboratory - UrinalysisOrder ed By: Jasmine Tanner on 04-11-2025 Protein Ql (U) Negative [facility] Celery Stripper Office Visit Reporton 04-11-2025 Celery Stripper Office Visit Report [facility]'s [address], [address] [place] [address] OFFICE VISIT Date of Service: 04/11/25 MR#: [id number] Acct: [id number] Name: WENDIE VELEZ Rep #: [id number] : 1995 Provider: URSULA carroll Age/Sex: 29/F [place] [facility] [place]: Signed Intake Vital Signs 02/17/25 09:31 03/16/25 09:45 04/11/25 10:10 Height 5 ft 7 in 5 ft 7 in 5 ft 7 in Weight: 197 lb BMI 30.8 BP 118/78 Intake Visit Reasons: 20wk ob Chief Complaint: 20 Week OB Medical Planner Required: No Is patient in pain?: No [...] History History of colposcopy H/O sinus surgery [place] teeth extracted History of tonsillectomy Family History [...] house 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 (more content not included)... Normal [facility] Celery Stripper Office Visit Reporton 03-16-2025 Celery Stripper Office Visit Report [facility]'s [address], [address] [place] [address] OFFICE VISIT Date of Service: 03/16/25 MR#: [id number] Acct: [id number] Name: WENDIE VELEZ Rep #: [id number] 3 : 1995 Provider: Dr. 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 (more content not included)... Normal [facility] Laboratory - Chemistry and C hemistry - challengeOrdered By: Tanisha Pena on 02-17-2025 Glucose Ql (U) Negative [facility] Laboratory - UrinalysisOrder ed By: Tanisha Pena on 02-17-2025 Protein Ql (U) Negative [facility] Miscellaneous procedureOrder ed By: Monika Cui on 02-17-2025 Miscellaneous Test Comment SEE SCANNED REPORT [facility] NATERAon 02-17-2025 NATURA SEE SCANNED REPORT Normal [facility] Comment on above: Performed By: #### L 900.0098 ####[facility] [address] [place], [address] Celery Stripper Office Visit Reporton 02-17-2025 Celery Stripper Office Visit Report [facility] [address], [address] [place] [address] OFFICE VISIT Date of Service: 02/17/25 MR#: [id number] Acct: [id number] Name: WENDIE VELEZ Rep #: [id number] 2 : 1995 Provider: Dr. 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 Normal [facility] Absolute lymphocyte countOrd ered By: Monika Cui on 02-02-2025 Lymphocytes Auto (Unsp spec) [#/Vol] 1.51 10*3/uL 0.83-4.51 [facility] Absolute neutrophil countOrd ered By: Monika Cui on 02-02-2025 Neutrophils (Bld) [#/Vol] 4.3 10*3/uL 2.0-7.7 [facility] Automated lymphocyte count a s percentage of total leukocytesOrdered By: Monika Cui on 02-02-2025 Lymphocytes/100 WBC Auto (Unsp spec) 23.1 % 19-41 [facility] Basophil percentageOrdered B y: Monika Cui on 02-02-2025 Basophils/100 WBC (Bld) 0.3 % 0-1 [facility] CBC W/Diff, Automatedon 03-0 Absolute Lymph 1.51 X10 3/uL Normal 0.83-4.51 [facility] Comment on above: Performed By: #### L 509.8002, BTS, L100.0100, L3890.6102, L509.4006, L3890.6301, L3890.6006 #### [facility] Laboratory [address] [place], [place], [id number] Absolute Neut 4.3 X10 3/uL Normal 2.0-7.7 [facility] Comment on above: Performed By: #### L 509.8002, BTS, L100.0100, L3890.6102, L509.4006, L3890.6301, L3890.6006 #### [facility] Laboratory [address] [place], [address] Basophils/100 WBC (Bld) 0.3 % Normal 0-1 [facility] Comment on above: Performed By: #### L 509.8002, BTS, L100.0100, L3890.6102, L509.4006, L3890.6301, L3890.6006 #### [facility] Laboratory [address] [place], [address] Eosinophils/100 WBC (Bld) 4.6 % Normal 0-5 [facility] Comment on above: Performed By: #### L 509.8002, BTS, L100.0100, L3890.6102, L509.4006, L3890.6301, L3890.6006 #### [facility] Laboratory [address] [place], [address] Erythrocyte distribution width (RBC) [Ratio] 12.4 % Normal 11.6-14.6 [facility] Comment on above: Performed By: #### L 509.8002, BTS, L100.0100, L3890.6102, L509.4006, L3890.6301, L3890.6006 #### [facility] Laboratory [address] [place], [address] Hematocrit (Bld) [Volume fraction] 35.3 % Low 37-47 [facility] Comment on above: Performed By: #### L 509.8002, BTS, L100.0100, L3890.6102, L509.4006, L3890.6301, L3890.6006 #### [facility] Laboratory [address] [place], [address] Hemoglobin (Bld) [Mass/Vol] 12.1 g/dL Normal 12.0-15.0 [facility] Comment on above: Performed By: #### L 509.8002, BTS, L100.0100, L3890.6102, L509.4006, L3890.6301, L3890.6006 #### [facility] Laboratory [address] [place], [address] IG% 0.300 Normal 0.0-0.9 [facility] Comment on above: Result Comment: IG% - Immature Granulocytes (promyelocytes, myelocytes and metamyelocytes) > 1% indicates that a LEFT SHIFT is Present. Performed By: #### L 509.8002, BTS, L100.0100, L3890.6102, L509.4006, L3890.6301, L3890.6006 #### [facility] Laboratory [address] [place], [address] Lymphocytes/100 WBC (Bld) 23.1 % Normal 19-41 [facility] Comment on above: Performed By: #### L 509.8002, BTS, L100.0100, L3890.6102, L509.4006, L3890.6301, L3890.6006 #### [facility] Laboratory [address] [place], [address] MCH (RBC) [Entitic mass] 30.3 pg Normal 27.0-32.0 [facility] Comment on above: Performed By: #### L 509.8002, BTS, L100.0100, L3890.6102, L509.4006, L3890.6301, L3890.6006 #### [facility] Laboratory [address] [place], [address] MCHC (RBC) [Mass/Vol] 34.3 g/dL Normal 32-36 [facility] Comment on above: Performed By: #### L 509.8002, BTS, L100.0100, L3890.6102, L509.4006, L3890.6301, L3890.6006 #### [facility] Laboratory [address] [place], [address] MCV (RBC) [Entitic vol] 88.5 fL Normal 81-99 [facility] Comment on above: Performed By: #### L 509.8002, BTS, L100.0100, L3890.6102, L509.4006, L3890.6301, L3890.6006 #### [facility] Laboratory [address] [place], [address] Monocytes/100 WBC (Bld) 6.1 % Normal 0-10 [facility] Comment on above: Performed By: #### L 509.8002, BTS, L100.0100, L3890.6102, L509.4006, L3890.6301, L3890.6006 #### [facility] Laboratory [address] [place], [address] Neutrophils/100 WBC (Bld) 65.6 % Normal 47-70 [facility] Comment on above: Performed By: #### L 509.8002, BTS, L100.0100, L3890.6102, L509.4006, L3890.6301, L3890.6006 #### [facility] Laboratory [address] [place], [address] Nucleated RBC (Bld) [#/Vol] 0 10*3/uL Normal 0-5 [facility] Comment on above: Performed By: #### L 509.8002, BTS, L100.0100, L3890.6102, L509.4006, L3890.6301, L3890.6006 #### [facility] Laboratory [address] [place], [address] Platelet mean volume (Bld) [Entitic vol] 11.1 fL Normal 6.2-12.0 [facility] Comment on above: Performed By: #### L 509.8002, BTS, L100.0100, L3890.6102, L509.4006, L3890.6301, L3890.6006 #### [facility] Laboratory [address] [place], [address] Platelets (Bld) [#/Vol] 242 10*3/uL Normal 150-450 [facility] Comment on above: Performed By: #### L 509.8002, BTS, L100.0100, L3890.6102, L509.4006, L3890.6301, L3890.6006 #### [facility] Laboratory [address] [place], [address] RBC (Bld) [#/Vol] 3.99 10*6/uL Low 4.2-5.4 [facility] Comment on above: Performed By: #### L 509.8002, BTS, L100.0100, L3890.6102, L509.4006, L3890.6301, L3890.6006 #### [facility] Laboratory [address] [place], [address] RDW SD 39.9 fl Normal 35.1-43.9 [facility] Comment on above: Performed By: #### L 509.8002, BTS, L100.0100, L3890.6102, L509.4006, L3890.6301, L3890.6006 #### [facility] Laboratory [address] [place], [address] WBC (Bld) [#/Vol] 6.5 10*3/uL Normal 4.4-11.0 [facility] Comment on above: Performed By: #### L 509.8002, BTS, L100.0100, L3890.6102, L509.4006, L3890.6301, L3890.6006 #### [facility] Laboratory [address] [place], [address] Eosinophil percentageOrdered By: Monika Cui on 02-02-2025 Eosinophils/100 WBC (Bld) 4.6 % 0-5 [facility] Erythrocyte distribution wid th ratioOrdered By: Monika Cui on 02-02-2025 Erythrocyte distribution width (RBC) [Ratio] 12.4 % 11.6-14.6 [facility] Erythrocyte distribution wid th standard deviationOrdered By: Monika Cui on 02-02-2025 Erythrocyte distribution width (RBC) [Entitic vol] 39.9 fL 35.1-43.9 [facility] Erythrocyte distribution width (RBC) [Ratio] 39.9 fl 35.1-43.9 [facility] HBV surface Ag Ql (S)Ordered By: Monika Cui on 02-02-2025 Hepatitis B Surface Antigen Non-Reactive Nonreactive [facility] Comment on above: Reactive: Presumptiv e evidence of HBV. Repeatedly reactive samples must be confirmed using a neutralization test ([employer] HBsAg Confirmatory Test)Non-Reactive: HBsAg not detected; does not exclude the possibility of exposure to HBV Hematocrit Auto (Bld) [Volum e fraction]Ordered By: Monika Cui on 02-02-2025 Hematocrit (Bld) [Volume fraction] 35.3 % Low 37-47 [facility] Hemoglobin measurementOrdere d By: Monika Cui on 02-02-2025 Hemoglobin (Bld) [Mass/Vol] 12.1 g/dL 12.0-15.0 [facility] Hepatitis C antibodyOrdered By: Monika Cui on 02-02-2025 Hepatitis C Antibody Non-Reactive Nonreactive [facility] Comment on above: Reactive: Presumptiv e evidence of antibodies to HCV. Follow CDC recommendations for supplemental testing.Non-Reactive: Antibodies to HCV were not detected; does not exclude the possibility of exposure to HCVReactive Results are presumptive evidence of antibodies to HCV. Follow CDC recommendations for supplemental testing.Order confirmation testing: HCV Quant by PCR testing - HCVPCR #[id number] Non Reactive: < 0.8 Equivocal: >/= 0.8 to < 1.0 Reactive: >/= 1.0The CDC requires that a reactive/equivocal HCV antibody result be sent out for confirmation. HCV Quant by PCR testing. Immature granulocytes/100 WB C Auto (Bld)Ordered By: Monika Cui on 02-02-2025 Immature granulocytes/100 WBC (Bld) 0.300 % 0.0-0.9 [facility] Comment on above: IG% - Immature Granu locytes (promyelocytes, myelocytes and metamyelocytes) > 1% indicates that a LEFT SHIFT is Present. L3890.6006on 02-02-2025 HIV Non-Reactive Normal Nonreactive [facility] Comment on above: Result Comment: Non- Reactive Reactive Repeatedly reactive samples must be confirmed according to CDC recommended confirmatory algorithms. The subresults for either HIVAG or AHIV can be used as an aid in the selection of the confirmation algorithm for reactive samples. Send out specimens with Reactive results to [facility] for confirmation. Order the HIV antibody detection and differentiation: [id number] Performed By: #### L 509.8002, BTS, L100.0100, L3890.6102, L509.4006, L3890.6301, L3890.6006 ####[facility] [address] [facility] [place], [place], [id number] L3890.6102on 02-02-2025 HEP B Surf Ag Non-Reactive Normal Nonreactive [facility] Comment on above: Result Comment: Reac tive: Presumptive evidence of HBV. Repeatedly reactive samples must be confirmed using a neutralization test ([employer] HBsAg Confirmatory Test) Non-Reactive: HBsAg not detected; does not exclude the possibility of exposure to HBV Performed By: #### L 509.8002, BTS, L100.0100, L3890.6102, L509.4006, L3890.6301, L3890.6006 ####[facility] [address] [facility] [place], [place], [address] L3890.6301on 02-02-2025 Hepatitis C Ab Non-Reactive Normal Nonreactive [facility] Comment on above: Result Comment: Reac tive: Presumptive evidence of antibodies to HCV. Follow CDC recommendations for supplemental testing. Non-Reactive: Antibodies to HCV were not detected; does not exclude the possibility of exposure to HCV Reactive Results are presumptive evidence of antibodies to HCV. Follow CDC recommendations for supplemental testing. Order confirmation testing: HCV Quant by PCR testing - HCVPCR #[id number] Non Reactive: < 0.8 Equivocal: >/= 0.8 to < 1.0 Reactive: >/= 1.0 The CDC requires that a reactive/equivocal HCV antibody result be sent out for confirmation. HCV Quant by PCR testing. Performed By: #### L 509.8002, BTS, L100.0100, L3890.6102, L509.4006, L3890.6301, L3890.6006 ####[facility] [address] [place], [address] L509.4006on 02-02-2025 Rubella IgG REAC Normal Nonreactive [facility] Comment on above: Result Comment: Anti body Result: Interpretation Non-Reactive: Non-Immune Reactive: Immune The following results were obtained with the [employer] Rubella IgG assay. Results from assays of other manufacturers cannot be used interchangeably. Performed By: #### L 509.8002, BTS, L100.0100, L3890.6102, L509.4006, L3890.6301, L3890.6006 ####[facility] [address] [place], [place], [id number] L509.8002on 02-02-2025 Syphilis Abs Non-Reactive Normal Nonreactive [facility] Comment on above: Performed By: #### L 509.8002, BTS, L100.0100, L3890.6102, L509.4006, L3890.6301, L3890.6006 ####[facility] [address] [facility] [place], [place], [id number] Laboratory - Microbiology an d Antimicrobial susceptibilityOrdered By: Monika Cui on 02-02-2025 HBV surface Ag Ql (S) Non-Reactive Nonreactive [facility] Comment on above: Reactive: Presumptiv e evidence of HBV. Repeatedly reactive samples must be confirmed using a neutralization test ([employer] HBsAg Confirmatory Test)Non-Reactive: HBsAg not detected; does not exclude the possibility of exposure to HBV Lymphocytes Auto (Unsp spec) [#/Vol]Ordered By: Monika Cui on 02-02-2025 Lymphocytes (Bld) [#/Vol] 1.51 10*3/uL 0.83-4.5 1 [facility] Lymphocytes/100 WBC Auto (Un sp spec)Ordered By: Monika Cui on 02-02-2025 Lymphocytes/100 WBC (Bld) 23.1 % 19-41 [facility] MCV (mean corpuscular volume ) determinationOrdered By: Monika Cui on 02-02-2025 MCV (RBC) [Entitic vol] 88.5 fL 81-99 [facility] Mean corpuscular hemoglobin (MCH) determinationOrdered By: Monika Cui on 02-02-2025 MCH (RBC) [Entitic mass] 30.3 pg 27.0-32.0 [facility] Mean corpuscular hemoglobin concentration (MCHC) determinationOrdered By: Monika Cui on 02-02-2025 MCHC (RBC) [Mass/Vol] 34.3 g/dL 32-36 [facility] Mean platelet volume determi nationOrdered By: Monika Cui on 02-02-2025 Platelet mean volume (Bld) [Entitic vol] 11.1 fL 6.2-12.0 [facility] Monocyte percentageOrdered B y: Monika Cui on 02-02-2025 Monocytes/100 WBC (Bld) 6.1 % 0-10 [facility] Neutrophil percentageOrdered By: Monika Cui on 02-02-2025 Neutrophils/100 WBC (Bld) 65.6 % 47-70 [facility] No Panel InformationOrdered By: Monika Cui on 02-02-2025 HIV (1&2) Antibody Non-Reactive Nonreactive [facility] Comment on above: Non-ReactiveReactive Repeatedly reactive samples must be confirmed according to CDC recommended confirmatory algorithms. The subresults for either HIVAG or AHIV can be used as an aid in the selection of the confirmation algorithm for reactive samples.Send out specimens with Reactive results to [facility] for confirmation.Order the HIV antibody detection and differentiation: #[id number] Nucleated red blood cell per centageOrdered By: Monika Cui on 02-02-2025 Nucleated RBC/100 WBC (Bld) [Ratio] 0 % 0-5 [facility] Platelet countOrdered By: Panchito Cui on 02-02-2025 Platelets (Bld) [#/Vol] 242 10*3/uL 150-450 [facility] RBC Auto (Bld) [#/Vol]Ordere d By: Monika Cui on 02-02-2025 RBC (Bld) [#/Vol] 3.99 10*6/uL Low 4.2-5.4 [facility] Rubella immune status determ ination by IgG antibody assayOrdered By: Monika Cui on 02-02-2025 Rubella IgG Antibody REAC Nonreactive [facility] Comment on above: Antibody Result: Int erpretationNon-Reactive: Non-ImmuneReactive: ImmuneThe following results were obtained with the [employer] Rubella IgG assay. Results from assays of other manufacturers cannot be used interchangeably. T. pallidum abOrdered By: Panchito Cui on 02-02-2025 Syphilis Total Antibody Non-Reactive Nonreactiv e [facility] Type AND Screenon 02-02-2025 Ab SCREEN GEL Negative Normal [facility] Comment on above: Order Comment: PN Performed By: #### L 509.8002, BTS, L100.0100, L3890.6102, L509.4006, L3890.6301, L3890.6006 ####[facility] [id number] [place], [address] White blood cell (WBC) count Ordered By: Monika Cui on 02-02-2025 WBC (Bld) [#/Vol] 6.5 10*3/uL 4.4-11.0 [facility] Chlamydia/GC ZORAIDA aptimaon CHLAMY,NUC ACID Negative Normal Negative [facility] Comment on above: Performed By: #### M 100.2200, L7000.1800 #### [facility] [address] [place], [address] GC BY NUC ACID Negative Normal Negative [facility] Comment on above: Result Comment: Perf ormed at: =G - [facility] [address] [place] [id number] Pipe Jeeper: Gissel Hardin MD, Phone: [phone] Performed By: #### M 100.2200, L7000.1800 #### [facility] [address] [place], [address] Urine Cultureon 01-14-2025 URC Culture exhibits no growth. Normal [facility] Comment on above: Performed By: #### M 100.2200, L7000.1800 #### [facility] [address] [place], [address] C. trachomatis rRNA ZORAIDA+prob e Ql (Unsp spec)Ordered By: Monika Cui on 01-13-2025 Chlamydia DNA (ZORAIDA) Negative Negative [facility] Chlamydia trachomatis rRNA d etection by probe and target amplification methodOrdered By: Monika Cui on 01-13-2025 C. trachomatis rRNA ZORAIDA+probe Ql (Unsp spec) Negative Negative [facility] Neisseria gonorrhoeae nuclei c acid detection by amplified probe techniqueOrdered By: Monika Cui on 01-13-2025 N. gonorrhoeae DNA ZORAIDA+probe Ql (Unsp spec) Negative Negative [facility] Comment on above: Performed at: =[address] [id number] Director: Gissel Hardin MD, Phone: [phone] [facility] Office Visit Reporton 01-13-2025 Celery Stripper Office Visit Report [facility] [address], [address] [place] [address] OFFICE VISIT Date of Service: 01/13/25 MR#: [id number] Acct: [id number] Name: WENDIE VELEZ Rep #: [id number] : 1995 Provider: FELICE Calero ams Age/Sex: 29/F [place] [facility] [place]: Signed Intake Vital Signs 01/16/14 08:29 [...] History History of colposcopy H/O sinus surgery [place] teeth extracted History of tonsillectomy Family History [...] No 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 Normal [facility] Urine cultureOrdered By: Heriberto Cui on 01-13-2025 Bacteria identified Cx Nom (U) Culture exhibits no growth. [facility] CNOVon 05-30-2024 CNOV Office Visit (OBGYWM) ---- JOSEWENDIE Corcoran ([id number]) 1995 F Date Time Provider Department 05/30/24 7:30 AM CAROL SHELBY During your visit today, we recorded the following information about you: Weight Height Last Period 79.4 kg 1.683 m 05/17/24 Carol Shelby APRN.GAS COMBUSTION ENGINEER 05/30/2024 8:25 AM Signed Wendie is a 28 year old who presents for an annual gynecologic exam without complaints. Menses: cycles every 28-30 days and 5 days of flow. Contraception:none, not preventing but not trying yet HPV vaccine: Yes Last Pap: 06/2022 ASCUS HPV positive [place] 08/13/2022 benign History of abnormal pap: Yes [...] L0 SAB0 IAB0 Ectopic0 Multiple0 Live Births0 Data Entry Technician History LMP: 05/17/2024, Having periods Age at Menarche: Age at First : Age at Menopause: Data Entry Technician History Comments: Sexual Activity: Yes; Male Contraception: [...] external genitalia normal, normal Bartholin's glands, urethra, [place]'s glands, no vulvar lesions, no cervical lesions, [...] one year or sooner as needed Carol Shebly APRN.Carol Torres APRN.MARS 05/30/2024 8:08 AM Addendum Preconception: vitamin with folic acid 0.4 - 1 mg daily. Eat a healthy, balanced diet with daily exercise. Avoid pollutants and exposure to chemicals. Period tracker to predict time of ovulation. Sexual intercourse every other day a (more content not included)... Normal [facility] PAP TESTon 05-30-2024 ADEQUACY Satisfactory for interpretation. Normal [facility] Comment on above: Order Comment: Speci men Type: FLUID SPECIMEN Ordering Facility: [facility] Address: [address] [place] [address] Performed By: #### L [id number] #### [facility] CLIA [id number] [address] [place] [address] [place] [address] [place] CASE REPORT Normal [facility] Comment on above: Order Comment: Speci men Type: FLUID SPECIMEN Ordering Facility: [facility] Address: [address] [place] [address] Result Comment: Gyne cologic Cytology Report Case: [id number] Authorizing Provider: Carol Shelby APRN.GAS COMBUSTION ENGINEER Collected: 05/30/2024 08:38 AM Ordering Location: OB/Gynecology Received: 05/30/2024 12:16 PM First Screen: Marlene Calderon, CT, ASCP Rescreen: Yessi Vilchis, CT, ASCP Specimen: Pap Test, ThinPrep, Cervix Performed By: #### L [id number] #### [facility] CLIA [id number] [address] [place] [address] [place] CLINICAL HISTORY, CYTOLOGY, DRY GOODS CLERK Routine Exam Normal [facility] Comment on above: Order Comment: Speci men Type: FLUID SPECIMEN Ordering Facility: [facility] Address: [address] [place] [address] Result Comment: Prev ious ASCUS Positive HPV Performed By: #### L [id number] #### [facility] CLIA [id number] [address] [place] [address] [place] FINAL PERFORMING LAB Normal [facility] Comment on above: Order Comment: Speci men Type: FLUID SPECIMEN Ordering Facility: [facility] Address: [address] [place] [address] Result Comment: Tech nical component, foam rubber curer screening performed at [facility], [address] [place] [address] CLIA# [id number] Diagnostic interpretation performed at [facility], [address] [place] [address] CLIA# [id number] Twister Operator: Serge Martins M.D. Performed By: #### L [id number] #### [facility] CLIA [id number] [address] [place] [address] [place] HPV REFLEX HPV if Atypical Normal [facility] Comment on above: Order Comment: Speci men Type: FLUID SPECIMEN Ordering Facility: [facility] Address: [address] [place] [address] Performed By: #### L [id number] #### [facility] CLIA [id number] [address] [place] [address] [place] INTERPRETATION, CYTOLOGY, DRY GOODS CLERK Normal [facility] Comment on above: Order Comment: Speci men Type: FLUID SPECIMEN Ordering Facility: [facility] Address: [address] [place] [address] Result Comment: Nega tive for intraepithelial lesion or malignancy. Performed By: #### L [id number] #### [facility] CLIA [id number] [address] [place] [address] [place] LMP 05/17/2024 Normal [facility] Comment on above: Order Comment: Speci men Type: FLUID SPECIMEN Ordering Facility: [facility] Address: [address] [place] [address] Performed By: #### L [id number] #### [facility] CLIA [id number] [address] [place] [address] [place] PAP DISCLAIMER COMMENT The Pap Smear is a screening test for cervical cancer. False negative results occur with all screening tests, emphasizing the need for rescreening at recommended intervals, and clinical correlation. Normal [facility] Comment on above: Order Comment: Speci men Type: FLUID SPECIMEN Ordering Facility: [facility] Address: [address] [place] [address] Performed By: #### L [id number] #### [facility] CLIA [id number] [address] [place] [address] [place] PAP PHOTO JOURNALIST COMMENT This specimen has been analyzed by the ThinPrep Imaging System, an automated imaging and review system, which assists the laboratory in evaluating cells on ThinPrep Pap tests. Following automated imaging, selected thompson from every slide are reviewed by a foam rubber curer. Normal [facility] Comment on above: Order Comment: Speci men Type: FLUID SPECIMEN Ordering Facility: [facility] Address: [address] [place] [address] Performed By: #### L [id number] #### [facility] ALBERTO [id number] [address] [place] [address] [place] CNOVon 05-20-2024 CNOV Office Visit (UCWSTR) ---- WENDIE VELEZ ([id number]) 1995 F Date Time Provider Department 05/20/24 10:00 AM JAMES DILL [facility] During your visit today, we recorded the following information about you: Temperature Pulse Respiration Blood pressure 97.6 degrees 70/minute 21/minute 110/80 Weight 80 kg James Dill APRN.GAS COMBUSTION ENGINEER 05/20/2024 10:49 AM Signed Subjective Patient came [...] history is provided by the patient. No freelance interpreter/translator was used. Animal Bite Review of Systems [...] (FLONASE) 50 mcg/actuation nasal spray Use 1 Leigh in each nostril twice daily. (Patient not [...] okay with this care plan. James Dill APRN.GAS COMBUSTION ENGINEER Allergies As of Date: 05/20/2024 Noted Allergy Reaction SODIUM PENTOTHAL (THIOPENTAL) 01/19/2013 14 - Other: See Comments Comments: seizure GRASS POLLEN 07/22/2018 5 - Intolerance Comments: Sneezing, Eyes itching, ect... Date Reviewed: 05/20/2024 Reviewed by: Sarah Sanchez MA - Fully Assessed Reason for Visit: Animal Bite [79817] Cmt: Dog bite on right hand this morning Primary Visit Diagnosis:Dog bite, initial encounter [W54.0XXA] Other Visit Diagnosis:Puncture wound [T14.8XXA] Order(s):amoxicilli n-clavulanate potassium (AUGMENTIN) 875-125 mg per tabletTake 1 tablet by mouth two times a day for 10 days.Disp: 20 tabletRfl: 0 TDAP VACCINE, AGE 7+ YR (ADACEL, BOOSTRIX) [[id number]] Order #: [id number] Prescriptions as of 05/20/2024 - amoxicillin-clavula sylvia potassium (AUGMENTIN) 875-125 mg per tablet Take 1 tablet by mouth two times a day for 10 days. - fluconazole (DIFLUCAN) 150 mg tablet Take 1 tablet today, then a 2nd tablet in 72 hours, and 3rd tablet in another 72 hours. - fl (more content not included)... Normal [facility] SURGICAL PATHOLOGYon Case Report Surgical Pathology Report Case: [id number] Authorizing Provider: Hannah Benz MD Collected: 08/13/2022 02:25 PM Ordering Location: OB/Gynecology Received: 08/13/2022 04:15 PM Pathologist: Asher Cardenas MD Specimens: A) - CERVIX BIOPSY, 1 o'clock B) - CERVIX BIOPSY, 3 o'clock C) - ENDOCERVIX CURETTINGS, ECC [facility] Clinical History ASCUS; positive high risk HPV [facility] FINAL DIAGNOSIS A. Cervix, 1:00, biopsy: - Benign transformation zone tissue. B. Cervix, 3:00, biopsy: - Benign transformation zone tissue and squamous epithelium. C. Endocervix, curettage: - Benign endocervical tissue. MJM 08/14/2022 [facility] Gross Description A. CERVIX BIOPSY Received in [...] in one cassette. Gross examination performed at [facility], [address] [place] [address] [facility] 08/13/2022 11:49 PM [facility] Performing Lab Diagnostic interpretation performed at [facility], [address] [id number] CLIA# [id number] Twister Operator: Asher Cardenas M.D. [facility] HCG QUAL UR B/Oon 08-13-2022 status Negative neg - [facility] Quality Check Yes [facility] Vital Signs Date Time Vital Sign Value Performing Clinician Facility 08-11-2025 11:01-0400 Body height 170.[address] Laura Marcus MD Work Phone: [facility] 08-11-2025 10:59-0400 Body mass index (BMI) [Ratio] 32.4 kg/m2 Dr. Laura Marcus MD Work Phone: [facility] 08-11-2025 10:59-0400 Body weight 93.[address] Laura Marcus MD Work Phone: [facility] 08-11-2025 10:59-0400 Diastolic blood pressure 83 mm[Hg] Dr. Laura Marcus MD Work Phone: [facility] 08-11-2025 10:59-0400 Systolic blood pressure 127 mm[Hg] Dr. Laura Marcus MD Work Phone: [facility] 08-03-2025 15:03-0400 Body height 170.[address] Laura Marcus MD Work Phone: [facility] 08-03-2025 15:03-0400 Body mass index (BMI) [Ratio] 32.3 kg/m2 Dr. Laura Marcus MD Work Phone: 4(462)272-173836 [place] [address] 08-03-2025 15:03-0400 Body weight 93.[address] Laura Marcus MD Work Phone: 5(862)744-860236 [place] [address] 08-03-2025 15:03-0400 Diastolic blood pressure 84 mm[Hg] Dr. Laura Marcus MD Work Phone: 6(808)234-727536 [place] [address] 08-03-2025 15:03-0400 Systolic blood pressure 137 mm[Hg] Dr. Laura Marcus MD Work Phone: 7(091)100-039636 [place] [address] 07-25-2025 13:35-0400 Body height 170.[address] Laura Marcus MD Work Phone: 3(818)087-637836 [place] [address] 07-25-2025 13:35-0400 Body mass index (BMI) [Ratio] 32.3 kg/m2 Dr. Laura Marcus MD Work Phone: 1(657)692-680236 [place] [address] 07-25-2025 13:35-0400 Body weight 93.[address] Laura Marcus MD Work Phone: 1(462)787-749536 [place] [address] 07-25-2025 13:35-0400 Diastolic blood pressure 82 mm[Hg] Dr. Laura Marcus MD Work Phone: 8(152)213-029836 [place] [address] 07-25-2025 13:35-0400 Systolic blood pressure 120 mm[Hg] Dr. Laura Marcus MD Work Phone: 9(747)426-539036 [place] [address] 07-20-2025 14:04-0400 Body height 170.[address] Laura Marcus MD Work Phone: 7(417)488-872036 [place] [address] 07-20-2025 14:04-0400 Body mass index (BMI) [Ratio] 32.5 kg/m2 Dr. Laura Marcus MD Work Phone: 7(720)937-320436 [place] [address] 07-20-2025 14:04-0400 Body weight 94.[address] Laura Marcus MD Work Phone: 7(241)974-952536 [place] [address] 07-20-2025 14:04-0400 Diastolic blood pressure 80 mm[Hg] Dr. Laura Marcus MD Work Phone: 8(206)834-647436 [place] [address] 07-20-2025 14:04-0400 Systolic blood pressure 126 mm[Hg] Dr. Laura Marcus MD Work Phone: 7(688)579-802136 [place] [address] 07-04-2025 14:51-0400 Body height 170.[address] Laura Marcus MD Work Phone: 6(977)497-083736 [place] [address] 07-04-2025 14:51-0400 Body mass index (BMI) [Ratio] 32.1 kg/m2 Dr. Laura Marcus MD Work Phone: 0(592)608-327536 [place] [address] 07-04-2025 14:51-0400 Body weight 93.[address] Laura Marcus MD Work Phone: 1(092)246-685036 [place] [address] 07-04-2025 14:51-0400 Diastolic blood pressure 76 mm[Hg] Dr. Laura Marcus MD Work Phone: 0(291)510-248736 [place] [address] 07-04-2025 14:51-0400 Systolic blood pressure 121 mm[Hg] Dr. Laura Marcus MD Work Phone: 8(711)948-997236 [place] [address] 06-19-2025 08:49-0400 Body height 170.[address] Laura Marcus MD Work Phone: 5(533)616-864936 [place] [address] 06-19-2025 08:49-0400 Body mass index (BMI) [Ratio] 31.6 kg/m2 Dr. Laura Marcus MD Work Phone: 3(523)567-092136 [place] [address] 06-19-2025 08:49-0400 Body weight 91.[address] Laura Marcus MD Work Phone: 9(102)172-480536 [place] [address] 06-19-2025 08:49-0400 Diastolic blood pressure 76 mm[Hg] Dr. Laura Marcus MD Work Phone: 9(867)508-517436 [place] [address] 06-19-2025 08:49-0400 Systolic blood pressure 117 mm[Hg] Dr. Laura Marcus MD Work Phone: 0(019)863-091736 [place] [address] 06-05-2025 14:21-0400 Body height 170.[address] Laura Marcus MD Work Phone: 9(267)079-136536 [place] [address] 06-05-2025 14:21-0400 Body mass index (BMI) [Ratio] 31.6 kg/m2 Dr. Laura Marcus MD Work Phone: 4(176)847-908236 [place] [address] 06-05-2025 14:21-0400 Body weight 91.[address] Laura Marcus MD Work Phone: 3(961)936-053536 [place] [address] 06-05-2025 14:21-0400 Diastolic blood pressure 79 mm[Hg] Dr. Laura Marcus MD Work Phone: 6(593)359-469236 [place] [address] 06-05-2025 14:21-0400 Systolic blood pressure 117 mm[Hg] Dr. Laura Marcus MD Work Phone: 5(662)286-229336 [place] [address] 05-10-2025 11:31-0400 Body height 170.[address] Laura Marcus MD Work Phone: 1(836)907-326836 [place] [address] 05-10-2025 11:31-0400 Body mass index (BMI) [Ratio] 31.1 kg/m2 Dr. Laura Marcus MD Work Phone: 0(991)468-962036 [place] [address] 05-10-2025 11:31-0400 Body weight 90.[address] Laura Marcus MD Work Phone: 2(438)405-488936 [place] [address] 05-10-2025 11:31-0400 Diastolic blood pressure 68 mm[Hg] Dr. Laura Marcsu MD Work Phone: 1(343)463-617336 [place] [address] 05-10-2025 11:31-0400 Systolic blood pressure 116 mm[Hg] Dr. Laura Marcus MD Work Phone: 7(364)249-067936 [place] [address] 04-11-2025 10:10-0400 Body height 170.[address] Laura Marcus MD Work Phone: 1(331)023-730536 [place] [address] 04-11-2025 10:10-0400 Body mass index (BMI) [Ratio] 30.8 kg/m2 Dr. Laura Marcus MD Work Phone: 9(249)260-987936 [place] [address] 04-11-2025 10:10-0400 Body weight 89.[address] Laura Marcus MD Work Phone: 4(656)764-108036 [place] [address] 04-11-2025 10:10-0400 Diastolic blood pressure 78 mm[Hg] Dr. Laura Marcus MD Work Phone: 9(208)135-346836 [place] [address] 04-11-2025 10:10-0400 Systolic blood pressure 118 mm[Hg] Dr. Laura Marcus MD Work Phone: 5(303)841-073936 [place] [address] 03-16-2025 09:45-0400 Body mass index (BMI) [Ratio] 30.6 kg/m2 Dr. Laura Marcus MD Work Phone: 8(127)564-513136 [place] [address] 03-16-2025 09:45-0400 Body weight 88.[address] Laura Marcus MD Work Phone: 6(860)984-185436 [place] [address] 03-16-2025 09:45-0400 Diastolic blood pressure 71 mm[Hg] Dr. Laura Marcus MD Work Phone: 6(191)145-003736 [place] [address] 03-16-2025 09:45-0400 Systolic blood pressure 115 mm[Hg] Dr. Laura Marcus MD Work Phone: 6(896)762-846136 [place] [address] 02-17-2025 09:31-0400 Body height 170.[address] Laura Marcus MD Work Phone: 2(735)031-894936 [place] [address] 02-17-2025 09:31-0400 Body mass index (BMI) [Ratio] 29.9 kg/m2 Dr. Laura Marcus MD Work Phone: 1(695)421-424636 [place] [address] 02-17-2025 09:31-0400 Body weight 86.[address] Laura Marcus MD Work Phone: 4(879)508-450536 [place] [address] 02-17-2025 09:31-0400 Diastolic blood pressure 76 mm[Hg] Dr. Laura Marcus MD Work Phone: 4(913)958-923736 [place] [address] 02-17-2025 09:31-0400 Systolic blood pressure 109 mm[Hg] Dr. Laura Marcus MD Work Phone: 5(561)393-002836 [place] [address] 01-13-2025 12:59-0500 Body height 170.[address] Laura Marcus MD Work Phone: 6(510)574-724036 [place] [address] 01-13-2025 12:59-0500 Body mass index (BMI) [Ratio] 30.1 kg/m2 Dr. Laura Marcus MD Work Phone: 9(765)823-896536 [place] [address] 01-13-2025 12:59-0500 Body weight 87.[address] Laura Marcus MD Work Phone: [facility] 01-13-2025 12:59-0500 Diastolic blood pressure 77 mm[Hg] Dr. Laura Marcus MD Work Phone: [facility] 01-13-2025 12:59-0500 Systolic blood pressure 120 mm[Hg] Dr. Laura Marcus MD Work Phone: [facility] 05-30-2024 07:55-0400 Body height 168.3 cm Carol Shelby APRN.GAS COMBUSTION ENGINEER Work Phone: [facility] 05-30-2024 07:55-0400 Body mass index (BMI) [Ratio] 28.03 kg/m2 Carol Shelby APRN.GAS COMBUSTION ENGINEER Work Phone: [facility] 05-30-2024 07:55-0400 Body weight 79.38 kg Carol Shelby APRN.GAS COMBUSTION ENGINEER Work Phone: [facility] 05-20-2024 10:04-0400 Body mass index (BMI) [Ratio] 28.34 kg/m2 James Dill APRN.GAS COMBUSTION ENGINEER Work Phone: [facility] 05-20-2024 10:04-0400 Body temperature 97.59 [degF] James Dill APRN.GAS COMBUSTION ENGINEER Work Phone: [facility] 05-20-2024 10:04-0400 Body weight 80 kg James Dill APRN.GAS COMBUSTION ENGINEER Work Phone: [facility] 05-20-2024 10:04-0400 Diastolic blood pressure 80 mm[Hg] James Dill APRN.GAS COMBUSTION ENGINEER Work Phone: [facility] 05-20-2024 10:04-0400 Heart rate 70 /min James Dill APRN.GAS COMBUSTION ENGINEER Work Phone: [facility] 05-20-2024 10:04-0400 Respiratory rate 21 /min James Dill APRN.GAS COMBUSTION ENGINEER Work Phone: [facility] 05-20-2024 10:04-0400 SaO2% (BldA) [Mass fraction] 99 % James Dill APRN.GAS COMBUSTION ENGINEER Work Phone: [facility] 05-20-2024 10:04-0400 Systolic blood pressure 110 mm[Hg] James Dill APRN.GAS COMBUSTION ENGINEER Work Phone: [facility] 08-13-2022 13:45-0400 Body weight 75.66 kg Hannah Benz MD Work Phone: [facility] 08-13-2022 13:45-0400 Diastolic blood pressure 70 mm[Hg] Hannah Benz MD Work Phone: [facility] 08-13-2022 13:45-0400 Systolic blood pressure 110 mm[Hg] Hannah Benz MD Work Phone: [facility] 07-18-2022 08:00-0400 Body height 168 cm Carol Shelby APRN.GAS COMBUSTION ENGINEER Work Phone: [facility] 07-18-2022 08:00-0400 Body weight 74.84 kg Carol Shelby APRN.GAS COMBUSTION ENGINEER Work Phone: [facility] 07-18-2022 08:00-0400 Diastolic blood pressure 70 mm[Hg] Carol Shelby APRN.GAS COMBUSTION ENGINEER Work Phone: [facility] 07-18-2022 08:00-0400 Systolic blood pressure 100 mm[Hg] Carol Shelby APRN.GAS COMBUSTION ENGINEER Work Phone: [facility] Encounters Encounter Date Encounter Type Care Provider Facility Start: 08-24-2025 ambulatory Joie Walkerty:[facility] Start: 08-18-2025 End: 08-18-2025 ambulatory No Primary Care Physician Facility:[facility] Start: 08-11-2025 End: 08-11-[address] Tanisha Pena MD -[facility] Work Phone: Start: 08-11-2025 End: 08-11-[address] Laura Marcus MD Work Phone: -[facility] Start: 08-03-2025 End: 08-03-2025 Patient encounter procedure Monika Cui CNM -[facility] Work Phone: Start: 08-03-2025 End: 08-03-[address] Laura Marcus MD Work Phone: -[facility] Start: 07-25-2025 End: 07-25-[address] Laura Marcus MD Work Phone: -Laboratory Specimen Start: 07-25-2025 End: 07-25-2025 Patient encounter procedure Jasmine Tanner TEXTILE KNITTER-C -Laboratory Specimen Work Phone: Start: 07-25-2025 End: 07-25-2025 Patient encounter procedure Jasmine Tanner TEXTILE KNITTER-C -[facility] Work Phone: Start: 07-25-2025 End: 07-25-[address] Laura Marcus MD Work Phone: [facility] Start: 07-25-2025 End: 07-25-2025 ambulatory Jasmine Tanner TEXTILE KNITTER Facility:[facility] Start: 07-20-2025 End: 07-20-[address] Tanisha Pena MD -[facility] Work Phone: Start: 07-20-2025 End: 07-20-[address] Laura Marcus MD Work Phone: [facility] Start: 07-04-2025 End: 07-04-[address] Joie Bonner DO -[facility] Work Phone: Start: 07-04-2025 End: 07-04-[address] Laura Marcus MD Work Phone: -[facility] Start: 06-19-2025 End: 06-19-2025 Patient encounter procedure Monika Cui CNM -[facility] Work Phone: Start: 06-19-2025 End: 06-19-[address] Laura Marcus MD Work Phone: [facility] Start: 06-15-2025 End: 06-15-[address] Laura Marcus MD Work Phone: -Laboratory Start: 06-15-2025 End: 06-15-2025 Patient encounter procedure Jasmine Tanner TEXTILE KNITTER-C -Laboratory Work Phone: Start: 06-15-2025 End: 06-15-2025 ambulatory Jasmine Flores TEXTILE KNITTER Facility:[facility] Start: 06-05-2025 End: 06-05-2025 Patient encounter procedure Monika Cui CNM -[facility] Work Phone: Start: 06-05-2025 End: 06-05-[address] Laura Marcus MD Work Phone: -[facility] Start: 06-05-2025 End: 06-05-2025 ambulatory Laura Marcus Facility:[facility] Start: 05-10-2025 End: 05-10-2025 Patient encounter procedure Jasmine Ortegas TEXTILE KNITTER-C -[facility] Work Phone: Start: 05-10-2025 End: 05-10-[address] Laura Marcus MD Work Phone: [facility] Work Phone: Start: 04-11-2025 End: 04-11-2025 Patient encounter procedure Jasmine Mitchells TEXTILE KNITTER-C -[facility] Work Phone: Start: 04-11-2025 End: 04-11-[address] Laura Marcus MD Work Phone: [facility] Work Phone: Start: 03-28-2025 End: 03-28-2025 ambulatory JOSE ALBERTO Ramos [facility] Start: 03-16-2025 End: 03-16-[address] Joie Bonner DO -[facility] Work Phone: Start: 03-16-2025 End: 03-16-2025 ambulatory Joie Bonner Facility:[facility] Start: 02-17-2025 End: 02-17-[address] Tanisha Pena MD -[facility] Work Phone: Start: 02-17-2025 End: 02-17-[address] Laura Marcus MD Work Phone: [facility] Work Phone: Start: 02-17-2025 End: 02-17-2025 ambulatory Laura Michel Marcus Facility:[facility] Start: 02-02-2025 End: 02-02-[address] Laura Marcus MD Work Phone: [facility] Work Phone: Start: 02-02-2025 End: 02-02-2025 Patient encounter procedure Monika Cui CNM -Lab, [facility] Start: 02-02-2025 End: 02-02-2025 ambulatory Laura Marcus Facility:[facility] Start: 01-13-2025 End: 01-13-2025 Patient encounter procedure Monika uCi CNM -Laboratory, Specimen Work Phone: Start: 01-13-2025 End: 01-13-2025 ambulatory Laura Michel Goehner Facility:[facility] Start: 01-13-2025 End: 01-13-2025 Patient encounter procedure Monika Cui CNM -[facility] Work Phone: Start: 01-13-2025 End: 01-13-2025 ambulatory Laura Marcus Facility:[facility] Start: 05-30-2024 End: 05-30-2024 ambulatory LAURA MARCUS Facility:[facility] Start: 05-30-2024 End: 05-30-2024 Patient encounter procedure Carol Shelby APRN.GAS COMBUSTION ENGINEER Work Phone: OB/Gynecology Comment on above: Encounter for gyneco logical examination (general) (routine) without abnormal findings (Primary Dx); Papanicolaou smear of cervix with atypical squamous cells of undetermined significance (ASC-US); Screening for cervical cancer Start: 05-30-2024 End: 05-30-2024 Patient encounter status Carol Shelby APRN.GAS COMBUSTION ENGINEER Work Phone: [facility] Start: 05-20-2024 End: 05-20-2024 ambulatory LAURA Michel [place] Facility:[facility] Start: 05-20-2024 End: 05-20-2024 Patient encounter procedure James Dill APRN.GAS COMBUSTION ENGINEER Work Phone: [facility] Comment on above: Dog bite, initial en counter (Primary Dx); Puncture wound Start: 08-13-2022 End: 08-13-2022 Patient encounter procedure Hannah Benz MD Work Phone: OB/Gynecology Comment on above: ASCUS with positive high risk HPV cervical (Primary Dx) Start: 07-21-2022 Telephone encounter Roxana rivera APRN.GAS COMBUSTION ENGINEER Work Phone: OB/Gynecology Comment on above: Results Start: 07-18-2022 End: 07-18-2022 Patient encounter procedure Carol Shelby APRN.GAS COMBUSTION ENGINEER Work Phone: OB/Gynecology Comment on above: Encounter for gyneco logical examination with abnormal finding (Primary Dx); Vaginal discharge; Surveillance for control, oral contraceptives; Encounter for Papanicolaou smear for cervical cancer screening Start: 07-18-2022 End: 07-18-2022 Patient encounter status Carol Shelby APRN.GAS COMBUSTION ENGINEER Work Phone: OB/Gynecology Procedures Date Procedure Procedure [...] HCV Quant by PCR testing - HCVPCR #[id number] Non Reactive: < 0.8 Equivocal: >/= 0.8 [...] DTaP,Tdap,Td Vaccine (8 - Td or Tdap) [facility] Start: 07-18-2025 PAP TESTING PAP TESTING [facility] Start: 06-05-2025 CBC W Auto Different ial panel - Blood [facility] Start: 06-05-2025 Measurement of gluco se 2 hours after glucose challenge for glucose tolerance test [facility] Start: 06-05-2025 Serologic test for syphilis [facility] Start: 06-05-2025 [facility] Start: 05-31-2025 End: 05-31-2025 Patient encounter procedure 05/31/2025 1:00 PM EDT Office Visit OB/Gynecology [address] [place], [place] [id number] Carol Shelby APRN.GAS COMBUSTION ENGINEER [address] [place] [address] Annual OB/Gynecology Comment on above: Annual Start: 07-31-2024 Influenza vaccination C [facility] Start: 05-30-2024 End: 05-30-2024 Patient encounter procedure 05/30/2024 7:30 AM EDT Office Visit OB/Gynecology [address] [place] [address] Carol Shelby APRN.GAS COMBUSTION ENGINEER [address] [place] [address] Annual Exam / discuss starting to try to conceive OB/Gynecology Comment on above: Annual Exam / discus s starting to try to conceive Start: 11-30-2023 Behavioral Health Screening Behavioral Health Screening [facility] Start: 07-31-2023 Covid-19 Vaccine () Covid-19 Vaccine () [facility] Start: 07-31-2023 Covid-19 Vaccine () Covid-19 Vaccine () [facility] Start: 07-18-2023 Screening for malign ant neoplasm of cervix Cervical Cancer Screening [facility] Start: 08-19-2022 PAP TESTING PAP TESTING [facility] Start: 07-31-2022 Influenza vaccination INFLUENZA (#1) [facility] Start: 09-04-2021 COVID-19 VACCINE (3 - Booster for Moderna series) COVID-19 VACCINE (3 - Booster for Moderna series) [facility] Start: 2014 Urine microalbumin profile DTAP,TDAP,TD (1 - Tdap) [facility] Start: 2013 HEPATITIS C SCREENING HEPATITIS C [facility] Start: 2013 Hepatitis C screening Hepatitis C [facility] Start: 2013 HIV SCREENING HIV SCREENING [facility] Start: 2013 HIV screening HIV Screening [facility] Start: 02-16-2013 HEPATITIS B (2 of 3 - 3-dose series) HEPATITIS B (2 of 3 - 3-dose series) [facility] Start: 2009 PEDS TO ADULT TRANSI TION ANNUAL ASSESSMENT PEDS TO ADULT TRANSITION ANNUAL ASSESSMENT [facility] Start: 2007 Adult depression screening assessment DEPRESSION SCREENING [facility] Start: 2007 PEDS TO ADULT TRANSI TION INITIAL DISCUSSION PEDS TO ADULT TRANSITION INITIAL DISCUSSION [facility] BACTERIAL VAGINOSIS AMPLIFICATION BACTERIAL VAGINOSIS AMPLIFICATION Lab Routine Vaginal discharge 07/18/2022 8:44 AM EDT [facility] Work Phone: GONZALEZ / TRICHOMONA S AMPLIFICATION GONZALEZ / TRICHOMONAS AMPLIFICATION Lab Routine Vaginal discharge 07/18/2022 8:44 AM EDT [facility] Work Phone: CBC W Auto Different ial panel - Blood [facility] COLPOSCOPY COLPOSCOPY Proce dures Routine ASCUS with positive high risk HPV cervical Ordered: 08/13/[address] [facility] Work Phone: Comment on above: Ordered: 08/13/2022 Erythrocyte mean corpuscular volume determination [facility] Hematocrit [Volume Fraction] of Blood [facility] Hemoglobin [Mass/vol ume] in Blood [facility] Leukocytes [#/volume ] in Blood [facility] Mean corpuscular hemoglobin concentration determination [facility] Mean corpuscular hemoglobin determination [facility] Measurement of gluco se 2 hours after glucose challenge for glucose tolerance test [facility] Neutrophil count [facility] Neutrophil percent differential count [facility] PAP FLUID CERVICAL SCREENING PAP FLUID CERVICAL SCREENING Lab Routine Encounter for gynecological examination with abnormal finding Encounter for Papanicolaou smear for cervical cancer screening 07/18/2022 8:44 AM EDT [facility] Work Phone: PAP TEST PAP TEST Lab [facility] Encounter for gynecological examination (general) (routine) without abnormal findings Screening for cervical cancer Papanicolaou smear of cervix with atypical squamous cells of undetermined significance (ASC-US) 05/30/2024 8:38 AM EDT [facility] Work Phone: Platelets [#/volume] in Blood [facility] Red blood cell count [facility] Red cell distributio n width determination [facility] Serologic test for syphilis [facility] Streptococcus agalac tiae [Presence] in Unspecified specimen by Organism specific culture [facility] Immunizations Immunization Date Immunization Notes Care Provider Alberta fernández 06-19-2025 tetanus toxoid, redu yimi diphtheria toxoid, and acellular pertussis vaccine, adsorbed Dr. Laura Marcus MD Work Phone: [facility] 05-20-2024 tetanus toxoid, redu yimi diphtheria toxoid, and acellular pertussis vaccine, adsorbed James Dlil APRN.GAS COMBUSTION ENGINEER Work Phone: [facility] 01-19-2013 hepatitis B vaccine, unspecified formulation Carol Shelby APRN.GAS COMBUSTION ENGINEER Work Phone: [facility] Payers Date Payer Category Payer Unknown [id number] 2024 Self-pay 2021 Unknown [employer] PPO [id number] 2021-Present [phone] [address] [place] [address] PPO [id number] 2021 Unknown [id number] 2013 Unknown [id number] 1995 Unknown [id number] Unknown [id number] Unknown [id number] 01.15.840.1.465308.3.579.2.462 Unknown [id number] Unknown [id number] Unknown [id number] .[id number] Unknown [id number] .[id number] Unknown [id number] .[id number] Unknown [id number] 2.16.840.1.033725.3.579.2.462 Unknown [id number] 2.16.840.1.186328.3.579.2.462 Unknown [id number] 2.16.840.1.931655.3.579.2.462 Unknown [id number] 2.16.840.1.578560.3.579.2.462 Unknown [id number] 2.16.840.1.935277.3.579.2.462 Unknown [id number] 2.16.840.1.268210.3.579.2.462 Unknown [id number] 2.16.840.1.963748.3.579.2.462 Unknown [id number] 2.16.840.1.126144.3.579.2.462 Unknown [id number] 2.16.840.1.032399.3.579.2.462 Unknown [id number] 2.16.840.1.636960.3.579.2.462 Unknown [id number] 2.16.840.1.045936.3.579.2.462 Unknown [id number] 2.16.840.1.848786.3.579.2.462 Unknown [id number] 2.16.840.1.532070.3.579.2.462 Social History Date Type Detail Facility Start: 08-13-2022 End: 01-03-2025 Tobacco smoking status SCIS Never smoked tobacco [facility] Work Phone: Start: 07-18-2022 End: 05-30-2024 Alcohol intake Current drinker of alcohol (finding) [facility] Start: 07-22-2018 History SDOH Alcohol Comment Rarely [facility] Start: 07-05-2020 History SDOH Social Connections Phone 5 [facility] Start: 07-05-2020 History SDOH Social Connections Get Together 2 [facility] Start: 07-05-2020 History SDOH Social Connections [facility] Start: 07-05-2020 History SDOH Social Connections Membership 1 [facility] Start: 07-05-2020 History SDOH Social Connections Living 7 [facility] Start: 07-05-2020 History SDOH Physical Activity DPW 6 [facility] Start: 07-05-2020 History SDOH Physical Activity MPS 15 [facility] Start: 07-05-2020 Education 17 [facility] Start: 1995 Sex Assigned At Female [facility] Start: 06-29-2022 End: 07-09-2022 Exposure to SARS-CoV-2 (event) Not sure [facility] Start: 08-13-2022 Tobacco use and exposure Smokeless tobacco non-user [facility] Start: 07-05-2020 End: 05-30-2024 History of Social function [facility] Start: 07-05-2020 End: 05-30-2024 Social connection and isolation panel [facility] Do you belong to any clubs or organizations such as spiritism groups, unions, fraternal or athletic groups, or school groups? Yes [facility] Are you now , , , , never or living with a partner? Never [facility] How hard is it for y ou to pay for the very basics like food, housing, medical care, and heating Not hard at all [facility] Do you feel stress - tense, restless, nervous, or anxious, or unable to sleep at night because your mind is troubled all the time - these days [OSQ] Only a little [facility] (I/We) worried wheth er (my/our) food would run out before (I/we) got money to buy more. Never true [facility] Start: 07-08-2021 Gender identity Identifies as female gender (finding) [facility] Start: 07-08-2021 Sexual orientation Heterosexual (finding) [facility] Start: 02-15-2025 End: 02-23-2025 Sex Female (finding) [facility] Clinical Notes 07-18-2022 to 08-11-2025 Note Date & Type Note Facility 08-11-2025 Progress note [facility] 08-03-2025 Progress note [facility] 08-03-2025 Progress note Note Date/Time August 03, 2025 3:36pm [facility] [address], [address] [place] [address] OFFICE VISIT Date of Service: 08/03/25 MR#: [id number] Acct: [id number] Name: WENDIE VELEZ Rep #: [id number] : 1995 Provider: FELICE Cui Age/Sex: 29/F [place] [facility] Status: Signed Intake Vital Signs 06/05/25 14:21 07/25/25 13:35 08/03/25 15:03 Height 5 ft 7 in 5 ft 7 in 5 ft 7 in Weight: 206 lb 9 oz BMI 32.3 BP 137/84 H Intake Visit Reasons: 37wk4d ob Chief Complaint: 37wk OB Medical Planner Required: No Is patient in pain?: No [...] History History of colposcopy H/O sinus surgery [place] teeth extracted History of tonsillectomy Family History [...] house 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 [place] appropriate handout given. 08/03/25 1534 <Electronically signed by Monika goldberg CNM> Date _ Monika Cui CNM Cosignyolande Signature: Date (if applicable) CC: ~ [facility] Work Phone: 1(158) 783-348808-26-2025 [facility] [address] [place] [address], [address] [place] [id number] OFFICE VISIT Date of Service: 07/25/25 MR#: [id number] Acct: [id number] Name: WENDIE VELEZ Rep #: [id number] : 1995 Provider: URSULA Tanner Age/Sex: 29/F [place] [facility] Status: Signed Intake Vital Signs 07/20/25 14:04 07/25/25 13:35 Height 5 ft 7 in 5 ft 7 in Weight: 206 lb 2 oz BMI 32.3 BP 120/82 H Intake Visit Reasons: 36wk2d ob Chief Complaint: 36 Week OB Medical Planner Required: No Is patient in pain?: No [...] History History of colposcopy H/O sinus surgery [place] teeth extracted History of tonsillectomy Family History [...] house 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 Jorge hardy Denies concerns. [facility] 06/05/25 -?-?-?-?-?-?-?-?--?-?-?-?- 29w 1d 202 lb 4 [...] tub use, Seat Belt use, Childbirth [facility], Travel, Indications for Ultrasound and Screening [...] care and follow up. 07/25/25 1352 s TEXTILE KNITTER TEXTILE KNITTER-C> Date _ Jasmine Tanner TEXTILE KNITTER TEXTILE KNITTER-C Cosigner Signature: Date (if applicable) CC: ~ [facility]08-21-2025 [facility] [address] [place] [address], [address] [place] [address] OFFICE VISIT Date of Service: 07/20/25 MR#: [id number] Acct: [id number] Name: WENDIE VELEZ Rep #: [id number] : 1995 Provider: Dr. 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 Jorge hardy Denies concerns. [facility] 06/05/25 -?-?-?-?-?-?-?-?-?-?-?-?- 29w 1d 202 lb 4 [...] and Symptoms of Preeclampsia, Feeding No , [place] Education and Family Medical Leave or Disability [...] POC Urinalysis 2 Dip (Clinic) Today 07/20/25 1549 <Electronically signed by Tanisha tobias MD> Date _ Tanisha Pena MD [facility] Signature: Date (if applicable) CC: ~ [facility] Work Phone: 1(544) 579-543308-05-2025 [facility] [address] [place] [address], [address] [place] [id number] OFFICE VISIT Date of Service: 07/04/25 MR#: [id number] Acct: [id number] Name: WENDIE VELEZ Rep #: [id number] : 1995 Provider: Dr. 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: No pets and [...] hour daily frequency: daily duration: 45-60 minutes/day rajat/oriental orthodox: Jain seatbelt use: always do you feel safe [...] Symptoms of Preeclampsia, Infant Feeding No , [place] Education and Family Medical Leave or Disability [...] Velascoignyolande Signature: Date (if applicable) CC: ~ [facility]08-05-2025 Progress note Author Joie Crawford [facility] Note Date/Time July 04, 2025 3:1 6pm [facility] [address] [place] [address], [address] [place] [address] OFFICE VISIT Date of Service: 07/04/25 MR#: [id number] Acct: [id number] Name: WENDIE VELEZ Rep #: [id number] : 1995 Provider: Dr. 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 Satn bess. Denies concerns 05/10/25 -?-?-?-?-?-?-?-?-?-?-?-?- 25w 3d [...] Price DO> Date _ [facility] Signature: Date (if applicable) CC: ~ [facility] Work Phone: 1(657) 691-513107-21-2025 [facility] [address] [place] [address], [address] [place] [address] OFFICE VISIT Date of Service: 06/19/25 MR#: [id number] Acct: [id number] Name: WENDIE VELEZ Rep #: [id number] : 1995 Provider: FELICE Cui Age/Sex: 29/F Location[place] [facility] [place]: Signed Intake Vital Signs 04/11/25 10:10 06/05/25 14:21 06/19/25 08:49 Height 5 ft 7 in 5 ft 7 in 5 ft 7 in Weight: 202 lb 6 oz BMI 31.6 BP 117/76 Intake Visit Reasons: 30 WK OB Chief Complaint: 30wk OB Medical Planner Required: No Is patient in pain?: No [...] History History of colposcopy H/O sinus surgery [place] teeth extracted History of tonsillectomy Family History [...] house 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 AFLREDITO changed. NIPT ordered. 02/17/25 -?-?-?-?-?-?-?-?-?-?-?-?- 13w 5d [...] Performing Provider: Monika Cui CNM Performing Location: [facility] Administered by: Clarissa Crawley on 06/19/25 09:03 Dose Route Admin Location Dispensed Lot Number Expiration Date NDC Extrusion Utility Worker 0.5 mL IM Left Deltoid 0.5 mL [id number] 05/29/27 25664-077-21 SANOF [employer]-PASTEUR VIS Given Date VIS Provided [...] Barrera Signature: Date (if applicable) CC: ~ [facility]07-07-2025 [facility] [address] [place] [address], [address] [place] [address] OFFICE VISIT Date of Service: 06/05/25 MR#: [id number] Acct: [id number] Name: WENDIE VELEZ Rep #: [id number] : 1995 Provider: FELICE Cui Age/Sex: 29/F [place] [facility] [place]: Signed Intake Vital Signs 04/11/25 10:10 05/10/25 11:31 06/05/25 14:21 Height 5 ft 7 in 5 ft 7 in 5 ft 7 in Weight: 202 lb 4 oz BMI 31.6 BP 117/79 Intake Visit Reasons: 28wk ob/glucose Chief Complaint: 28wk OB Medical Planner Required: No Is patient in pain?: No [...] History History of colposcopy H/O sinus surgery [place] teeth extracted History of tonsillectomy Family History [...] house 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: No pets and [...] hour daily frequency: daily duration: 45-60 minutes/day rajat/oriental orthodox: Jain seatbelt use: always do you feel safe [...] Symptoms of Preeclampsia, Infant Feeding No , [place] Education and Family Medical Leave or Disability [...] Cosigner Signature: Date (if applicable) CC: ~ [facility]07-07-2025 Progress note Author Monika Cui [facility] Services Note Date/Time June 05, 2025 3:04p [facility] [address], [address] [place] [address] OFFICE VISIT Date of Service: 06/05/25 MR#: [id number] Acct: [id number] Name: WENDIE VELEZ Rep #: [id number] : 1995 Provider: FELICE Cui Age/Sex: 29/F [place] [facility] [place]: Signed Intake Vital Signs 04/11/25 10:10 05/10/25 11:31 06/05/25 14:21 Height 5 ft 7 in 5 ft 7 in 5 ft 7 in Weight: 202 lb 4 oz BMI 31.6 BP 117/79 Intake Visit Reasons: 28wk ob/glucose Chief Complaint: 28wk OB Medical Planner Required: No Is patient in pain?: No [...] History History of colposcopy H/O sinus surgery [place] teeth extracted History of tonsillectomy Family History [...] house 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: No pets and [...] hour daily frequency: daily duration: 45-60 minutes/day rajat/oriental orthodox: Jain seatbelt use: always do you feel safe [...] fallen in the past year?: No 06/05/25 2721 <Electronically signed by Monika goldberg CNM> Date _ Monika Cui CNM Cosigner Signature: Date (if applicable) CC: ~ [facility] Work Phone: 1(778) 735-456006-11-2025 Evaluation note* Diagnosis Onset Date Resolution Status [...] normal first acute August 11, 2025 10:56am [facility] Work Phone: 1(638) 813-748606-11-2025 Progress [facility] [address] [place] [address], [address] [place] [address] OFFICE VISIT Date of Service: 05/10/25 MR#: [id number] Acct: [id number] Name: WENDIE VELEZ Rep #: [id number] : 1995 Provider: URSULA Tanner Age/Sex: 29/F [place] [facility] [place]: Signed Intake Vital Signs 04/11/25 10:10 05/10/25 11:31 Height 5 ft 7 in 5 ft 7 in Weight: 199 lb 2 oz BMI 31.1 BP 116/68 Intake Visit Reasons: 24 WK OB Chief Complaint: 24 Week OB Medical Planner Required: No Is patient in pain?: No [...] History History of colposcopy H/O sinus surgery [place] teeth extracted History of tonsillectomy Family History [...] house 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 05/10/25 1154 s TEXTILE KNITTER TEXTILE KNITTER-C> Date _ Jasmine Tanner TEXTILE KNITTER TEXTILE KNITTER-C Cosigner Signature: Date (if applicable) CC: ~ [facility]05-13-2025 Evaluation note* Diagnosis Onset Date [...] of normal first acute July 20 1:56pm [facility] Work Phone: [phone]) [phone] Evaluation note* Diagnosis Onset Date Resolution Status [...] of normal first acute July 25 1:34pm [facility] Work Phone: 1([phone]) [phone] Evaluation note* Diagnosis Onset Date Resolution Status [...] first acute August 03, 2 025 3:00pm [facility] Work Phone: 1([phone]) 973-160104-17-2025 Evaluation note* Diagnosis Onset Date Resolution Status [...] normal first acute June 19, 2025 8:46am [facility] Work Phone: 1([phone]) 693-723404-17-2025 Evaluation note* Diagnosis Onset Date Resolution Status [...] normal first acute July 04, 2025 2:42pm [facility] Work Phone: [phone] Evaluation note* Diagnosis Onset Date Resolution Status [...] first acute June 05, 2025 2 :11pm [facility] Work Phone: [phone] Evaluation note* Diagnosis Onset Date Resolution Status Admit Date acute January 13, 2025 12:54pm Supervision of normal first acute January 13, 2 025 12:54pm [facility] Work Phone: [phone]) [phone] Evaluation note* Diagnosis Onset Date Resolution Status Admit Date acute January 13, 2025 12:54pm Supervision of normal first acute January 13, 2 025 12:54pm acute February 17 9:17am Rh negative status during acute February 17, 2025 9:17am Supervision of normal first acute February 17, 2025 9:17am [facility] Work Phone: [phone] 145-321302-14-2025 Evaluation note* Diagnosis Onset Date Resolution Status [...] first acute April 11, 2025 1 0:07am [facility] Work Phone: 1([phone]) 935-976502-14-2025 Evaluation note* Diagnosis Onset Date Resolution Status [...] normal first acute May 10, 2025 11:28am [facility] Work Phone: [phone]) [phone] Instructions* Patient Instructions* Carol Shelby APRN.GAS COMBUSTION ENGINEER - 05/30/2024 8:07 AM EDT Preconception: vitamin [...] not toxic to sperm. documented [facility]24 NoteHNO ID: [id number] Author: CAROL SHELBY APRN.CNP Service: ? Author Type: Nurse Practitioner Type: Progress Notes Filed: 05/30/2024 08:25 Note Text: Wendie is a 28 year old who presents for an annual gynecologic exam without complaints. Menses: cycles every 28-30 days and 5 days of flow. Contraception:none, not preventing but not trying yet HPV vaccine: Yes Last Pap: 06/2022 ASCUS HPV positive [place] 08/13/2022 benign History of abnormal pap: Yes [...] L0 SAB0 IAB0 Ectopic0 Multiple0 Live Births0 Data Entry Technician History LMP: 05/17/2024, Having periods Age at Menarche: Age at First : Age at Menopause: Data Entry Technician History Comments: Sexual Activity: Yes; Male Contraception: [...] external genitalia normal, normal Bartholin's glands, urethra, [place]'s glands, no vulvar lesions, no cervical lesions, [...] year or sooner as needed Carol Shelby APRN.[facility]07-01-2024 History of Present illness Narrative* Carol Shelby APRN.GAS COMBUSTION ENGINEER - 05/30/2024 7:54 AM EDT Wendie is a 28 year old who presents for an annual gynecologic exam without complaints. Menses: cycles every 28-30 days and 5 days of flow. Contraception:none, not preventing but not trying yet HPV vaccine: Yes Last Pap: 06/2022 ASCUS HPV positive [place] 08/13/2022 benign History of abnormal pap: Yes [...] L0 SAB0 IAB0 Ectopic0 Multiple0 Live Births0 Data Entry Technician History LMP: 05/17/2024, Having periods Age at Menarche: Age at First : Age at Menopause: Data Entry Technician History Comments: Sexual Activity: Yes; Male Contraception: [...] external genitalia normal, normal Bartholin's glands, urethra, [place]'s glands, no vulvar lesions, no cervical lesions, [...] needed Carol Shelby APRN.MARS documented in this encounterMari[facility]06-21-2024 NoteHNO ID: [id number] Author: JAMES DILL APRN.MARS Service: ? Author [...] history is provided by the patient. No freelance interpreter/translator was used. Animal Bite Review of Systems [...] (FLONASE) 50 mcg/actuation nasal spray Use 1 Leigh in each nostril twice daily. (Patient not [...] okay with this care plan. James Dill [facility] History of Present illness Narrative* James Dill APRN.GAS COMBUSTION ENGINEER - 05/20/2024 10:08 AM EDT Images from [...] history is provided by the patient. No freelance interpreter/translator was used. Animal Bite Review of Systems [...] (FLONASE) 50 mcg/actuation nasal spray Use 1 Leigh in each nostril twice daily. (Patient not [...] plan. James Dill APRN.MARS documented in this encounterM[facility]09-14-2022 History of Present illness Narrative* Hannah Benz [...] patient. Hannah Benz DO documented in this encounterMarietta [facility]08-22-2022 Miscellaneous Notes* Telephone Encounter - Sarah Duran [...] ROXANA WARD Pharmacy Information Pharmacy Address Telephone [place] [phone] * Telephone Encounter - Roxana Ward APRN.CNP - 07/21/2022 8:40 AM EDT BV positive. To treat with Flagyl 500mg PO BID for 7 days. 1) No alcohol during treatment and for 24 hours after last dose. 2) No intercourse during treatment. 3) Probiotic by mouth once daily for 30 days or as needed. + Yeast, Diflucan sent. Roxana Ward APRN.CNP documented in this encounterMarietta [facility]08-19-2022 Instructions* Patient Instructions* Carol Shelby APRN.CNP - [...] avoid scratching at night. documented in this encounterMarietta [facility] Clinic08-19-2022 History of Present illness Narrative* Carol Shelby APRN.CNP - 07/18/2022 7:57 AM EDT patient declined magnetic healer Wendie is a 26 year old who [...] L0 SAB0 IAB0 Ectopic0 Multiple0 Live Births0 Data Entry Technician History LMP: 06/12/2021 (Exact Date), Having periods Age at Menarche: Age at First : Age at Menopause: Data Entry Technician History Comments: Sexual Activity: Yes; Male Contraception: [...] external genitalia normal, normal Bartholin's glands, urethra, [place]'s glands, no vulvar lesions, no cervical lesions, [...] needed Carol Shelby APRN.MARS [facility]* Diagnosis Encounter for gynecological examination with abnormal finding- Primary Routine gynecological examination Vaginal discharge Leukorrhea, not specified as infective Surveillance for control, oral contraceptives Surveillance of previously prescribed contraceptive pill Encounter for Papanicolaou smear for cervical cancer screening documented in [facility] encounter [facility]* Diagnosis ASCUS with positive high risk HPV cervical- Primary Cervical high risk human papillomavirus (HPV) DNA test positive documented in [facility] note* Diagnosis Dog bite, initial encounter- Primary Puncture wound Open wound(s) (multiple) of unspecified site(s), without mention of complication [facility]* Diagnosis Encounter for gynecological examination (general) (routine) without abnormal findings- Primary Papanicolaou smear of cervix with atypical squamous cells of undetermined significance (ASC-US) Screening for cervical cancer Screening for malignant neoplasm of the cervix documented in this encounter [facility] ClinicProgress note Author Jasmine Tanner [facility] Note Date/Time May 10, 2025 11:5 4am [facility] [address], [address] [place] [address] OFFICE VISIT Date of Service: 05/10/25 MR#: [id number] Acct: [id number] Name: WENDIE VELEZ Rep #: [id number] : 1995 Provider: URSULA Tanner Age/Sex: 29/F [place] [facility] [place]: Signed Intake Vital Signs 04/11/25 10:10 05/10/25 11:31 Height 5 ft 7 in 5 ft 7 in Weight: 199 lb 2 oz BMI 31.1 BP 116/68 Intake Visit Reasons: 24 WK OB Chief Complaint: 24 Week OB Medical Planner Required: No Is patient in pain?: No [...] History History of colposcopy H/O sinus surgery [place] teeth extracted History of tonsillectomy Family History [...] house 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: No pets and [...] hour daily frequency: daily duration: 45-60 minutes/day rajat/oriental orthodox: Jain seatbelt use: always do you feel safe [...] Symptoms of Preeclampsia, Infant Feeding Yes , [place] Education and Family Medical Leave or Disability [...] 05/10/25 1154 <Electronically signed by Jasmine goldberg TEXTILE KNITTER TEXTILE KNITTER-C> Date _ Jasmine Tanner TEXTILE KNITTER TEXTILE KNITTER-C Cosigner Signature: Date (if applicable) CC: ~ [facility] Work Phone: Progress note Author Monika Cui [facility] Note Date/Time June 19, 2025 9:19 am [facility] [address] [place] [address], [address] [place] [address] OFFICE VISIT Date of Service: 06/19/25 MR#: [id number] Acct: [id number] Name: WENDIE VELEZ Rep #: [id number] : 1995 Provider: FELICE Cui Age/Sex: 29/F [place] [facility] [place]: Signed Intake Vital Signs 04/11/25 10:10 06/05/25 14:21 06/19/25 08:49 Height 5 ft 7 in 5 ft 7 in 5 ft 7 in Weight: 202 lb 6 oz BMI 31.6 BP 117/76 Intake Visit Reasons: 30 WK OB Chief Complaint: 30wk OB Medical Planner Required: No Is patient in pain?: No [...] History History of colposcopy H/O sinus surgery [place] teeth extracted History of tonsillectomy Family History [...] house 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 Jorge hardy Denies concerns. [facility] 06/05/25 -?-?-?-?-?-?-?-?-?-?-?-?- 29w 1d 202 lb 4 [...] Symptoms of Preeclampsia, Infant Feeding No , [place] Education and Family Medical Leave or Disability [...] Performing Provider: Monika Cui CNM Performing Location: [facility] Administered by: Clarissa Crawley on 06/19/25 09:03 Dose Route Admin Location Dispensed Lot Number Expiration Date NDC Extrusion Utility Worker 0.5 mL IM Left Deltoid 0.5 mL [id number] 05/29/27 44264-052-47 SANOF I-PASTEUR VIS Given Date VIS Provided [...] Cosigner Signature: Date (if applicable) CC: ~ [facility] Work Phone: Progress note Author Jasmine Kwoktings [facility] Note Date/Time July 25, 2025 1: 52pm [facility] [address], [address] [place] [address] OFFICE VISIT Date of Service: 07/25/25 MR#: [id number] Acct: [id number] Name: WENDIE VELEZ Rep #: [id number] : 1995 Provider: URSULA Tanner Age/Sex: 29/F [place] [facility] [place]: Signed Intake Vital Signs 07/20/25 14:04 07/25/25 13:35 Height 5 ft 7 in 5 ft 7 in Weight: 206 lb 2 oz BMI 32.3 BP 120/82 H Intake Visit Reasons: 36wk2d ob Chief Complaint: 36 Week OB Medical Planner Required: No Is patient in pain?: No [...] History History of colposcopy H/O sinus surgery [place] teeth extracted History of tonsillectomy Family History [...] house 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 Jorge hardy Denies concerns. [facility] 06/05/25 -?-?-?-?-?-?-?-?--?-?-?-?- 29w 1d 202 lb 4 [...] Continue routine care and follow up. 07/25/25 5242 <Electronically signed by Jasmine goldberg TEXTILE KNITTER TEXTILE KNITTER-C> Date _ Jasmine Tanner TEXTILE KNITTER TEXTILE KNITTER-C Cosigner Signature: Date (if applicable) CC: ~ [facility] Work Phone: Progress note Author Tanisha Pena [facility] Services Note Date/Time August 11, 2025 11:34am [facility] [address] [place] [address], [address] [place] [address] OFFICE VISIT Date of Service: 08/11/25 MR#: [id number] Acct: [id number] Name: WENDIE VELEZ Rep #: [id number] : 1995 Provider: Dr. 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 Jorge hardy Denies concerns. [facility] 06/05/25 -?-?-?-?-?-?-?-?-?-?-?-?- 29w 1d 202 lb 4 [...] Symptoms of Preeclampsia, Infant Feeding No , [place] Education and Family Medical Leave or Disability [...] Cosigner Signature: Date (if applicable) CC: ~ [facility] Work Phone: Reason for referral (narrative)* Outpatient Procedure (Routine) - Pending Review Specialty Diagnoses / Procedures Referred By Castro ramirez Ref[facility] Diagnoses ASCUS with positive high risk HPV cervical Procedures COLPOSCOPY COLPOSCOPY CERVIX BX CERVIX & ENDOCRV CURRHannah Qureshi MD [address] [place] [address] [facility] [address] [place] [address] Referral ID Status Reason Start Date Expiration Date Visits Requested Visits Authorized [id number] Pending Review Auto-Generat ed Referral 08/13/2022 08/13/2023 1 1 [facility] for referral (narrative)No reason for referral information availableWSumma Health Work Phone: Summary Purpose Family History No [...] 2025 12:54pm Supervision of normal first Fe [facility] 2024 12:54pm Chief Complaint Admit Date NOB LMP 11/19January 13, 2025 12:54pm 12wk OB February 17, 2025 9:1 7am Reason for Visit Admit Date January 13, 2025 12:54pm Supervision of normal first Fe [facility] 2024 12:54pm February 17, 2025 9:1 7am Rh negative status during [facility] 2024 9:17am Supervision of normal first [facility] 2024 9:17am Chief Complaint Admit Date NOB LMP 11/19January 13, 2025 12:54pm 12wk OB February 17, 2025 9:1 7am 16wk ob March 16, 2025 9:3 5am 20wk ob April 11, 2025 10:07 am Reason for Visit Admit Date January 13, 2025 12:54pm Supervision of normal first Fe [facility] 2024 12:54pm February 17, 2025 9:1 7am Rh negative status during [place] 2024 9:17am Supervision of normal first [facility] 2024 9:17am March 16, 2025 [...] 2024 9:17am Supervision of normal first [facility] 2024 9:17am March 16, 2025 [...] 2025 11:28am Supervision of normal first [facility] 2024 11:28am June 05, 2025 2:11p m [...] or prosecute any alcohol or drug abuse patient.[facility] ClinicIn the event this information is protected by the Federal Confidentiality of Alcohol and Drug Abuse Patient Records regulations: The Federal rules restrict any use of the information to criminally investigate or prosecute any alcohol or drug abuse patient.[facility] ClinicIn the event this information is protected by the Federal Confidentiality of Alcohol and Drug Abuse Patient Records regulations: The Federal rules restrict any use of the information to criminally investigate or prosecute any alcohol or drug abuse patient.[facility] ClinicIn the event this information is protected by the Federal Confidentiality of Alcohol and Drug Abuse Patient Records regulations: The Federal rules restrict any use of the information to criminally investigate or prosecute any alcohol or drug abuse patient.[facility] ClinicIn the event this information is protected by the Federal Confidentiality of Alcohol and Drug Abuse Patient Records regulations: The Federal rules restrict any use of the information to criminally investigate or prosecute any alcohol or drug abuse patient.[facility] Care Teams (unrecognized sec tion and content) Program Checker Relationship Specialty Start Date End Date Laura Marcus MD PCP - General Family Practice 12/28/12 Program Checker Relationship Specialty Start Date End Date Laura Marcus MD PCP - General Family Practice 12/28/12 Program Checker Relationship Specialty Start Date End Date Laura Marcus MD PCP - General Family Practice 12/28/12 Program Checker Relationship Specialty Start Date End Date Laura Marcus MD PCP - General Family Medicine 12/28/12 Program Checker Relationship Specialty Start Date End Date Laura [...] 2025 End: April 11, 2025 Jasmine Tanner TEXTILE KNITTER, TEXTILE KNITTER-C Attending Provider Active Start: April 11, 2025 End: April 11, 2025 Team Status: Inactive Member Role Status Dates Dr. Laura Marcus MD Primary Care Provider Active Start: May 10, 2025 End: May 10, 2025 Dr. Laura Marcus MD Referring Provider Active Start: May 10, 2025 End: May 10, 2025 Jasmine Tanner TEXTILE KNITTER, TEXTILE KNITTER-C Attending Provider Active Start: May 10, 2025 [...] 2025 End: April 11, 2025 Jasmine Tanner TEXTILE KNITTER, TEXTILE KNITTER-C Attending Provider Active Start: April 11, 2025 End: April 11, 2025 Team Status: Inactive Member Role/Relationship Status Dates Dr. Laura Marcus MD Primary Care Provider Active Start: May 10, 2025 End: May 10, 2025 Dr. Laura Marcus MD Referring Provider Active Start: May 10, 2025 End: May 10, 2025 Jasmine Tanner TEXTILE KNITTER, TEXTILE KNITTER-C Attending Provider Active Start: May 10, 2025 [...] Active Start: June 05, 2025 Jasmine Tanner TEXTILE KNITTER, TEXTILE KNITTER-C Attending Provider Active Start: June 05, 2025 Team Status: Active Member Role/Relationship Status Dates No Primary Care Physician Primary Care Provider Active Team Status: Inactive Member Role/Relationship Status Dates Dr. Laura Marcus MD Primary Care Provider Active Start: June 05, 2025 End: June 05, 2025 Jasmine Tanner TEXTILE KNITTER, TEXTILE KNITTER-C Attending Provider Active Start: June 05, 2025 [...] 2025 End: April 11, 2025 Jasmine Tanner TEXTILE KNITTER, TEXTILE KNITTER-C Attending Provider Active Start: April 11, 2025 End: April 11, 2025 Team Status: Inactive Member Role/Relationship Status Dates Dr. Laura Marcus MD Primary Care Provider Active Start: May 10, 2025 End: May 10, 2025 Dr. Laura Marcus MD Referring Provider Active Start: May 10, 2025 End: May 10, 2025 Jasmine Tanner TEXTILE KNITTER, TEXTILE KNITTER-C Attending Provider Active Start: May 10, 2025 [...] 2025 End: June 05, 2025 Jasmine Tanner TEXTILE KNITTER, TEXTILE KNITTER-C Attending Provider Active Start: June 05, 2025 End: June 05, 2025 Team Status: Active Member Role/Relationship Status Dates Jasmine Tanner TEXTILE KNITTER, TEXTILE KNITTER-C Attending Provider Active Start: June 15, 2025 Jasmine Tanner TEXTILE KNITTER, TEXTILE KNITTER-C Referring Provider Active Start: June 15, 2025 [...] Inactive Member Role/Relationship Status Dates Jasmine Tanner TEXTILE KNITTER, TEXTILE KNITTER-C Attending Provider Active Start: June 15, 2025 End: June 15, 2025 Jasmine Tanner TEXTILE KNITTER, TEXTILE KNITTER-C Referring Provider Active Start: June 15, 2025 [...] 2025 End: April 11, 2025 Jasmine Tanner TEXTILE KNITTER, TEXTILE KNITTER-C Attending Provider Active Start: April 11, 2025 End: April 11, 2025 Team Status: Inactive Member Role/Relationship Status Dates Dr. Laura Marcus MD Primary Care Provider Active Start: May 10, 2025 End: May 10, 2025 Dr. Laura Marcus MD Referring Provider Active Start: May 10, 2025 End: May 10, 2025 Jasmine Tanner TEXTILE KNITTER, TEXTILE KNITTER-C Attending Provider Active Start: May 10, 2025 [...] 2025 End: June 05, 2025 Jasmine Tanner TEXTILE KNITTER, TEXTILE KNITTER-C Attending Provider Active Start: June 05, 2025 End: June 05, 2025 Team Status: Inactive Member Role/Relationship Status Dates Jasmine Tanner TEXTILE KNITTER, TEXTILE KNITTER-C Attending Provider Active Start: June 15, 2025 End: June 15, 2025 Jasmine Tanner TEXTILE KNITTER, TEXTILE KNITTER-C Referring Provider Active Start: June 15, 2025 [...] 2025 End: July 25, 2025 Jasmine Tanner TEXTILE KNITTER, TEXTILE KNITTER-C Attending Provider Active Start: July 25, 2025 End: July 25, 2025 Team Status: Active Member Role/Relationship Status Dates No Primary Care Physician Primary Care Provider Active Start: July 25, 2025 Jasmine Tanner TEXTILE KNITTER, TEXTILE KNITTER-C Attending Provider Active Start: July 25, 2025 [...] 2025 End: July 25, 2025 Jasmine Tanner TEXTILE KNITTER, TEXTILE KNITTER-C Attending Provider Active Start: July 25, 2025 End: July 25, 2025 Team Status: Inactive Member Role/Relationship Status Dates Dr. Laura Marcus MD Primary Care Provider Active Start: May 10, 2025 End: May 10, 2025 Dr. Laura Marcus MD Referring Provider Active Start: May 10, 2025 End: May 10, 2025 Jasmine Tanner TEXTILE KNITTER, TEXTILE KNITTER-C Attending Provider Active Start: May 10, 2025 [...] 2025 End: June 05, 2025 Jasmine Tanner TEXTILE KNITTER, TEXTILE KNITTER-C Attending Provider Active Start: June 05, 2025 End: June 05, 2025 Team Status: Inactive Member Role/Relationship Status Dates Jasmine Tanner TEXTILE KNITTER, TEXTILE KNITTER-C Attending Provider Active Start: June 15, 2025 End: June 15, 2025 Jasmine Tanner TEXTILE KNITTER, TEXTILE KNITTER-C Referring Provider Active Start: June 15, 2025 [...] End: July 25, 2025 Jasmine Tanner NP, TEXTILE KNITTER-C Attending Provider Active Start: July 25, 2025 End: July 25, 2025 Team Status: Inactive Member Role/Relationship Status Dates No Primary Care Physician Primary Care Provider Active Start: July 25, 2025 End: July 25, 2025 Jasmine Tanner NP TEXTILE KNITTER-C Attending Provider Active Start: July 25, 2025 [...] By Castro ramirez Referred To Contact [facility] Diagnoses ASCUS with positive high risk HPV cervical Procedures COLPOSCOPY COLPOSCOPY CERVIX BX CERVIX & ENDOCRV Carol Ling, SENIOR UNIX ADMINISTRATOR.GAS COMBUSTION ENGINEER [address] [place] [address] [facility] [address] [place] [address] Referral ID Status Reason Start Date Expiration Date V isits Requested Visits Authorized [id number] Closed Auto-Generate d Referral 07/31/2022 07/31/2023 1 1 Reason Comments Animal Bite Dog bite on right che nd this morning Reason Comments Yearly Exam INFORMATION SOURCE (unrecogn ized section and content) DATE CREATED AUTHOR 06/17/2024 [facility] DATE CREATED AUTHOR AUTHOR'S ORGANIZ ATION 03/29/2025 [facility] DATE CREATED AUTHOR AUTHOR'S ORGANIZ ATION 08/20/2025 [facility] Goals (unrecognized section and content) Goals may [...] BE BASED ON THE PRIMARY CLINICAL RECORDS. [facility]. provides no warranty or guarantee of the accuracy or completeness of information in this document.
[2025-08-24 20:16] VITALS: BP 139/91; PULSE 64; RESP 16; TEMP 36.6
[2025-08-24 20:17] VITALS: PULSE 82; O2SAT 98
[2025-08-24 20:46] LABS: Syphilis Antibodies Nonreactive (Nonreactive)
--- NOTE | 2025-08-24 21:03 | HP.PCM.OB_ITS ---
HPI - General General Date of Admission: 08/24/25 HPI Narrative MARIYA VELEZ, is a 29 y/o @ 40 weeks 4 days who presents to L&D for IOL due to oligohydramnios. She is closed and the plan is for cytotec tonight. Her has been overall unremarkable. Maternal Data Information ALFREDITO Calculator Estimated Delivery Date Method Current WG Current Estimate 08/20/25 Ultrasound #1 40w 4d Other Estimates 08/26/25 LMP (Certain) 39w 5d PFSH PFS Medical History (Updated 08/24/25 @ 20:02 by Ericka Crawley) Oligohydramnios History of HPV infection Hx of abnormal cervical Pap smear Home Medications Medication Instructions Recorded Last Taken Type multivitamin no.47-iron fum 27 1 cap PO DAILY PREGNANC Y 01/03/25 08/24/25 08:00 History mg-folate no.1 1 mg-dha 300 mg 1 cap capsule (PNV-DHA) Allergy/AdvReac Type Severity Reaction Status Date / Time grass pollen Allergy Intermediate Swelling Verified 08/24/25 19:43 tea tree Allergy Intermediate Swelling Verified 08/24/25 19:43 thiopental (From thiopental AdvReac Severe Other Verified 08/24/25 19:43 sodium) Family History Grandfather Cancer, Onset Age: 85 Maternal- lymphoma Grandmother Alzheimer's dementia, Onset Age: 80 Maternal Grandfather Cancer, Onset Age: 80 Paternal- skin cancer Aunt Diabetes Paternal -Type 1 Breast cancer, Onset Age: 48 Paternal- Triple negative- Not genetic Mother Family history of miscarriage 1 early miscarriage and one @ 16wk- unknown reasons Surgical History History of colposcopy H/O sinus surgery [place] teeth extracted History of tonsillectomy Social History adopted: No household members: spouse housing: house current occupational status: employed 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 current occupational exposures/hazards: No pets and animals: Yes (Cats outside- Avoiding litterbox) pets and animals: cat(s), dog(s) and horse(s) history of recent travel: Yes ([place] in November) out of state: Yes out of country: No sexually active: Yes Smoking Status: Never smoker alcohol intake: current alcohol intake frequency: holidays/special occasions only details: Not while substance use type: does not use well-balanced diet: daily or most days caffeine: No eating out: 1-3 times/week during the past year weight has: remained stable what type of physical activity do you participate in: other details: Horse back riding 1 hour daily frequency: daily duration: 45-60 minutes/day rajat/synagogue: [employer] seatbelt use: always do you feel safe at home: Yes additional social history: -[facility] 1 Elective abortions Hx Para 0 Spontaneous abortions Hx # Term Pregnancies Ectopic pregnancies Hx # Pregnancies Multiple births # of living children Visit Details Expected Delivery Route/Plan Labor Preferences- CB/BF classes: scheduled labor support person: Shar labor intervention preferences: [] pain management options preferred: limited but open to epidural cut cord/dad catch: yes : yes PP control planned: discussed discussed possible routes of delivery and associated risks: [] special requests: [] Plans Covid status: [] Flu vaccine: [] Tdap vaccine: given Rhogam: RH neg for mom and baby, NA LARC form signed: yes movement and labor precautions reviewed. Problem list reviewed and updated with the most current plan of care details and appropriate orders placed. Relevant counseling for the gestational age provided. Continue routine care and follow up unless otherwise noted in visit notes/problem list details OB Flowsheet Initial Weight: 192 lb Date - - - - - - - - - - - - - EGA Weight BP Urine Prot - - - - - - - - - - - - - Glucose FHR FuHt Pres Dilation - - - - - - - - - - - - - Effaced St Visit Note 01/13/25 - - - - - - - - - - - - - 8w 5d 192 lb 8 oz (+8 oz) 120/77 - - - - - - - - - - - - - 171 - - - - - - - - - - - - - KW- CRL not cons with dates. ALFREDITO changed. NIPT done KW- CRL not cons with dates. ALFREDITO changed. NIPT ordered. 02/17/25 - - - - - - - - - - - - - 13w 5d 191 lb 6 oz (-10 oz) 109/76 Negative - - - - - - - - - - - - - Negative 140 - - - - - - - - - - - - - SM- no vb crampi ng 03/16/25 - - - - - - - - - - - - - 17w 4d 195 lb 8 oz (+3 lb 8 oz) 115/71 - - - - - - - - - - - - - 145 - - - - - - - - - - - - - JV- no lof, vagi nal bleeding, or cramping reported. asking ely for baby's blood type. her is willing to do an RH test at next visit if needed 04/11/25 - - - - - - - - - - - - - 21w 2d 197 lb (+5 lb) 118/78 Negative - - - - - - - - - - - - - Negative 151 - - - - - - - - - - - - - MH-No VB. Stan scanlon Denies concerns 05/10/25 - - - - - - - - - - - - - 25w 3d 199 lb 2 oz (+7 lb 2 oz) 116/68 Negative - - - - - - - - - - - - - Negative 141 25 - - - - - - - - - - - - - MH-No VB. Jorge mejia. [facility] 06/05/25 - - - - - - - - - - - - - 29w 1d 202 lb 4 oz (+10 lb 4 oz) 117/79 Negative - - - - - - - - - - - - - Negative 135 28 - - - - - - - - - - - - - KW- no vb/lof/ct x. jorge fm. glucose today. tdap today. 06/19/25 - - - - - - - - - - - - - 31w 1d 202 lb 6 oz (+10 lb 6 oz) 117/76 Negative - - - - - - - - - - - - - Negative 135 31 - - - - - - - - - - - - - KW- no vb/lof/ct x. jorge fm. no concerns. 07/04/25 - - - - - - - - - - - - - 33w 2d 205 lb 4 oz (+13 lb 4 oz) 121/76 Negative - - - - - - - - - - - - - Negative 166 33 - - - - - - - - - - - - - JV- no lof, vagi nal bleeding, or dec fm. no complaints today. 07/20/25 - - - - - - - - - - - - - 35w 4d 208 lb 4 oz (+16 lb 4 oz) 126/80 - - - - - - - - - - - - - 150 35 Cephalic - - - - - - - - - - - - - Sm- no vb lof go od fm n oreuglar ctx 07/25/25 - - - - - - - - - - - - - 36w 2d 206 lb 2 oz (+14 lb 2 oz) 120/82 Negative - - - - - - - - - - - - - Negative 136 36 Cephalic 0 - - - - - - - - - - - - - 50 -2 MH-No vB, LOF or reg CTX. Good Fm. GBS 08/03/25 - - - - - - - - - - - - - 37w 4d 206 lb 9 oz (+14 lb 9 oz) 137/84 Negative - - - - - - - - - - - - - Negative 135 37 Cephalic - - - - - - - - - - - - - KW- no vb/lof/ct x. good fm. no concerns. no che/dizziness/BV 08/11/25 - - - - - - - - - - - - - 38w 5d 207 lb (+15 lb) 127/83 Trace - - - - - - - - - - - - - Negative 130 37 Cephalic 0 - - - - - - - - - - -- - - SM- no vb lof go od fm n regular ctx 08/18/25 - - - - - - - - - - - - - 39w 5d 209 lb 9 oz (+17 lb 9 oz) 127/86 - - - - - - - - - - - - - 130 39 Cephalic 0.5 - - - - - - - - - - - - - -3 KW- no v b/lof/ctx. good fm 08/24/25 - - - - - - - - - - - - - 40w 4d 211 lb 7 oz (+19 lb 7 oz) 135/88 Negative - - - - - - - - - - - - - Negative 132 0.5 - - - - - - - - - - - - - JV- no lof, vagi nal bleeding, or dec fm. JV- no lof, vaginal bleeding , or dec fm. SIGIFREDO today is 3.4 cm measured twice to confirm. recommending IOL today. ROS Constitutional Constitutional: Denies change in weight, fatigue, fever(s), headache(s), poor appetite or weakness Eyes Eyes: Denies blurry vision, change in vision, seeing flashes or spots in vision ENT HEENT: Denies dizziness, headache(s), loss taste/smell or sore throat Cardiovascular Cardiovascular: Denies chest pain, dizziness, dyspnea, irregular heart rhythm, leg edema, palpitations, rapid heart rate or vomiting Respiratory/Chest Respiratory/Chest: Denies chest tightness, cough, dyspnea or breast pain Gastrointestinal Gastrointestinal: Denies abdominal pain, anorexia, constipation, cramping, diarrhea, hemorrhoids, vomiting or weight changes Genitourinary Genitourinary: Denies dysuria, flank pain, genital lesions, genital pain, urinary frequency or urinary urgency Musculoskeletal Musculoskeletal: Denies back pain, difficulty walking, joint pain, limited range of motion, muscle cramps or numbness Integumentary Integumentary: Denies lesions or unusual bruising Neurologic Neurologic: Denies abnormal movements, abnormal speech, dizziness, numbness, seizure-like activity or syncope Psychiatric Psychiatric: Denies anxiety, behavioral changes, change in appetite, change in libido, cognitive impairment, confusion, depression, difficulty concentrating, hallucinations or suicidal thoughts Endocrine Endocrinology: Denies excessive sweating, polydipsia or polyuria Hematologic/Lymphatic Hematologic/Lymphatic: Denies easy bleeding, easy bruising or lymphadenopathy Allergic/Immunologic Allergic/Immunologic: Denies itchy eyes, lip swelling, seasonal rhinorrhea, rhinitis, throat swelling, tongue swelling, eczemia, wheezing or asthma Vital Signs Vital Signs Vital Signs: 08/24/25 20:16 08/24/25 20:16 08/24/25 20:16 Temperature Temperature Source Temporal Pulse Rate 64 Respiratory Rate Blood Pressure 139/91 H BP Systolic 139 BP Diastolic 91 Pulse Ox 08/24/25 20:16 08/24/25 20:16 08/24/25 20:17 Temperature 97.8 F Temperature Source Pulse Rate 82 Respiratory Rate 16 Blood Pressure BP Systolic BP Diastolic Pulse Ox 08/24/25 20:17 Temperature Temperature Source Pulse Rate Respiratory Rate Blood Pressure BP Systolic BP Diastolic Pulse Ox 98 Weight Weight: 212 lb 8.41 oz Body Mass Index (BMI) 33.3 Physical Exam Const alert, oriented x3, no apparent distress and healthy appearing General Appearance: cooperative; Negative for anxious HEENT normocephalic Face and Sinus: normal facial exam Eyes EOMs intact bilaterally and no scleral icterus General Eye: normal appearance of both eyes Neck full ROM and supple Lymph Lymphatic: no lymphadenopathy noted Chest Chest: abnormal inspection of the chest Resp normal respiratory effort Effort and Inspection: able to speak in complete sentences Cardio regular rate GI soft to palpation and non-tender Inspection: gravid Palpation: soft; Negative for tender external exam normal Narrative: cx is closed/thick/high vertex on ultrasound. SIGIFREDO 3.4cm Back/Spine no CVA tenderness Extremity normal to inspection, full ROM and no clubbing, cyanosis or edema General Extremity: Negative for calf tenderness or edema Skin Lesions: no lesions Rashes: no rashes Psych mental status grossly normal Labs Labs Labs: Blood Type A NEGATIVE Antibody Screen NEGATIVE Hct, (37-47) 32.3 % L Hgb, (12.0-15.0) 11.7 g/dL L Pap Smear Negative Syphilis Total Ab, (Nonreactive) Nonreactive Rubella IgG Antibody, (Nonreactive) REAC Hep Bs Antigen, (Nonreactive) Nonreactive Hepatitis C Antibody, (Nonreactive) Nonreactive Chlamydia DNA (ZORAIDA), (Negative) Negative N.gonorrhoeae DNA (ZORAIDA), (Negative) Negative HIV 1&2 Antibody, (Nonreactive) Nonreactive Glucose 1 Hr 50 gm, (70-140) 142 mg/dL H Gest Glucose Tolerance mg/dL Assessment & Plan (1) Oligohydramnios antepartum: (2) Rh negative status during : QUALIFIERS: Trimester: second trimester Qualified Code(s): O26.892 - Other specified related conditions, second trimester; Z67.91 - Unspecified blood type, Rh negative COMMENT: Fetus is RhD negative per NIPT. (3) Supervision of normal first : QUALIFIERS: Trimester: third trimester Qualified Code(s): Z34.03 - Encounter for supervision of normal first , third trimester COMMENT: PRR, , ALFREDITO 08/20/25 boy, Shar (4) : QUALIFIERS: Weeks of gestation: 40 weeks Qualified Code(s): Z3A.40 - 40 weeks gestation of COMMENT: Neg GBS. NIPT low risk. Anatomy nl. PLAN: Plan Patient presents IOL, plan management for with cytotec tonight and possibly warren bulb and pit tomorrow. Pain management: plans epidural. GBS negative. RH neg- will need cord blood at delivery and rhogam Management of any complications: none I have reviewed the [facility] and made any clinically relevant updates.
[2025-08-25] VITALS (52 sets, daily range): BP systolic 100–162; BP diastolic 51–109; PULSE 49–96; RESP 16; TEMP 35.8–37.1; O2SAT 92–100
--- NOTE | 2025-08-25 08:13 | PN_ITS ---
Progress Note patient is laying in bed comfortably. Her last dose of cytotec was in the 5:00 hour and the nurse reports that her cervix is 1 cm thick and she can feel a cephalic presentation. Patient would like to eat breakfast and shower prior to potential warren balloon placement. current tracing: FHT: 135 Moderate variability reactive no decelerations category I tracing [place]: irregular Contractions reviewed tracing abnormalities since last note: no change A/P: g1 @ 40 weeks 5 days, oligohydramnios status post 2 doses of cytotec. After she eats and showers will assess need for warren balloon vs more cytotec.
[2025-08-25] MEDS: 0.9% Normal Saline Single 100 ML IV.SOLN. INTRA-UTER (09:05)
--- NOTE | 2025-08-25 09:36 | PCM.PN.BLA ---
Progress Note patient is ready for warren balloon placement current tracing: FHT: Moderate variability reactive no decelerations category I tracing [place]: q 2-4 minutes Contractions cx 1.5/50/-1 mid position, balloon placed without difficulty and inflated with 30 cc of NS reviewed tracing abnormalities since last note: no change A/P: start pitocin when and if appropriate plan arom signing out to Dr. westbrook for further management.
[2025-08-25] MEDS: Lactated Ringers 1,000 ML 50 ML IV (09:40)
[2025-08-25] MEDS: 0.9% Saline Lock 10 ML Syringe IV ×2 (09:40→21:28)
[2025-08-25] MEDS: Oxytocin 15 Units/NS 250ml 15 UNITS/250 ML IV.SOLN 2 UNITS IV (09:42)
[2025-08-25] MEDS: fentaNYL 100 MCG/2 ML Ampul IV ×2 (11:36→13:30)
[2025-08-25] MEDS: fentaNYL-bupivacaine (epidural) 100 ML BAG EPIDURAL ×2 (15:00→19:06)
[2025-08-25] MEDS: Lactated Ringers 1,000 ML 999 ML IV (15:04)
[2025-08-25] MEDS: Lactated Ringers 1,000 ML 200 ML IV (20:32)
[2025-08-25] MEDS: Amnioinfusion- 0.9% NS 1,000 ML IV.SOLN. 1000 ML INTRA-UTER (21:28)
[2025-08-26] VITALS (27 sets, daily range): BP systolic 119–181; BP diastolic 67–123; PULSE 39–122; RESP 16; TEMP 36.7–36.9; O2SAT 84–100
[2025-08-26] MEDS: fentaNYL-bupivacaine (epidural) 100 ML BAG EPIDURAL (00:29)
[2025-08-26] MEDS: 0.9% Saline Lock 10 ML Syringe IV ×2 (00:36→02:00)
--- NOTE | 2025-08-26 01:36 | EX.PCM.OBVAG ---
Maternal Data Information ALFREDITO Calculator Estimated Delivery Date Method Current Current Estimate 08/20/25 Ultrasound #1 40w 6d Other Estimates 08/26/25 LMP (Certain) 40w 0d Vaginal Delivery Maternal Presentation Maternal Presentation: Medically Indicated Induction Type of Induction: Pitocin, James Bulb, Amniotomy and Cytotec Medical Reason for Induction: Other (Oligohydramnios) Vaginal Delivery Information Procedure Performed: Spontaneous Vaginal Delivery Surgeon/Practitioner: Олег Barber Date of Procedure: 08/26/25 Pre-Procedure Diagnosis: 40+ Week Intrauterine with Oligohydramnios Post-Procedure Diagnosis: 40+ Week Intrauterine with Oligohydramnios Type of anesthesia: Epidural Estimated Blood Loss: 250 cc Time of Delivery: :13 Findings Description of procedure: Spontaneous vaginal delivery of a viable male infant with Apgars of 7/8 from an occiput anterior presentation with clear amniotic fluid and normal three-vessel placenta. Cord around the neck x 1 tight. No episiotomy. First-degree midline laceration repaired with 3-0 rapide suture under epidural. Cord blood collected. Pediatrics present for delivery. Complications none. Delivery physician: Олег Barber MD. Presentation: Vertex Amniotic Membrane Rupture Type: Artificial Amniotic Fluid Description: Clear Placental Delivery Description: Spontaneous Placenta Disposition: [facility] Specimen collected: No Cord Vessel Description: 3 Vessels Cord Entanglement: Around neck x 1, tight Nuchal Cord Compression: With compression Infant A Gender: Male (1 minute): 7 (5 minute): 8 Post Vaginal Deli Medications given after delivery: IV Pitocin Episiotomy Description: None Laceration: Midline and 1st degree Complication Complications: No
[2025-08-26] MEDS: Oxytocin 15 Units/NS 250ml 15 UNITS/250 ML IV.SOLN 83 UNITS IV (01:53)
--- NOTE | 2025-08-26 10:53 | PCM.PN.OB ---
Subjective Subjective Patient without complaints. Breast-feeding going well. Minimal vaginal bleeding reported. Objective Data Objective Data Vital Signs: Vital Signs Temp Pulse Resp BP Pulse Ox O2 Del Method 98.1 F 70 16 119/81 H 97 Room Air 08/26/25 09:09 08/26/25 09:09 08/26/25 09:09 08/26/25 09:09 08/26/25 09:09 08/26/25 09:09 Oxygen Delivery Method Room Air Weight: 212 lb 8.41 oz Body Mass Index (BMI) 33.3 Intake & Output: Intake and Output for Last 24 Hours 08/24/25 08/25/25 08/26/25 23:59 23:59 23:59 Intake Total 2023.70 / 2023.70 1412.97 / 1412.97 Output Total 275 / 275 250 / 250 Balance 1748.70 / 1748.70 1162.97 / 1162.97 Lab / Micro Data 08/24/25 19:45 Physical Exam Narrative Afebrile, vital signs stable. Assessment & Plan (1) Spontaneous vaginal delivery: COMMENT: Doing well on day of delivery status post routine spontaneous vaginal delivery. Continuing present care. Anticipate discharge to home tomorrow.
[2025-08-27 01:18] VITALS: BP 118/80; PULSE 90; RESP 16; TEMP 36.2; O2SAT 97
[2025-08-27 07:25] VITALS: BP 120/89; PULSE 73; RESP 16; TEMP 36.3; O2SAT 100
[2025-08-27] MEDS: Senna/Docusate Sodium 1 Tablet PO (08:01)
[2025-08-27] MEDS: Prenatal Vits Tablet 1 TABLET PO (08:01)
--- NOTE | 2025-08-27 09:38 | PCM.DC.SUM ---
Providers Date of Admission: 08/24/25 Primary Care Physician: Melba Primary Care Phys Reason For Visit: LABOR Diagnosis Discharge Diagnosis (1) Spontaneous vaginal delivery: Status: Acute Code(s): O80 - Encounter for full-term uncomplicated delivery Medications at Discharge Home Medications multivitamin no.47-iron fum 27 mg-folate no.1 1 mg-dha 300 mg capsule (PNV-DHA) 1 cap PO DAILY 01/03/25 Hospital Course Summary of Care Provided Hospital Course: Patient was admitted for induction for oligohydramnios. She progressed and delivered without complication with a first-degree midline laceration. the patient did well and it was felt that she was ready for discharge on day #1. Physical Exam Narrative Minimal lochia. Afebrile, vital signs stable. Weight / BMI Weight Weight: 212 lb 8.41 oz Body Mass Index (BMI) 33.3 ABG / Lab / Microbiology Data 08/24/25 19:45 D/C Instructions Discharge Activity: May Shower and May Take a Tub Bath May resume sexual activity in: 4-6 weeks DC O2, CPAP, BIPAP Needs Home O2 Discharge instructions: No Please Follow Up With: Tanisha Arboleda MD When: 6 weeks Meaningful Use Info Meaningful Use Meaningful Use Diagnoses (Choose all that apply): None applicable Discharge Plan Admission Admit Date/Time: 08/24/25 19:19 Attending Provider: Олег Barber Primary Care Provider: Care ,Melba Primary Instructions Patient Instructions: After a Vaginal Delivery (WP) Discharge Orders/Prescriptions Prescriptions: No Action PNV-DHA 27 mg iron-1 mg -300 mg capsule 1 cap PO DAILY Referrals / Follow Up: Care Physician,Melba Primary [Primary Care Provider, Medical] Disposition Disposition (needs filled in before D/C Order can be placed): Home, Self Care
[2025-08-27 13:26] VITALS: BP 121/82; PULSE 82; RESP 16; TEMP 36.3; O2SAT 98
== END 2025-08-27 15:30 | disposition home or self-care (01) | DRG 807 ==
PROVIDERS: Admitting Provider Obstetrics & Gynecology; Referring Provider Obstetrics & Gynecology; Visit Provider Obstetrics & Gynecology
DX: O41.03X0 Oligohydramnios, third trimester, not applicable or unspecified (principal); Z37.0 Single live birth; O26.893 Other specified pregnancy related conditions, third trimester; O69.1XX0 Labor and delivery complicated by cord around neck, with compression, not applicable or unspecified; Z3A.40 40 weeks gestation of pregnancy; Z67.91 Unspecified blood type, Rh negative; O70.0 First degree perineal laceration during delivery
CPT/HCPCS: 59025; 59050; 85025; 86780; 86850; 86900; 86901; 99221; A4216; G0378; J2405

== ENCOUNTER 2025-09-19 09:03 | Emergency (ER) | payer OTHER, SELFPAY ==
[2025-09-19 09:04] VITALS: BP 136/96; PULSE 118; RESP 18; TEMP 37.1; O2SAT 100
--- NOTE | 2025-09-19 09:14 | EDS_ITS ---
HPI History of Present Illness Chief Complaint: Lower Extremity Injury Detail of Chief Complaint: Abrupt pain left mid groin region radiating around to her back. Informant: patient Onset/Context/Timing Onset: Yesterday Context: Sudden Onset Timing: Continuous Quality: Pain Location: Left side as previously documented Current Severity: Moderate Worsened by: Movement of her leg Relieved by: Nothing Associated Symptoms Associated Symptoms: Nausea, Narrative Narrative: Patient is a 29-year-old healthy female who had a normal spontaneous vaginal delivery August 24. She was discharged August 27. She has no significant past medical history. She states yesterday while sitting she developed pain mid anterior left proximal thigh/groin area that wraps around to her back. Certain movements make it worse. She does have increased urination with nausea. She denies fever, chills night sweats. She denies bowel or bladder dysfunction. She denies saddle paresthesia or anesthesia. She has no prior history of back problems. There is no history of direct or indirect trauma. She denies having similar episode. Patient denies fever, chills night sweats. Patient denies paresthesia, anesthesia or weakness of her lower extremities. Prior similar symptoms: No Recent Illness/Hospitalization: Yes (Spontaneous vaginal delivery August 24) [facility] Medical History Oligohydramnios History of HPV infection Hx of abnormal cervical Pap smear Home Medications ?Medication ?Instructions ?Recorded ?Last Taken ?Type multivitamin no.47-iron fum 27 1 cap PO DAILY PREGNANC Y 01/03/25 08/24/25 08:00 History mg-folate no.1 1 mg-dha 300 mg 1 cap capsule (PNV-DHA) hydrocodone-acetaminophen 5-325mg 1 tab PO Q6H PRN PRN Pain 3 days 09/19/25 Unknown Rx 5mg-325mg #10 TABLETS Allergy/AdvReac Type Severity Reaction Status Date / Time grass pollen Allergy Intermediate Swelling Verified 09/19/25 09:04 tea tree Allergy Intermediate Swelling Verified 09/19/25 09:04 thiopental (From thiopental AdvReac Severe Other Verified 09/19/25 09:04 sodium) Family History Grandfather Cancer, Onset Age: 85 Maternal- lymphoma Grandmother Alzheimer's dementia, Onset Age: 80 Maternal Grandfather Cancer, Onset Age: 80 Paternal- skin cancer Aunt Diabetes Paternal -Type 1 Breast cancer, Onset Age: 48 Paternal- Triple negative- Not genetic Mother Family history of miscarriage 1 early miscarriage and one @ 16wk- unknown reasons Surgical History History of colposcopy H/O sinus surgery [place] teeth extracted History of tonsillectomy Social History adopted: No household members: spouse housing: house current occupational status: employed 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 current occupational exposures/hazards: No pets and animals: Yes (Cats outside- Avoiding litterbox) pets and animals: cat(s), dog(s) and horse(s) history of recent travel: Yes ([place] in [place]) out of state: Yes out of country: No sexually active: Yes Smoking Status: Never smoker alcohol intake: current alcohol intake frequency: holidays/special occasions only details: Not while substance use type: does not use well-balanced diet: daily or most days caffeine: No eating out: 1-3 times/week during the past year weight has: remained stable what type of physical activity do you participate in: other details: Horse back riding 1 hour daily frequency: daily duration: 45-60 minutes/day rajat/pentecostal: Anabaptism seatbelt use: always do you feel safe at home: Yes additional social history: -[place]- Goes by [employer] ROS ROS ED Constitutional Constitutional ED: Denies chills, fever(s), subjective, sweats or weight loss Eyes Eyes: Denies blurry vision, change in vision or diplopia ENT ENT ED: Denies ear pain, rhinorrhea or sore throat Cardiovascular Cardiovascular: Denies chest pain or palpitations Respiratory/Chest Respiratory/Chest: Denies cough, dyspnea or dyspnea on exertion Gastrointestinal Gastrointestinal: Reports nausea; Denies abdominal pain, melena or vomiting Genitourinary Genitourinary ED: Reports urinary frequency; Denies dysuria or hematuria Musculoskeletal Musculoskeletal: Reports back pain; Denies arthralgias, myalgias or neck pain Integumentary Denies abscess, Abrasions or rash Neurologic Neurologic: Denies paresthesias or weakness Endocrine Endocrinology: Denies cold intolerance or heat intolerance Hematologic/Lymphatic Hematologic/Lymphatic: Reports systems reviewed and no addt'l complaints, except as documented EXAM Physical Exam Const Vital Signs: 09/19/25 09:04 09/19/25 11:03 09/19/25 13:00 Temperature 98.7 F Temperature Source Oral Pulse Rate 118 H 73 87 Respiratory Rate 18 16 Blood Pressure 136/96 H 100/67 Blood Pressure Mean 109 78 Pulse Ox 100 97 99 Oxygen Delivery Method Room Air Room Air Room Air Positive well nourished and well developed Constitutional Narrative: Patient is in obvious discomfort. Movement exacerbates her pain. General Appearance ED: well developed; Negative for cyanotic, diaphoretic, NAD or pallor HEENT Reports moist mucous membranes HEENT Narrative: Head is atraumatic and normocephalic. Ears are normal. Nares are patent. Eyes PERRL and EOMs intact bilaterally General Eye ED: Negative for pale conjunctiva or scleral icterus Resp normal respiratory effort and clear to auscultation bilaterally Cardio regular rhythm, S1 normal heart sound, S2 normal heart sound and no murmurs Rate: tachycardic GI normal to inspection, nondistended, normoactive bowel sounds, non-distended and no masses; Negative for non-tender or hepatosplenomegaly GI Narrative: There is tenderness left lower quadrant left inguinal area. There is no inguinal lymphadenopathy. There is no inguinal mass. There are no dermatologic lesions noted. Back/Spine no CVA tenderness Thoracic Spine / Upper Back: Negative for thoracic spinal tenderness Lumbar Spine / Lower Back: Negative for lumbar spinal tenderness Extremity normal to inspection Extremity Narrative: DP and PT pulse are palpable. Neuro oriented x3 and CN's II-XII intact bilaterally Neuro Narrative: Question of some slight decrease sensation S3 dermatome on the left. Patella and ankle reflex are 3+ and symmetric. EHL intact. Plantar dorsiflexion 5/5. Psych Mood & Affect: tearful Skin no rashes or lesions noted, no wounds and skin turgor normal General Skin Exam: elasticity normal; Negative for jaundice or pallor MDM MDM MDM Narrative Medical decision making narrative: Differential diagnosis would include musculoskeletal, possible L2 disc disease, atypical presentation for ureteral calculus. Patient was medicated with acuter [place]. Blood work is obtained assess white count and renal function UA to assess for blood. Unable to assess for ambulation or quadricep weakness. Will reassess once pain has been diminished significantly. History & Record Review Additional record(s) reviewed:: Prior outpatient record (Delivery August 24. And OB office visits authored by Dr. Hendricks and Dr. Tanisha Arboleda) Lab Data Labs: Laboratory Results - last 24 hr 09/19/25 09/19/25 09:25 09:48 WBC 8.9 RBC 4.16 L Hgb 12.3 Hct 35.8 L MCV 86.1 MCH 29.6 MCHC 34.4 RDW Std Deviation 37.8 RDW Coeff of Monalisa 12.0 Plt Count 246 MPV 9.2 Immature Gran % (Auto) 0.100 Neut % (Auto) 75.7 H Lymph % (Auto) 17.9 L Irwin % (Auto) 6.0 Eos % (Auto) 0.1 Baso % (Auto) 0.2 Absolute Neuts (auto) 6.7 Absolute Lymphs (auto) 1.59 Nucleated RBC % 0 Sodium 137 Potassium 4.1 Chloride 103 Carbon Dioxide 20.2 L Anion Gap 14 BUN 15 Creatinine 0.87 Est GFR (MDRD) Non-Af 92 BUN/Creatinine Ratio 16.8 Glucose 112 H Calcium 9.6 Urine Color Yellow Urine Clarity Sl. Cloudy Urine pH 7.0 Ur Specific [place] 1.005 Urine Protein 15 H Urine Glucose (UA) Normal Urine Ketones Negative Urine Occult Blood 25 H Urine Nitrite Negative Urine Bilirubin Negative Urine Urobilinogen Normal Ur Leukocyte Esterase 100 H Urine RBC 0 SEEN Urine WBC 0-5 SEEN Ur Squamous Epith Cells 0-5 SEEN Urine Bacteria 0 SEEN Urine Mucus 0 SEEN Radiography Diagnostic Testing: Clinical Impression(s) from Imaging Studies Lumbar Spine MRI 09/19/25 11:16 IMPRESSION: No significant abnormality is identified. Reading Location: [id number] Patient was informed there is no abnormality on the MRI to explain her pain. Suspect this is musculoskeletal in light of this. Will treat with opiate analgesia. All of her questions and her 's questions were answered. Discharge Plan Triage Chief Complaint: Lower Extremity Injury ED Provider: Mac Hutchinson Dx/Rx/DC Orders Clinical Impression: Acute left-sided low back pain, Tachycardia, Elevated blood pressure reading without diagnosis of hypertension Instructions: ED Back Pain (Acute or Chronic) Prescriptions: New hydrocodone-acetaminophen 5-325 mg tablet 1 tab PO Q6H PRN PRN (Reason: Pain) 3 Days Qty: 10 0RF No Action PNV-DHA 27 mg iron-1 mg -300 mg capsule 1 cap PO DAILY Primary Care Provider: Care Physician,No Primary Referrals: Care Physician,No Primary [Primary Care Provider, Medical] Activity Restrictions/Additional Instructions: 1. Apply ice to your low back left thigh region 6-8 times a day. 2. Follow-up with your doctor if no improvement in 3 to 5 days. Print Language: Icelandic Disposition Disposition: Home, Self Care
[2025-09-19 09:32] LABS: Hematocrit 35.8 % (37-47); Hemoglobin 12.3 g/dL (12.0-15.0); Immature Granulocytes Count 0.010 X10^3/uL (0.0-0.0); Mean Corp Hgb Conc 34.4 g/dL (32-36); Mean Corpuscular Volume 86.1 fL (81-99); Mean Platelet Vol. 9.2 fl (6.2-12.0); NRBC Flagged by Analyzer 0 % (0-5); Platelet Count 246 K/mm3 (150-450); RBC Distribution Width CV 12.0 % (11.6-14.6); RBC Distribution Width SD 37.8 fl (35.1-43.9); Red Blood Count 4.16 M/mm3 (4.2-5.4); White Blood Count 8.9 K/mm3 (4.4-11.0)
[2025-09-19 09:54] LABS: Mucous, Urine 0 SEEN /hpf (<or=2+); Red Blood Cells-Urine 0 SEEN /hpf (0-5)
[2025-09-19 10:00] LABS: Anion Gap 14 (5-15); BUN 15 mg/dL (4-19); BUN/Creat Ratio 16.8 RATIO (10-20); Calcium,Total 9.6 mg/dL (7.6-11.0); Carbon Dioxide 20.2 mmol/L (21.0-32.0); Chloride 103 mmol/L (98-108); Glucose 112 mg/dL (70-99); Potassium 4.1 mmol/L (3.3-5.1)
[2025-09-19 10:03] LABS: Color, Urine Yellow (Yellow); Glucose, Dipstick Normal (Normal); Ketone-Dipstick Negative (Negative); Leukocyte Esterase-Dipstick 100 /ul (Negative); Nitrite-Dipstick Negative (Negative); Occult Blood-Urine 25 /ul (Negative); Protein-Dipstick 15 mg/dl (Negative); Specific Gravity, Urine 1.005 (1.002-1.030); Urine Bilirubin Dipstick Negative (Negative)
[2025-09-19 10:15] LABS: Squamous Epithelial Cells - UA 0-5 SEEN /hpf (5-10)
[2025-09-19 11:03] VITALS: BP 100/67; PULSE 73; RESP 16; O2SAT 97
--- NOTE | 2025-09-19 11:16 | MRI_ITS ---
PROCEDURE: SPINE LUMBAR (ROUTINE) 09/19/2025 REASON FOR EXAM: PAIN L2-L3 DERMATOME, WEAKNESS HIP FLEXOR, ACUTE TECHNIQUE: Procedure Code: MRISPL Modality: MR Procedure: SPINE LUMBAR (ROUTINE) COMPARISON: None provided. FINDINGS: Vertebrae: Intact. No abnormal signal is seen. Alignment: No evidence of spondylolysis or spondylolisthesis. No fracture site is evident. Conus Medullaris: Unremarkable appearance, terminating at L1. L1-2: Unremarkable L2-3: Unremarkable L3-4: Unremarkable L4-5: Unremarkable L5-S1: Unremarkable. No area of spinal canal stenosis or neural foraminal narrowing is seen. Sacrum: Limited imaging shows no apparent abnormality. MRI/Spine Lumbar (Routine) IMPRESSION: No significant abnormality is identified. Reading Location: [id number]
--- NOTE | 2025-09-19 12:15 | CM.ED ---
Social work Reason for referral: no PCP Referral source: case find SW identified patient's lack of PCP and need for resources. When SW went to enter patient's room, patient had not returned from imaging. SW sat resources on chair next to patient's belongings with intent to return. Due to other situations arising, SW did not make it back to patient's room prior to patient discharging. Robyn Cochran, ANGLESMITH, APPOINTMENT SCHEDULER
[2025-09-19 13:00] VITALS: PULSE 87; O2SAT 99
[2025-09-19 13:56] VITALS: BP 134/78; PULSE 87; RESP 16; TEMP 36.5; O2SAT 99
== END 2025-09-19 13:58 | disposition home or self-care (01) ==
PROVIDERS: Emergency Provider Emergency Medicine; Visit Provider Emergency Medicine
DX: M54.50 Low back pain, unspecified (principal); R00.0 Tachycardia, unspecified; R03.0 Elevated blood-pressure reading, without diagnosis of hypertension
CPT/HCPCS: 72148; 80048; 81001; 85025; 96374; 96375; 96376; 99282; A4216

== ENCOUNTER → 2025-09-21 | Outpatient (CLI) | payer OTHER, SELFPAY | END | disposition home or self-care (01) | PROVIDERS: Visit Provider Obstetrics & Gynecology | DX: N89.8 Other specified noninflammatory disorders of vagina (principal); R50.9 Fever, unspecified; R52 Pain, unspecified | CPT/HCPCS: 87070; 87205; 87631 ==